=== PATIENT | male | born 1960 | race Caucasian/White ===

== ENCOUNTER 2019-12-10 18:56 | Emergency (ER) | payer MEDICAID, OTHER, SELFPAY ==
[~2019-12-10] VITALS: Ht 175.3 cm; Wt 100.0 kg
[2019-12-10] MEDS ORDERED: OMEP-218 PO (19:20)
[2019-12-10] MEDS ORDERED: MELO15TA28 PO (19:20)
[2019-12-10] MEDS ORDERED: NS 1,000 ML IV ONE (19:30)
[2019-12-10 19:44] LABS: BASO % 0.4 % (0.0-1.0); EOS # 0.5 10^3/uL (0.0-0.5); EOS % 5.8 % (0.0-3.0); HEMATOCRIT 44.9 % (42.0-52.0); LYMPH # 2.8 10^3/uL (1.5-5.0); LYMPH % 31.8 % (24.0-44.0); MEAN CORPUSCULAR HEMOGLOBIN 31.3 pg (27.0-33.0); MEAN CORPUSCULAR HGB CONC 33.4 g/dl (32.0-36.5); MEAN CORPUSCULAR VOLUME 93.5 fl (80.0-96.0); MONO # 0.7 10^3/uL (0.0-0.8); MONO % 7.7 % (0.0-5.0); NEUTROPHILS # 4.8 10^3/uL (1.5-8.5); NEUTROPHILS % 54.1 % (36.0-66.0); PLATELET COUNT, AUTOMATED 194 10^3/uL (150-450); WHITE BLOOD COUNT 8.9 10^3/uL (4.0-10.0)
[2019-12-10 19:57] LABS: ACETAMINOPHEN LEVEL < 2.0 UG/ML (10.0-30.0); ALBUMIN 3.5 GM/DL (3.2-5.2); ALT/SGPT 23 U/L (12-78); BILIRUBIN,DIRECT < 0.1 MG/DL (0.0-0.2); BILIRUBIN,TOTAL 0.3 MG/DL (0.2-1.0); BLOOD UREA NITROGEN 16 MG/DL (7-18); CALCIUM LEVEL 8.5 MG/DL (8.5-10.1); CARBON DIOXIDE LEVEL 25 MEQ/L (21-32); CHLORIDE LEVEL 113 MEQ/L (98-107); CK-MB VALUE MASS 7.6 NG/ML (<3.6); CPK CREATINE PHOSPHOKINASE 237 U/L (39-308); CREATININE FOR GFR 0.82 MG/DL (0.70-1.30); ETHYL ALCOHOL (ETHANOL) 0.003 % (0.000-0.010); GLOMERULAR FILTRATION RATE > 60.0 (>56); GLUCOSE, FASTING 84 MG/DL (70-100); MB/CK RELATIVE INDEX 3.21 (< OR =4); POTASSIUM SERUM 4.3 MEQ/L (3.5-5.1); SALICYLATE LEVEL 4.2 MG/DL (5.0-30.0); SODIUM LEVEL 145 MEQ/L (136-145); TOTAL PROTEIN 6.5 GM/DL (6.4-8.2); TROPONIN I 0.02 NG/ML (< 0.10)
[2019-12-10 20:00] LABS: AMPHETAMINES LEVEL URINE NEGATIVE (NEGATIVE); BARBITURATES URINE NEGATIVE (NEGATIVE); BENZODIAZEPINES URINE NEGATIVE (NEGATIVE); CANNABINOIDS URINE NEGATIVE (NEGATIVE); COCAINE METABOLITE URINE NEGATIVE (NEGATIVE); METHADONE URINE NEGATIVE (NEGATIVE); OPIATES URINE NEGATIVE (NEGATIVE); PHENCYCLIDINE URINE NEGATIVE (NEGATIVE)
--- NOTE | 2019-12-10 20:13 | REPVR ---
PROCEDURE INFORMATION: Exam: CT Head Without Contrast Exam date and time: 12/10/2019 8:04 PM Age: 56 years old Clinical indication: Altered mental status/memory loss; Confusion or disorientation TECHNIQUE: Imaging protocol: Computed tomography of the head without contrast. Axial and coronal reformatted images were created and reviewed. Radiation optimization: All CT scans at this facility use at least one of these dose optimization techniques: automated exposure control; mA and/or kV adjustment per patient size (includes targeted exams where dose is matched to clinical indication); or iterative reconstruction. COMPARISON: No relevant prior studies available. FINDINGS: Brain: No CT evidence of acute intracranial hemorrhage or acute territorial infarction. No significant mass effect or midline shift. Basal cisterns patent. Ventricles: Normal in size and configuration. Bones/joints: No acute osseous abnormality. Sinuses: Partial opacification of the ethmoid air cells. Mastoid air cells: Minimal opacification of the left inferior mastoid air cells. Soft tissues: Grossly unremarkable. IMPRESSION: 1. No CT evidence of acute intracranial pathology. 2. Additional findings, as above. Electronically signed by: Jun De Oliveira On 12/10/2019 20:13:03 PM
--- NOTE | 2019-12-10 20:32 | REP ---
Clinical: Altered mental status . Comparison: None . Findings: The mediastinum and cardiac silhouette are stable and within normal limits for portable technique. The lung braga demonstrate chronic-appearing interstitial changes without acute consolidation, effusion, or pneumothorax. Skeletal structures are intact. Impression: Chronic-appearing interstitial changes. No focal consolidation or effusion. Electronically Signed by Toni Hunt MD 12/10/2019 08:24 P
[2019-12-10 21:00] VITALS: BP 151/86
[2019-12-10] MEDS ORDERED: DIVALPROEX 250 MG TAB PO ONE (21:00)
[2019-12-10] MEDS ORDERED: DEPA250T32 PO (21:01)
--- NOTE | 2019-12-11 09:04 | ECGEPIP ---
[facility] - ED Test Date: 2019-12-10 Pat Name: ROBERT OTOOLE Department: Room: - Gender: Male Rn Transfer: bell : 1960 Requested By: DENISE Diaz Order Number: [id number] Reading MD: Yael Dietrich Measurements Intervals Orange Rate: 84 P: 51 TN: 228 QRS: 75 QRSD: 102 T: 43 QT: 348 QTc: 414 Interpretive Statements SINUS RHYTHM WITH FIRST DEGREE AV BLOCK No prior Electronically Signed on 12-11-2019 9:04:22 EDT by Yael Dietrich
== END 2019-12-10 21:34 | disposition home or self-care (01) ==
LOC: EDBD 18:56 → M ED 18:56
DX: R56.9 Unspecified convulsions (principal); F17.210 Nicotine dependence, cigarettes, uncomplicated; Z79.899 Other long term (current) drug therapy
CPT/HCPCS: 70450; 71045; 80047; 80048; 80076; 80307; 82550; 82553; 83605; 84443; 85025; 93005; 93041; 94760; 96360; 99285; G0480

== ENCOUNTER 2020-01-29 11:03 | Emergency (ER) | payer OTHER ==
[~2020-01-29 11:03] MED LIST: DEPA250T32 PO; MELO15TA28 PO; OMEP-218 PO
[2020-01-29] MEDS ORDERED: ACETAMINOPHEN 500 MG TAB ONE (11:36)
[2020-01-29] MEDS ORDERED: ACETAMINOPHEN 500 MG TAB As Ordered ONE (11:36)
[2020-01-29] MEDS ORDERED: DIVALPROEX 250 MG TAB ONE (11:36)
[2020-01-29] MEDS ORDERED: DIVALPROEX 250 MG TAB As Ordered ONE (13:56)
[2020-04-21 16:16] LABS: ALBUMIN 3.4 GM/DL (3.2-5.2); ALT/SGPT 22 U/L (12-78); BILIRUBIN,TOTAL 0.4 MG/DL (0.2-1.0); BLOOD UREA NITROGEN 18 MG/DL (7-18); CALCIUM LEVEL 8.6 MG/DL (8.5-10.1); CARBON DIOXIDE LEVEL 29 MEQ/L (21-32); CHLORIDE LEVEL 109 MEQ/L (98-107); CREATININE FOR GFR 0.82 MG/DL (0.70-1.30); GLOMERULAR FILTRATION RATE > 60.0 (>56); GLUCOSE, FASTING 99 MG/DL (70-100); POTASSIUM SERUM 4.3 MEQ/L (3.5-5.1); SODIUM LEVEL 141 MEQ/L (136-145); TOTAL PROTEIN 6.4 GM/DL (6.4-8.2); VALPROIC ACID (DEPAKOTE) 73.2 UG/ML (50.0-100.0)
== END 2020-01-29 14:04 | disposition home or self-care (01) ==
LOC: M ED 11:03
DX: G40.909 Epilepsy, unspecified, not intractable, without status epilepticus (principal); W19.XXXA Unspecified fall, initial encounter; Y92.89 Other specified places as the place of occurrence of the external cause; Y93.9 Activity, unspecified; Y99.9 Unspecified external cause status; Z79.899 Other long term (current) drug therapy

== ENCOUNTER 2021-03-29 12:58 | Inpatient (IN) | payer OTHER ==
[~2021-03-29] VITALS: Ht 182.9 cm; Wt 86.4 kg
[2021-03-29] MEDS ORDERED: NALOXONE 2MG/2ML SYRINGE (J2310 PER 1MG) As Ordered ONE ×2 (13:05→13:08)
--- OUTSIDE RECORDS SUMMARY | 2021-03-29 13:21 | CCD | Continuity of Care Document ---
Author Author Abdelrahman NOLAN Organization Unknown Address [address] [place] [address] Phone [phone] Care Team Providers Care Him Tech Name Role Phone Gely Nolan AUTM [phone] Problems Active Problems Provider Date Pure hypercholesterolemia TEODORA Forman PNP Onset: 07/2019 Gastroesophageal reflux disease TEODORA Forman PNP Onse t: 02/14/2020 Taking medication TEODORA Forman PNP Onset: 0 Anemia TEODORA Forman PNP Onset: 0 Contact dermatitis due to plants, except food KAREN Forman, PNP Onset: 02/14/2020 Localized, primary osteoarthritis of the ankle and/or foot TEODORA Forman PNP Onset: 02/14/2020 Severe intellectual disability TEODORA Forman, DEYVI Onset : 02/14/2020 Chronic superficial gastritis without bleeding [facility] Onset: 02/14/2020 Family history of diabetes mellitus [facility] Onset: 02/14/2020 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 HEIDI Forman PNP Onset: 02/14/2020 Difficulty breathing TEODORA Forman, DEYVI Onset: 02/14/20 20 Infestation by Sarcoptes scabiei carlos hominis TONY Forman PNP Onset: 02/14/2020 Social History Type Date Description Comments Sex Unknown Tobacco Use Start: Unknown Current Cigarette Smoker 1 Pack Daily Tobacco Use Start: Unknown Never Smoked Cigars Tobacco Use Start: Unknown Never Smoked A Pipe Tobacco Use Start: Unknown Never Used Smokeless Tobacco ETOH Use Denies alcohol use Recreational Drug Use Denies Drug Use Tobacco Use Start: Unknown Patient is a current smoker, smo kes every day Allergies, Adverse Reactions, Alerts Description No Known Drug Allergies Medications Active Medications SIG Qnty Indications Ordering Provide r Date Clotrimazole 1% Cream apply to rash on arms two times a day 60units L23.7 Bayron Lang MD 020 Meloxicam 15mg Tablets take one tablet by mouth every day 30tabs Bayron Lang MD 07/18/[address] take one capsule by mouth every day 30caps Bayron Lang MD 0 07/18/2018 Divalproex Sodium 500mg Tablets DR Take One Tablet By Mouth Every Morning Take Two Tablets By Mouth AT Bedtime 90tabs Unknown Immunizations Description No Information Available Vital Signs Date Vital Result Comment 03/14/2021 2:13pm BP Systolic 130 mmHg BP Diastolic 76 mmHg Heart Rate 64 /min Body Temperature 96.4 F Respiratory Rate 16 /min O2 % BldC Oximetry 98 % Weight 192.38 lb Weight 87.261 kg Height 72 inches 6'0" BMI (Body Mass Index) 26.1 kg/m2 BSA (Body Surface Area) 2.10 m2 12/10/2020 9:25am BP Systolic 134 mmHg BP Diastolic 70 mmHg Heart Rate 74 /min Body Temperature 96.4 F Respiratory Rate 16 /min O2 % BldC Oximetry 96 % Weight 195.12 lb Weight 88.509 kg Height 72 inches 6'0" BMI (Body Mass Index) 26.5 kg/m2 BSA (Body Surface Area) 2.11 m2 Results Test Acquired Date Facility Test Result H/L Range Note CBC W/Automated Diff 03/11/2021 [facility] CBC W/Automated Diff (SEE NOTE) 1, 2 WBC 6.9 10^3/uL 4.2 - 11.0 RBC 4.93 10^6/uL 4.50 - 6.30 Hemoglobin 16.0 g/dL 14.0 - 16.0 Hematocrit 47.6 % 41.0 - 51.0 MCV 96.6 fL High 80.0 - 94.0 MCH 32.5 pg 27.0 - 34.0 MCHC 33.6 g/dL 31.0 - 36.0 RDW 13.7 % 11.5 - 14.8 Platelets 189 10^3/uL 150 - 450 MPV 12.0 fL High 7.4 - 10.4 Neut 48.7 % 37.0 - 80.0 Lymph 35.8 % 25.0 - 40.0 [place] 9.6 % High 3.0 - 8.0 Eos 5.1 % 0.0 - 7.0 Baso 0.7 % 0.0 - 2.0 %Ig 0.1 % High 0.0 - 0.0 %NRBC 0.0 % 0.0 - 0.0 #Neut 3.36 10^3/uL 2.00 - 6.90 #Lymph 2.47 10^3/uL 0.60 - 3.40 #[place] 0.66 10^3/uL 0.00 - 0.90 #Eos 0.35 10^3/uL 0.00 - 0.70 #Baso 0.05 10^3/uL 0.00 - 0.20 #Ig 0.01 10^3/uL 0.00 - 0.10 #NRBC 0.00 10^3/uL 0.00 - 0.00 Manual Diff NOT INDICATED RBC Morph NOT INDICATED Comprehensive Metabolic Panel 03/11/2021 [facility] Comprehensive Metabo (SEE NOTE) 3 Sodium 142 mEq/L 134 - 153 Potassium 4.4 mEq/L 3.6 - 5.0 Chloride 105 mEq/L 98 - 107 Co2 28 mEq/L 22 - 30 Glucose 99 mg/dL 70 - 99 BUN 20 mg/dL 7 - 21 Creatinine 0.8 mg/dL 0.7 - 1.5 BUN/Creat 25 8 - 27 Total Protein 6.9 g/dL 6.3 - 8.2 Albumin 4.5 g/dL 3.9 - 5.0 Globulin 2.4 GM/DL 2.4 - 3.2 A/G Ratio 1.9 0.8 - 2.0 Calcium 9.8 mg/dL 8.4 - 10.2 Total Bili <0.7 mg/dL 0.2 - 1.3 Alkaline Phos 78 U/L 38 - 126 Sgot/Ast 17 U/L 5 - 40 SGPT/Alt 17 U/L 7 - 56 Anion Gap 9.0 mmol/L 8.0 - 16.0 Age 60 yrs Non-Aa GFR >60 mL/min Afr Amer GFR >60 mL/min 4 Laboratory test finding 03/11/2021 [facility] Hgba1c 5.4 % 4.4 - 6.1 TSH Highly Sensitive 2.10 uIU/mL 0.47 - 5.01 Cve Panel 03/11/2021 [facility] Cve Panel (SEE NOTE) 5 Cholesterol 156 mg/dL 131 - 200 Triglycerides 42 mg/dL 35 - 160 HDL 59 mg/dL 29 - 86 LDL 86 mg/dL 65 - 175 Risk Factor 2.6 Low 3.4 - 4.9 LDL/HDL 1.46 1.00 - 3.55 6 Laboratory test finding 03/11/2021 [facility] l Valproic Acid (Depakene) 66 ug/mL 50-100 7 Xray 12/10/2020 [facility] nter ( )- - Chest Xray 2 Views <pending> CBC W/Automated Diff 12/03/2020 [facility] CBC W/Automated Diff (SEE NOTE) 8, 9 WBC 8.7 10^3/uL 4.2 - 11.0 RBC 4.93 10^6/uL 4.50 - 6.30 Hemoglobin 16.1 g/dL High 14.0 - 16.0 Hematocrit 47.4 % 41.0 - 51.0 MCV 96.1 fL High 80.0 - 94.0 MCH 32.7 pg 27.0 - 34.0 MCHC 34.0 g/dL 31.0 - 36.0 RDW 14.1 % 11.5 - 14.8 Platelets 179 10^3/uL 150 - 450 MPV 11.8 fL High 7.4 - 10.4 Neut 52.0 % 37.0 - 80.0 Lymph 29.9 % 25.0 - 40.0 [place] 9.6 % High 3.0 - 8.0 Eos 7.7 % High 0.0 - 7.0 Baso 0.6 % 0.0 - 2.0 %Ig 0.2 % High 0.0 - 0.0 %NRBC 0.0 % 0.0 - 0.0 #Neut 4.53 10^3/uL 2.00 - 6.90 #Lymph 2.61 10^3/uL 0.60 - 3.40 #[place] 0.84 10^3/uL 0.00 - 0.90 #Eos 0.67 10^3/uL 0.00 - 0.70 #Baso 0.05 10^3/uL 0.00 - 0.20 #Ig 0.02 10^3/uL 0.00 - 0.10 #NRBC 0.00 10^3/uL 0.00 - 0.00 Manual Diff NOT INDICATED RBC Morph NOT INDICATED Comprehensive Metabolic Panel 12/03/2020 [facility] Comprehensive Metabo (SEE NOTE) 10 Sodium 141 mEq/L 134 - 153 Potassium 5.1 mEq/L High 3.6 - 5.0 Chloride 107 mEq/L 98 - 107 Co2 27 mEq/L 22 - 30 Glucose 113 mg/dL High 70 - 99 BUN 23 mg/dL High 7 - 21 Creatinine 0.7 mg/dL 0.7 - 1.5 BUN/Creat 33 High 8 - 27 Total Protein 6.7 g/dL 6.3 - 8.2 Albumin 4.3 g/dL 3.9 - 5.0 Globulin 2.4 GM/DL 2.4 - 3.2 A/G Ratio 1.8 0.8 - 2.0 Calcium 9.5 mg/dL 8.4 - 10.2 Total Bili <0.7 mg/dL 0.2 - 1.3 Alkaline Phos 71 U/L 38 - 126 Sgot/Ast 26 U/L 5 - 40 SGPT/Alt 38 U/L 7 - 56 Anion Gap 7.0 mmol/L Low 8.0 - 16.0 Age 60 yrs Non-Aa GFR >60 mL/min Afr Amer GFR >60 mL/min 11 Laboratory test finding 12/03/2020 [facility] Hgba1c 5.6 % 4.4 - 6.1 12 TSH Highly Sensitive 1.94 uIU/mL 0.47 - 5.01 Cve Panel 12/03/2020 [facility] Cve Panel (SEE NOTE) 13 Cholesterol 158 mg/dL 131 - 200 Triglycerides 51 mg/dL 35 - 160 HDL 57 mg/dL 29 - 86 LDL 93 mg/dL 65 - 175 Risk Factor 2.8 Low 3.4 - 4.9 LDL/HDL 1.63 1.00 - 3.55 14 Laboratory test finding 12/03/2020 [facility] Valproic Acid (Depakene) 84 ug/mL 50-100 15 PSA - Diagnostic 0.46 ng/mL 0.00 - 4.00 16 1 Is patient fasting? Y 2 COMPLETE BLOOD COUNT 3 COMPREHENSIVE METABOLIC PANE L 4 Male GFR Interprentation 20-49 yrs >60 mL/min Normal 50-59 yrs >56 mL/min Normal 60-69 yrs >49 mL/min Normal 70-79yrs >42 mL/min Normal 80 and above >35 mL/min Normal Female GFR Interpretation 20-39 yrs >60 mL/min Normal 40-49 yrs >58 mL/min Normal 50-59 yrs >51 mL/min Normal 60-69 yrs >45 mL/min Normal 70-79 yrs >39 mL/min Normal 80 and above >32 mL/min Normal 5 LIPID PANEL 6 CVE RISK CHOL/HDL LDL/HDL MEN: 1/2 AVERAGE 3.43 1.00 AVERAGE 4.97 3.55 2X AVERAGE 9.55 6.25 3X AVERAGE 23.99 7.99 WOMEN: 1/2 AVERAGE 3.27 1.47 AVERAGE 4.44 3.22 2X AVERAGE 7.05 5.03 3X AVERAGE 11.04 6.14 7 Detection Limit = 4 <4 indicates None Detected Toxicity may occur at levels of 100-500. Measurements of free unbound valproic acid may improve the assess- ment of clinical response. 8 Is patient fasting? N 9 COMPLETE BLOOD COUNT 10 COMPREHENSIVE METABOLIC PANE L 11 Male GFR Interprentation 20-49 yrs >60 mL/min Normal 50-59 yrs >56 mL/min Normal 60-69 yrs >49 mL/min Normal 70-79yrs >42 mL/min Normal 80 and above >35 mL/min Normal Female GFR Interpretation 20-39 yrs >60 mL/min Normal 40-49 yrs >58 mL/min Normal 50-59 yrs >51 mL/min Normal 60-69 yrs >45 mL/min Normal 70-79 yrs >39 mL/min Normal 80 and above >32 mL/min Normal 12 {A1] {HB] 13 LIPID PANEL 14 CVE RISK CHOL/HDL LDL/HDL MEN: 1/2 AVERAGE 3.43 1.00 AVERAGE 4.97 3.55 2X AVERAGE 9.55 6.25 3X AVERAGE 23.99 7.99 WOMEN: 1/2 AVERAGE 3.27 1.47 AVERAGE 4.44 3.22 2X AVERAGE 7.05 5.03 3X AVERAGE 11.04 6.14 15 Detection Limit = 4 <4 indicates None Detected Toxicity may occur at levels of 100-500. Measurements of free unbound valproic acid may improve the assess- ment of clinical response. 16 \\BLDo\\PSA INTERPRETATION\\BLD x\\ The PSA assay should not be used alone for a screening test or diagnosis for presence or absence of malignant disease. Predictions of disease recurrence should not be based solely on values obtained from serial patient serum values. The PSA result was determined by "[employer]", on the [employer] ESTHER 6000. Values obtained with different assay methods or kits cannot be used interchangeably. Procedures Date Code Description Status 12/10/2020 81708 Office/Outpatient Established Mo d MDM 30-39 Min Completed Medical Devices Description No Information Available Encounters Description No Information Available Assessments Date Code Description Provider 03/14/2021 E78.00 Pure hypercholesterolemia, unspe cified Gely Nevills, [facility] 03/14/2021 K29.30 Chronic superficial gastritis wi thout bleeding Gely Nevills, [facility] 03/14/2021 Z83.3 Family history of diabetes corbin payans Gely Nevills, [facility] 03/14/2021 D64.9 Anemia, unspecified Gely Nevill s, [facility] 03/14/2021 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, not intractable, without status epilepticus Gely Nevills, [facility] 03/14/2021 R73.03 Prediabetes Gely Nevills, F [employer] 03/14/2021 K21.9 Gastro-esophageal reflux disease without esophagitis Gely Nevills, [facility] 03/14/2021 Z79.899 [place] [facility] [place] Gely Nevills, [facility] 03/11/2021 Z79.899 [place] [facility] [place] drug t [place]rapy [facility] 03/11/2021 E78.00 Pure hypercholesterolemia, [facility]pe [facility] 03/11/2021 K29.30 Chronic superficial gastritis wi thout bleeding [facility] 03/11/2021 Z83.3 Family history of diabetes amani s [facility] 03/11/2021 D64.9 Anemia, unspecified [facility] 03/11/2021 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, not intractable, without status epilepticus [facility] 12/10/2020 E78.00 Pure hypercholesterolemia, unspe cified Gely Nevills, [facility] 12/10/2020 K29.30 Chronic superficial gastritis wi thout bleeding Gely Nevills, [employer] 12/10/2020 D64.9 Anemia, unspecified Gely Nevill s, [employer] 12/10/2020 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, not intractable, without status epilepticus Gely Nevills, [facility] 12/10/2020 R73.03 Prediabetes Gely Nevills, F [employer]CH[employer]IC HEL[employer] 12/10/2020 Z79.899 Other manager long term care (current) drug t herapy Gely Nevills, [facility] 12/10/2020 Z12.11 Encounter for screening for laura gnant neoplasm of colon Gely Nevills, [facility] 12/10/2020 F17.200 Nicotine dependence, unspecified , uncomplicated Gely Nevills, [facility] 12/10/2020 Z83.3 Family history of diabetes amani oras Gely Nevills, [facility] 12/03/2020 Z79.899 Other manager long term care (current) drug t herapy [facility] 12/03/2020 E78.00 Pure hypercholesterolemia, unspe cified [facility] 12/03/2020 K29.30 Chronic superficial gastritis wi thout bleeding [facility] 12/03/2020 Z83.3 Family history of diabetes [facility] 12/03/2020 D64.9 Anemia, unspecified [facility] 12/03/2020 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, not intractable, without status epilepticus [facility] 12/03/2020 Z00.01 Encounter for genera l adult medical examination with abnormal findings [facility] Plan of Treatment Future Appointment(s):* 06/10/2021 1:15 pm - [facility] at [facility] * 06/16/2021 2:40 pm - Gely Nolan [employer] MA[employer]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 * K29.30 Chronic superficial gastritis without bleeding* New Labs:* CBC W/Automated Diff, Scheduled: 06/02/21 * Comprehensive Metabolic Panel, Scheduled: 06/02/21 * Z83.3 Family history of diabetes mellitus* New Labs:* Hgba1c, Scheduled: 06/02/21 * TSH Highly Sensitive, Scheduled: 06/02/21 * D64.9 Anemia, unspecified* New Labs:* Cve Panel, Scheduled: 06/02/21 * G40.409 Other generalized epilepsy and epileptic syndromes, not intractable, without status epilepticus* New Labs:* Valproic Acid (Depakene), Scheduled: 06/02/21 * R73.03 Prediabetes * K21.9 Gastro-esophageal reflux disease without esophagitis * Z79.899 [place] [facility] [place] [place]* New Labs:* CBC W/Automated Diff, Scheduled: 06/02/21 * Comprehensive Metabolic Panel, Scheduled: 06/02/21 * Hgba1c, Scheduled: 06/02/21 * TSH Highly Sensitive, Scheduled: 06/02/21 * Cve Panel, Scheduled: 06/02/21 * Valproic Acid (Depakene), Scheduled: 06/02/21 * Follow up:* FU in 3 months, fasting labs a week prior. Functional Status Description No Information Available Mental Status Description No Information Available Referrals Description No Information Available
--- OUTSIDE RECORDS SUMMARY | 2021-03-29 13:21 | CCD | Continuity of Care Document ---
Author Author Abdelrahman PATINO M.D. Organization Unknown Address [address] [place] [id number] Phone [phone] Care Team Providers Care Production Wood Craftsman Name Role Phone Gely Nolan N.P. AUTM [phone] Problems Active Problems Provider Date Generalized convulsive epilepsy Vera Patino M.D. Onset: 0 12/13/2019 Chronic tension-type headache Vera Patino M.D. Onset: 06/2019 Migraine without aura, not refractory Vera Patino M.D. On set: 12/13/2019 Other seizures Vera Patino M.D. Onset: 12/13/2019 Syncope and collapse Vera Patino M.D. Onset: 04/02/2020 Social History Type Date Description Comments Sex Unknown Tobacco Use Start: Unknown Heavy tobacco smoker (more than 10 cigarettes/day) Allergies, Adverse Reactions, Alerts Active Allergies Criticality Reaction | Severity Comments Date Phenobarbital Unable to assess criticality 12/13/2019 [place] Unable to assess criticality 04/02/2020 Medications Active Medications SIG Qnty Indications Ordering Provide r Date Divalproex Sodium 500mg Tablets DR take one tablet by mouth every morning take two tablets by mouth at bedtime 90tabs Vera Patino M.D. 01/19/2020 Immunizations Description No Information Available Vital Signs Date Vital Result Comment 12/13/2019 8:30am BP Systolic 115 mmHg BP Diastolic 75 mmHg Heart Rate 80 /min Respiratory Rate 14 /min Height 71 inches 5'11" Weight 220.00 lb BMI (Body Mass Index) 30.7 kg/m2 [place] Body Weight 172 lb Results Description No Information Available Procedures Date Code Description Status 03/06/2021 88665 Office/Outpatient Established Mo d MDM 30-39 Min Completed 12/10/2020 90456 Office/Outpatient Established Mo d MDM 30-39 Min Completed Medical Devices Description No Information Available Encounters Type Date Location Provider Dx Diagnosis Office Visit 03/06/2021 11:30a [facility] Roya Adams G40.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, not intractable, w/o stat epi G43.009 Migraine w/o aura, not intra ctable, w/o status migrainosus G44.229 Chronic tension-type headach e, not intractable Office Visit 12/10/2020 10:30a [facility] Roya Adams G40.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 03/06/2021 G43.009 Migraine without aur a, not intractable, without status migrainosus Vera Patino M.D. 03/06/2021 G44.229 Chronic tension-type headache, n ot intractable Vera Patino M.D. 12/10/2020 G40.309 Generalized idiopath ic epilepsy and epileptic syndromes, not intractable, without status epilepticus Vera Patino M.D. 12/10/2020 G43.009 Migraine without aur a, not intractable, without status migrainosus Vera Patino M.D. 12/10/2020 G44.229 Chronic tension-type headache, n ot intractable Vera Patino M.D. 12/10/2020 R55 Syncope and collapse Vera Patino M.D. Plan of Treatment Future Appointment(s):* 08/28/2021 12:00 pm - Vera Patino M.D. at [facility] Functional Status Description No Information Available Mental Status Description No Information Available Referrals Description No Information Available
--- OUTSIDE RECORDS SUMMARY | 2021-03-29 13:21 | CCD | Continuity of Care Document ---
Author Author [facility], [employer] [facility] Unknown Address [address] [place] [address] Phone [phone] Care Team Providers Care Talk Show Host Name Role Phone Gely Nolan AUTM [phone] Problems Active Problems Provider Date Pure hypercholesterolemia TEODORA Forman, PNP Onset: 07/2019 Gastroesophageal reflux disease TEODORA Forman, PNP Onse t: 02/14/2020 Taking medication TEODORA Forman PNP Onset: 0 Anemia TEODORA Forman, PNP Onset: 0 Contact dermatitis due to plants, except food KAREN Forman, PNP Onset: 02/14/2020 Localized, primary osteoarthritis of the ankle and/or foot TEODORA Forman, DEYVI Onset: 02/14/2020 Severe intellectual disability TEODORA Forman, PNP Onset : 02/14/2020 Chronic superficial gastritis without bleeding [facility] Onset: 02/14/2020 Family history of diabetes mellitus [facility] Onset: 02/14/2020 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 HEIDI Forman, PNP Onset: 02/14/2020 Difficulty breathing TEODORA Forman, PNP Onset: 02/14/20 20 Infestation by Sarcoptes scabiei carlos hominis TONY Forman, PNP Onset: 02/14/2020 Social History Type Date [...] Ordering Provide r Date Clotrimazole 1% Cream Apply To Rash On Arms Two Times A Day 60units L23.7 Bayron Lang MD 020 Meloxicam 15mg Tablets Take One Tablet By Mouth Every Day 30tabs Bayron Lang MD 07/18/[address] take one capsule by mouth every day 30caps Bayron Lang MD 0 07/18/2018 Divalproex Sodium 500mg Tablets DR Take One Tablet By Mouth Every Morning Take Two Tablets By Mouth AT Bedtime 90tabs Unknown Immunizations Description No Information Available Vital Signs Date Vital Result Comment 12/10/2020 9:25am BP Systolic 134 mmHg BP Diastolic 70 mmHg Heart Rate 74 /min Body Temperature 96.4 F Respiratory Rate 16 /min O2 % BldC Oximetry 96 % Weight 195.12 lb Weight 88.509 kg Height 72 inches 6'0" BMI (Body Mass Index) 26.5 kg/m2 BSA (Body Surface Area) 2.11 m2 09/09/2020 10:06am BP Systolic 130 mmHg BP Diastolic 74 mmHg Heart Rate 76 /min Body Temperature 97.7 F Respiratory Rate 18 /min O2 % BldC Oximetry 96 % Weight 188.50 lb Weight 85.504 kg Height 72 inches 6'0" BMI (Body Mass Index) 25.6 kg/m2 BSA (Body Surface Area) 2.08 m2 Results Test Acquired Date Facility Test Result H/L Range Note Laboratory test finding 03/11/2021 [facility] l Hgba1c <pending> TSH Highly Sensitive <pending> Laboratory test finding 03/11/2021 [facility] Valproic Acid (Depakene) <pending> Xray 12/10/2020 [facility] nter ( )- - Chest Xray 2 Views <pending> CBC W/Automated Diff 12/03/2020 [facility] CBC W/Automated Diff (SEE NOTE) 1, 2 WBC 8.7 10^3/uL 4.2 - 11.0 RBC [...] 80.0 Lymph 29.9 % 25.0 - 40.0 [place] 9.6 % High 3.0 - 8.0 Eos 7.7 % High 0.0 - 7.0 Baso 0.6 % 0.0 - 2.0 %Ig 0.2 % High 0.0 - 0.0 %NRBC 0.0 % 0.0 - 0.0 #Neut 4.53 10^3/uL 2.00 - 6.90 #Lymph 2.61 10^3/uL 0.60 - 3.40 #[place] 0.84 10^3/uL 0.00 - 0.90 #Eos 0.67 10^3/uL 0.00 - 0.70 #Baso 0.05 10^3/uL 0.00 - 0.20 #Ig 0.02 10^3/uL 0.00 - 0.10 #NRBC 0.00 10^3/uL 0.00 - 0.00 Manual Diff NOT INDICATED RBC Morph NOT INDICATED Comprehensive Metabolic Panel 12/03/2020 [facility] Comprehensive Metabo (SEE NOTE) 3 Sodium 141 mEq/L 134 - 153 Potassium [...] GFR >60 mL/min 4 Laboratory test finding 12/03/2020 [facility] Hgba1c 5.6 % 4.4 - 6.1 5 TSH Highly Sensitive 1.94 uIU/mL 0.47 - 5.01 Cve Panel 12/03/2020 [facility] Cve Panel (SEE NOTE) 6 Cholesterol 158 mg/dL 131 - 200 Triglycerides 51 mg/dL 35 - 160 HDL 57 mg/dL 29 - 86 LDL 93 mg/dL 65 - 175 Risk Factor 2.8 Low 3.4 - 4.9 LDL/HDL 1.63 1.00 - 3.55 7 Laboratory test finding 12/03/2020 [facility] Valproic Acid (Depakene) 84 ug/mL 50-100 8 PSA - Diagnostic 0.46 ng/mL 0.00 - 4.00 9 1 Is patient fasting? N 2 COMPLETE BLOOD COUNT 3 COMPREHENSIVE METABOLIC [...] 80 and above >32 mL/min Normal 5 {A1] {HB] 6 LIPID PANEL 7 CVE RISK CHOL/HDL LDL/HDL MEN: 1/2 AVERAGE 3.43 1.00 AVERAGE 4.97 3.55 2X AVERAGE 9.55 6.25 3X AVERAGE 23.99 7.99 WOMEN: 1/2 AVERAGE 3.27 1.47 AVERAGE 4.44 3.22 2X AVERAGE 7.05 5.03 3X AVERAGE 11.04 6.14 8 Detection Limit = 4 <4 indicates None Detected Toxicity may occur at levels of 100-500. Measurements of free unbound valproic acid may improve the assess- ment of clinical response. 9 \\BLDo\\PSA INTERPRETATION\\BLD x\\ The PSA assay should [...] interchangeably. Procedures Date Code Description Status 12/10/2020 58964 Office/Outpatient Established Mo d MDM 30-39 Min Completed 09/09/2020 93978 Office/Outpatient Established Mo d MDM 30-39 Min Completed 09/09/2020 54390 Brief Emotional/Beha v Assessment W/ Scoring Doc Per Standard Inst Completed Medical Devices Description No Information Available Encounters Description No Information Available Assessments Date Code Description Provider 03/11/2021 Z79.899 Other manager terminal (current) drug t herapy [facility] 03/11/2021 E78.00 Pure hypercholesterolemia, unspe cified [facility] 03/11/2021 K29.30 Chronic superficial gastritis wi thout bleeding [facility] 03/11/2021 Z83.3 Family history of diabetes melli tus [facility] 03/11/2021 D64.9 Anemia, unspecified [facility] 03/11/2021 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, not intractable, without status epilepticus [facility] 12/10/2020 E78.00 Pure hypercholesterolemia, unspe cified Gely Nevills, [facility] 12/10/2020 K29.30 Chronic superficial gastritis wi thout bleeding Gely Nevills, [facility] 12/10/2020 D64.9 Anemia, unspecified Gely Nevill s, [facility] 12/10/2020 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, not intractable, without status epilepticus Gely Nevills, [facility] 12/10/2020 R73.03 Prediabetes Gely Nevills, F [employer] BUIL[employer] 12/10/2020 Z79.899 Other manager terminal (current) drug t herapy Gely Nevills, [facility] 12/10/2020 Z12.11 Encounter for screening for laura gnant neoplasm of colon Gely Nevills, [facility] 12/10/2020 F17.200 Nicotine dependence, unspecified , uncomplicated Gely Nevills, [employer] 12/10/2020 Z83.3 Family history of diabetes corbin olivo Gely Nevills, [facility] 12/03/2020 Z79.899 Other manager terminal (current) drug t herapy [facility] 12/03/2020 E78.00 Pure hypercholesterolemia, unspe cified [facility]/03[facility]2020 K29.30 Chronic superficial gastritis wi thout bleeding [facility] 12/03/2020 Z83.3 Family history of diabetes amani oras [facility]/03[facility]2020 D64.9 Anemia, unspecified 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/03/2020 Z00.01 Encounter for genera l adult medical examination with abnormal findings [facility] 09/09/2020 Z00.01 Encounter for genera l adult medical examination with abnormal findings Gely Nevills, [facility] 09/09/2020 E78.00 Pure hypercholesterolemia, unspe cified Gely Nevills, [employer] 09/09/2020 K29.30 Chronic superficial gastritis wi thout bleeding Gely Nevills, [facility] 09/09/2020 Z83.3 Family history of diabetes corbin olivo Gely Nevills, [facility] 09/09/2020 D64.9 Anemia, unspecified Gely Nevill s, [facility] 09/09/2020 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 Sent 02/28/[address] [place] [address] [phone]
--- OUTSIDE RECORDS SUMMARY | 2021-03-29 13:21 | CCD | Continuity of Care Document ---
Author Author [facility], [employer] [facility] Unknown Address [address] [place] [address] Phone [phone] Care Team Providers Care Gas Engine Operator Compressors Name Role Phone Gely Nolan AUTM [phone] Problems Active Problems Provider Date Pure hypercholesterolemia [...] : 02/14/2020 Chronic superficial gastritis without bleeding [facility] Onset: 02/14/2020 Family history of diabetes mellitus [facility] Onset: 02/14/2020 Benign neoplasm of long [...] H/L Range Note CBC W/Automated Diff 03/11/2021 [facility] CBC W/Automated Diff (SEE NOTE) 1, 2 [...] 80.0 Lymph 35.8 % 25.0 - 40.0 [place] 9.6 % High 3.0 - 8.0 Eos 5.1 % 0.0 - 7.0 Baso 0.7 % 0.0 - 2.0 %Ig 0.1 % High 0.0 - 0.0 %NRBC 0.0 % 0.0 - 0.0 #Neut 3.36 10^3/uL 2.00 - 6.90 #Lymph 2.47 10^3/uL 0.60 - 3.40 #[place] 0.66 10^3/uL 0.00 - 0.90 #Eos 0.35 10^3/uL 0.00 - 0.70 #Baso 0.05 10^3/uL 0.00 - 0.20 #Ig 0.01 10^3/uL 0.00 - 0.10 #NRBC 0.00 10^3/uL 0.00 - 0.00 Manual Diff NOT INDICATED RBC Morph NOT INDICATED Comprehensive Metabolic Panel 03/11/2021 [facility] Comprehensive Metabo (SEE NOTE) 3 [...] >60 mL/min 4 Laboratory test finding 03/11/2021 [facility] Hgba1c 5.4 % 4.4 - 6.1 TSH Highly Sensitive 2.10 uIU/mL 0.47 - 5.01 Cve Panel 03/11/2021 [facility] Cve Panel (SEE NOTE) 5 Cholesterol 156 mg/dL 131 - 200 Triglycerides 42 mg/dL 35 - 160 HDL 59 mg/dL 29 - 86 LDL 86 mg/dL 65 - 175 Risk Factor 2.6 Low 3.4 - 4.9 LDL/HDL 1.46 1.00 - 3.55 6 Xray 12/10/2020 [facility] nter ( )- - Chest Xray 2 Views <pending> CBC W/Automated Diff 12/03/2020 [facility] CBC W/Automated Diff (SEE NOTE) 7, 8 WBC 8.7 10^3/uL 4.2 - 11.0 RBC [...] 80.0 Lymph 29.9 % 25.0 - 40.0 [place] 9.6 % High 3.0 - 8.0 Eos 7.7 % High 0.0 - 7.0 Baso 0.6 % 0.0 - 2.0 %Ig 0.2 % High 0.0 - 0.0 %NRBC 0.0 % 0.0 - 0.0 #Neut 4.53 10^3/uL 2.00 - 6.90 #Lymph 2.61 10^3/uL 0.60 - 3.40 #[place] 0.84 10^3/uL 0.00 - 0.90 #Eos 0.67 10^3/uL 0.00 - 0.70 #Baso 0.05 10^3/uL 0.00 - 0.20 #Ig 0.02 10^3/uL 0.00 - 0.10 #NRBC 0.00 10^3/uL 0.00 - 0.00 Manual Diff NOT INDICATED RBC Morph NOT INDICATED Comprehensive Metabolic Panel 12/03/2020 [facility] Comprehensive Metabo (SEE NOTE) 9 Sodium 141 mEq/L 134 - 153 Potassium [...] >60 mL/min Afr Amer GFR >60 mL/min 10 Laboratory test finding 12/03/2020 [facility] Hgba1c 5.6 % 4.4 - 6.1 11 TSH Highly Sensitive 1.94 uIU/mL 0.47 - 5.01 Cve Panel 12/03/2020 [facility] Cve Panel (SEE NOTE) 12 Cholesterol 158 mg/dL 131 - 200 Triglycerides 51 mg/dL 35 - 160 HDL 57 mg/dL 29 - 86 LDL 93 mg/dL 65 - 175 Risk Factor 2.8 Low 3.4 - 4.9 LDL/HDL 1.63 1.00 - 3.55 13 Laboratory test finding 12/03/2020 [facility] Valproic Acid (Depakene) 84 ug/mL 50-100 14 PSA - Diagnostic 0.46 ng/mL 0.00 - 4.00 15 1 Is patient fasting? Y 2 COMPLETE [...] 7.05 5.03 3X AVERAGE 11.04 6.14 7 Is patient fasting? N 8 COMPLETE BLOOD COUNT 9 COMPREHENSIVE METABOLIC PANE L 10 Male GFR Interprentation 20-49 yrs >60 mL/min Normal 50-59 yrs >56 mL/min Normal 60-69 yrs >49 mL/min Normal 70-79yrs >42 mL/min Normal 80 and above >35 mL/min Normal Female GFR Interpretation 20-39 yrs >60 mL/min Normal 40-49 yrs >58 mL/min Normal 50-59 yrs >51 mL/min Normal 60-69 yrs >45 mL/min Normal 70-79 yrs >39 mL/min Normal 80 and above >32 mL/min Normal 11 {A1] {HB] 12 LIPID PANEL 13 CVE RISK CHOL/HDL LDL/HDL MEN: 1/2 AVERAGE 3.43 1.00 AVERAGE 4.97 3.55 2X AVERAGE 9.55 6.25 3X AVERAGE 23.99 7.99 WOMEN: 1/2 AVERAGE 3.27 1.47 AVERAGE 4.44 3.22 2X AVERAGE 7.05 5.03 3X AVERAGE 11.04 6.14 14 Detection Limit = 4 <4 indicates None Detected Toxicity may occur at levels of 100-500. Measurements of free unbound valproic acid may improve the assess- ment of clinical response. 15 \\BLDo\\PSA INTERPRETATION\\BLD x\\ The PSA assay should not be used alone for a screening test or diagnosis for presence or absence of malignant disease. Predictions of disease recurrence should not be based solely on values obtained from serial patient serum values. The PSA result was determined by "[employer]", on the [employer] ESTHER 6000. Values obtained with different assay methods or kits cannot be used interchangeably. Procedures Date Code Description Status 12/10/2020 61105 Office/Outpatient Established Mo d MDM 30-39 Min Completed Medical Devices Description No Information Available Encounters Description No Information Available Assessments Date Code Description Provider 03/11/2021 Z79.899 Other joint terminal attack controller (current) drug t herapy [facility] 03/11/2021 E78.00 Pure hypercholesterolemia, [facility]pe [facility]ified [facility] K29.30 Chronic superficial gastritis wi out bleeding [facility] 03/11/2021 Z83.3 Family history of diabetes melli tus [facility] 03/11/2021 D64.9 Anemia, unspecified [facility]/11/2021 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 12/10/2020 K29.30 Chronic superficial gastritis wi thout bleeding Gely Nevills, [facility] 12/10/2020 D64.9 Anemia, unspecified Gely Nevill s, 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 12/10/2020 Z12.11 Encounter for screening for laura gnant neoplasm of colon Gely Nevills, [facility] 12/10/2020 F17.200 Nicotine dependence, unspecified , uncomplicated Gely Nevills, [facility] 12/10/2020 Z83.3 Family history of diabetes amani tus Gely Nevills, 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
--- OUTSIDE RECORDS SUMMARY | 2021-03-29 13:21 | CCD | Continuity of Care Document ---
Author Author [facility], [employer] [facility] Unknown Address [address] [place] [address] Phone [phone] Care Team Providers Care Interior Specialist Name Role Phone Gely Nolan AUTM [phone] Problems Active Problems Provider Date Pure hypercholesterolemia [...] : 02/14/2020 Chronic superficial gastritis without bleeding [facility] Onset: 02/14/2020 Family history of diabetes mellitus [facility] Onset: 02/14/2020 Benign neoplasm of [...] H/L Range Note CBC W/Automated Diff 03/11/2021 [facility] CBC W/Automated Diff (SEE NOTE) 1, [...] 80.0 Lymph 35.8 % 25.0 - 40.0 [place] 9.6 % High 3.0 - 8.0 Eos 5.1 % 0.0 - 7.0 Baso 0.7 % 0.0 - 2.0 %Ig 0.1 % High 0.0 - 0.0 %NRBC 0.0 % 0.0 - 0.0 #Neut 3.36 10^3/uL 2.00 - 6.90 #Lymph 2.47 10^3/uL 0.60 - 3.40 #[place] 0.66 10^3/uL 0.00 - 0.90 #Eos 0.35 10^3/uL 0.00 - 0.70 #Baso 0.05 10^3/uL 0.00 - 0.20 #Ig 0.01 10^3/uL 0.00 - 0.10 #NRBC 0.00 10^3/uL 0.00 - 0.00 Manual Diff NOT INDICATED RBC Morph NOT INDICATED Comprehensive Metabolic Panel 03/11/2021 [facility] Comprehensive Metabo (SEE NOTE) 3 [...] >60 mL/min 4 Laboratory test finding 03/11/2021 [facility] Hgba1c 5.4 % 4.4 - 6.1 TSH Highly Sensitive 2.10 uIU/mL 0.47 - 5.01 Cve Panel 03/11/2021 [facility] Cve Panel (SEE NOTE) 5 Cholesterol 156 mg/dL 131 - 200 Triglycerides 42 mg/dL 35 - 160 HDL 59 mg/dL 29 - 86 LDL 86 mg/dL 65 - 175 Risk Factor 2.6 Low 3.4 - 4.9 LDL/HDL 1.46 1.00 - 3.55 6 Laboratory test finding 03/11/2021 [facility] Valproic Acid (Depakene) 66 ug/mL 50-100 7 Xray 12/10/2020 [facility] nter ( )- - Chest Xray 2 Views <pending> CBC W/Automated Diff 12/03/2020 [facility] CBC W/Automated Diff (SEE NOTE) 8, 9 [...] 80.0 Lymph 29.9 % 25.0 - 40.0 [place] 9.6 % High 3.0 - 8.0 Eos 7.7 % High 0.0 - 7.0 Baso 0.6 % 0.0 - 2.0 %Ig 0.2 % High 0.0 - 0.0 %NRBC 0.0 % 0.0 - 0.0 #Neut 4.53 10^3/uL 2.00 - 6.90 #Lymph 2.61 10^3/uL 0.60 - 3.40 #[place] 0.84 10^3/uL 0.00 - 0.90 #Eos 0.67 10^3/uL 0.00 - 0.70 #Baso 0.05 10^3/uL 0.00 - 0.20 #Ig 0.02 10^3/uL 0.00 - 0.10 #NRBC 0.00 10^3/uL 0.00 - 0.00 Manual Diff NOT INDICATED RBC Morph NOT INDICATED Comprehensive Metabolic Panel 12/03/2020 [facility] Comprehensive Metabo (SEE NOTE) 10 Sodium [...] >60 mL/min 11 Laboratory test finding 12/03/2020 [facility] Hgba1c 5.6 % 4.4 - 6.1 12 TSH Highly Sensitive 1.94 uIU/mL 0.47 - 5.01 Cve Panel 12/03/2020 [facility] Cve Panel (SEE NOTE) 13 Cholesterol 158 mg/dL 131 - 200 Triglycerides 51 mg/dL 35 - 160 HDL 57 mg/dL 29 - 86 LDL 93 mg/dL 65 - 175 Risk Factor 2.8 Low 3.4 - 4.9 LDL/HDL 1.63 1.00 - 3.55 14 Laboratory test finding 12/03/2020 [facility] Valproic Acid (Depakene) 84 ug/mL 50-100 15 [...] interchangeably. Procedures Date Code Description Status 12/10/2020 49007 Office/Outpatient Established Mo d MDM 30-39 Min Completed Medical Devices Description No Information Available Encounters Description No Information Available Assessments Date Code Description Provider 03/11/2021 Z79.899 Other intermediate frame tender (current) drug t herapy [facility] 03/11/2021 E78.00 Pure hypercholesterolemia, unspe cified [facility] 03/11/2021 K29.30 Chronic superficial gastritis wi thout bleeding [facility] 03/11/2021 Z83.3 Family history of diabetes melli tus [facility] 03/11/2021 D64.9 Anemia, unspecified [facility] 03/11/2021 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, not intractable, without status epilepticus [facility] 12/10/2020 E78.00 Pure hypercholesterolemia, unspe cified Gely Nevills, [facility] 12/10/2020 K29.30 Chronic superficial gastritis wi thout bleeding Gely Nevills, [facility] 12/10/2020 D64.9 Anemia, unspecified Gely Nevill s, [facility] 12/10/2020 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, not intractable, without status epilepticus Gely Nevills, [facility] 12/10/2020 R73.03 Prediabetes Gely Nevills, 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 [employer]AT[employer]IC [employer]OLOGY 12/10/2020 Z79.899 Other mcc (current) drug t herapy Gely Nevills, [facility] 12/10/2020 Z12.11 Encounter for screening for laura gnant neoplasm of colon Gely Nevills, [facility] 12/10/2020 F17.200 Nicotine dependence, unspecified , uncomplicated Gely Nevills, [facility] 12/10/2020 Z83.3 Family history of diabetes melli tus Gely Nevills, [facility] 12/03/2020 Z79.899 Other mcc (current) drug t herapy [facility] 12/03/2020 E78.00 Pure hypercholesterolemia, unspe cified [facility] 12/03/2020 K29.30 Chronic superficial gastritis wi thout bleeding [facility] 12/03/2020 Z83.3 Family history of diabetes corbin olivo [facility] 12/03/2020 D64.9 [facility]emia, [facility] 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 We will continue to monitor. * Follow up:* FU in 3 months, fasting labs a week prior. * K29.30 Chronic superficial gastritis without bleeding* Comments:* Currently stable.To continue current medication and plan of care.We will continue to monitor. 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 He was advised to be compliant with his seizure med (Depakote) as directed.We will continue to monitor. * R73.03 Prediabetes* Comments:* Patient's fasting glucose is high at 113 with an A1c at 5.6. Patient will benefit from maintaining a diabetic diet and a regular exercise regimen. Discussed decrease in sugar intake;No sugared drinksDo not keep sugar out where it can be readily usedNo concentrated sweets or baked goodsChoose fruits or vegetable snacksIncrease water intake.We will continue to monitor. * Z79.899 Other [facility] (current) drug therapy* Comments:* Patient to continue to follow the current plan of care and to look for any new or worsening symptoms. We will continue to monitor through periodic blood work. * Follow up:* FU in 3 months, fasting labs a week prior. * Z12.11 Encounter for screening for malignant neoplasm of colon* Comments:* Colon cancer screening discussed, including colonoscopy and Cologuard. Patient elected to go ahead with Cologuard as a screening measure. Rx given for Cologuard. * F17.200 Nicotine dependence, unspecified, uncomplicated* Comments:* To have the chest x-ray done to evaluate further due to his smoking hx.Further plans to follow the diagnostic result.We will continue to monitor. * Follow up:* Patient and his Sister were advised to contact our office when Abdelrahman had the CXR done so that we could ensure the report was received and reviewed. * Z83.3 Family history of diabetes mellitus* Comments:* To have the routine labs done to evaluate further.Further plans to follow the lab results. His fasting glucose is at 113 with an A1c at 5.6.He will benefit from maintaining a diabetic diet and a regular exercise regimen. We will continue to monitor. Functional Status Description No Information Available Mental Status Description No Information Available Referrals Description No Information Available
--- OUTSIDE RECORDS SUMMARY | 2021-03-29 13:21 | CCD | Continuity of Care Document ---
Author Author Abdelrahman NOLAN Organization Unknown Address [address] [place] [address] Phone [phone] Care Team Providers Care Sweatband Drummer Name Role Phone Gely Nolan AUTM [phone] Problems Active Problems Provider Date Pure hypercholesterolemia [...] : 02/14/2020 Chronic superficial gastritis without bleeding [facility] Onset: 02/14/2020 Family history of diabetes mellitus [facility] Onset: 02/14/2020 Benign neoplasm of [...] H/L Range Note CBC W/Automated Diff 03/11/2021 [facility] CBC W/Automated Diff (SEE NOTE) 1, [...] 80.0 Lymph 35.8 % 25.0 - 40.0 Keith 9.6 % High 3.0 - 8.0 Eos 5.1 % 0.0 - 7.0 Baso 0.7 % 0.0 - 2.0 %Ig 0.1 % High 0.0 - 0.0 %NRBC 0.0 % 0.0 - 0.0 #Neut 3.36 10^3/uL 2.00 - 6.90 #Lymph 2.47 10^3/uL 0.60 - 3.40 #Keith 0.66 10^3/uL 0.00 - 0.90 #Eos 0.35 10^3/uL 0.00 - 0.70 #Baso 0.05 10^3/uL 0.00 - 0.20 #Ig 0.01 10^3/uL 0.00 - 0.10 #NRBC 0.00 10^3/uL 0.00 - 0.00 Manual Diff NOT INDICATED RBC Morph NOT INDICATED Comprehensive Metabolic Panel 03/11/2021 [facility] Comprehensive Metabo (SEE NOTE) 3 [...] >60 mL/min 4 Laboratory test finding 03/11/2021 [facility] Hgba1c 5.4 % 4.4 - 6.1 TSH Highly Sensitive 2.10 uIU/mL 0.47 - 5.01 Cve Panel 03/11/2021 [facility] Cve Panel (SEE NOTE) 5 Cholesterol 156 mg/dL 131 - 200 Triglycerides 42 mg/dL 35 - 160 HDL 59 mg/dL 29 - 86 LDL 86 mg/dL 65 - 175 Risk Factor 2.6 Low 3.4 - 4.9 LDL/HDL 1.46 1.00 - 3.55 6 Laboratory test finding 03/11/2021 [facility] Valproic Acid (Depakene) 66 ug/mL 50-100 7 Xray 12/10/2020 [facility] nter ( )- - Chest Xray 2 Views <pending> CBC W/Automated Diff 12/03/2020 [facility] CBC W/Automated Diff (SEE NOTE) 8, [...] 80.0 Lymph 29.9 % 25.0 - 40.0 Keith 9.6 % High 3.0 - 8.0 Eos 7.7 % High 0.0 - 7.0 Baso 0.6 % 0.0 - 2.0 %Ig 0.2 % High 0.0 - 0.0 %NRBC 0.0 % 0.0 - 0.0 #Neut 4.53 10^3/uL 2.00 - 6.90 #Lymph 2.61 10^3/uL 0.60 - 3.40 #Keith 0.84 10^3/uL 0.00 - 0.90 #Eos 0.67 10^3/uL 0.00 - 0.70 #Baso 0.05 10^3/uL 0.00 - 0.20 #Ig 0.02 10^3/uL 0.00 - 0.10 #NRBC 0.00 10^3/uL 0.00 - 0.00 Manual Diff NOT INDICATED RBC Morph NOT INDICATED Comprehensive Metabolic Panel 12/03/2020 [facility] Comprehensive Metabo (SEE NOTE) 10 Sodium 141 [...] >60 mL/min 11 Laboratory test finding 12/03/2020 [facility] Hgba1c 5.6 % 4.4 - 6.1 12 TSH Highly Sensitive 1.94 uIU/mL 0.47 - 5.01 Cve Panel 12/03/2020 [facility] Cve Panel (SEE NOTE) 13 Cholesterol 158 mg/dL 131 - 200 Triglycerides 51 mg/dL 35 - 160 HDL 57 mg/dL 29 - 86 LDL 93 mg/dL 65 - 175 Risk Factor 2.8 Low 3.4 - 4.9 LDL/HDL 1.63 1.00 - 3.55 14 Laboratory test finding 12/03/2020 [facility] Valproic Acid (Depakene) 84 ug/mL 50-100 15 [...] interchangeably. Procedures Date Code Description Status 12/10/2020 73453 Office/Outpatient Established Mo d MDM 30-39 Min Completed Medical Devices Description No Information Available Encounters Description No Information Available Assessments Date Code Description Provider 03/14/2021 E78.00 Pure hypercholesterolemia, unspe cified Gely Nevills, [facility] 03/14/2021 K29.30 Chronic superficial gastritis wi thout bleeding Gely Nevills, [facility] 03/14/2021 Z83.3 Family history of diabetes corbin payans Gely Nevills, [facility] 03/14/2021 D64.9 Anemia, unspecified Gely Nevill s, [facility] 03/14/2021 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, not intractable, without status epilepticus Gely Nevills, [facility] 03/14/2021 R73.03 Prediabetes Gely Nevills, F MANAGER WEB APPLICATION 03/14/2021 K21.9 Gastro-esophageal reflux disease without esophagitis Gely Nevills, [facility] 03/14/2021 Z79.899 Other mcfp (current) drug t herapy Gely Nevills, [facility] 03/11/2021 Z79.899 Other mcfp (current) drug t herapy [facility] 03/11/2021 E78.00 Pure [facility]ch[facility]olemia, [facility]pe [facility]/11[facility]21 K29.30 Chronic superficial gastritis wi thout bleeding [facility] 03/11/2021 Z83.3 Family history of diabetes amani s [facility] 03/11/2021 D64.9 Anemia, unspecified [facility] 03/11/2021 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, not intractable, without status epilepticus [facility] 12/10/2020 E78.00 Pure hypercholesterolemia, unspe cified Gely Nevills, [facility] 12/10/2020 K29.30 Chronic superficial gastritis wi thout bleeding Gely Nevills, GRADUATE ENGINEER 12/10/2020 D64.9 Anemia, unspecified Gely Nevill s, GRADUATE ENGINEER 12/10/2020 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, not intractable, without status epilepticus Gely Nevills, [facility] 12/10/2020 R73.03 Prediabetes Gely Nevills, F MANAGER WEB APPLICATION 12/10/2020 Z79.899 Other marketing reps sports and entertainment (current) drug t herapy Gely Nevills, [facility] 12/10/2020 Z12.11 Encounter for screening for laura gnant neoplasm of colon Gely Nevills, [facility] 12/10/2020 F17.200 Nicotine dependence, unspecified , uncomplicated Gely Nevills, [facility] 12/10/2020 Z83.3 Family history of diabetes amani oras Gely Nevills, [facility] 12/03/2020 Z79.899 Other marketing reps sports and entertainment (current) drug t herapy [facility] 12/03/2020 E78.00 Pure hypercholesterolemia, unspe cified [facility] 12/03/2020 K29.30 Chronic superficial gastritis wi thout bleeding [facility] 12/03/2020 Z83.3 Family history of diabetes [facility] 12/03/2020 D64.9 Anemia, unspecified [facility] 12/03/2020 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, not intractable, without status epilepticus [facility] 12/03/2020 Z00.01 Encounter for genera l adult medical examination with abnormal findings [facility] Plan of Treatment Future Appointment(s):* 06/10/2021 1:15 pm - [facility] at [facility] * 06/16/2021 2:40 pm - Gely Nolan GRADUATE ENGINEER at [facility] 03/14/2021 - Gely An GRADUATE ENGINEER* E78.00 Pure hypercholesterolemia, unspecified* New Labs:* CBC [...] reflux disease without esophagitis * Z79.899 Other mcfp (current) drug therapy* New Labs:* CBC W/Automated [...]
--- OUTSIDE RECORDS SUMMARY | 2021-03-29 13:21 | CCD | Continuity of Care Document ---
Author Author Abdelrahman PATINO M.D. Organization Unknown Address [address] [place] [id number] Phone [phone] Care Team Providers Care Health Commissioner Name Role Phone Direct Radiology AUTM [phone] Gely Nolan N.P. AUTM [phone] Problems Active Problems Provider Date Generalized convulsive [...] Date Phenobarbital Unable to assess criticality 12/13/2019 [place] Unable to assess criticality 04/02/2020 Medications Active [...] lb BMI (Body Mass Index) 30.7 kg/m2 [place] Body Weight 172 lb Results Description No Information Available Procedures Date Code Description Status 03/06/2021 37743 Office/Outpatient Established Mo d MDM 30-39 Min Completed 12/10/2020 66156 Office/Outpatient Established Mo d MDM 30-39 Min Completed Medical Devices Description No Information Available Encounters Type Date Location Provider Dx Diagnosis Office Visit 03/06/2021 11:30a Main office - [place] G40.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, not intractable, w/o stat epi G43.009 Migraine w/o aura, not intra ctable, w/o status migrainosus G44.229 Chronic tension-type headach e, not intractable Office Visit 12/10/2020 10:30a Main office - [place] G40.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, not intractable, w/o [...] collapse Vera Patino M.D. Plan of Treatment No Information Available Functional Status Description No Information Available Mental Status Description No Information Available Referrals Description No Information Available
--- OUTSIDE RECORDS SUMMARY | 2021-03-29 13:21 | CCD ---
Continuity of Care Document (CCD) Created on: 03/14/2021 Abdelrahman Bui External Reference #: [id number] : [id number] Sex: Male Author Author Abdelrahman NOLAN Organization Unknown Address [address] [place] [address] Phone [phone] Care Team Providers Care Tripper Name Role Phone Gely Nolan AUTM [phone] Problems Active Problems Provider Date Pure hypercholesterolemia [...] : 02/14/2020 Chronic superficial gastritis without bleeding [facility] Onset: 02/14/2020 Family history of diabetes mellitus [facility] Onset: 02/14/2020 Benign neoplasm of [...] H/L Range Note CBC W/Automated Diff 03/11/2021 [facility] CBC W/Automated Diff (SEE NOTE) 1, 2 [...] 80.0 Lymph 35.8 % 25.0 - 40.0 [place] 9.6 % High 3.0 - 8.0 Eos 5.1 % 0.0 - 7.0 Baso 0.7 % 0.0 - 2.0 %Ig 0.1 % High 0.0 - 0.0 %NRBC 0.0 % 0.0 - 0.0 #Neut 3.36 10^3/uL 2.00 - 6.90 #Lymph 2.47 10^3/uL 0.60 - 3.40 #Louisa 0.66 10^3/uL 0.00 - 0.90 #Eos 0.35 10^3/uL 0.00 - 0.70 #Baso 0.05 10^3/uL 0.00 - 0.20 #Ig 0.01 10^3/uL 0.00 - 0.10 #NRBC 0.00 10^3/uL 0.00 - 0.00 Manual Diff NOT INDICATED RBC Morph NOT INDICATED Comprehensive Metabolic Panel 03/11/[facility]21 [facility] Comprehensive Metabo (SEE NOTE) 3 [...] >60 mL/min 4 Laboratory test finding 03/11/2021 [facility] Hgba1c 5.4 % 4.4 - 6.1 TSH Highly Sensitive 2.10 uIU/mL 0.47 - 5.01 Cve Panel 03/11/2021 [facility] Cve Panel (SEE NOTE) 5 Cholesterol 156 mg/dL 131 - 200 Triglycerides 42 mg/dL 35 - 160 HDL 59 mg/dL 29 - 86 LDL 86 mg/dL 65 - 175 Risk Factor 2.6 Low 3.4 - 4.9 LDL/HDL 1.46 1.00 - 3.55 6 Laboratory test finding 03/11/2021 [facility] l Valproic Acid (Depakene) 66 ug/mL 50-100 7 Xray 12/10/2020 [facility] nter ( )- - Chest Xray 2 Views <pending> CBC W/Automated Diff 12/03/2020 [facility] CBC W/Automated Diff (SEE NOTE) 8, 9 [...] 80.0 Lymph 29.9 % 25.0 - 40.0 [place] 9.6 % High 3.0 - 8.0 Eos 7.7 % High 0.0 - 7.0 Baso 0.6 % 0.0 - 2.0 %Ig 0.2 % High 0.0 - 0.0 %NRBC 0.0 % 0.0 - 0.0 #Neut 4.53 10^3/uL 2.00 - 6.90 #Lymph 2.61 10^3/uL 0.60 - 3.40 #Louisa 0.84 10^3/uL 0.00 - 0.90 #Eos 0.67 10^3/uL 0.00 - 0.70 #Baso 0.05 10^3/uL 0.00 - 0.20 #Ig 0.02 10^3/uL 0.00 - 0.10 #NRBC 0.00 10^3/uL 0.00 - 0.00 Manual Diff NOT INDICATED RBC Morph NOT INDICATED Comprehensive Metabolic Panel 12/03/2020 [facility] Comprehensive Metabo (SEE NOTE) 10 Sodium [...] >60 mL/min 11 Laboratory test finding 12/03/2020 [facility] Hgba1c 5.6 % 4.4 - 6.1 12 TSH Highly Sensitive 1.94 uIU/mL 0.47 - 5.01 Cve Panel 12/03/2020 [facility] Cve Panel (SEE NOTE) 13 Cholesterol 158 mg/dL 131 - 200 Triglycerides 51 mg/dL 35 - 160 HDL 57 mg/dL 29 - 86 LDL 93 mg/dL 65 - 175 Risk Factor 2.8 Low 3.4 - 4.9 LDL/HDL 1.63 1.00 - 3.55 14 Laboratory test finding 12/03/2020 [facility] Valproic Acid (Depakene) 84 ug/mL 50-100 15 [...] interchangeably. Procedures Date Code Description Status 12/10/2020 57291 Office/Outpatient Established Mo d MDM 30-39 Min Completed Medical Devices Description No Information Available Encounters Description No Information Available Assessments Date Code Description Provider 03/14/2021 E78.00 Pure hypercholesterolemia, unspe cified Gely Nevills, [facility] 03/14/2021 K29.30 Chronic superficial gastritis wi thout bleeding Gely Nevills, [facility] 03/14/2021 Z83.3 Family history of diabetes corbin payans Gely Nevills, [facility] 03/14/2021 D64.9 Anemia, unspecified Gely Nevill s, [facility] 03/14/2021 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/11[facility]2021 K29.30 Chronic superficial gastritis wi thout bleeding [facility] 03/11/2021 Z83.3 Family history of diabetes amani s [facility] 03/11/2021 D64.9 Anemia, unspecified 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, not intractable, without status epilepticus Gely Nevills, [facility] 12/10/2020 R73.03 Prediabetes Gely Nevills, F CURTAIN FITTER 12/10/2020 Z79.899 Other long term care administrator (current) drug t herapy Gely Nevills, [facility] 12/10/2020 Z12.11 Encounter for screening for laura gnant neoplasm of colon Gely Nevills, [facility] 12/10/2020 F17.200 Nicotine dependence, unspecified , uncomplicated Gely Nevills, [facility] 12/10/2020 Z83.3 Family history of diabetes amani oras Gely Nevills, [facility] 12/03/2020 Z79.899 Other long term care administrator (current) drug t herapy [facility] 12/03/2020 E78.00 Pure hypercholesterolemia, unspe cified [facility] 12/03/2020 K29.30 Chronic superficial gastritis wi thout bleeding [facility] 12/03/2020 Z83.3 Family history of diabetes [facility] 12/03/2020 D64.9 Anemia, unspecified [facility] 12/03/2020 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, not intractable, without status epilepticus [facility] 12/03/2020 Z00.01 Encounter for genera l adult medical examination with abnormal findings [facility] Plan of Treatment Future Appointment(s):* 06/10/2021 1:15 pm - [facility] at [facility] * 06/16/2021 2:40 pm - Gely Nolan FLOOR SCRUBBER at [facility] 03/14/2021 - Gely An FLOOR SCRUBBER* E78.00 Pure hypercholesterolemia, unspecified* New Labs:* CBC [...] reflux disease without esophagitis * Z79.899 Other snf (current) drug therapy* New Labs:* CBC W/Automated [...]
--- OUTSIDE RECORDS SUMMARY | 2021-03-29 13:21 | CCD | Continuity of Care Document ---
Author Author Abdelrahman NOLAN Organization Unknown Address [address] [place] [address] Phone [phone] Care Team Providers Care Awning Installer Name Role Phone Gely Nolan AUTM [phone] Problems Active Problems Provider Date Pure hypercholesterolemia [...] : 02/14/2020 Chronic superficial gastritis without bleeding [facility] Onset: 02/14/2020 Family history of diabetes mellitus [facility] Onset: 02/14/2020 Benign neoplasm of [...] H/L Range Note CBC W/Automated Diff 03/11/2021 [facility] CBC W/Automated Diff (SEE NOTE) [...] 80.0 Lymph 35.8 % 25.0 - 40.0 [place] 9.6 % High 3.0 - 8.0 Eos 5.1 % 0.0 - 7.0 Baso 0.7 % 0.0 - 2.0 %Ig 0.1 % High 0.0 - 0.0 %NRBC 0.0 % 0.0 - 0.0 #Neut 3.36 10^3/uL 2.00 - 6.90 #Lymph 2.47 10^3/uL 0.60 - 3.40 #[place] 0.66 10^3/uL 0.00 - 0.90 #Eos 0.35 10^3/uL 0.00 - 0.70 #Baso 0.05 10^3/uL 0.00 - 0.20 #Ig 0.01 10^3/uL 0.00 - 0.10 #NRBC 0.00 10^3/uL 0.00 - 0.00 Manual Diff NOT INDICATED RBC Morph NOT INDICATED Comprehensive Metabolic Panel 03/11/2021 [facility] Comprehensive Metabo (SEE NOTE) 3 [...] >60 mL/min 4 Laboratory test finding 03/11/2021 [facility] Hgba1c 5.4 % 4.4 - 6.1 TSH Highly Sensitive 2.10 uIU/mL 0.47 - 5.01 Cve Panel 03/11/2021 [facility] Cve Panel (SEE NOTE) 5 Cholesterol 156 mg/dL 131 - 200 Triglycerides 42 mg/dL 35 - 160 HDL 59 mg/dL 29 - 86 LDL 86 mg/dL 65 - 175 Risk Factor 2.6 Low 3.4 - 4.9 LDL/HDL 1.46 1.00 - 3.55 6 Laboratory test finding 03/11/2021 [facility] l Valproic Acid (Depakene) 66 ug/mL 50-100 7 Xray 12/10/2020 [facility] nter ( )- - Chest Xray 2 Views <pending> CBC W/Automated Diff 12/03/2020 [facility] CBC W/Automated Diff (SEE NOTE) [...] 80.0 Lymph 29.9 % 25.0 - 40.0 [place] 9.6 % High 3.0 - 8.0 Eos 7.7 % High 0.0 - 7.0 Baso 0.6 % 0.0 - 2.0 %Ig 0.2 % High 0.0 - 0.0 %NRBC 0.0 % 0.0 - 0.0 #Neut 4.53 10^3/uL 2.00 - 6.90 #Lymph 2.61 10^3/uL 0.60 - 3.40 #[place] 0.84 10^3/uL 0.00 - 0.90 #Eos 0.67 10^3/uL 0.00 - 0.70 #Baso 0.05 10^3/uL 0.00 - 0.20 #Ig 0.02 10^3/uL 0.00 - 0.10 #NRBC 0.00 10^3/uL 0.00 - 0.00 Manual Diff NOT INDICATED RBC Morph NOT INDICATED Comprehensive Metabolic Panel 12/03/2020 [facility] Comprehensive Metabo (SEE NOTE) 10 Sodium [...] >60 mL/min 11 Laboratory test finding 12/03/2020 [facility] Hgba1c 5.6 % 4.4 - 6.1 12 TSH Highly Sensitive 1.94 uIU/mL 0.47 - 5.01 Cve Panel 12/03/2020 [facility] Cve Panel (SEE NOTE) 13 Cholesterol 158 mg/dL 131 - 200 Triglycerides 51 mg/dL 35 - 160 HDL 57 mg/dL 29 - 86 LDL 93 mg/dL 65 - 175 Risk Factor 2.8 Low 3.4 - 4.9 LDL/HDL 1.63 1.00 - 3.55 14 Laboratory test finding 12/03/2020 [facility] Valproic Acid (Depakene) 84 ug/mL [...] interchangeably. Procedures Date Code Description Status 12/10/2020 55368 Office/Outpatient Established Mo d MDM 30-39 Min Completed Medical Devices Description No Information Available Encounters Description No Information Available Assessments Date Code Description Provider 03/14/2021 E78.00 Pure hypercholesterolemia, unspe cified Gely Nevills, [facility] 03/14/2021 K29.30 Chronic superficial gastritis wi thout bleeding Gely Nevills, [facility] 03/14/2021 Z83.3 Family history of diabetes corbin payans Gely Nevills, [facility] 03/14/2021 D64.9 Anemia, unspecified Gely Nevill s, [facility] 03/14/2021 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, not intractable, without status epilepticus [facility] 12/10/2020 E78.00 Pure hypercholesterolemia, unspe cified Gely Nevills, [facility] 12/10/2020 K29.30 Chronic superficial gastritis wi thout bleeding Gely Nevills, [employer]SEMBL[employer] 12/10/2020 D64.9 Anemia, unspecified Gely Nevill s, [employer] 12/10/2020 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, not intractable, without status epilepticus Gely Nevills, [facility] 12/10/2020 R73.03 Prediabetes Gely Nevills, F BRAND SPECIALIST 12/10/2020 Z79.899 Other marine oil terminal superintendent (current) drug t herapy Gely Nevills, [facility] 12/10/2020 Z12.11 Encounter for screening for laura gnant neoplasm of colon Gely Nevills, [facility] 12/10/2020 F17.200 Nicotine dependence, unspecified , uncomplicated Gely Nevills, [facility] 12/10/2020 Z83.3 Family history of diabetes amani oras Gely Nevills, [facility] 12/03/2020 Z79.899 Other marine oil terminal superintendent (current) drug t herapy [facility] 12/03/2020 E78.00 Pure hypercholesterolemia, unspe cified [facility] 12/03/2020 K29.30 Chronic superficial gastritis wi thout bleeding [facility] 12/03/2020 Z83.3 Family history of diabetes [facility] 12/03/2020 D64.9 Anemia, unspecified 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 12/03/2020 Z00.01 Encounter for genera l adult medical examination with abnormal findings [facility] Plan of Treatment Future Appointment(s):* 06/10/2021 1:15 pm - [facility] * 06/16/2021 2:40 pm - Gely Nolan SPOT WELDER BODY ASSEMBLY at [facility] 03/14/2021 - Gely An SPOT WELDER BODY ASSEMBLY* E78.00 Pure hypercholesterolemia, unspecified* New Labs:* CBC [...] reflux disease without esophagitis * Z79.899 Other intermediate (current) drug therapy* New Labs:* CBC W/Automated [...]
--- OUTSIDE RECORDS SUMMARY | 2021-03-29 13:22 | CCD ---
Author Author [facility] Organization [facility] Address Unknown Phone Unavailable Care Team Providers Care Heat Treater Head Name Role Phone Nevills, C Gely WELFARE DIRECTOR Unavailable Unavailable Nevills, C Gely WELFARE DIRECTOR Unavailable Unavailable Nevills, C Gely WELFARE DIRECTOR Unavailable Unavailable Nevills, C Gely WELFARE DIRECTOR Unavailable Unavailable Nevills, C Gely WELFARE DIRECTOR Unavailable Unavailable Nevills, C Gely WELFARE DIRECTOR Unavailable Unavailable Nevills, C Gely WELFARE DIRECTOR Unavailable Unavailable Nevills, C Gely WELFARE DIRECTOR Unavailable Unavailable Nevills, C Gely WELFARE DIRECTOR Unavailable Unavailable Nevills, C Gely WELFARE DIRECTOR Unavailable Unavailable Nevills, C Gely WELFARE DIRECTOR Unavailable Unavailable Nevills, C Gely WELFARE DIRECTOR Unavailable Unavailable Nevills, C Gely WELFARE DIRECTOR Unavailable Unavailable Nevills, C Gely WELFARE DIRECTOR Unavailable Unavailable Nevills, C Gely WELFARE DIRECTOR Unavailable Unavailable Nevills, C Gely WELFARE DIRECTOR Unavailable Unavailable Nevills, C Gely WELFARE DIRECTOR Unavailable Unavailable Nevills, C Gely WELFARE DIRECTOR Unavailable Unavailable Nevills, C Gely WELFARE DIRECTOR Unavailable Unavailable Nevills, C Gely WELFARE DIRECTOR Unavailable Unavailable Nevills, C Gely WELFARE DIRECTOR Unavailable Unavailable Nevills, C Gely WELFARE DIRECTOR Unavailable Unavailable Nevills, C Gely WELFARE DIRECTOR Unavailable Unavailable Nevills, C Gely WELFARE DIRECTOR Unavailable Unavailable Nevills, C Gely WELFARE DIRECTOR Unavailable Unavailable Nevills, C Gely WELFARE DIRECTOR Unavailable Unavailable Nevills, C Gely WELFARE DIRECTOR Unavailable Unavailable Nevills, C Gely WELFARE DIRECTOR Unavailable Unavailable Nevills, C Gely WELFARE DIRECTOR Unavailable Unavailable Nevills, C Gely WELFARE DIRECTOR Unavailable Unavailable Nevills, C Gely WELFARE DIRECTOR Unavailable Unavailable Nevills, C Gely WELFARE DIRECTOR Unavailable Unavailable Nevills, C Gely WELFARE DIRECTOR Unavailable Unavailable Ali, Vera MD Unavailable Unavailable Ali, Vera MD Unavailable Unavailable Ali, Vera MD Unavailable Unavailable Ali, Vera MD Unavailable Unavailable Ali, Vera MD Unavailable Unavailable Ali, Vera MD Unavailable Unavailable Ali, Vera MD Unavailable Unavailable Ali, Vera MD Unavailable Unavailable Ali, Vera MD Unavailable Unavailable Ali, Vera MD Unavailable Unavailable Ali, Vera MD Unavailable Unavailable Ali, Vera MD Unavailable Unavailable Ali, Vera MD Unavailable Unavailable Ali, Vera MD Unavailable Unavailable Ali, Vera MD Unavailable Unavailable Ali, Vera MD Unavailable Unavailable Ali, Vera MD Unavailable Unavailable Ali, Vera MD Unavailable Unavailable Ali, Vera MD Unavailable Unavailable Ali, Vera MD Unavailable Unavailable Ali, Vera MD Unavailable Unavailable Ali, Vera MD Unavailable Unavailable Ali, Vera MD Unavailable Unavailable Ali, Vera MD Unavailable Unavailable Ali, Vera MD Unavailable Unavailable Ali, Vera MD Unavailable Unavailable Ali, Vera MD Unavailable Unavailable Ali, Vera MD Unavailable Unavailable Ali, Vera MD Unavailable Unavailable Ali, Vera MD Unavailable Unavailable Ali, Vera MD Unavailable Unavailable Ali, Vera MD Unavailable Unavailable Ali, Vera MD Unavailable Unavailable Ali, Vera MD Unavailable Unavailable Ali, Vera MD Unavailable Unavailable Ali, Vera MD Unavailable Unavailable Ali, Vera MD Unavailable Unavailable Ali, Vera MD Unavailable Unavailable Ali, Vera MD Unavailable Unavailable Ali, Vera MD Unavailable Unavailable Ali, Vera MD Unavailable Unavailable Ali, Vera MD Unavailable Unavailable Ali, Vera MD Unavailable Unavailable Ali, Vera MD Unavailable Unavailable Ali, Vera MD Unavailable Unavailable Ali, Vera MD Unavailable Unavailable Ali, Vera MD Unavailable Unavailable Ali, Vera MD Unavailable Unavailable Ali, Vera MD Unavailable Unavailable Ali, Vera MD Unavailable Unavailable Karlos, Marivel Allyssa ANP-BC Unavailable Unavailable Karlos, Marivel Allyssa ANP-BC Unavailable Unavailable Karlos, Marivel Allyssa ANP-BC Unavailable Unavailable Karlos, Marivel Allyssa ANP-BC Unavailable Unavailable Karlos, Marivel Allyssa ANP-BC Unavailable Unavailable Karlos, Marivel Allyssa ANP-BC Unavailable Unavailable Karlos, Marivel Allyssa ANP-BC Unavailable Unavailable Karlos, Marivel Allyssa ANP-BC Unavailable Unavailable Karlos, Marivel Allyssa ANP-BC Unavailable Unavailable Karlos, Marivel Allyssa ANP-BC Unavailable Unavailable Karlos, Marivel Allyssa ANP-BC Unavailable Unavailable Karlos, Marivel Allyssa ANP-BC Unavailable Unavailable Karlos, Marivel Allyssa ANP-BC Unavailable Unavailable Karlos, Marivel Allyssa ANP-BC Unavailable Unavailable Karlos, Marivel Allyssa ANP-BC Unavailable Unavailable Karlos, Marivel Allyssa ANP-BC Unavailable Unavailable Karlos, Marivel Allyssa ANP-BC Unavailable Unavailable Karlos, Marivel Allyssa ANP-BC Unavailable Unavailable Karlos, Marivel Allyssa ANP-BC Unavailable Unavailable Karlos, Marivel Allyssa ANP-BC Unavailable Unavailable Karlos, Marivel Allyssa ANP-BC Unavailable Unavailable Karlos, Marivel Allyssa ANP-BC Unavailable Unavailable Karlos, Marivel Allyssa ANP-BC Unavailable Unavailable Karlos, Marivel Allyssa ANP-BC Unavailable Unavailable Karlos, Marivel Allyssa ANP-BC Unavailable Unavailable Karlos, Marivel Allyssa ANP-BC Unavailable Unavailable Karlos, Marivel Allyssa ANP-BC Unavailable Unavailable Karlos, Marivel Allyssa ANP-BC Unavailable Unavailable Karlos, Marivel Allyssa ANP-BC Unavailable Unavailable Karlos, Marivel Allyssa ANP-BC Unavailable Unavailable Karlos, Marivel Allyssa ANP-BC Unavailable Unavailable Karlos, Marivel Allyssa ANP-BC Unavailable Unavailable Karlos, Marivel Allyssa ANP-BC Unavailable Unavailable Karlos, Marivel Allyssa ANP-BC Unavailable Unavailable Karlos, Marivel Allyssa ANP-BC Unavailable Unavailable Karlos, Marivel Allyssa ANP-BC Unavailable Unavailable Karlos, Marivel Allyssa ANP-BC Unavailable Unavailable Karlos, Marivel Allyssa ANP-BC Unavailable Unavailable Karlos, Marivel Allyssa ANP-BC Unavailable Unavailable Karlos, Marivel Allyssa ANP-BC Unavailable Unavailable Karlos, Marivel Allyssa ANP-BC Unavailable Unavailable Karlos, Marivel Allyssa ANP-BC Unavailable Unavailable Karlos, Marivel Allyssa ANP-BC Unavailable Unavailable Karlos, Marivel Allyssa ANP-BC Unavailable Unavailable Karlos, Marivel Allyssa ANP-BC Unavailable Unavailable Karlos, Marivel Allyssa ANP-BC Unavailable Unavailable Karlos, Marivel Allyssa ANP-BC Unavailable Unavailable Karlos, Marivel Allyssa ANP-BC Unavailable Unavailable Karlos, Marivel Allyssa ANP-BC Unavailable Unavailable Karlos, Marivel Allyssa ANP-BC Unavailable Unavailable Karlos, Marivel Allyssa ANP-BC Unavailable Unavailable Karlos, Marivel Allyssa ANP-BC Unavailable Unavailable Karlos, Marivel Allyssa ANP-BC Unavailable Unavailable Karlos, Marivel Allyssa ANP-BC Unavailable Unavailable Karlos, Marivel Allyssa ANP-BC Unavailable Unavailable Marivel Everett Allyssa ANP-BC Unavailable Unavailable Marivel Everett Allyssa ANP-BC Unavailable Unavailable Marivel Everett Allyssa ANP-BC Unavailable Unavailable Marivel Everett Allyssa ANP-BC Unavailable Unavailable Marivel [place]rett Allyssa ANP-BC Unavailable Unavailable Marivel Everett Allyssa ANP-BC Unavailable Unavailable Marivel Everett Allyssa ANP-BC Unavailable Unavailable Marivel Everett Allyssa ANP-BC Unavailable Unavailable Marivel Everett Allyssa ANP-BC Unavailable Unavailable Marivel Everett Allyssa ANP-BC Unavailable Unavailable KarlosMarivel Allyssa ANP-BC Unavailable Unavailable Nevills, C Gely WELFARE DIRECTOR Unavailable Unavailable Nevills, C Gely WELFARE DIRECTOR Unavailable Unavailable Nevills, C Gely WELFARE DIRECTOR Unavailable Unavailable Nevills, C Gely WELFARE DIRECTOR Unavailable Unavailable Nevills, C Gely WELFARE DIRECTOR Unavailable Unavailable Nevills, C Gely WELFARE DIRECTOR Unavailable Unavailable Nevills, C Gely WELFARE DIRECTOR Unavailable Unavailable Nevills, C Gely WELFARE DIRECTOR Unavailable Unavailable Nevills, C Gely WELFARE DIRECTOR Unavailable Unavailable Nevills, C Gely WELFARE DIRECTOR Unavailable Unavailable Nevills, C Gely WELFARE DIRECTOR Unavailable Unavailable Nevills, C Gely WELFARE DIRECTOR Unavailable Unavailable Nevills, C Gely WELFARE DIRECTOR Unavailable Unavailable Nevills, C Gely WELFARE DIRECTOR Unavailable Unavailable Nevills, C Gely WELFARE DIRECTOR Unavailable Unavailable Nevills, C Gely WELFARE DIRECTOR Unavailable Unavailable Nevills, C Gely WELFARE DIRECTOR Unavailable Unavailable Nevills, C Gely WELFARE DIRECTOR Unavailable Unavailable Nevills, C Gely WELFARE DIRECTOR Unavailable Unavailable Nevills, C Gely WELFARE DIRECTOR Unavailable Unavailable Nevills, C Gely WELFARE DIRECTOR Unavailable Unavailable Nevills, C Gely WELFARE DIRECTOR Unavailable Unavailable Nevills, C Gely WELFARE DIRECTOR Unavailable Unavailable Nevills, C Gely WELFARE DIRECTOR Unavailable Unavailable Nevills, C Gely WELFARE DIRECTOR Unavailable Unavailable Nevills, C Gely WELFARE DIRECTOR Unavailable Unavailable Nevills, C Gely WELFARE DIRECTOR Unavailable Unavailable Nevills, C Gely WELFARE DIRECTOR Unavailable Unavailable Nevills, C Gely WELFARE DIRECTOR Unavailable Unavailable Nevills, C Gely WELFARE DIRECTOR Unavailable Unavailable Nevills, C Gely WELFARE DIRECTOR Unavailable Unavailable Nevills, C Gely WELFARE DIRECTOR Unavailable Unavailable Nevills, C Gely WELFARE DIRECTOR Unavailable Unavailable Re-disclosure Warning The records that you are about to access may contain information from federally-assisted alcohol or drug abuse programs. If such information is present, then the following federally mandated warning applies: This information has been disclosed to you from records protected by federal confidentiality rules (42 CFR part 2). The federal rules prohibit you from making any further disclosure of this information unless further disclosure is expressly permitted by the written consent of the person to whom it pertains or as otherwise permitted by 42 CFR part 2. A general authorization for the release of medical or other information is NOT sufficient for this purpose. The Federal rules restrict any use of the information to criminally investigate or prosecute any alcohol or drug abuse patient.The records that you are about to access may contain highly sensitive health information, the redisclosure of which is protected by Article 27-F of the [facility] Public Health law. If you continue you may have access to information: Regarding HIV / AIDS; Provided by facilities licensed or operated by the [facility] Office of Mental Health; or Provided by the [facility] Office for People With Developmental Disabilities. If such information is present, then the following [facility] mandated warning applies: This information has been disclosed to you from confidential records which are protected by state law. State law prohibits you from making any further disclosure of this information without the specific written consent of the person to whom it pertains, or as otherwise permitted by law. Any unauthorized further disclosure in violation of state law may result in a fine or detention sentence or both. A general authorization for the release of medical or other information is NOT sufficient authorization for further disc losure. Family History Family Member Name Family Member Gender Family Member Status Date o f Status Description Data Source(s) Unknown Male Problem [facility] ([facility]) Encounters Encounter Providers Location Date Indications Data Source(s ) Outpatient Attender: Gely Nolan NP 03/14 01:50:00 PM EDT - 03/14/2021 01:50:00 PM EDT [facility] Outpatient Attender: Gely Nolan NP 03/11 08:41:00 AM EDT - 03/11/2021 08:41:00 AM EDT [facility] Outpatient Attender: Vera Patino MD Main office - [place] 03/06/2021 11:30:00 AM EDT [facility] ([facility], ) Outpatient Attender: Vera Patino MD Main office - [place] 12/10/2020 10:30:00 AM EDT [facility] ([facility] ) Outpatient Attender: Gely Nolan NP 12/10 09:20:00 AM EDT - 12/10/2020 09:20:00 AM EDT [facility] Outpatient Attender: Gely Nolan WELFARE DIRECTOR 12/03 08:24:00 AM EDT - 12/03/2020 08:24:00 AM EDT [facility] Outpatient Attender: Gely Nolan WELFARE DIRECTOR Family Practice 09/09 10:00:00 AM EDT [facility] ([facility]) Outpatient Attender: Gely Nolan WELFARE DIRECTOR 09/09 09:41:00 AM EDT - 09/09/2020 09:41:00 AM EDT [facility] Outpatient Attender: Allyssa JIMENEZ-BCAttender: Gely Elyssaramiro yumiko WELFARE DIRECTOR 09/02/2020 09:17:00 AM EDT - 09/02/2020 09:17:00 AM EDT [facility] Outpatient Attender: Allyssa ARAIZA 05/15 10:34:00 AM EST - 06/10/2020 10:34:00 AM [facility] Office Visit Attender: Vera Patino MD Main office - [place] 04/02/2020 12:30:00 PM EDT [facility] ([facility] ) Outpatient Attender: Allyssa ARAIZA 07/2019 09:20:00 AM EDT - 02/14/2020 09:20:00 AM EDT [facility] Office Visit Attender: Vera Patino MD Main office - [place] 01/31/2020 11:15:00 AM EDT [facility] ([facility] ) Immunizations Vaccine Date Status Description Data Source(s) COVID-19 VACCINE Pfizer 12/11/2020 12:00:00 AM EDT completed [facility] Vaccine Series Complete: YESThis Data wa s Submitted to [facility] Via [employer]. COVID-19 VACC, MRNA(PFIZER)/PF 11/20/2020 12:00:00 AM EDT completed [facility] COVID-19 VACCINE Pfizer 11/20/2020 12:00:00 AM EDT completed [facility] Vaccine Series Complete: NOThis Data was Submitted to [facility] Via [employer]. Medications Medication Brand Name Start Date Product Form Dose Route Admi nistrative Instructions Pharmacy Instructions Status Indications Reaction Description Data Source(s) 15 mg 03/15/2021 12:00:00 AM EDT tablet 30 TAKE ONE TABLET BY MOUTH EVERY DAY TAKE ONE TABLET BY MOUTH EVERY DAY SOLD: 03/17/2021 [facility] 15 mg 02/07/2021 12:00:00 AM EDT tablet 30 TAKE ONE TABLET BY MOUTH EVERY DAY TAKE ONE TABLET BY MOUTH EVERY DAY SOLD: 02/17/2021 [facility] 500 mg 02/07/2021 12:00:00 AM EDT tablet,delayed release (DR/EC) 90 TAKE ONE TABLET BY MOUTH EVERY MORNING & 2 TABLETS AT BEDTIME TAKE ONE TABLET BY MOUTH EVERY MORNING & 2 TABLETS AT BEDTIME SOLD: 02/17/2021 [facility] 500 mg 02/07/2021 12:00:00 AM EDT tablet,delayed release (DR/EC) 90 TAKE ONE TABLET BY MOUTH EVERY MORNING & 2 TABLETS AT BEDTIME TAKE ONE TABLET BY MOUTH EVERY MORNING & 2 TABLETS AT BEDTIME SOLD: 03/17/2021 [facility] 1 % 01/28/2021 12:00:00 AM EDT cream 60 APPLY TO RASH ON ARMS TWO TIMES A DAY APPLY TO RASH ON ARMS TWO TIMES A DAY SOLD: 01/30/2021 [facility] 1 % 01/28/2021 12:00:00 AM EDT cream 60 APPLY TO RASH ON ARMS TWO TIMES A DAY APPLY TO RASH ON ARMS TWO TIMES A DAY SOLD: 03/01/2021 [facility] 20 mg 01/27/2021 12:00:00 AM EDT capsule,delayed release (DR/EC) 30 TAKE ONE CAPSULE BY MOUTH EVERY DAY TAKE ONE CAPSULE BY MOUTH EVERY DAY SOLD: 01/30/2021 [facility] 20 mg 01/27/2021 12:00:00 AM EDT capsule,delayed release (DR/EC) 30 TAKE ONE CAPSULE BY MOUTH EVERY DAY TAKE ONE CAPSULE BY MOUTH EVERY DAY SOLD: 03/01/2021 [facility] 500 mg 12/06/2020 12:00:00 AM EDT tablet,delayed release (DR/EC) 90 TAKE 1 TABLET BY MOUTH EVERY MORNING & 2 TABLETS AT BEDTIME TAKE 1 TABLET BY MOUTH EVERY MORNING & 2 TABLETS AT BEDTIME SOLD: 01/10/2021 [facility] 500 mg 12/06/2020 12:00:00 AM EDT tablet,delayed release (DR/EC) 90 TAKE 1 TABLET BY MOUTH EVERY MORNING & 2 TABLETS AT BEDTIME TAKE 1 TABLET BY MOUTH EVERY MORNING & 2 TABLETS AT BEDTIME SOLD: 12/06/2020 [facility] 15 mg 12/02/2020 12:00:00 AM EDT tablet 30 TAKE ONE TABLET BY MOUTH EVERY DAY TAKE ONE TABLET BY MOUTH EVERY DAY SOLD: 01/10/2021 [facility] 15 mg 12/02/2020 12:00:00 AM EDT tablet 30 TAKE ONE TABLET BY MOUTH EVERY DAY TAKE ONE TABLET BY MOUTH EVERY DAY SOLD: 12/06/2020 [facility] 1 % 11/27/2020 12:00:00 AM EDT cream 60 APPLY TO RASH ON ARMS TWO TIMES A DAY APPLY TO RASH ON ARMS TWO TIMES A DAY SOLD: 12/31/2020 [facility] 1 % 11/27/2020 12:00:00 AM EDT cream 60 APPLY TO RASH ON ARMS TWO TIMES A DAY APPLY TO RASH ON ARMS TWO TIMES A DAY SOLD: 11/29/2020 [facility] 15 mg 09/30/2020 12:00:00 AM EDT tablet 30 TAKE ONE TABLET BY MOUTH EVERY DAY TAKE ONE TABLET BY MOUTH EVERY DAY SOLD: 11/04/2020 [facility] 15 mg 09/30/2020 12:00:00 AM EDT tablet 30 TAKE ONE TABLET BY MOUTH EVERY DAY TAKE ONE TABLET BY MOUTH EVERY DAY SOLD: 10/03/2020 [facility] 1 % 08/08/2020 12:00:00 AM EST cream 60 APPLY TO RASH ON ARMS TWO TIMES A DAY APPLY TO RASH ON ARMS TWO TIMES A DAY SOLD: 09/12/2020 [facility] 1 % 08/08/2020 12:00:00 AM EST cream 60 APPLY TO RASH ON ARMS TWO TIMES A DAY APPLY TO RASH ON ARMS TWO TIMES A DAY SOLD: 10/30/2020 [facility] 1 % 08/08/2020 12:00:00 AM EST cream 60 APPLY TO RASH ON ARMS TWO TIMES A DAY APPLY TO RASH ON ARMS TWO TIMES A DAY SOLD: 08/12/2020 [facility] 20 mg 07/23/2020 12:00:00 AM EST capsule,delayed release (DR/EC) 30 TAKE ONE CAPSULE BY MOUTH EVERY DAY TAKE ONE CAPSULE BY MOUTH EVERY DAY SOLD: 07/26/2020 [facility] 20 mg 07/23/2020 12:00:00 AM EST capsule,delayed release (DR/EC) 30 TAKE ONE CAPSULE BY MOUTH EVERY DAY TAKE ONE CAPSULE BY MOUTH EVERY DAY SOLD: 09/28/2020 [facility] 20 mg 07/23/2020 12:00:00 AM EST capsule,delayed release (DR/EC) 30 TAKE ONE CAPSULE BY MOUTH EVERY DAY TAKE ONE CAPSULE BY MOUTH EVERY DAY SOLD: 11/29/2020 [facility] 20 mg 07/23/2020 12:00:00 AM EST capsule,delayed release (DR/EC) 30 TAKE ONE CAPSULE BY MOUTH EVERY DAY TAKE ONE CAPSULE BY MOUTH EVERY DAY SOLD: 12/31/2020 [facility] 20 mg 07/23/2020 12:00:00 AM EST capsule,delayed release (DR/EC) 30 TAKE ONE CAPSULE BY MOUTH EVERY DAY TAKE ONE CAPSULE BY MOUTH EVERY DAY SOLD: 10/30/2020 [facility] 20 mg 07/23/2020 12:00:00 AM EST capsule,delayed release (DR/EC) 30 TAKE ONE CAPSULE BY MOUTH EVERY DAY TAKE ONE CAPSULE BY MOUTH EVERY DAY SOLD: 08/25/2020 [facility] 1 % 06/10/2020 12:00:00 AM EST cream 60 APPLY TO RASH ON ARMS TWO TIMES A DAY APPLY TO RASH ON ARMS TWO TIMES A DAY SOLD: 07/11/2020 [facility] 1 % 06/10/2020 12:00:00 AM EST cream 60 APPLY TO RASH ON ARMS TWO TIMES A DAY APPLY TO RASH ON ARMS TWO TIMES A DAY SOLD: 06/11/2020 [facility] Clotrimazole 10 MG/ML Topical Cream Clotrimazole 06/10/2020 12:00:00 AM EST active [facility] ([facility]) 500 mg 04/03/2020 12:00:00 AM EDT tablet,delayed release (DR/EC) 90 TAKE 1 TABLET BY MOUTH EVERY MORNING AND 2 AT BEDTIME MAXIMUM DAILY DOSE = THREE TABLETS TAKE 1 TABLET BY MOUTH EVERY MORNING AND 2 AT BEDTIME MAXIMUM DAILY DOSE = THREE TABLETS SOLD: 08/12/2020 [facility] 500 mg 04/03/2020 12:00:00 AM EDT tablet,delayed release (DR/EC) 90 TAKE 1 TABLET BY MOUTH EVERY MORNING AND 2 AT BEDTIME MAXIMUM DAILY DOSE = THREE TABLETS TAKE 1 TABLET BY MOUTH EVERY MORNING AND 2 AT BEDTIME MAXIMUM DAILY DOSE = THREE TABLETS SOLD: 05/10/2020 [facility] 500 mg 04/03/2020 12:00:00 AM EDT tablet,delayed release (DR/EC) 90 TAKE 1 TABLET BY MOUTH EVERY MORNING AND 2 AT BEDTIME MAXIMUM DAILY DOSE = THREE TABLETS TAKE 1 TABLET BY MOUTH EVERY MORNING AND 2 AT BEDTIME MAXIMUM DAILY DOSE = THREE TABLETS SOLD: 07/11/2020 [facility] 500 mg 04/03/2020 12:00:00 AM EDT tablet,delayed release (DR/EC) 90 TAKE 1 TABLET BY MOUTH EVERY MORNING AND 2 AT BEDTIME MAXIMUM DAILY DOSE = THREE TABLETS TAKE 1 TABLET BY MOUTH EVERY MORNING AND 2 AT BEDTIME MAXIMUM DAILY DOSE = THREE TABLETS SOLD: 04/10/2020 [facility] 500 mg 04/03/2020 12:00:00 AM EDT tablet,delayed release (DR/EC) 90 TAKE 1 TABLET BY MOUTH EVERY MORNING AND 2 AT BEDTIME MAXIMUM DAILY DOSE = THREE TABLETS TAKE 1 TABLET BY MOUTH EVERY MORNING AND 2 AT BEDTIME MAXIMUM DAILY DOSE = THREE TABLETS SOLD: 09/12/2020 [facility] 500 mg 04/03/2020 12:00:00 AM EDT tablet,delayed release (DR/EC) 90 TAKE 1 TABLET BY MOUTH EVERY MORNING AND 2 AT BEDTIME MAXIMUM DAILY DOSE = THREE TABLETS TAKE 1 TABLET BY MOUTH EVERY MORNING AND 2 AT BEDTIME MAXIMUM DAILY DOSE = THREE TABLETS SOLD: 06/11/2020 [facility] 15 mg 03/23/2020 12:00:00 AM EDT tablet 30 TAKE ONE TABLET BY MOUTH EVERY DAY TAKE ONE TABLET BY MOUTH EVERY DAY SOLD: 04/24/2020 [facility] 15 mg 03/23/2020 12:00:00 AM EDT tablet 30 TAKE ONE TABLET BY MOUTH EVERY DAY TAKE ONE TABLET BY MOUTH EVERY DAY SOLD: 06/25/2020 [facility] 15 mg 03/23/2020 12:00:00 AM EDT tablet 30 TAKE ONE TABLET BY MOUTH EVERY DAY TAKE ONE TABLET BY MOUTH EVERY DAY SOLD: 05/25/2020 [facility] 15 mg 03/23/2020 12:00:00 AM EDT tablet 30 TAKE ONE TABLET BY MOUTH EVERY DAY TAKE ONE TABLET BY MOUTH EVERY DAY SOLD: 08/25/2020 [facility] 15 mg 03/23/2020 12:00:00 AM EDT tablet 30 TAKE ONE TABLET BY MOUTH EVERY DAY TAKE ONE TABLET BY MOUTH EVERY DAY SOLD: 03/25/2020 [facility] 15 mg 03/23/2020 12:00:00 AM EDT tablet 30 TAKE ONE TABLET BY MOUTH EVERY DAY TAKE ONE TABLET BY MOUTH EVERY DAY SOLD: 07/26/2020 [facility] Permethrin 50 MG/ML Topical Cream Permethrin 02/14/2020 12:00:00 AM EDT completed [facility] ([facility]) 5 % 02/14/2020 12:00:00 AM EDT cream 60 THOROUGHLY MASSAGE CREAM INTO SKIN FROM THE HEAD TO THE SOLES OF THE FEET THOROUGHLY MASSAGE CREAM INTO SKIN FROM THE HEAD TO THE SOLES OF THE FEET SOLD: 02/14/2020 [facility] 500 mg 02/03/2020 12:00:00 AM EDT tablet,delayed release (DR/EC) 90 TAKE ONE TABLET BY MOUTH EVERY MORNING TAKE TWO TABLETS BY MOUTH AT BEDTIME TAKE ONE TABLET BY MOUTH EVERY MORNING TAKE TWO TABLETS BY MOUTH AT BEDTIME SOLD: 03/11/2020 [facility] 500 mg 02/03/2020 12:00:00 AM EDT tablet,delayed release (DR/EC) 90 TAKE ONE TABLET BY MOUTH EVERY MORNING TAKE TWO TABLETS BY MOUTH AT BEDTIME TAKE ONE TABLET BY MOUTH EVERY MORNING TAKE TWO TABLETS BY MOUTH AT BEDTIME SOLD: 02/03/2020 [facility] 20 mg 01/25/2020 12:00:00 AM EDT capsule,delayed release (DR/EC) 30 TAKE ONE CAPSULE BY MOUTH EVERY DAY TAKE ONE CAPSULE BY MOUTH EVERY DAY SOLD: 06/25/2020 [facility] 20 mg 01/25/2020 12:00:00 AM EDT capsule,delayed release (DR/EC) 30 TAKE ONE CAPSULE BY MOUTH EVERY DAY TAKE ONE CAPSULE BY MOUTH EVERY DAY SOLD: 04/24/2020 [facility] 20 mg 01/25/2020 12:00:00 AM EDT capsule,delayed release (DR/EC) 30 TAKE ONE CAPSULE BY MOUTH EVERY DAY TAKE ONE CAPSULE BY MOUTH EVERY DAY SOLD: 03/25/2020 [facility] 20 mg 01/25/2020 12:00:00 AM EDT capsule,delayed release (DR/EC) 30 TAKE ONE CAPSULE BY MOUTH EVERY DAY TAKE ONE CAPSULE BY MOUTH EVERY DAY SOLD: 05/25/2020 [facility] 20 mg 01/25/2020 12:00:00 AM EDT capsule,delayed release (DR/EC) 30 TAKE ONE CAPSULE BY MOUTH EVERY DAY TAKE ONE CAPSULE BY MOUTH EVERY DAY SOLD: 02/24/2020 [facility] 15 mg 10/03/2019 12:00:00 AM EDT tablet 30 TAKE 1 TABLET BY MOUTH EVERY DAY TAKE 1 TABLET BY MOUTH EVERY DAY SOLD: 02/24/2020 [facility] Insurance Providers Payer name Policy type / Coverage type Policy ID Covered libertarian ID Covered libertarian's relationship to coppola Policy Coppola Plan Information ARNAV [id number] SP [id number] [facility] A[place] CARE [place] [id number] 18 [id number] ARNAV CARE [place] [id number] 18 [id number] [place] [id number] 18 [id number] O UNAVAILABLE UNAVAILA BLE SELF PAY ONLY [id number] SP [id number] [place] [id number] [place] [id number] Medicaid Commercial [id number] Self [id number] [place] [id number] Medicaid Commercial [id number] Self [id number] Problems, Conditions, and Diagnoses Code Display Name Description Problem Type Effective Dates Data Source(s) [id number] Other generalized epilepsy a nd epileptic syndromes, not intractable, 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, not intractable, without status epilepticus Diagnosis [facility] Anemia, unspecified Anemia, unspecified Diagnosis 0 03/11/2021 08:41:00 AM [facility] Z833 Family history of diabetes mellitus Family histo ry of diabetes mellitus Diagnosis 03/11/2021 08:41:00 AM EDT [facility] K2930 Chronic superficial gastritis without bl eeding Chronic superficial gastritis without bleeding Diagnosis [facility] Pure hypercholesterolemia, unspecified P ure hypercholesterolemia, unspecified Diagnosis 03/11/2021 08:41:00 AM EDT [facility] 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 (current) drug therapy Diagnosis 03/11/2021 08:41:00 AM EDT [facility] Z0001 Encounter for general adult medical exam ination with abnormal findings Encounter for general adult medical examination with abnormal findings Diagnosis 12/03/2020 08:24:00 AM EDT [facility] R55 Syncope and collapse Syncope and collapse Problem 04/02/2020 12:00:00 AM EDT [facility] ([facility], ) 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 Infestation by Sarcoptes scabiei carlos jose manuel inis Infestation by Sarcoptes scabiei carlos hominis Problem 02/14/2020 12:00:00 AM EDT [facility] ([facility]) R06.00 Difficulty breathing Difficulty breathing Problem 02/14/2020 12:00:00 AM EDT [facility] ([facility]) 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 Problem 02/14/2020 12:00:00 AM EDT [facility] ([facility]) Z83.3 Family history of diabetes mellitus Family histo ry of diabetes mellitus Problem 02/14/2020 12:00:00 AM EDT [facility] ([facility]) K29.30 Chronic superficial gastritis without bl eeding Chronic superficial gastritis without bleeding Problem 02/14/2020 12:00:00 AM EDT [facility] ([facility]) F72 Severe intellectual disability Severe intellectual dis ability Problem 02/14/2020 12:00:00 AM EDT [facility] ([facility]) M19.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, 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, primary osteoarthritis of the ankle and/or foot Problem 2019 12:00:00 AM EDT [facility] ([facility]) L23.7 Contact dermatitis due to plants, except food Contact dermatitis due to plants, except food Problem 02/14/2020 12:00:00 AM EDT [facility] ([facility]) D64.9 Anemia Anemia Problem 02/14/2020 12:00:00 AM ED T [facility] ([facility]) Z79.899 Taking medication Taking medication Problem 02/14/2020 12:00:00 AM EDT [facility] ([facility]) K21.9 Gastroesophageal reflux disease Gastroesophageal reflu x disease Problem 02/14/2020 12:00:00 AM EDT [facility] ([facility]) E78.00 Pure hypercholesterolemia Pure hypercholesterolemia Pr oblem 02/14/2020 12:00:00 AM EDT [facility] ([facility]) Surgeries/Procedures Procedure Description Date Indications Data Source(s) OFFICE OUTPATIENT VISIT 25 MINUTES 03/06/2021 12:00:00 AM EDT [facility] ([facility], ) OFFICE OUTPATIENT VISIT 25 MINUTES 12/10/2020 12:00:00 AM EDT [facility] ([facility]) OFFICE OUTPATIENT VISIT 25 MINUTES 12/10/2020 12:00:00 AM EDT [facility] ([facility], ) Brief Emotional/Behav Assessment W/ Scoring Doc Per Standard Inst 09/09/2020 12:00:00 AM EDT [facility] ([facility]) OFFICE OUTPATIENT VISIT 25 MINUTES 09/09/2020 12:00:00 AM EDT [facility] ([facility]) OFFICE OUTPATIENT VISIT 25 MINUTES 06/10/2020 12:00:00 AM EST [facility] ([facility]) Admin Patient Focused Health Risk Assessment Instrument 02/14/2020 12:00:00 AM EDT [facility] ([facility]) Results ID Date Data Source [id number] 03/11/2021 08:45:00 AM EDT [facility] ([facility]) Name Value Range Interpretation Code Description Data Fifi rce(s) Supporting Document(s) Valproate [Mass/volume] in Serum or Plasma 66 ug/mL 50-100 [facility] ([facility]) Is patient fasting? Y ID Date Data Source [id number] 03/11/2021 08:45:00 AM EDT [facility] ([facility]) Name Value Range Interpretation Code Description Data Iffi rce(s) Supporting Document(s) Cve Panel Laboratory test result [facility] ([facility]) Is patient fasting? Y HDL 59 mg/dL 29-86 [facility] ([facility]) Is patient fasting? Y Cholesterol 156 mg/dL 131-200 [facility] ([facility]) Is patient fasting? Y Triglycerides 42 mg/dL 35-160 [facility] ([facility]) Is patient fasting? Y LDL 86 mg/dL 65-175 [facility] ([facility]) Is patient fasting? Y Risk Factor 2.6 3.4-4.9 Below low normal [facility] ([facility]) Is patient fasting? Y LDL/HDL 1.46 1.00-3.55 [facility] ([facility]) Is patient fasting? Y ID Date Data Source [id number] 03/11/2021 08:45:00 AM EDT [facility] ([facility]) Name Value Range Interpretation Code Description Data Fifi rce(s) Supporting Document(s) Hemoglobin A1c/Hemoglobin.total in Blood 5.4 % 4.4-6.1 [facility] ([facility]) Is patient fasting? Y Thyrotropin [Units/volume] in Serum or Plasma 2.10 uIU/mL 0.47-5.01 [facility] ([facility]) Is patient fasting? Y ID Date Data Source [id number] 03/11/2021 08:45:00 AM EDT [facility] ([facility]) Name Value Range Interpretation Code Description Data Fifi rce(s) Supporting Document(s) Comprehensive Metabo Laboratory test result [facility] ([facility]) Is patient fasting? Y Sodium 142 meq/L 134-153 [facility] ([facility]) Is patient fasting? Y Potassium 4.4 meq/L 3.6-5.0 [facility] ([facility]) Is patient fasting? Y Chloride 105 meq/L 98-107 [facility] ([facility]) Is patient fasting? Y Glucose 99 mg/dL 70-99 [facility] ([facility]) Is patient fasting? Y Co2 28 meq/L 22-30 [facility] ([facility]) Is patient fasting? Y Creatinine 0.8 mg/dL 0.7-1.5 [facility] ([facility]) Is patient fasting? Y BUN 20 mg/dL 7-21 [facility] ([facility]) Is patient fasting? Y Total Protein 6.9 g/dL 6.3-8.2 [facility] ([facility]) Is patient fasting? Y BUN/Creat 25 8-27 [facility] ([facility]) Is patient fasting? Y Albumin 4.5 g/dL 3.9-5.0 [facility] ([facility]) Is patient fasting? Y Globulin 2.4 GM/DL 2.4-3.2 [facility] ([facility]) Is patient fasting? Y Calcium 9.8 mg/dL 8.4-10.2 [facility] ([facility]) Is patient fasting? Y A/G Ratio 1.9 0.8-2.0 [facility] ([facility]) Is patient fasting? Y Total Bili Laboratory test result 0.2-1.3 [facility] ([facility]) Is patient fasting? Y Alkaline Phos 78 U/L 38-126 [facility] ([facility]) Is patient fasting? Y SGPT/Alt 17 U/L 7-56 [facility] ([facility]) Is patient fasting? Y Sgot/Ast 17 U/L 5-40 [facility] ([facility]) Is patient fasting? Y Age 60 yrs [facility] ([facility]) Is patient fasting? Y Anion Gap 9.0 mmol/L 8.0-16.0 [facility] ([facility]) Is patient fasting? Y Afr Amer GFR Laboratory test result [facility] ([facility]) Is patient fasting? Y Non-Aa GFR Laboratory test result [facility] ([facility]) Is patient fasting? Y ID Date Data Source [id number] 03/11/2021 08:45:00 AM EDT [facility] ([facility]) Name Value Range Interpretation Code Description Data Fifi rce(s) Supporting Document(s) WBC 6.9 10^3/uL 4.2-11.0 [facility] ([facility]) Is patient fasting? Y CBC W/Automated Diff Laboratory test result [facility] ([facility]) Is patient fasting? Y Hemoglobin 16.0 g/dL 14.0-16.0 [facility] ([facility]) Is patient fasting? Y RBC 4.93 10^6/uL 4.50-6.30 [facility] ([facility]) Is patient fasting? Y Hematocrit 47.6 % 41.0-51.0 [facility] ([facility]) Is patient fasting? Y MCV 96.6 fL 80.0-94.0 Above high normal [facility] ([facility]) Is patient fasting? Y MCHC 33.6 g/dL 31.0-36.0 [facility] ([facility]) Is patient fasting? Y RDW 13.7 % 11.5-14.8 [facility] ([facility]) Is patient fasting? Y MCH 32.5 pg 27.0-34.0 [facility] ([facility]) Is patient fasting? Y MPV 12.0 fL 7.4-10.4 Above high normal [facility] ([facility]) Is patient fasting? Y Platelets 189 10^3/uL 150-450 [facility] ([facility]) Is patient fasting? Y Neut 48.7 % 37.0-80.0 [facility] ([facility]) Is patient fasting? Y Lymph 35.8 % 25.0-40.0 [facility] ([facility]) Is patient fasting? Y Eos 5.1 % 0.0-7.0 [facility] ([facility]) Is patient fasting? Y [place] 9.6 % 3.0-8.0 Above high normal [facility] ([facility]) Is patient fasting? Y Baso 0.7 % 0.0-2.0 [facility] ([facility]) Is patient fasting? Y %Ig 0.1 % 0.0-0.0 Above high normal [facility] ([facility]) Is patient fasting? Y %NRBC 0.0 % 0.0-0.0 [facility] ([facility]) Is patient fasting? Y #Neut 3.36 10^3/uL 2.00-6.90 [facility] ([facility]) Is patient fasting? Y #Lymph 2.47 10^3/uL 0.60-3.40 [facility] ([facility]) Is patient fasting? Y #[place]ura 0.66 10^3/uL 0.00-0.90 [facility] ([facility]) Is patient fasting? Y #Eos 0.35 10^3/uL 0.00-0.70 [facility] ([facility]) Is patient fasting? Y #Ig 0.01 10^3/uL 0.00-0.10 [facility] ([facility]) Is patient fasting? Y #Baso 0.05 10^3/uL 0.00-0.20 [facility] ([facility]) Is patient fasting? Y Manual Diff Laboratory test result M [facility] ([facility]) Is patient fasting? Y #NRBC 0.00 10^3/uL 0.00-0.00 [facility] ([facility]) Is patient fasting? Y RBC Morph Laboratory test result [facility] ([facility]) Is patient fasting? Y ID Date Data Source [id number] 03/13/2021 09:05:00 AM EDT [facility] Value Range Interpretation Code Description Data Fifi rce(s) Supporting Document(s) Valproate [Mass/volume] in Serum or Plasma 66 ug/mL 50-100 [facility] Detection Limit = 4 <4 indicates None Detected Toxicity may occur at levels of 100-500. Measurements of free unbound valproic acid may improve the assess- ment of clinical response. ID Date Data Source [id number] 03/11/2021 06:05:00 PM EDT [facility] Value Range Interpretation Code Description Data Fifi rce(s) Supporting Document(s) Thyrotropin [Units/volume] in Serum or Plasma by Detec tion limit <= 0.05 mIU/L 2.10 uIU/mL 0.47 - 5.01 [facility] ID Date Data Source [id number] 03/11/2021 05:58:00 PM EDT [facility] Value Range Interpretation Code Description Data Fifi rce(s) Supporting Document(s) CVE PANEL [facility] al LIPID PANEL Cholesterol [Mass/volume] in Serum or Plasma 156 MG/DL 131 - 200 [facility] Deprecated Triglyceride [Mass/volume] in Serum or Plasma 42 MG/DL 3 5 - 160 [facility] HDL 59 MG/DL 29 - 86 [facility] Cholesterol in LDL [Mass/volume] in Serum or Plasma by Direc t assay 86 mg/dL 65 - 175 [facility] Cholesterol.total/Cholesterol in HDL [Mass Ratio] in Serum o r Plasma 2.6 3.4 - 4.9 L [facility] LDL/HDL 1.46 1.00 - 3.55 [facility] ital CVE RISK CHOL/HDL LDL/HDLMEN: 1/2 AVERAGE 3.43 1.00 AVERAGE 4.97 3.55 2X AVERAGE 9.55 6.25 3X AVERAGE 23.99 7.99WOMEN: 1/2 AVERAGE 3.27 1.47 AVERAGE 4.44 3.22 2X AVERAGE 7.05 5.03 3X AVERAGE 11.04 6.14 ID Date Data Source [id number] 03/11/2021 05:58:00 PM EDT [facility] Name Value Range Interpretation Code Description Data Fifi rce(s) Supporting Document(s) Hemoglobin A1c/Hemoglobin.total in Blood 5.4 % 4.4 - 6.1 [facility] ID Date Data Source [id number] 03/11/2021 05:51:00 PM EDT [facility] Name Value Range Interpretation Code Description Data Fifi rce(s) Supporting Document(s) COMPREHENSIVE METABOLIC PANEL [facility] COMPREHENSIVE METABOLIC PANEL Sodium [Moles/volume] in Serum or Plasma 142 mEq/L 134 - 153 [facility] Potassium [Moles/volume] in Serum or Plasma 4.4 mEq/L 3.6 - 5.0 [facility] Chloride [Moles/volume] in Serum or Plasma 105 mEq/L 98 - 107 [facility] Carbon dioxide, total [Moles/volume] in Serum or Plasma 28 MEQ/L 22 - 30 [facility] Glucose [Mass/volume] in Serum or Plasma 99 MG/DL 70 - 99 [facility] BUN 20 MG/DL 7 - 21 [facility] al Creatinine [Mass/volume] in Serum or Plasma 0.8 MG/DL 0.7 - 1.5 [facility] BUN/CREAT 25 8 - 27 [facility] al Protein [Mass/volume] in Serum or Plasma 6.9 G/DL 6.3 - 8.2 [facility] Albumin [Mass/volume] in Serum or Plasma 4.5 G/DL 3.9 - 5.0 [facility] Globulin [Mass/volume] in Serum by calculation 2.4 GM/DL 2.4 - 3.2 [facility] A/G RATIO 1.9 0.8 - 2.0 [facility] Calcium [Mass/volume] in Serum or Plasma 9.8 MG/DL 8.4 - 10.2 [facility] Bilirubin.total [Mass/volume] in Serum or Plasma <0.7 MG/DL 0.2 - 1.3 [facility] Alkaline phosphatase [Enzymatic activity/volume] in Serum or Plasma 78 U/L 38 - 126 [facility] Aspartate aminotransferase [Enzymatic activity/volume] in Serum or Plasma 17 U/L 5 - 40 [facility] Alanine aminotransferase [Enzymatic activity/volume] in Seru m or Plasma 17 U/L 7 - 56 [facility] Anion gap 3 in Serum or Plasma 9.0 mmol/L 8.0 - 16.0 [facility] AGE 60 yrs [facility] NON-AA GFR >60 mL/min [facility] ital AFR AMER GFR >60 mL/min [facility] Ho spital Male GFR In terprentation 20-49 yrs >60 mL/min Normal 50-59 yrs >56 mL/min Normal 60-69 yrs >49 mL/min Normal 70-79yrs >42 mL/min Normal 80 and above >35 mL/min Normal Female GFR Interpretation 20-39 yrs >60 mL/min Normal 40-49 yrs >58 mL/min Normal 50-59 yrs >51 mL/min Normal 60-69 yrs >45 mL/min Normal 70-79 yrs >39 mL/min Normal 80 and above >32 mL/min Normal ID Date Data Source [id number] 03/11/2021 05:46:00 PM EDT [facility] Name Value Range Interpretation Code Description Data Fifi rce(s) Supporting Document(s) CBC W/AUTOMATED DIFF [facility] COMPLETE BLOOD COUNT Leukocytes [#/volume] in Blood by Automated count 6.9 10^3/uL 4.2 - 1 1.0 [facility] Erythrocytes [#/volume] in Blood by Automated count 4.93 10^6/uL 4. 50 - 6.30 [facility] Hemoglobin [Mass/volume] in Blood 16.0 g/dL 14.0 - 16.0 [facility] Hematocrit [Volume Fraction] of Blood by Automated count 47.6 % 4 1.0 - 51.0 [facility] Erythrocyte mean corpuscular volume [Entitic volume] by Auto mated count 96.6 fL 80.0 - 94.0 H [facility] Erythrocyte mean corpuscular hemoglobin [Entitic mass] by Automated count 32.5 pg 27.0 - 34.0 [facility] Erythrocyte mean corpuscular hemoglobin concentration [Mass/volume] by Automated count 33.6 g/dL 31.0 - 36.0 [facility] Erythrocyte distribution width [Ratio] by Automated count 13.7 % 11.5 - 14.8 [facility] Platelets [#/volume] in Blood by Automated count 189 10^3/uL 150 - 45 0 [facility] Platelet mean volume [Entitic volume] in Blood by Automated count 12.0 fL 7.4 - 10.4 H [facility] Neutrophils/100 leukocytes in Blood by Automated count 48.7 % 37. 0 - 80.0 [facility] Lymphocytes/100 leukocytes in Blood by Manual count 35.8 % 25.0 - 40.0 [facility] Monocytes/100 leukocytes in Blood by Automated count 9.6 % 3.0 - 8.0 H [facility] Eosinophils/100 leukocytes in Blood by Automated count 5.1 % 0.0 - 7.0 [facility] Basophils/100 leukocytes in Blood by Automated count 0.7 % 0.0 - 2.0 [facility] %IG 0.1 % 0.0 - 0.0 [facility].0 % 0.0 - 0.0 [facility] al Neutrophils [#/volume] in Blood by Automated count 3.36 10^3/uL 2.00 - 6.90 [facility] Lymphocytes [#/volume] in Blood by Automated count 2.47 10^3/uL 0.60 - 3.40 [facility] Monocytes [#/volume] in Blood by Automated count 0.66 10^3/uL 0.00 - 0.90 [facility] Eosinophils [#/volume] in Blood by Automated count 0.35 10^3/uL 0.00 - 0.70 [facility] Basophils [#/volume] in Blood by Automated count 0.05 10^3/uL 0.00 - 0.20 [facility] #IG 0.01 10^3/uL 0.00 - 0.10 [facility] ospital #NRBC 0.00 10^3/uL 0.00 - 0.00 [facility] H ospital MANUAL DIFF NOT INDICATED [facility] RBC MORPH NOT INDICATED [facility] spital ID Date Data Source [id number] 12/10/2020 09:52:00 AM EDT [facility] ([facility]) Name Value Range Interpretation Code Description Data Fifi rce(s) Supporting Document(s) Chest Xray 2 Views Laboratory test result [facility] ([facility]) ID Date Data Source [id number] 12/05/2020 09:15:00 PM EDT [facility] Name Value Range Interpretation Code Description Data Fifi rce(s) Supporting Document(s) Valproate [Mass/volume] in Serum or Plasma 84 ug/mL 50-100 [facility] Detection Limit = 4 <4 indicates None Detected Toxicity may occur at levels of 100-500. Measurements of free unbound valproic acid may improve the assess- ment of clinical response. ID Date Data Source [id number] 12/04/2020 10:57:00 AM EDT [facility] Name Value Range Interpretation Code Description Data Fifi rce(s) Supporting Document(s) Prostate specific Ag [Mass/volume] in Serum or Plasma 0.46 ng/mL 0.00 - 4.00 [facility] \\BLDo\\PSA INTERPRETA TION\\BLDx\\ The PSA assay should not be used alone for a screening test or diagnosis for presence or absence of malignant disease. Predictions of disease recurrence should not be based solely on values obtained from serial patient serum values. The PSA result was determined by "[employer]", on the [employer] ESTHER 6000. Values obtained with different assay methods or kits cannot be used interchangeably. ID Date Data Source [id number] 12/03/2020 06:04:00 PM EDT [facility] Name Value Range Interpretation Code Description Data Fifi rce(s) Supporting Document(s) Hemoglobin A1c/Hemoglobin.total in Blood 5.6 % 4.4 - 6.1 [facility] {A1]{HB] ID Date Data Source [id number] 12/03/2020 06:04:00 PM EDT [facility] Name Value Range Interpretation Code Description Data Fifi rce(s) Supporting Document(s) CVE PANEL [facility] al LIPID PANEL Cholesterol [Mass/volume] in Serum or Plasma 158 MG/DL 131 - 200 [facility] Deprecated Triglyceride [Mass/volume] in Serum or Plasma 51 MG/DL 3 5 - 160 [facility] HDL 57 MG/DL 29 - 86 [facility] al Cholesterol in LDL [Mass/volume] in Serum or Plasma by Direc t assay 93 mg/dL 65 - 175 [facility] Cholesterol.total/Cholesterol in HDL [Mass Ratio] in Serum o r Plasma 2.8 3.4 - 4.9 L [facility] LDL/HDL 1.63 1.00 - 3.55 [facility] ital CVE RISK CHOL/HDL LDL/HDLMEN: 1/2 AVERAGE 3.43 1.00 AVERAGE 4.97 3.55 2X AVERAGE 9.55 6.25 3X AVERAGE 23.99 7.99WOMEN: 1/2 AVERAGE 3.27 1.47 AVERAGE 4.44 3.22 2X AVERAGE 7.05 5.03 3X AVERAGE 11.04 6.14 ID Date Data Source [id number] 12/03/2020 06:04:00 PM EDT [facility] Name Value Range Interpretation Code Description Data Fifi rce(s) Supporting Document(s) COMPREHENSIVE METABOLIC PANEL [facility] COMPREHENSIVE METABOLIC PANEL Sodium [Moles/volume] in Serum or Plasma 141 mEq/L 134 - 153 [facility] Potassium [Moles/volume] in Serum or Plasma 5.1 mEq/L 3.6 - 5.0 H [facility] Chloride [Moles/volume] in Serum or Plasma 107 mEq/L 98 - 107 [facility] Carbon dioxide, total [Moles/volume] in Serum or Plasma 27 MEQ/L 22 - 30 [facility] Glucose [Mass/volume] in Serum or Plasma 113 MG/DL 70 - 99 H [facility] BUN 23 MG/DL 7 - [address] [facility] al Creatinine [Mass/volume] in Serum or Plasma 0.7 MG/DL 0.7 - 1.5 [facility] BUN/CREAT 33 8 - [address] [facility] al Protein [Mass/volume] in Serum or Plasma 6.7 G/DL 6.3 - 8.2 [facility] Albumin [Mass/volume] in Serum or Plasma 4.3 G/DL 3.9 - 5.0 [facility] Globulin [Mass/volume] in Serum by calculation 2.4 GM/DL 2.4 - 3.2 [facility] A/G RATIO 1.8 0.8 - 2.0 [facility] Calcium [Mass/volume] in Serum or Plasma 9.5 MG/DL 8.4 - 10.2 [facility] Bilirubin.total [Mass/volume] in Serum or Plasma <0.7 MG/DL 0.2 - 1.3 [facility] Alkaline phosphatase [Enzymatic activity/volume] in Serum or Plasma 71 U/L 38 - 126 [facility] Aspartate aminotransferase [Enzymatic activity/volume] in Serum or Plasma 26 U/L 5 - 40 [facility] Alanine aminotransferase [Enzymatic activity/volume] in Seru m or Plasma 38 U/L 7 - 56 [facility] Anion gap 3 in Serum or Plasma 7.0 mmol/L 8.0 - 16.0 L [facility] AGE [address] [facility] al NON-AA GFR >60 mL/min [facility] ital AFR AMER GFR >60 mL/min [facility] Ho spital Male GFR In terprentation 20-49 yrs >60 mL/min Normal 50-59 yrs >56 mL/min Normal 60-69 yrs >49 mL/min Normal 70-79yrs >42 mL/min Normal 80 and above >35 mL/min Normal Female GFR Interpretation 20-39 yrs >60 mL/min Normal 40-49 yrs >58 mL/min Normal 50-59 yrs >51 mL/min Normal 60-69 yrs >45 mL/min Normal 70-79 yrs >39 mL/min Normal 80 and above >32 mL/min Normal ID Date Data Source [id number] 12/03/2020 05:58:00 PM EDT [facility] Name Value Range Interpretation Code Description Data Fifi rce(s) Supporting Document(s) Thyrotropin [Units/volume] in Serum or Plasma by Detec tion limit <= 0.05 mIU/L 1.94 uIU/mL 0.47 - 5.01 [facility] ID Date Data Source [id number] 12/03/2020 05:39:00 PM EDT [facility] Name Value Range Interpretation Code Description Data Fifi rce(s) Supporting Document(s) CBC W/AUTOMATED DIFF [facility] COMPLETE BLOOD COUNT Leukocytes [#/volume] in Blood by Automated count 8.7 10^3/uL 4.2 - 1 1.0 [facility] Erythrocytes [#/volume] in Blood by Automated count 4.93 10^6/uL 4. 50 - 6.30 [facility] Hemoglobin [Mass/volume] in Blood 16.1 g/dL 14.0 - 16.0 H [facility] Hematocrit [Volume Fraction] of Blood by Automated count 47.4 % 4 1.0 - 51.0 [facility] Erythrocyte mean corpuscular volume [Entitic volume] by Auto mated count 96.1 fL 80.0 - 94.0 H [facility] Erythrocyte mean corpuscular hemoglobin [Entitic mass] by Automated count 32.7 pg 27.0 - 34.0 [facility] Erythrocyte mean corpuscular hemoglobin concentration [Mass/volume] by Automated count 34.0 g/dL 31.0 - 36.0 [facility] Erythrocyte distribution width [Ratio] by Automated count 14.1 % 11.5 - 14.8 [facility] Platelets [#/volume] in Blood by Automated count 179 10^3/uL 150 - 45 0 [facility] Platelet mean volume [Entitic volume] in Blood by Automated count 11.8 fL 7.4 - 10.4 H [facility] Neutrophils/100 leukocytes in Blood by Automated count 52.0 % 37. 0 - 80.0 [facility] Lymphocytes/100 leukocytes in Blood by Manual count 29.9 % 25.0 - 40.0 [facility] Monocytes/100 leukocytes in Blood by Automated count 9.6 % 3.0 - 8.0 H [facility] Eosinophils/100 leukocytes in Blood by Automated count 7.7 % 0.0 - 7.0 H [facility] Basophils/100 leukocytes in Blood by Automated count 0.6 % 0.0 - 2.0 [facility] %IG 0.2 % 0.0 - 0.0 [facility].0 % 0.0 - 0.0 [facility] al Neutrophils [#/volume] in Blood by Automated count 4.53 10^3/uL 2.00 - 6.90 [facility] Lymphocytes [#/volume] in Blood by Automated count 2.61 10^3/uL 0.60 - 3.40 [facility] Monocytes [#/volume] in Blood by Automated count 0.84 10^3/uL 0.00 - 0.90 [facility] Eosinophils [#/volume] in Blood by Automated count 0.67 10^3/uL 0.00 - 0.70 [facility] Basophils [#/volume] in Blood by Automated count 0.05 10^3/uL 0.00 - 0.20 [facility] #IG 0.02 10^3/uL 0.00 - 0.10 [facility] #NRBC 0.00 10^3/uL 0.00 - 0.00 [facility] MANUAL DIFF NOT INDICATED [facility] RBC MORPH NOT INDICATED [facility] spital ID Date Data Source [id number] 12/03/2020 08:35:00 AM EDT [facility] ([facility]) Name Value Range Interpretation Code Description Data Fifi rce(s) Supporting Document(s) Valproate [Mass/volume] in Serum or Plasma 84 ug/mL 50-100 [facility] ([facility]) Is patient fasting? N Prostate specific Ag [Mass/volume] in Serum or Plasma 0.46 ng/mL 0.00 -4.00 [facility] ([facility]) Is patient fasting? N ID Date Data Source [id number] 12/03/2020 08:35:00 AM EDT [facility] ([facility]) Name Value Range Interpretation Code Description Data Fifi rce(s) Supporting Document(s) Cve Panel Laboratory test result [facility] ([facility]) Is patient fasting? N Cholesterol 158 mg/dL 131-200 [facility] ([facility]) Is patient fasting? N Triglycerides 51 mg/dL 35-160 [facility] ([facility]) Is patient fasting? N HDL 57 mg/dL 29-86 [facility] ([facility]) Is patient fasting? N Risk Factor 2.8 3.4-4.9 Below low normal [facility] ([facility]) Is patient fasting? N LDL 93 mg/dL 65-175 [facility] ([facility]) Is patient fasting? N LDL/HDL 1.63 1.00-3.55 [facility] ([facility]) Is patient fasting? N ID Date Data Source [id number] 12/03/2020 08:35:00 AM EDT [facility] ([facility]) Name Value Range Interpretation Code Description Data Fifi rce(s) Supporting Document(s) Hemoglobin A1c/Hemoglobin.total in Blood 5.6 % 4.4-6.1 [facility] ([facility]) Is patient fasting? N Thyrotropin [Units/volume] in Serum or Plasma 1.94 uIU/mL 0.47-5.01 [facility] ([facility]) Is patient fasting? N ID Date Data Source [id number] 12/03/2020 08:35:00 AM EDT [facility] ([facility]) Name Value Range Interpretation Code Description Data Fifi rce(s) Supporting Document(s) Comprehensive Metabo Laboratory test result [facility] ([facility]) Is patient fasting? N Potassium 5.1 meq/L 3.6-5.0 Above high normal [facility] ([facility]) Is patient fasting? N Sodium 141 meq/L 134-153 [facility] ([facility]) Is patient fasting? N Co2 27 meq/L 22-30 [facility] ([facility]) Is patient fasting? N Chloride 107 meq/L 98-107 [facility] ([facility]) Is patient fasting? N Glucose 113 mg/dL 70-99 Above high normal [facility] ([facility]) Is patient fasting? N BUN 23 mg/dL 7-21 Above high normal [facility] ([facility]) Is patient fasting? N Creatinine 0.7 mg/dL 0.7-1.5 [facility] ([facility]) Is patient fasting? N BUN/Creat 33 8-27 Above high normal [facility] ([facility]) Is patient fasting? N Total Protein 6.7 g/dL 6.3-8.2 [facility] ([facility]) Is patient fasting? N Albumin 4.3 g/dL 3.9-5.0 [facility] ([facility]) Is patient fasting? N Globulin 2.4 GM/DL 2.4-3.2 [facility] ([facility]) Is patient fasting? N A/G Ratio 1.8 0.8-2.0 [facility]) Is patient fasting? N Calcium 9.5 mg/dL 8.4-10.2 [facility] ([facility]) Is patient fasting? N Total Bili Laboratory test result 0.2-1.3 [facility] ([facility]) Is patient fasting? N Alkaline Phos 71 U/L 38-126 [facility] ([facility]) Is patient fasting? N Sgot/Ast 26 U/L 5-40 [facility] ([facility]) Is patient fasting? N Anion Gap 7.0 mmol/L 8.0-16.0 Below low normal [facility] ( [facility]) Is patient fasting? N SGPT/Alt 38 U/L 7-56 [facility] ([facility]) Is patient fasting? N Non-Aa GFR Laboratory test result [facility] ([facility]) Is patient fasting? N Age 60 yrs [facility] ([facility]) Is patient fasting? N Afr Amer GFR Laboratory test result [facility] ([facility]) Is patient fasting? N ID Date Data Source [id number] 12/03/2020 08:35:00 AM EDT [facility] ([facility]) Name Value Range Interpretation Code Description Data Fifi rce(s) Supporting Document(s) CBC W/Automated Diff Laboratory test result [facility] ([facility]) Is patient fasting? N WBC 8.7 10^3/uL 4.2-11.0 [facility] ([facility]) Is patient fasting? N RBC 4.93 10^6/uL 4.50-6.30 [facility] ([facility]) Is patient fasting? N Hemoglobin 16.1 g/dL 14.0-16.0 Above high normal [facility] ([facility]) Is patient fasting? N Hematocrit 47.4 % 41.0-51.0 [facility] ([facility]) Is patient fasting? N MCV 96.1 fL 80.0-94.0 Above high normal [facility] ([facility]) Is patient fasting? N MCHC 34.0 g/dL 31.0-36.0 [facility]) Is patient fasting? N RDW 14.1 % 11.5-14.8 [facility] ([facility]) Is patient fasting? N MCH 32.7 pg 27.0-34.0 [facility] ([facility]) Is patient fasting? N Platelets 179 10^3/uL 150-450 [facility] ([facility]) Is patient fasting? N Neut 52.0 % 37.0-80.0 [facility] ([facility]) Is patient fasting? N MPV 11.8 fL 7.4-10.4 Above high normal [facility] ([facility]) Is patient fasting? N [place] 9.6 % 3.0-8.0 Above high normal [facility] ([facility]) Is patient fasting? N Lymph 29.9 % 25.0-40.0 [facility] ([facility]) Is patient fasting? N Eos 7.7 % 0.0-7.0 Above high normal [facility] ([facility]) Is patient fasting? N %Ig 0.2 % 0.0-0.0 Above high normal [facility] ([facility]) Is patient fasting? N Baso 0.6 % 0.0-2.0 [facility] ([facility]) Is patient fasting? N #Neut 4.53 10^3/uL 2.00-6.90 [facility] ([facility]) Is patient fasting? N %NRBC 0.0 % 0.0-0.0 [facility] ([facility]) Is patient fasting? N #Lymph 2.61 10^3/uL 0.60-3.40 [facility] ([facility]) Is patient fasting? N #Eos 0.67 10^3/uL 0.00-0.70 [facility] ([facility]) Is patient fasting? N #[place] 0.84 10^3/uL 0.00-0.90 [facility] ([facility]) Is patient fasting? N #Baso 0.05 10^3/uL 0.00-0.20 [facility] ([facility]) Is patient fasting? N #Ig 0.02 10^3/uL 0.00-0.10 [facility] ([facility]) Is patient fasting? N Manual Diff Laboratory test result [facility] ([facility]) Is patient fasting? N #NRBC 0.00 10^3/uL 0.00-0.00 [facility] ([facility]) Is patient fasting? N RBC Morph Laboratory test result [facility] ([facility]) Is patient fasting? N ID Date Data Source [id number] 12/03/2020 08:35:00 AM EDT [facility] ([facility]) Name Value Range Interpretation Code Description Data Fifi rce(s) Supporting Document(s) Prostate specific Ag [Mass/volume] in Serum or Plasma 0.46 ng/mL 0.00 -4.00 [facility] ([facility]) Is patient fasting? N ID Date Data Source [id number] 09/02/2020 09:25:00 AM EDT [facility] ([facility]) Name Value Range Interpretation Code Description Data Fifi rce(s) Supporting Document(s) Valproate [Mass/volume] in Serum or Plasma 19 ug/mL 50-100 Belo w low normal [facility] ([facility]) Is patient fasting? Y ID Date Data Source [id number] 09/02/2020 09:25:00 AM EDT [facility] ([facility]) Name Value Range Interpretation Code Description Data Fifi rce(s) Supporting Document(s) Cve Panel Laboratory test result [facility] ([facility]) Is patient fasting? Y Cholesterol 148 mg/dL 131-200 [facility] ([facility]) Is patient fasting? Y HDL 61 mg/dL 29-86 [facility] ([facility]) Is patient fasting? Y Triglycerides 50 mg/dL 35-160 [facility] ([facility]) Is patient fasting? Y LDL 85 mg/dL 65-175 [facility] ([facility]) Is patient fasting? Y Risk Factor 2.4 3.4-4.9 Below low normal [facility] ([facility]) Is patient fasting? Y LDL/HDL 1.39 1.00-3.55 [facility] ([facility]) Is patient fasting? Y ID Date Data Source [id number] 09/02/2020 09:25:00 AM EDT [facility] ([facility]) Name Value Range Interpretation Code Description Data Fifi rce(s) Supporting Document(s) Hemoglobin A1c/Hemoglobin.total in Blood 5.4 % 4.4-6.1 [facility] ([facility]) Is patient fasting? Y Thyrotropin [Units/volume] in Serum or Plasma 1.63 uIU/mL 0.47-5.01 [facility] ([facility]) Is patient fasting? Y ID Date Data Source [id number] 09/02/2020 09:25:00 AM EDT [facility] ([facility]) Name Value Range Interpretation Code Description Data Fifi rce(s) Supporting Document(s) Comprehensive Metabo Laboratory test result [facility] ([facility]) Is patient fasting? Y Sodium 142 meq/L 134-153 [facility] ([facility]) Is patient fasting? Y Chloride 108 meq/L 98-107 Above high normal [facility] ([facility]) Is patient fasting? Y Potassium 4.6 meq/L 3.6-5.0 [facility] ([facility]) Is patient fasting? Y Co2 23 meq/L 22-30 [facility] ([facility]) Is patient fasting? Y Glucose 95 mg/dL 70-99 [facility] ([facility]) Is patient fasting? Y BUN 16 mg/dL 7-21 [facility] ([facility]) Is patient fasting? Y Creatinine 0.7 mg/dL 0.7-1.5 [facility] ([facility]) Is patient fasting? Y BUN/Creat 23 8-27 [facility] ([facility]) Is patient fasting? Y Total Protein 6.6 g/dL 6.3-8.2 [facility] ([facility]) Is patient fasting? Y Albumin 4.4 g/dL 3.9-5.0 [facility] ([facility]) Is patient fasting? Y Globulin 2.2 GM/DL 2.4-3.2 Below low normal [facility] ( [facility]) Is patient fasting? Y A/G Ratio 2.0 0.8-2.0 [facility] ([facility]) Is patient fasting? Y Calcium 9.6 mg/dL 8.4-10.2 [facility] ([facility]) Is patient fasting? Y Total Bili Laboratory test result 0.2-1.3 [facility] ([facility]) Is patient fasting? Y Alkaline Phos 76 U/L 38-126 [facility] ([facility]) Is patient fasting? Y Sgot/Ast 15 U/L 5-40 [facility] ([facility]) Is patient fasting? Y SGPT/Alt 15 U/L 7-56 [facility] ([facility]) Is patient fasting? Y Anion Gap 11.0 mmol/L 8.0-16.0 [facility] ([facility]) Is patient fasting? Y Age 60 yrs [facility] ([facility]) Is patient fasting? Y Non-Aa GFR Laboratory test result [facility] ([facility]) Is patient fasting? Y Afr Amer GFR Laboratory test result [facility] ([facility]) Is patient fasting? Y ID Date Data Source [id number] 09/02/2020 09:25:00 AM EDT [facility] ([facility]) Name Value Range Interpretation Code Description Data Fifi rce(s) Supporting Document(s) CBC W/Automated Diff Laboratory test result [facility] ([facility]) Is patient fasting? Y WBC 8.1 10^3/uL 4.2-11.0 [facility] ([facility]) Is patient fasting? Y RBC 4.99 10^6/uL 4.50-6.30 [facility] ([facility]) Is patient fasting? Y Hemoglobin 16.3 g/dL 14.0-16.0 Above high normal [facility] ([facility]) Is patient fasting? Y Hematocrit 48.3 % 41.0-51.0 [facility] ([facility]) Is patient fasting? Y MCV 96.8 fL 80.0-94.0 Above high normal [facility] ([facility]) Is patient fasting? Y MCH 32.7 pg 27.0-34.0 [facility] ([facility]) Is patient fasting? Y RDW 13.7 % 11.5-14.8 [facility] ([facility]) Is patient fasting? Y MCHC 33.7 g/dL 31.0-36.0 [facility] ([facility]) Is patient fasting? Y MPV 11.9 fL 7.4-10.4 Above high normal [facility] ([facility]) Is patient fasting? Y Platelets 199 10^3/uL 150-450 [facility] ([facility]) Is patient fasting? Y Neut 58.3 % 37.0-80.0 [facility] ([facility]) Is patient fasting? Y Lymph 29.4 % 25.0-40.0 [facility] ([facility]) Is patient fasting? Y Eos 4.5 % 0.0-7.0 [facility] ([facility]) Is patient fasting? Y [place] 7.2 % 3.0-8.0 [facility] ([facility]) Is patient fasting? Y Baso 0.5 % 0.0-2.0 [facility] ([facility]) Is patient fasting? Y %Ig 0.1 % 0.0-0.0 Above high normal [facility] ([facility]) Is patient fasting? Y %NRBC 0.0 % 0.0-0.0 [facility] ([facility]) Is patient fasting? Y #Neut 4.70 10^3/uL 2.00-6.90 [facility] ([facility]) Is patient fasting? Y #[place] 0.58 10^3/uL 0.00-0.90 [facility] ([facility]) Is patient fasting? Y #Lymph 2.37 10^3/uL 0.60-3.40 [facility] ([facility]) Is patient fasting? Y #Baso 0.04 10^3/uL 0.00-0.20 [facility] ([facility]) Is patient fasting? Y #Eos 0.36 10^3/uL 0.00-0.70 [facility] ([facility]) Is patient fasting? Y #Ig 0.01 10^3/uL 0.00-0.10 [facility] ([facility]) Is patient fasting? Y #NRBC 0.00 10^3/uL 0.00-0.00 [facility] ([facility]) Is patient fasting? Y RBC Morph Laboratory test result [facility] ([facility]) Is patient fasting? Y Manual Diff Laboratory test result [facility] ([facility]) Is patient fasting? Y ID Date Data Source [id number] 09/04/2020 08:14:00 AM EDT [facility] Name Value Range Interpretation Code Description Data Fifi rce(s) Supporting Document(s) Valproate [Mass/volume] in Serum or Plasma 19 ug/mL 50-100 L [facility] Detection Limit = 4 <4 indicates None Detected Toxicity may occur at levels of 100-500. Measurements of free unbound valproic acid may improve the assess- ment of clinical response. ID Date Data Source [id number] 09/02/2020 08:12:00 PM EDT [facility] Name Value Range Interpretation Code Description Data Fifi rce(s) Supporting Document(s) Thyrotropin [Units/volume] in Serum or Plasma by Detec tion limit <= 0.05 mIU/L 1.63 uIU/mL 0.47 - 5.01 [facility] ID Date Data Source [id number] 09/02/2020 08:05:00 PM EDT [facility] Name Value Range Interpretation Code Description Data Fifi rce(s) Supporting Document(s) [facility] L[facility] Cholesterol [Mass/volume] in Serum or Plasma 148 MG/DL 131 - 200 [facility] Deprecated Triglyceride [Mass/volume] in Serum or Plasma 50 MG/DL 3 5 - 160 [facility] HDL 61 MG/DL 29 - 86 [facility] al Cholesterol in LDL [Mass/volume] in Serum or Plasma by Direc t assay 85 mg/dL 65 - 175 [facility] Cholesterol.total/Cholesterol in HDL [Mass Ratio] in Serum o r Plasma 2.4 3.4 - 4.9 L [facility] LDL/HDL 1.39 1.00 - 3.55 [facility] CVE RISK CHOL/HDL LDL/HDLMEN: 1/2 AVERAGE 3.43 1.00 AVERAGE 4.97 3.55 2X AVERAGE 9.55 6.25 3X AVERAGE 23.99 7.99WOMEN: 1/2 AVERAGE 3.27 1.47 AVERAGE 4.44 3.22 2X AVERAGE 7.05 5.03 3X AVERAGE 11.04 6.14 ID Date Data Source [id number] 09/02/2020 08:05:00 PM EDT [facility] Name Value Range Interpretation Code Description Data Fifi rce(s) Supporting Document(s) COMPREHENSIVE METABOLIC PANEL [facility] COMPREHENSIVE METABOLIC PANEL Sodium [Moles/volume] in Serum or Plasma 142 mEq/L 134 - 153 [facility] Potassium [Moles/volume] in Serum or Plasma 4.6 mEq/L 3.6 - 5.0 [facility] Chloride [Moles/volume] in Serum or Plasma 108 mEq/L 98 - 107 H [facility] Carbon dioxide, total [Moles/volume] in Serum or Plasma 23 MEQ/L 22 - 30 [facility] Glucose [Mass/volume] in Serum or Plasma 95 MG/DL 70 - 99 [facility] BUN 16 MG/DL 7 - 21 [facility] Creatinine [Mass/volume] in Serum or Plasma 0.7 MG/DL 0.7 - 1.5 [facility] BUN/CREAT 23 8 - 27 [facility] al Protein [Mass/volume] in Serum or Plasma 6.6 G/DL 6.3 - 8.2 [facility] Albumin [Mass/volume] in Serum or Plasma 4.4 G/DL 3.9 - 5.0 [facility] Globulin [Mass/volume] in Serum by calculation 2.2 GM/DL 2.4 - 3.2 L [facility] A/G RATIO 2.0 0.8 - 2.0 [facility] Calcium [Mass/volume] in Serum or Plasma 9.6 MG/DL 8.4 - 10.2 [facility] Bilirubin.total [Mass/volume] in Serum or Plasma <0.7 MG/DL 0.2 - 1.3 [facility] Alkaline phosphatase [Enzymatic activity/volume] in Serum or Plasma 76 U/L 38 - 126 [facility] Aspartate aminotransferase [Enzymatic activity/volume] in Serum or Plasma 15 U/L 5 - 40 [facility] Alanine aminotransferase [Enzymatic activity/volume] in Seru m or Plasma 15 U/L 7 - 56 [facility] Anion gap 3 in Serum or Plasma 11.0 mmol/L 8.0 - 16.0 [facility] AGE [address] [facility] al NON-AA GFR >60 mL/min [facility] AFR AMER GFR >60 mL/min [facility] Male GFR In terprentation 20-49 yrs >60 mL/min Normal 50-59 yrs >56 mL/min Normal 60-69 yrs >49 mL/min Normal 70-79yrs >42 mL/min Normal 80 and above >35 mL/min Normal Female GFR Interpretation 20-39 yrs >60 mL/min Normal 40-49 yrs >58 mL/min Normal 50-59 yrs >51 mL/min Normal 60-69 yrs >45 mL/min Normal 70-79 yrs >39 mL/min Normal 80 and above >32 mL/min Normal ID Date Data Source [id number] 09/02/2020 06:49:00 PM EDT [facility] Name Value Range Interpretation Code Description Data Fifi rce(s) Supporting Document(s) Hemoglobin A1c/Hemoglobin.total in Blood 5.4 % 4.4 - 6.1 [facility] {A1]{HB] ID Date Data Source [id number] 09/02/2020 06:44:00 PM EDT [facility] Name Value Range Interpretation Code Description Data Fifi rce(s) Supporting Document(s) CBC W/AUTOMATED DIFF [facility] COMPLETE BLOOD COUNT Leukocytes [#/volume] in Blood by Automated count 8.1 10^3/uL 4.2 - 1 1.0 [facility] Erythrocytes [#/volume] in Blood by Automated count 4.99 10^6/uL 4. 50 - 6.30 [facility] Hemoglobin [Mass/volume] in Blood 16.3 g/dL 14.0 - 16.0 H [facility] Hematocrit [Volume Fraction] of Blood by Automated count 48.3 % 4 1.0 - 51.0 [facility] Erythrocyte mean corpuscular volume [Entitic volume] by Auto mated count 96.8 fL 80.0 - 94.0 H [facility] Erythrocyte mean corpuscular hemoglobin [Entitic mass] by Automated count 32.7 pg 27.0 - 34.0 [facility] Erythrocyte mean corpuscular hemoglobin concentration [Mass/volume] by Automated count 33.7 g/dL 31.0 - 36.0 [facility] Erythrocyte distribution width [Ratio] by Automated count 13.7 % 11.5 - 14.8 [facility] Platelets [#/volume] in Blood by Automated count 199 10^3/uL 150 - 45 0 [facility] Platelet mean volume [Entitic volume] in Blood by Automated count 11.9 fL 7.4 - 10.4 H [facility] Neutrophils/100 leukocytes in Blood by Automated count 58.3 % 37. 0 - 80.0 [facility] Lymphocytes/100 leukocytes in Blood by Manual count 29.4 % 25.0 - 40.0 [facility] Monocytes/100 leukocytes in Blood by Automated count 7.2 % 3.0 - 8.0 [facility] Eosinophils/100 leukocytes in Blood by Automated count 4.5 % 0.0 - 7.0 [facility] Basophils/100 leukocytes in Blood by Automated count 0.5 % 0.0 - 2.0 [facility] %IG 0.1 % 0.0 - 0.0 H [facility] %NRBC 0.0 % 0.0 - 0.0 [facility] al Neutrophils [#/volume] in Blood by Automated count 4.70 10^3/uL 2.00 - 6.90 [facility] Lymphocytes [#/volume] in Blood by Automated count 2.37 10^3/uL 0.60 - 3.40 [facility] Monocytes [#/volume] in Blood by Automated count 0.58 10^3/uL 0.00 - 0.90 [facility] Eosinophils [#/volume] in Blood by Automated count 0.36 10^3/uL 0.00 - 0.70 [facility] Basophils [#/volume] in Blood by Automated count 0.04 10^3/uL 0.00 - 0.20 [facility] #IG 0.01 10^3/uL 0.00 - 0.10 [facility]ital #NRBC 0.00 10^3/uL 0.00 - 0.00 [facility] MANUAL DIFF NOT INDICATED [facility] RBC MORPH NOT INDICATED [facility] ID Date Data Source [id number] 06/10/2020 11:06:00 AM EST [facility] ([facility]) Name Value Range Interpretation Code Description Data Fifi rce(s) Supporting Document(s) Valproate [Mass/volume] in Serum or Plasma 43 ug/mL 50-100 Belo w low normal [facility] ([facility]) <content>Detection Limit = 4</content><b r/><content><4 indicates None Detected</content>
<content>Toxicity may occur at levels of 100-500. Measurements</content>
<content>of free unbound valproic acid may improve the assess-</content>
<content>ment of clinical response.</content>
<content></content> ID Date Data Source [id number] 06/10/2020 11:06:00 AM EST [facility] ([facility]) Name Value Range Interpretation Code Description Data Fifi rce(s) Supporting Document(s) Cve Panel Laboratory test result [facility] ([facility]) LIPID PANEL Triglycerides 53 mg/dL 35-160 [facility] ([facility]) Is patient fasting? Y Cholesterol 156 mg/dL 131-200 [facility] ([facility]) Is patient fasting? Y HDL 50 mg/dL 29-86 [facility] ([facility]) Is patient fasting? Y LDL 89 mg/dL 65-175 [facility] ([facility]) Is patient fasting? Y Risk Factor 3.1 3.4-4.9 Below low normal [facility] ([facility]) Is patient fasting? Y LDL/HDL 1.78 1.00-3.55 [facility] ([facility]) CVE RISK CHOL/HDL LDL/HDL MEN: 1/2 AVERAGE 3.43 1.00 AVERAGE 4.97 3.55 2X AVERAGE 9.55 6.25 3X AVERAGE 23.99 7.99 WOMEN: 1/2 AVERAGE 3.27 1.47 AVERAGE 4.44 3.22 2X AVERAGE 7.05 5.03 3X AVERAGE 11.04 6.14 ID Date Data Source [id number] 06/10/2020 11:06:00 AM EST [facility] ([facility]) Name Value Range Interpretation Code Description Data Fifi rce(s) Supporting Document(s) Hemoglobin A1c/Hemoglobin.total in Blood 5.3 % 4.4-6.1 [facility] ([facility]) {A1] {HB] Thyrotropin [Units/volume] in Serum or Plasma 2.11 uIU/mL 0.47-5.01 [facility] ([facility]) Is patient fasting? Y ID Date Data Source [id number] 06/10/2020 11:06:00 AM EST [facility] ([facility]) Name Value Range Interpretation Code Description Data Fifi rce(s) Supporting Document(s) Sodium 138 meq/L 134-153 [facility] ([facility]) Is patient fasting? Y Comprehensive Metabo Laboratory test result [facility] ([facility]) COMPREHENSIVE METABOLIC PANEL Potassium 4.2 meq/L 3.6-5.0 [facility] ([facility]) Is patient fasting? Y Co2 25 meq/L 22-30 [facility] ([facility]) Is patient fasting? Y Chloride 104 meq/L 98-107 [facility] ([facility]) Is patient fasting? Y Glucose 101 mg/dL 65-110 [facility] ([facility]) Is patient fasting? Y BUN 22 mg/dL 7-21 Above high normal [facility] ([facility]) Is patient fasting? Y Creatinine 0.7 mg/dL 0.7-1.5 [facility] ([facility]) Is patient fasting? Y BUN/Creat 31 8-27 Above high normal [facility] ([facility]) Is patient fasting? Y Total Protein 6.1 g/dL 6.3-8.2 Below low normal [facility] ([facility]) Is patient fasting? Y Albumin 4.3 g/dL 3.9-5.0 [facility] ([facility]) Is patient fasting? Y Globulin 1.8 GM/DL 2.4-3.2 Below low normal [facility] ( [facility]) Is patient fasting? Y A/G Ratio 2.4 0.8-2.0 Above high normal [facility] ([facility]) Is patient fasting? Y Calcium 9.1 mg/dL 8.4-10.2 [facility] ([facility]) Is patient fasting? Y Total Bili Laboratory test result 0.2-1.3 [facility] ([facility]) Is patient fasting? Y Alkaline Phos 75 U/L 38-126 [facility] ([facility]) Is patient fasting? Y Sgot/Ast 25 U/L 5-40 [facility] ([facility]) Is patient fasting? Y SGPT/Alt 33 U/L 7-56 [facility] ([facility]) Is patient fasting? Y Age 59 yrs [facility] ([facility]) Is patient fasting? Y Anion Gap 9.0 mmol/L 8.0-16.0 [facility] ([facility]) Is patient fasting? Y Non-Aa GFR Laboratory test result [facility] ([facility]) Is patient fasting? Y Afr Amer GFR Laboratory test result [facility] ([facility]) Male GFR Interprentation 20-49 yrs >60 mL/min Normal 50-59 yrs >56 mL/min Normal 60-69 yrs >49 mL/min Normal 70-79yrs >42 mL/min Normal 80 and above >35 mL/min Normal Female GFR Interpretation 20-39 yrs >60 mL/min Normal 40-49 yrs >58 mL/min Normal 50-59 yrs >51 mL/min Normal 60-69 yrs >45 mL/min Normal 70-79 yrs >39 mL/min Normal 80 and above >32 mL/min Normal ID Date Data Source [id number] 06/10/2020 11:06:00 AM EST [facility] ([facility]) Name Value Range Interpretation Code Description Data Fifi rce(s) Supporting Document(s) CBC W/Automated Diff Laboratory test result [facility] ([facility]) COMPLETE BLOOD COUNT WBC 8.3 10^3/uL 4.2-11.0 [facility] ([facility]) Is patient fasting? Y RBC 4.71 10^6/uL 4.50-6.30 [facility] ([facility]) Is patient fasting? Y Hemoglobin 15.2 g/dL 14.0-16.0 [facility] ([facility]) Is patient fasting? Y Hematocrit 44.5 % 41.0-51.0 [facility] ([facility]) Is patient fasting? Y MCH 32.3 pg 27.0-34.0 [facility] ([facility]) Is patient fasting? Y MCV 94.5 fL 80.0-94.0 Above high normal [facility] ([facility]) Is patient fasting? Y MCHC 34.2 g/dL 31.0-36.0 [facility] ([facility]) Is patient fasting? Y RDW 13.2 % 11.5-14.8 [facility] ([facility]) Is patient fasting? Y Platelets 212 10^3/uL 150-450 [facility] ([facility]) Is patient fasting? Y Neut 55.5 % 37.0-80.0 [facility] ([facility]) Is patient fasting? Y MPV 12.0 fL 7.4-10.4 Above high normal [facility] ([facility]) Is patient fasting? Y [place] 8.2 % 3.0-8.0 Above high normal [facility] ([facility]) Is patient fasting? Y Lymph 29.9 % 25.0-40.0 [facility] ([facility]) Is patient fasting? Y Eos 5.6 % 0.0-7.0 [facility] ([facility]) Is patient fasting? Y Baso 0.6 % 0.0-2.0 [facility] ([facility]) Is patient fasting? Y %Ig 0.2 % 0.0-0.0 Above high normal [facility] ([facility]) Is patient fasting? Y %NRBC 0.0 % 0.0-0.0 [facility] ([facility]) Is patient fasting? Y #Neut 4.58 10^3/uL 2.00-6.90 [facility] ([facility]) Is patient fasting? Y #Lymph 2.47 10^3/uL 0.60-3.40 [facility] ([facility]) Is patient fasting? Y #Eos 0.46 10^3/uL 0.00-0.70 [facility] ([facility]) Is patient fasting? Y #[place]ura 0.68 10^3/uL 0.00-0.90 [facility] ([facility]) Is patient fasting? Y #Ig 0.02 10^3/uL 0.00-0.10 [facility] ([facility]) Is patient fasting? Y #Baso 0.05 10^3/uL 0.00-0.20 [facility] ([facility]) Is patient fasting? Y #NRBC 0.00 10^3/uL 0.00-0.00 [facility] ([facility]) Is patient fasting? Y Manual Diff Laboratory test result [facility] ([facility]) Is patient fasting? Y RBC Morph Laboratory test result [facility] ([facility]) Is patient fasting? Y ID Date Data Source [id number] 06/12/2020 08:25:00 AM [facility] Name Value Range Interpretation Code Description Data Fifi rce(s) Supporting Document(s) Valproate [Mass/volume] in Serum or Plasma 43 ug/mL 50-100 L [facility] Detection Limit = 4 <4 indicates None Detected Toxicity may occur at levels of 100-500. Measurements of free unbound valproic acid may improve the assess- ment of clinical response. ID Date Data Source [id number] 06/10/2020 06:04:00 PM [facility] Name Value Range Interpretation Code Description Data Fifi rce(s) Supporting Document(s) [facility] Cholesterol [Mass/volume] in Serum or Plasma 156 MG/DL 131 - 200 [facility] Deprecated Triglyceride [Mass/volume] in Serum or Plasma 53 MG/DL 3 5 - 160 [facility] HDL 50 MG/DL 29 - 86 [facility] al Cholesterol in LDL [Mass/volume] in Serum or Plasma by Direc t assay 89 mg/dL 65 - 175 [facility] Cholesterol.total/Cholesterol in HDL [Mass Ratio] in Serum o r Plasma 3.1 3.4 - 4.9 L [facility] LDL/HDL 1.78 1.00 - 3.55 [facility] CVE RISK CHOL/HDL LDL/HDLMEN: 1/2 AVERAGE 3.43 1.00 AVERAGE 4.97 3.55 2X AVERAGE 9.55 6.25 3X AVERAGE 23.99 7.99WOMEN: 1/2 AVERAGE 3.27 1.47 AVERAGE 4.44 3.22 2X AVERAGE 7.05 5.03 3X AVERAGE 11.04 6.14 ID Date Data Source [id number] 06/10/2020 06:04:00 PM [facility] Name Value Range Interpretation Code Description Data Fifi rce(s) Supporting Document(s) COMPREHENSIVE METABOLIC PANEL [facility] COMPREHENSIVE METABOLIC PANEL Sodium [Moles/volume] in Serum or Plasma 138 mEq/L 134 - 153 [facility] Potassium [Moles/volume] in Serum or Plasma 4.2 mEq/L 3.6 - 5.0 [facility] Chloride [Moles/volume] in Serum or Plasma 104 mEq/L 98 - 107 [facility] Carbon dioxide, total [Moles/volume] in Serum or Plasma 25 MEQ/L 22 - 30 [facility] Glucose [Mass/volume] in Serum or Plasma 101 MG/DL 65 - 110 [facility] BUN 22 MG/DL 7 - [address] [facility] al Creatinine [Mass/volume] in Serum or Plasma 0.7 MG/DL 0.7 - 1.5 [facility] BUN/CREAT 31 8 - 27 H [facility] Protein [Mass/volume] in Serum or Plasma 6.1 G/DL 6.3 - 8.2 L [facility] Albumin [Mass/volume] in Serum or Plasma 4.3 G/DL 3.9 - 5.0 [facility] Globulin [Mass/volume] in Serum by calculation 1.8 GM/DL 2.4 - 3.2 L [facility] A/G RATIO 2.4 0.8 - 2.0 H [facility] Calcium [Mass/volume] in Serum or Plasma 9.1 MG/DL 8.4 - 10.2 [facility] Bilirubin.total [Mass/volume] in Serum or Plasma <0.7 MG/DL 0.2 - 1.3 [facility] Alkaline phosphatase [Enzymatic activity/volume] in Serum or Plasma 75 U/L 38 - 126 [facility] Aspartate aminotransferase [Enzymatic activity/volume] in Serum or Plasma 25 U/L 5 - 40 [facility] Alanine aminotransferase [Enzymatic activity/volume] in Seru m or Plasma 33 U/L 7 - 56 [facility] Anion gap 3 in Serum or Plasma 9.0 mmol/L 8.0 - 16.0 [facility] AGE [address] [facility] al NON-AA GFR >60 mL/min [facility] AFR AMER GFR >60 mL/min [facility] Male GFR In terprentation 20-49 yrs >60 mL/min Normal 50-59 yrs >56 mL/min Normal 60-69 yrs >49 mL/min Normal 70-79yrs >42 mL/min Normal 80 and above >35 mL/min Normal Female GFR Interpretation 20-39 yrs >60 mL/min Normal 40-49 yrs >58 mL/min Normal 50-59 yrs >51 mL/min Normal 60-69 yrs >45 mL/min Normal 70-79 yrs >39 mL/min Normal 80 and above >32 mL/min Normal ID Date Data Source [id number] 06/10/2020 06:04:00 PM [facility] Name Value Range Interpretation Code Description Data Fifi rce(s) Supporting Document(s) Hemoglobin A1c/Hemoglobin.total in Blood 5.3 % 4.4 - 6.1 [facility] {A1]{HB] ID Date Data Source [id number] 06/10/2020 06:02:00 PM [facility] Name Value Range Interpretation Code Description Data Fifi rce(s) Supporting Document(s) Thyrotropin [Units/volume] in Serum or Plasma by Detec tion limit <= 0.05 mIU/L 2.11 uIU/mL 0.47 - 5.01 [facility] ID Date Data Source [id number] 06/10/2020 05:46:00 PM [facility] Name Value Range Interpretation Code Description Data Fifi rce(s) Supporting Document(s) CBC W/AUTOMATED DIFF [facility] COMPLETE BLOOD COUNT Leukocytes [#/volume] in Blood by Automated count 8.3 10^3/uL 4.2 - 1 1.0 [facility] Erythrocytes [#/volume] in Blood by Automated count 4.71 10^6/uL 4. 50 - 6.30 [facility] Hemoglobin [Mass/volume] in Blood 15.2 g/dL 14.0 - 16.0 [facility] Hematocrit [Volume Fraction] of Blood by Automated count 44.5 % 4 1.0 - 51.0 [facility] Erythrocyte mean corpuscular volume [Entitic volume] by Auto mated count 94.5 fL 80.0 - 94.0 H [facility] Erythrocyte mean corpuscular hemoglobin [Entitic mass] by Automated count 32.3 pg 27.0 - 34.0 [facility] Erythrocyte mean corpuscular hemoglobin concentration [Mass/volume] by Automated count 34.2 g/dL 31.0 - 36.0 [facility] Erythrocyte distribution width [Ratio] by Automated count 13.2 % 11.5 - 14.8 [facility] Platelets [#/volume] in Blood by Automated count 212 10^3/uL 150 - 45 0 [facility] Platelet mean volume [Entitic volume] in Blood by Automated count 12.0 fL 7.4 - 10.4 H [facility] Neutrophils/100 leukocytes in Blood by Automated count 55.5 % 37. 0 - 80.0 [facility] Lymphocytes/100 leukocytes in Blood by Manual count 29.9 % 25.0 - 40.0 [facility] Monocytes/100 leukocytes in Blood by Automated count 8.2 % 3.0 - 8.0 H [facility] Eosinophils/100 leukocytes in Blood by Automated count 5.6 % 0.0 - 7.0 [facility] Basophils/100 leukocytes in Blood by Automated count 0.6 % 0.0 - 2.0 [facility] %IG 0.2 % 0.0 - 0.0 H [facility] %NRBC 0.0 % 0.0 - 0.0 [facility] al Neutrophils [#/volume] in Blood by Automated count 4.58 10^3/uL 2.00 - 6.90 [facility] Lymphocytes [#/volume] in Blood by Automated count 2.47 10^3/uL 0.60 - 3.40 [facility] Monocytes [#/volume] in Blood by Automated count 0.68 10^3/uL 0.00 - 0.90 [facility] Eosinophils [#/volume] in Blood by Automated count 0.46 10^3/uL 0.00 - 0.70 [facility] Basophils [#/volume] in Blood by Automated count 0.05 10^3/uL 0.00 - 0.20 [facility] #IG 0.02 10^3/uL 0.00 - 0.10 [facility] #NRBC 0.00 10^3/uL 0.00 - 0.00 [facility] MANUAL DIFF NOT INDICATED [facility] RBC MORPH NOT INDICATED [facility] ID Date Data Source [id number] 02/14/2020 10:08:00 AM EDT [facility] ([facility]) Name Value Range Interpretation Code Description Data Fifi rce(s) Supporting Document(s) Valproate Free [Mass/volume] in Serum or Plasma 12.2 ug/mL 6.0-22.0 [facility] ([facility]) Detection Limit = 0.5 ID Date Data Source [id number] 02/14/2020 10:08:00 AM EDT [facility] ([facility]) Name Value Range Interpretation Code Description Data Fifi rce(s) Supporting Document(s) Prostate Specific Ag,Serum 0.5 ng/mL 0.0-4.0 [facility] ([facility]) [place] ECLIA methodology. According to the [employer], Serum PSA should decrease and remain at undetectable levels after radical prostatectomy. The AUA defines biochemical recurrence as an initial PSA value 0.2 ng/mL or greater followed by a subsequent confirmatory PSA value 0.2 ng/mL or greater. Values obtained with different assay methods or kits cannot be used interchangeably. Results cannot be interpreted as absolute evidence of the presence or absence of malignant disease. Reflex Criteria Laboratory test result [facility] ([facility]) The percent free PSA is performed on a r eflex basis only when the total PSA is between 4.0 and 10.0 ng/mL. ID Date Data Source [id number] 02/14/2020 10:08:00 AM EDT [facility] ([facility]) Name Value Range Interpretation Code Description Data Fifi rce(s) Supporting Document(s) Cve Panel Laboratory test result [facility] ([facility]) LIPID PANEL Cholesterol 157 mg/dL 131-200 [facility] ([facility]) Triglycerides 74 mg/dL 35-160 [facility] ([facility]) HDL 47 mg/dL 29-86 [facility] ([facility]) LDL 89 mg/dL 65-175 [facility] ([facility]) Risk Factor 3.3 3.4-4.9 Below low normal [facility] ([facility]) LDL/HDL 1.89 1.00-3.55 [facility] ([facility]) CVE RISK CHOL/HDL LDL/HDL MEN: 1/2 AVERAGE 3.43 1.00 AVERAGE 4.97 3.55 2X AVERAGE 9.55 6.25 3X AVERAGE 23.99 7.99 WOMEN: 1/2 AVERAGE 3.27 1.47 AVERAGE 4.44 3.22 2X AVERAGE 7.05 5.03 3X AVERAGE 11.04 6.14 ID Date Data Source [id number] 02/14/2020 10:08:00 AM EDT [facility] ([facility]) Name Value Range Interpretation Code Description Data Fifi rce(s) Supporting Document(s) Hemoglobin A1c/Hemoglobin.total in Blood 5.9 % 4.4-6.1 [facility] ([facility]) {A1] {HB] Thyrotropin [Units/volume] in Serum or Plasma 1.63 uIU/mL 0.47-5.01 [facility] ([facility]) ID Date Data Source [id number] 02/14/2020 10:08:00 AM EDT [facility] ([facility]) Name Value Range Interpretation Code Description Data Fifi rce(s) Supporting Document(s) Comprehensive Metabo Laboratory test result [facility] ([facility]) COMPREHENSIVE METABOLIC PANEL Sodium 137 meq/L 134-153 [facility] ([facility]) Potassium 4.3 meq/L 3.6-5.0 [facility] ([facility]) Chloride 104 meq/L 98-107 [facility] ([facility]) Glucose 101 mg/dL 65-110 [facility] ([facility]) Co2 24 meq/L 22-30 [facility] ([facility]) BUN 20 mg/dL 7-21 [facility] ([facility]) Creatinine 0.8 mg/dL 0.7-1.5 [facility] ([facility]) Total Protein 6.6 g/dL 6.3-8.2 [facility] ([facility]) BUN/Creat 25 8-27 [facility] ([facility]) Globulin 2.4 GM/DL 2.4-3.2 [facility] ([facility]) Albumin 4.2 g/dL 3.9-5.0 [facility] ([facility]) A/G Ratio 1.8 0.8-2.0 [facility] ([facility]) Calcium 9.0 mg/dL 8.4-10.2 [facility] ([facility]) Total Bili Laboratory test result 0.2-1.3 [facility] ([facility]) Alkaline Phos 80 U/L 38-126 [facility] ([facility]) SGPT/Alt 16 U/L 7-56 [facility] ([facility]) Sgot/Ast 15 U/L 5-40 [facility] ([facility]) Anion Gap 9.0 mmol/L 8.0-16.0 [facility] ([facility]) Age 59 yrs [facility] ([facility]) Non-Aa GFR Laboratory test result [facility] ([facility]) Afr Amer GFR Laboratory test result [facility] ([facility]) Male GFR Interprentation 20-49 yrs >60 mL/min Normal 50-59 yrs >56 mL/min Normal 60-69 yrs >49 mL/min Normal 70-79yrs >42 mL/min Normal 80 and above >35 mL/min Normal Female GFR Interpretation 20-39 yrs >60 mL/min Normal 40-49 yrs >58 mL/min Normal 50-59 yrs >51 mL/min Normal 60-69 yrs >45 mL/min Normal 70-79 yrs >39 mL/min Normal 80 and above >32 mL/min Normal ID Date Data Source [id number] 02/14/2020 10:08:00 AM EDT [facility] ([facility]) Name Value Range Interpretation Code Description Data Fifi rce(s) Supporting Document(s) CBC W/Automated Diff Laboratory test result [facility] ([facility]) COMPLETE BLOOD COUNT RBC 4.83 10^6/uL 4.50-6.30 [facility] ([facility]) WBC 7.4 10^3/uL 4.2-11.0 [facility] ([facility]) Hematocrit 45.6 % 41.0-51.0 [facility] ([facility]) Hemoglobin 15.3 g/dL 14.0-16.0 [facility] ([facility]) MCH 31.7 pg 27.0-34.0 [facility] ([facility]) MCV 94.4 fL 80.0-94.0 Above high normal [facility] ([facility]) RDW 13.8 % 11.5-14.8 [facility] ([facility]) MCHC 33.6 g/dL 31.0-36.0 [facility] ([facility]) Neut 57.2 % 37.0-80.0 [facility] ([facility]) MPV 12.5 fL 7.4-10.4 Above high normal [facility] ([facility]) Platelets 166 10^3/uL 150-450 [facility] ([facility]) Lymph 27.3 % 25.0-40.0 [facility] ([facility]) [place] 7.9 % 3.0-8.0 [facility] ([facility]) Eos 6.9 % 0.0-7.0 [facility] ([facility]) Baso 0.4 % 0.0-2.0 [facility] ([facility]) %NRBC 0.0 % 0.0-0.0 [facility] ([facility]) %Ig 0.3 % 0.0-0.0 Above high normal [facility] ([facility]) #Lymph 2.03 10^3/uL 0.60-3.40 [facility] ([facility]) #Neut 4.26 10^3/uL 2.00-6.90 [facility] ([facility]) #Ventura 0.59 10^3/uL 0.00-0.90 [facility] ([facility]) #Eos 0.51 10^3/uL 0.00-0.70 [facility] ([facility]) #Ig 0.02 10^3/uL 0.00-0.10 [facility] ([facility]) #Baso 0.03 10^3/uL 0.00-0.20 [facility] ([facility]) Manual Diff [facility] #NRBC 0.00 10^3/uL 0.00-0.00 [facility] RBC Morph Laboratory test result [facility] ([facility]) ID Date Data Source [id number] 02/20/2020 05:32:00 PM EDT [facility] Name Value Range Interpretation Code Description Data Fifi rce(s) Supporting Document(s) Valproate Free [Mass/volume] in Serum or Plasma 12.2 ug/mL 6.0-22.0 [facility] Detection Limit = 0.5 ID Date Data Source [id number] 02/16/2020 02:35:00 PM EDT [facility] Value Range Interpretation Code Description Data Fifi rce(s) Supporting Document(s) Prostate specific Ag [Mass/volume] in Serum or Plasma 0.5 ng/mL 0.0- 4.0 [facility] [place] ECLIA methodology.According to the [employer], Serum PSA shoulddecrease and remain at undetectable levels after radicalprostatectomy. The AUA defines biochemical recurrence as an initialPSA value 0.2 ng/mL or greater followed by a subsequent confirmatoryPSA value 0.2 ng/mL or greater.Values obtained with different assay methods or kits cannot be usedinterchangeably. Results cannot be interpreted as absolute evidenceof the presence or absence of malignant disease. Reflex Criteria COMMENT [facility] The percent free PSA is performed on a r eflex basis only when thetotal PSA is between 4.0 and 10.0 ng/mL. ID Date Data Source [id number] 02/14/2020 06:03:00 PM EDT [facility] Value Range Interpretation Code Description Data Fifi rce(s) Supporting Document(s) Thyrotropin [Units/volume] in Serum or Plasma by Detec tion limit <= 0.05 mIU/L 1.63 uIU/mL 0.47 - 5.01 [facility] ID Date Data Source [id number] 02/14/2020 05:58:00 PM EDT [facility] Value Range Interpretation Code Description Data Fifi rce(s) Supporting Document(s) CVE PANEL [facility] al LIPID PANEL Cholesterol [Mass/volume] in Serum or Plasma 157 MG/DL 131 - 200 [facility] Deprecated Triglyceride [Mass/volume] in Serum or Plasma 74 MG/DL 3 5 - 160 [facility] HDL 47 MG/DL 29 - 86 [facility] Cholesterol in LDL [Mass/volume] in Serum or Plasma by Direc t assay 89 mg/dL 65 - 175 [facility] Cholesterol.total/Cholesterol in HDL [Mass Ratio] in Serum o r Plasma 3.3 3.4 - 4.9 L [facility] LDL/HDL 1.89 1.00 - 3.55 [facility] CVE RISK CHOL/HDL LDL/HDLMEN: 1/2 AVERAGE 3.43 1.00 AVERAGE 4.97 3.55 2X AVERAGE 9.55 6.25 3X AVERAGE 23.99 7.99WOMEN: 1/2 AVERAGE 3.27 1.47 AVERAGE 4.44 3.22 2X AVERAGE 7.05 5.03 3X AVERAGE 11.04 6.14 ID Date Data Source [id number] 02/14/2020 05:52:00 PM EDT [facility] Name Value Range Interpretation Code Description Data Fifi rce(s) Supporting Document(s) COMPREHENSIVE METABOLIC PANEL [facility] COMPREHENSIVE METABOLIC PANEL Sodium [Moles/volume] in Serum or Plasma 137 mEq/L 134 - 153 [facility] Potassium [Moles/volume] in Serum or Plasma 4.3 mEq/L 3.6 - 5.0 [facility] Chloride [Moles/volume] in Serum or Plasma 104 mEq/L 98 - 107 [facility] Carbon dioxide, total [Moles/volume] in Serum or Plasma 24 MEQ/L 22 - 30 [facility] Glucose [Mass/volume] in Serum or Plasma 101 MG/DL 65 - 110 [facility] BUN 20 MG/DL 7 - 21 [facility] al Creatinine [Mass/volume] in Serum or Plasma 0.8 MG/DL 0.7 - 1.5 [facility] BUN/CREAT 25 8 - 27 [facility] al Protein [Mass/volume] in Serum or Plasma 6.6 G/DL 6.3 - 8.2 [facility] Albumin [Mass/volume] in Serum or Plasma 4.2 G/DL 3.9 - 5.0 [facility] Globulin [Mass/volume] in Serum by calculation 2.4 GM/DL 2.4 - 3.2 [facility] A/G RATIO 1.8 0.8 - 2.0 [facility] Calcium [Mass/volume] in Serum or Plasma 9.0 MG/DL 8.4 - 10.2 [facility] Bilirubin.total [Mass/volume] in Serum or Plasma <0.7 MG/DL 0.2 - 1.3 [facility] Alkaline phosphatase [Enzymatic activity/volume] in Serum or Plasma 80 U/L 38 - 126 [facility] Aspartate aminotransferase [Enzymatic activity/volume] in Serum or Plasma 15 U/L 5 - 40 [facility] Alanine aminotransferase [Enzymatic activity/volume] in Seru m or Plasma 16 U/L 7 - 56 [facility] Anion gap 3 in Serum or Plasma 9.0 mmol/L 8.0 - 16.0 [facility] 59 [facility] >60 mL/min [facility] AFR AMER GFR >60 mL/min [facility] Male GFR In terprentation 20-49 yrs >60 mL/min Normal 50-59 yrs >56 mL/min Normal 60-69 yrs >49 mL/min Normal 70-79yrs >42 mL/min Normal 80 and above >35 mL/min Normal Female GFR Interpretation 20-39 yrs >60 mL/min Normal 40-49 yrs >58 mL/min Normal 50-59 yrs >51 mL/min Normal 60-69 yrs >45 mL/min Normal 70-79 yrs >39 mL/min Normal 80 and above >32 mL/min Normal ID Date Data Source [id number] 02/14/2020 05:44:00 PM EDT [facility] Name Value Range Interpretation Code Description Data Fifi rce(s) Supporting Document(s) CBC W/AUTOMATED DIFF [facility] COMPLETE BLOOD COUNT Leukocytes [#/volume] in Blood by Automated count 7.4 10^3/uL 4.2 - 1 1.0 [facility] Erythrocytes [#/volume] in Blood by Automated count 4.83 10^6/uL 4. 50 - 6.30 [facility] Hemoglobin [Mass/volume] in Blood 15.3 g/dL 14.0 - 16.0 [facility] Hematocrit [Volume Fraction] of Blood by Automated count 45.6 % 4 1.0 - 51.0 [facility] Erythrocyte mean corpuscular volume [Entitic volume] by Auto mated count 94.4 fL 80.0 - 94.0 H [facility] Erythrocyte mean corpuscular hemoglobin [Entitic mass] by Automated count 31.7 pg 27.0 - 34.0 [facility] Erythrocyte mean corpuscular hemoglobin concentration [Mass/volume] by Automated count 33.6 g/dL 31.0 - 36.0 [facility] Erythrocyte distribution width [Ratio] by Automated count 13.8 % 11.5 - 14.8 [facility] Platelets [#/volume] in Blood by Automated count 166 10^3/uL 150 - 45 0 [facility] Platelet mean volume [Entitic volume] in Blood by Automated count 12.5 fL 7.4 - 10.4 H [facility] Neutrophils/100 leukocytes in Blood by Automated count 57.2 % 37. 0 - 80.0 [facility] Lymphocytes/100 leukocytes in Blood by Manual count 27.3 % 25.0 - 40.0 [facility] Monocytes/100 leukocytes in Blood by Automated count 7.9 % 3.0 - 8.0 [facility] Eosinophils/100 leukocytes in Blood by Automated count 6.9 % 0.0 - 7.0 [facility] Basophils/100 leukocytes in Blood by Automated count 0.4 % 0.0 - 2.0 [facility] %IG 0.3 % 0.0 - [facility].0 % 0.0 - 0.0 [facility] al Neutrophils [#/volume] in Blood by Automated count 4.26 10^3/uL 2.00 - 6.90 [facility] Lymphocytes [#/volume] in Blood by Automated count 2.03 10^3/uL 0.60 - 3.40 [facility] Monocytes [#/volume] in Blood by Automated count 0.59 10^3/uL 0.00 - 0.90 [facility] Eosinophils [#/volume] in Blood by Automated count 0.51 10^3/uL 0.00 - 0.70 [facility] Basophils [#/volume] in Blood by Automated count 0.03 10^3/uL 0.00 - 0.20 [facility] #IG 0.02 10^3/uL 0.00 - 0.10 [facility] ospital #NRBC 0.00 10^3/uL 0.00 - 0.00 [facility] ospital MANUAL DIFF NOT INDICATED [facility] RBC MORPH NOT INDICATED [facility] spital ID Date Data Source [id number] 02/14/2020 05:22:00 PM EDT [facility] Name Value Range Interpretation Code Description Data Fifi rce(s) Supporting Document(s) Hemoglobin A1c/Hemoglobin.total in Blood 5.9 % 4.4 - 6.1 [facility] {A1]{HB] Procedure Social History No Information Vital Signs ID Date Data Source UNK Name Value Range Interpretation Code Description Data Source(s) Systolic blood pressure 130 mm[Hg] 130 mm[Hg] [facility] ([facility]) Diastolic blood pressure 76 mm[Hg] 76 mm[Hg] [facility] ([facility]) Heart rate 64 /min 64 /min [facility] ([facility]) Body temperature 96.4 [degF] 96.4 [degF] [facility] ([facility]) Respiratory rate 16 /min 16 /min [facility] ( [facility]) Oxygen saturation in Arterial blood by Pulse oximetry 98 % 98 % [facility] ([facility]) Body weight 192.38 [lb_av] 192.38 [lb_av] [facility] ([facility]) Body weight 87.261 kg 87.261 kg [facility] ([facility]) Body height 72 [in_i] 72 [in_i] [facility] ([facility]) 6'0" Body mass index (BMI) [Ratio] 26.1 kg/m2 26.1 k g/m2 [facility] ([facility]) Body surface area Derived from formula 2.10 m2 2.10 m2 [facility] ([facility]) Body mass index (BMI) [Ratio] 26.5 kg/m2 26.5 k g/m2 [facility] ([facility]) Heart rate 74 /min 74 /min [facility] ([facility]) Body weight 88.509 kg 88.509 kg [facility] ([facility]) Systolic blood pressure 134 mm[Hg] 134 mm[Hg] [facility] ([facility]) Diastolic blood pressure 70 mm[Hg] 70 mm[Hg] [facility] ([facility]) Body temperature 96.4 [degF] 96.4 [degF] [facility] ([facility]) Respiratory rate 16 /min 16 /min [facility] ( [facility]) Oxygen saturation in Arterial blood by Pulse oximetry 96 % 96 % [facility] ([facility]) Body weight 195.12 [lb_av] 195.12 [lb_av] [facility] ([facility]) Body height 72 [in_i] 72 [in_i] [facility] ([facility]) 6'0" Body surface area Derived from formula 2.11 m2 2.11 m2 [facility] ([facility]) Body height 72 [in_i] 72 [in_i] [facility] ([facility]) 6'0" Oxygen saturation in Arterial blood by Pulse oximetry 96 % 96 % [facility] ([facility]) Body mass index (BMI) [Ratio] 25.6 kg/m2 25.6 k g/m2 [facility] ([facility]) Body surface area Derived from formula 2.08 m2 2.08 m2 [facility] ([facility]) Systolic blood pressure 130 mm[Hg] 130 mm[Hg] [facility] ([facility]) Diastolic blood pressure 74 mm[Hg] 74 mm[Hg] [facility] ([facility]) Heart rate 76 /min 76 /min [facility] ([facility]) Body temperature 97.7 [degF] 97.7 [degF] [facility] ([facility]) Respiratory rate 18 /min 18 /min [facility] ( [facility]) Body weight 188.50 [lb_av] 188.50 [lb_av] [facility] ([facility]) Body weight 85.504 kg 85.504 kg [facility] ([facility]) Systolic blood pressure 124 mm[Hg] 124 mm[Hg] [facility] ([facility]) Diastolic blood pressure 70 mm[Hg] 70 mm[Hg] [facility] ([facility]) Body weight 192.38 [lb_av] 192.38 [lb_av] [facility] ([facility]) Body weight 87.261 kg 87.261 kg [facility] ([facility]) Body mass index (BMI) [Ratio] 26.1 kg/m2 26.1 k g/m2 [facility] ([facility]) Body surface area Derived from formula 2.10 m2 2.10 m2 [facility] ([facility]) Heart rate 78 /min 78 /min [facility] ([facility]) Body height 72 [in_i] 72 [in_i] [facility] ([facility]) 6'0" Body temperature 97.2 [degF] 97.2 [degF] [facility] ([facility]) Respiratory rate 18 /min 18 /min [facility] ( [facility]) Oxygen saturation in Arterial blood by Pulse oximetry 97 % 97 % [facility] ([facility]) Body surface area 2.11 m2 2.11 m2 [facility] ([facility]) Body weight 195.25 [lb_av] 195.25 [lb_av] [facility] ([facility]) Body weight 88.565 kg 88.565 kg [facility] ([facility]) Systolic blood pressure 110 mm[Hg] 110 mm[Hg] [facility] ([facility]) Diastolic blood pressure 72 mm[Hg] 72 mm[Hg] [facility] ([facility]) Heart rate 78 /min 78 /min [facility] ([facility]) Body temperature 97.1 [degF] 97.1 [degF] [facility] ([facility]) Respiratory rate 18 /min 18 /min [facility] ( [facility]) Oxygen saturation in Arterial blood by Pulse oximetry 97 % 97 % [facility] ([facility]) Body height 72 [in_i] 72 [in_i] [facility] ([facility]) 6'0" Body mass index (BMI) [Ratio] 26.5 kg/m2 26.5 k g/m2 [facility] ([facility]) Body surface area Derived from formula 2.11 m2 2.11 m2 [facility] ([facility])
[2021-03-29 13:27] LABS: ABG BASE EXCESS -3.3 (-2.0-2.0); ABG HCO3 21.2 MEQ/L (22.0-26.0); ABG O2 SATURATION 95.6 % (95.0-99.0); ABG PARTIAL PRESSURE CO2 36.8 mmHg (35.0-45.0); ABG STANDARD HCO3 21.7 MEQ/L (22.0-26.0); ABG TOTAL CO2 22.3 MEQ/L (23.0-31.0); ABG pH (ARTERIAL) 7.378 UNITS (7.350-7.450)
[2021-03-29 13:33] LABS: BASO % 0.4 % (0.0-1.0); EOS # 0.2 10^3/uL (0.0-0.5); EOS % 1.9 % (0.0-3.0); HEMOGLOBIN 16.3 g/dl (13.5-17.5); LYMPH # 1.9 10^3/uL (1.5-5.0); LYMPH % 24.2 % (24.0-44.0); MEAN CORPUSCULAR HEMOGLOBIN 32.7 pg (27.0-33.0); MEAN CORPUSCULAR VOLUME 96.2 fl (80.0-96.0); MONO # 0.3 10^3/uL (0.0-0.8); MONO % 3.8 % (2.0-8.0); NEUTROPHILS # 5.6 10^3/uL (1.5-8.5); NEUTROPHILS % 69.4 % (36.0-66.0); PLATELET COUNT, AUTOMATED 164 10^3/uL (150-450); RED BLOOD COUNT 4.99 10^6/uL (4.30-6.10)
[2021-03-29 13:51] LABS: INR 0.99; PROTHROMBIN TIME 13.5 SECONDS (12.7-14.5)
[2021-03-29 13:53] LABS: D-DIMER QUANT 616.29 ng/ml (<500)
[2021-03-29 14:09] LABS: ACETAMINOPHEN LEVEL < 2.0 UG/ML (10.0-30.0); ALBUMIN 3.2 GM/DL (3.2-5.2); ALT/SGPT 28 U/L (12-78); BILIRUBIN,DIRECT < 0.1 MG/DL (0.0-0.2); BILIRUBIN,TOTAL 0.3 MG/DL (0.2-1.0); BLOOD UREA NITROGEN 21 MG/DL (7-18); CALCIUM LEVEL 8.2 MG/DL (8.8-10.2); CARBON DIOXIDE LEVEL 27 MEQ/L (21-32); CHLORIDE LEVEL 110 MEQ/L (98-107); CK-MB VALUE MASS 7.1 NG/ML (<3.6); CPK CREATINE PHOSPHOKINASE 278 U/L (39-308); CREATININE FOR GFR 0.99 MG/DL (0.70-1.30); GLOMERULAR FILTRATION RATE > 60.0 (>49); GLUCOSE, FASTING 89 MG/DL (70-100); MB/CK RELATIVE INDEX 2.55 (< OR =4); NT-PRO BNP 29 PG/ML (<125); POTASSIUM SERUM 4.5 MEQ/L (3.5-5.1); RSV AMPLIFICATION NEGATIVE (NEGATIVE); SALICYLATE LEVEL 3.2 MG/DL (5.0-30.0); SODIUM LEVEL 143 MEQ/L (136-145); THYROXINE (T4) 15.4 UG/DL (4.5-12.0); TOTAL PROTEIN 6.6 GM/DL (6.4-8.2); TROPONIN I < 0.02 NG/ML (< 0.10)
[2021-03-29] MEDS ORDERED: NALOXONE 2MG/2ML SYRINGE (J2310 PER 1MG) IV STA (14:09)
[2021-03-29] MEDS ORDERED: NS 1,000 ML IV ONE (14:10)
--- NOTE | 2021-03-29 14:36 | REP ---
INDICATION: DYSPNEA/COUGH COMPARISON: 12/10/2019 TECHNIQUE: Portable AP view of the chest FINDINGS: The mediastinum and cardiac silhouette are stable and within normal limits for portable technique. The lung demonstrate chronic appearing changes without acute consolidation, effusion, or pneumothorax. Skeletal structures are intact. IMPRESSION: Chronic appearing changes. No focal consolidation or effusion. Trace basilar atelectasis cannot be excluded. <Electronically signed by Toni Hunt > 03/29/21 [id number]
[2021-03-29] MEDS ORDERED: LEVOCARNITINE IV ONE (16:00)
[2021-03-29] MEDS ORDERED: NS IV ONE (16:00)
[2021-03-29] MEDS ORDERED: ONDANSETRON 4MG/2ML VIAL IV ONE (16:05)
[2021-03-29] MEDS ORDERED: DIVA500T94 PO ×2 (16:16)
[2021-03-29] MEDS ORDERED: CLOT1CRE56 TOP (16:18)
[2021-03-29] MEDS ORDERED: COMMENTS (16:33)
[2021-03-29] MEDS ORDERED: HOME MED LIST COMPLETE! XX SCH (16:35)
[2021-03-29] MEDS ORDERED: GLUCOSE 4GM CHEW TABLET PO PRN (16:45)
[2021-03-29] MEDS ORDERED: DEXTROSE 50% 50 ML SYRINGE IV PRN (16:45)
[2021-03-29] MEDS ORDERED: GLUCAGON INJ 1MG VIAL SC PRN (16:45)
--- OUTSIDE RECORDS SUMMARY | 2021-03-29 16:45 | CCD ---
Author Author [facility] Organization [facility] Address Unknown Phone Unavailable Care Team Providers Care Catcher Helper Name Role Phone Nevills, C Gely BUSINESS PROCESS REPRESENTATIVE Unavailable Unavailable Nevills, C Gely BUSINESS PROCESS REPRESENTATIVE Unavailable Unavailable Nevills, C Gely BUSINESS PROCESS REPRESENTATIVE Unavailable Unavailable Nevills, C Gely BUSINESS PROCESS REPRESENTATIVE Unavailable Unavailable Nevills, C Gely BUSINESS PROCESS REPRESENTATIVE Unavailable Unavailable Nevills, C Gely BUSINESS PROCESS REPRESENTATIVE Unavailable Unavailable Nevills, C Gely BUSINESS PROCESS REPRESENTATIVE Unavailable Unavailable Nevills, C Gely BUSINESS PROCESS REPRESENTATIVE Unavailable Unavailable Nevills, C Gely BUSINESS PROCESS REPRESENTATIVE Unavailable Unavailable Nevills, C Gely BUSINESS PROCESS REPRESENTATIVE Unavailable Unavailable Nevills, C Gely BUSINESS PROCESS REPRESENTATIVE Unavailable Unavailable Nevills, C Gely BUSINESS PROCESS REPRESENTATIVE Unavailable Unavailable Nevills, C Gely BUSINESS PROCESS REPRESENTATIVE Unavailable Unavailable Nevills, C Gely BUSINESS PROCESS REPRESENTATIVE Unavailable Unavailable Nevills, C Gely BUSINESS PROCESS REPRESENTATIVE Unavailable Unavailable Nevills, C Gely BUSINESS PROCESS REPRESENTATIVE Unavailable Unavailable Nevills, C Gely BUSINESS PROCESS REPRESENTATIVE Unavailable Unavailable Nevills, C Gely BUSINESS PROCESS REPRESENTATIVE Unavailable Unavailable Nevills, C Gely BUSINESS PROCESS REPRESENTATIVE Unavailable Unavailable Nevills, C Gely BUSINESS PROCESS REPRESENTATIVE Unavailable Unavailable Nevills, C Gely BUSINESS PROCESS REPRESENTATIVE Unavailable Unavailable Nevills, C Gely BUSINESS PROCESS REPRESENTATIVE Unavailable Unavailable Nevills, C Gely BUSINESS PROCESS REPRESENTATIVE Unavailable Unavailable Nevills, C Gely BUSINESS PROCESS REPRESENTATIVE Unavailable Unavailable Nevills, C Gely BUSINESS PROCESS REPRESENTATIVE Unavailable Unavailable Nevills, C Gely BUSINESS PROCESS REPRESENTATIVE Unavailable Unavailable Nevills, C Gely BUSINESS PROCESS REPRESENTATIVE Unavailable Unavailable Nevills, C Gely BUSINESS PROCESS REPRESENTATIVE Unavailable Unavailable Nevills, C Gely BUSINESS PROCESS REPRESENTATIVE Unavailable Unavailable Nevills, C Gely BUSINESS PROCESS REPRESENTATIVE Unavailable Unavailable Nevills, C Gely BUSINESS PROCESS REPRESENTATIVE Unavailable Unavailable Nevills, C Gely BUSINESS PROCESS REPRESENTATIVE Unavailable Unavailable Nevills, C Gely BUSINESS PROCESS REPRESENTATIVE Unavailable Unavailable Ali, Vera MD Unavailable Unavailable [...] Karlos, Marivel Allyssa ANP-BC Unavailable Unavailable Karlos, Marviel Allyssa ANP-BC Unavailable Unavailable Karlos, Marivel Allyssa [...] Allyssa ANP-BC Unavailable Unavailable Nevills, C Gely BUSINESS PROCESS REPRESENTATIVE Unavailable Unavailable Nevills, C Gely BUSINESS PROCESS REPRESENTATIVE Unavailable Unavailable Nevills, C Gely BUSINESS PROCESS REPRESENTATIVE Unavailable Unavailable Nevills, C Gely BUSINESS PROCESS REPRESENTATIVE Unavailable Unavailable Nevills, C Gely BUSINESS PROCESS REPRESENTATIVE Unavailable Unavailable Nevills, C Gely BUSINESS PROCESS REPRESENTATIVE Unavailable Unavailable Nevills, C Gely BUSINESS PROCESS REPRESENTATIVE Unavailable Unavailable Nevills, C Gely BUSINESS PROCESS REPRESENTATIVE Unavailable Unavailable Nevills, C Gely BUSINESS PROCESS REPRESENTATIVE Unavailable Unavailable Nevills, C Gely BUSINESS PROCESS REPRESENTATIVE Unavailable Unavailable Nevills, C Gely BUSINESS PROCESS REPRESENTATIVE Unavailable Unavailable Nevills, C Gely BUSINESS PROCESS REPRESENTATIVE Unavailable Unavailable Nevills, C Gely BUSINESS PROCESS REPRESENTATIVE Unavailable Unavailable Nevills, C Gely BUSINESS PROCESS REPRESENTATIVE Unavailable Unavailable Nevills, C Gely BUSINESS PROCESS REPRESENTATIVE Unavailable Unavailable Nevills, C Gely BUSINESS PROCESS REPRESENTATIVE Unavailable Unavailable Nevills, C Gely BUSINESS PROCESS REPRESENTATIVE Unavailable Unavailable Nevills, C Gely BUSINESS PROCESS REPRESENTATIVE Unavailable Unavailable Nevills, C Gely BUSINESS PROCESS REPRESENTATIVE Unavailable Unavailable Nevills, C Gely BUSINESS PROCESS REPRESENTATIVE Unavailable Unavailable Nevills, C Gely BUSINESS PROCESS REPRESENTATIVE Unavailable Unavailable Nevills, C Gely BUSINESS PROCESS REPRESENTATIVE Unavailable Unavailable Nevills, C Gely BUSINESS PROCESS REPRESENTATIVE Unavailable Unavailable Nevills, C Gely BUSINESS PROCESS REPRESENTATIVE Unavailable Unavailable Nevills, C Gely BUSINESS PROCESS REPRESENTATIVE Unavailable Unavailable Nevills, C Gely BUSINESS PROCESS REPRESENTATIVE Unavailable Unavailable Nevills, C Gely BUSINESS PROCESS REPRESENTATIVE Unavailable Unavailable Nevills, C Gely BUSINESS PROCESS REPRESENTATIVE Unavailable Unavailable Nevills, C Gely BUSINESS PROCESS REPRESENTATIVE Unavailable Unavailable Nevills, C Gely BUSINESS PROCESS REPRESENTATIVE Unavailable Unavailable Nevills, C Gely BUSINESS PROCESS REPRESENTATIVE Unavailable Unavailable Nevills, C Gely BUSINESS PROCESS REPRESENTATIVE Unavailable Unavailable Nevills, C Gely BUSINESS PROCESS REPRESENTATIVE Unavailable Unavailable Re-disclosure Warning The records that [...] is protected by Article 27-F of the [facility] Public Health law. If you continue you may have access to information: Regarding HIV / AIDS; Provided by facilities licensed or operated by the [facility] Office of Mental Health; or Provided by the [facility] Office for People With Developmental Disabilities. If such information is present, then the following [facility] mandated warning applies: This information has been [...] law may result in a fine or correction sentence or both. A general authorization for the release of medical or other information is NOT sufficient authorization for further disc losure. Family History Family Member Name Family Member Gender Family Member Status Date o f Status Description Data Source(s) Unknown Male Problem [facility] ([facility]) Encounters Encounter Providers Location Date Indications Data Source(s ) Outpatient Attender: Gely Nolan NP 03/14 01:50:00 PM EDT - 03/14/2021 01:50:[address] [facility] Outpatient Attender: Gely Nolan NP 03/11 08:41:00 AM EDT - 03/11/2021 08:41:[address] [facility] Outpatient Attender: Vera Patino MD Main office - [place] 03/06/2021 11:30:00 AM EDT [facility] ([facility] ) Outpatient Attender: Vera Patino MD Main office - [place] 12/10/2020 10:30:00 AM EDT [facility] ([facility] ) Outpatient Attender: Gely Nolan NP 12/10 09:20:00 AM EDT - 12/10/2020 09:20:[address] [facility] Outpatient Attender: Gely Nolan BUSINESS PROCESS REPRESENTATIVE 12/03 08:24:00 AM EDT - 12/03/2020 08:24:[address] [facility] Outpatient Attender: Gely Nolan BUSINESS PROCESS REPRESENTATIVE Family Practice 09/09 10:00:00 AM EDT [facility] Outpatient Attender: Gely Nolan BUSINESS PROCESS REPRESENTATIVE 09/09 09:41:00 AM EDT - 09/09/2020 09:41:[address] [facility] Outpatient Attender: Allyssa JIMENEZ-BCAttender: Gely Elyssaramiro yumiko BUSINESS PROCESS REPRESENTATIVE 09/02/2020 09:17:00 AM EDT - 09/02/2020 09:17:[address] [facility] Outpatient Attender: Allyssa ARAIZA 05/15 10:34:00 AM EST - 06/10/2020 10:34:00 AM [facility] Office Visit Attender: Vera Patino MD Main office - [place] 04/02/2020 12:30:00 PM EDT [facility] ([facility] ) Outpatient Attender: Allyssa ARAIZA 07/2019 09:20:00 AM EDT - 02/14/2020 09:20:[address] [facility] Office Visit Attender: Vera Patino MD Main office - [place] 01/31/2020 11:15:00 AM EDT [facility] ([facility] ) Immunizations Vaccine Date Status Description Data Source(s) COVID-19 VACCINE Pfizer 12/11/2020 12:00:00 AM EDT completed [facility] Vaccine Series Complete: YESThis Data wa s Submitted to [facility] Via [employer]. COVID-19 VACC, MRNA(PFIZER)/PF 11/20/2020 12:00:00 AM EDT completed [facility] COVID-19 VACCINE Pfizer 11/20/2020 12:00:00 AM EDT completed [facility] Vaccine Series Complete: NOThis Data was Submitted to [facility] Via [employer]. Medications Medication Brand Name Start Date Product [...] Clotrimazole 06/10/2020 12:00:00 AM EST active [facility] ([facility]) 500 mg 04/03/2020 12:00:00 AM EDT [...] Permethrin 02/14/2020 12:00:00 AM EDT completed [facility] ([facility]) 5 % 02/14/2020 12:00:00 AM EDT cream [...] TABLETS BY MOUTH AT BEDTIME SOLD: 02/03/2020 [facility] 20 mg 01/25/2020 12:00:00 AM EDT [...] type / Coverage type Policy ID Covered alliance party ID Covered alliance party's relationship to coppola Policy Coppola Plan Information ARNAV [id number] SP [id number] [facility] [place] [id number] 18 [id number] [place] [id number] 18 [id number] [place] [id number] 18 [id number] O UNAVAILABLE UNAVAILA BLE SELF PAY ONLY [id number] SP [id number] SP [id number] [place]ID [place] [id number] Medicaid Commercial [id number] Self [id number] [place]PHYSICIAN [place] [id number] Medicaid Commercial [id number] Self [id number] Problems, Conditions, and Diagnoses Code Display Name Description Problem Type Effective Dates Data Source(s) [id number] Other generalized epilepsy a nd epileptic syndromes, not intractable, 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 K2930 Chronic superficial gastritis without bl eeding Chronic superficial gastritis without bleeding Diagnosis [facility] Pure hypercholesterolemia, unspecified P ure hypercholesterolemia, unspecified Diagnosis 03/11/2021 08:41:[address] 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 Z0001 Encounter for general adult medical exam ination with abnormal findings Encounter for general adult medical examination with abnormal findings Diagnosis 12/03/2020 08:24:[address] 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) R06.00 Difficulty breathing Difficulty breathing Problem 02/14/2020 12:00:00 AM EDT [facility] (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) Z83.3 Family history of diabetes mellitus Family histo ry of diabetes mellitus Problem 02/14/2020 12:00:00 AM EDT [facility] ([facility]) K29.30 Chronic superficial gastritis without bl eeding Chronic superficial gastritis without bleeding Problem 02/14/2020 12:00:00 AM EDT [facility] ([facility]) F72 Severe intellectual disability Severe intellectual dis ability Problem 02/14/2020 12:00:00 AM EDT [facility] (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) L23.7 Contact dermatitis due to plants, except food Contact dermatitis due to plants, except food Problem 02/14/2020 12:00:00 AM EDT [facility] ([facility]) D64.9 Anemia Anemia Problem 02/14/2020 12:00:00 AM ED T [facility] ([facility]) Z79.899 Taking medication Taking medication Problem 02/14/2020 12:00:00 AM EDT [facility] ([facility]) K21.9 Gastroesophageal reflux disease Gastroesophageal reflu x disease Problem 02/14/2020 12:00:00 AM EDT [facility] ([facility]) E78.00 Pure hypercholesterolemia Pure hypercholesterolemia Pr oblem 02/14/2020 12:00:00 AM EDT [facility] ([facility]) Surgeries/Procedures Procedure Description Date Indications Data Source(s) OFFICE OUTPATIENT VISIT 25 MINUTES 03/06/2021 12:00:00 AM EDT [facility] ([facility] ) OFFICE OUTPATIENT VISIT 25 MINUTES 12/10/2020 12:00:00 AM EDT [facility] ([facility]) OFFICE OUTPATIENT VISIT 25 MINUTES 12/10/2020 12:00:00 AM EDT [facility] ([facility] ) Brief Emotional/Behav Assessment W/ Scoring Doc Per Standard Inst 09/09/2020 12:00:00 AM EDT [facility] ([facility]) OFFICE OUTPATIENT VISIT 25 MINUTES 09/09/2020 12:00:00 AM EDT [facility] ([facility]) OFFICE OUTPATIENT VISIT 25 MINUTES 06/10/2020 12:00:00 AM EST [facility] ([facility]) Admin Patient Focused Health Risk Assessment Instrument 02/14/2020 12:00:00 AM EDT [facility] ([facility]) Results ID Date Data Source [id number] 03/11/2021 08:45:00 AM EDT [facility] ([facility]) Name Value Range Interpretation Code Description Data Fifi rce(s) Supporting Document(s) Valproate [Mass/volume] in Serum or Plasma 66 ug/mL 50-100 [facility] ([facility]) Is patient fasting? Y ID Date Data Source [id number] 03/11/2021 08:45:00 AM EDT [facility] ([facility]) Name Value Range Interpretation Code Description Data Fifi rce(s) Supporting Document(s) Cve Panel Laboratory test result [facility] ([facility]) Is patient fasting? Y HDL 59 mg/dL 29-86 [facility] ([facility]) Is patient fasting? Y Cholesterol 156 mg/dL 131-200 [facility] ([facility]) Is patient fasting? Y Triglycerides 42 mg/dL 35-160 [facility] ([facility]) Is patient fasting? Y LDL 86 mg/dL 65-175 [facility] ([facility]) Is patient fasting? Y Risk Factor 2.6 3.4-4.9 Below low normal [facility] ([facility]) Is patient fasting? Y LDL/HDL 1.46 1.00-3.55 [facility] ([facility]) Is patient fasting? Y ID Date Data Source [id number] 03/11/2021 08:45:00 AM EDT [facility] ([facility]) Name Value Range Interpretation Code Description Data Fifi rce(s) Supporting Document(s) Hemoglobin A1c/Hemoglobin.total in Blood 5.4 % 4.4-6.1 [facility] ([facility]) Is patient fasting? Y Thyrotropin [Units/volume] in Serum or Plasma 2.10 uIU/mL 0.47-5.01 [facility] ([facility]) Is patient fasting? Y ID Date Data Source [id number] 03/11/2021 08:45:00 AM EDT [facility] ([facility]) Name Value Range Interpretation Code Description Data Fifi rce(s) Supporting Document(s) Comprehensive Metabo Laboratory test result [facility] ([facility]) Is patient fasting? Y Sodium 142 meq/L 134-153 [facility] ([facility]) Is patient fasting? Y Potassium 4.4 meq/L 3.6-5.0 [facility] ([facility]) Is patient fasting? Y Chloride 105 meq/L 98-107 [facility] ([facility]) Is patient fasting? Y Glucose 99 mg/dL 70-99 [facility] ([facility]) Is patient fasting? Y Co2 28 meq/L 22-30 [facility] ([facility]) Is patient fasting? Y Creatinine 0.8 mg/dL 0.7-1.5 [facility] ([facility]) Is patient fasting? Y BUN 20 mg/dL 7-21 [facility] ([facility]) Is patient fasting? Y Total Protein 6.9 g/dL 6.3-8.2 [facility] ([facility]) Is patient fasting? Y BUN/Creat 25 8-27 [facility] ([facility]) Is patient fasting? Y Albumin 4.5 g/dL 3.9-5.0 [facility] ([facility]) Is patient fasting? Y Globulin 2.4 GM/DL 2.4-3.2 [facility] ([facility]) Is patient fasting? Y Calcium 9.8 mg/dL 8.4-10.2 [facility] ([facility]) Is patient fasting? Y A/G Ratio 1.9 0.8-2.0 [facility] ([facility]) Is patient fasting? Y Total Bili Laboratory test result 0.2-1.3 ME [facility] ([facility]) Is patient fasting? Y Alkaline Phos 78 U/L 38-126 [facility] ([facility]) Is patient fasting? Y SGPT/Alt 17 U/L 7-56 [facility] ([facility]) Is patient fasting? Y Sgot/Ast 17 U/L 5-40 [facility] ([facility]) Is patient fasting? Y Age 60 yrs [facility] ([facility]) Is patient fasting? Y Anion Gap 9.0 mmol/L 8.0-16.0 [facility] ([facility]) Is patient fasting? Y Afr Amer GFR Laboratory test result [facility] ([facility]) Is patient fasting? Y Non-Aa GFR Laboratory test result [facility] ([facility]) Is patient fasting? Y ID Date Data Source [id number] 03/11/2021 08:45:00 AM EDT [facility] ([facility]) Name Value Range Interpretation Code Description Data Fifi rce(s) Supporting Document(s) WBC 6.9 10^3/uL 4.2-11.0 [facility] ([facility]) Is patient fasting? Y CBC W/Automated Diff Laboratory test result [facility] ([facility]) Is patient fasting? Y Hemoglobin 16.0 g/dL 14.0-16.0 [facility] ([facility]) Is patient fasting? Y RBC 4.93 10^6/uL 4.50-6.30 [facility] ([facility]) Is patient fasting? Y Hematocrit 47.6 % 41.0-51.0 [facility] ([facility]) Is patient fasting? Y MCV 96.6 fL 80.0-94.0 Above high normal [facility] ([facility]) Is patient fasting? Y MCHC 33.6 g/dL 31.0-36.0 [facility] ([facility]) Is patient fasting? Y RDW 13.7 % 11.5-14.8 [facility] ([facility]) Is patient fasting? Y MCH 32.5 pg 27.0-34.0 [facility] ([facility]) Is patient fasting? Y MPV 12.0 fL 7.4-10.4 Above high normal [facility] ([facility]) Is patient fasting? Y Platelets 189 10^3/uL 150-450 [facility] ([facility]) Is patient fasting? Y Neut 48.7 % 37.0-80.0 [facility] ([facility]) Is patient fasting? Y Lymph 35.8 % 25.0-40.0 [facility] ([facility]) Is patient fasting? Y Eos 5.1 % 0.0-7.0 [facility] ([facility]) Is patient fasting? Y [place] 9.6 % 3.0-8.0 Above high normal [facility] ([facility]) Is patient fasting? Y Baso 0.7 % 0.0-2.0 [facility] ([facility]) Is patient fasting? Y %Ig 0.1 % 0.0-0.0 Above high normal [facility] ([facility]) Is patient fasting? Y %NRBC 0.0 % 0.0-0.0 [facility] ([facility]) Is patient fasting? Y #Neut 3.36 10^3/uL 2.00-6.90 [facility] ([facility]) Is patient fasting? Y #Lymph 2.47 10^3/uL 0.60-3.40 [facility] ([facility]) Is patient fasting? Y #[place] 0.66 10^3/uL 0.00-0.90 [facility] ([facility]) Is patient fasting? Y #Eos 0.35 10^3/uL 0.00-0.70 [facility] ([facility]) Is patient fasting? Y #Ig 0.01 10^3/uL 0.00-0.10 [facility] ([facility]) Is patient fasting? Y #Baso 0.05 10^3/uL 0.00-0.20 [facility] ([facility]) Is patient fasting? Y Manual Diff Laboratory test result M [facility] ([facility]) Is patient fasting? Y #NRBC 0.00 10^3/uL 0.00-0.00 [facility] ([facility]) Is patient fasting? Y RBC Morph Laboratory test result [facility] ([facility]) Is patient fasting? Y ID Date Data Source [id number] 03/13/2021 09:05:00 AM EDT [facility] Value Range Interpretation Code Description Data Fifi rce(s) Supporting Document(s) Valproate [Mass/volume] in Serum or Plasma 66 ug/mL 50-100 [facility] Detection Limit = 4 <4 indicates None Detected Toxicity may occur at levels of 100-500. Measurements of free unbound valproic acid may improve the assess- ment of clinical response. ID Date Data Source [id number] 03/11/2021 06:05:00 PM EDT [facility] Value Range Interpretation Code Description Data Fifi rce(s) Supporting Document(s) Thyrotropin [Units/volume] in Serum or Plasma by Detec tion limit <= 0.05 mIU/L 2.10 uIU/mL 0.47 - 5.01 [facility] ID Date Data Source [id number] 03/11/2021 05:58:00 PM EDT [facility] Value Range Interpretation Code Description Data Fifi rce(s) Supporting Document(s) CVE PANEL [facility] LIPID PANEL Cholesterol [Mass/volume] in Serum or Plasma 156 MG/DL 131 - 200 [facility] Deprecated Triglyceride [Mass/volume] in Serum or Plasma 42 MG/DL 3 5 - 160 [facility] HDL 59 MG/DL 29 - 86 [facility] Cholesterol in LDL [Mass/volume] in Serum or Plasma by Direc t assay 86 mg/dL 65 - 175 [facility] Cholesterol.total/Cholesterol in HDL [Mass Ratio] in Serum o r Plasma 2.6 3.4 - 4.[address] [facility] LDL/HDL 1.46 1.00 - 3.55 [facility] CVE RISK CHOL/HDL LDL/HDLMEN: 1/2 AVERAGE 3.43 1.00 AVERAGE 4.97 3.55 2X AVERAGE 9.55 6.25 3X AVERAGE 23.99 7.99WOMEN: 1/2 AVERAGE 3.27 1.47 AVERAGE 4.44 3.22 2X AVERAGE 7.05 5.03 3X AVERAGE 11.04 6.14 ID Date Data Source [id number] 03/11/2021 05:58:[address] [facility] Name Value Range Interpretation Code Description Data Fifi rce(s) Supporting Document(s) Hemoglobin A1c/Hemoglobin.total in Blood 5.4 % 4.4 - 6.1 [facility] ID Date Data Source [id number] 03/11/2021 05:51:[address] [facility] Name Value Range Interpretation Code Description Data Fifi rce(s) Supporting Document(s) COMPREHENSIVE METABOLIC PANEL [facility] COMPREHENSIVE METABOLIC PANEL Sodium [Moles/volume] in Serum or Plasma 142 mEq/L 134 - 153 [facility] Potassium [Moles/volume] in Serum or Plasma 4.4 mEq/L 3.6 - 5.0 [facility] Chloride [Moles/volume] in Serum or Plasma 105 mEq/L 98 - 107 [facility] Carbon dioxide, total [Moles/volume] in Serum or Plasma 28 MEQ/L 22 - 30 [facility] Glucose [Mass/volume] in Serum or Plasma 99 MG/DL 70 - 99 [facility] BUN 20 MG/DL 7 - 21 [facility] Creatinine [Mass/volume] in Serum or Plasma 0.8 MG/DL 0.7 - 1.5 [facility] BUN/CREAT 25 8 - 27 [facility] Protein [Mass/volume] in Serum or Plasma 6.9 G/DL 6.3 - 8.2 [facility] Albumin [Mass/volume] in Serum or Plasma 4.5 G/DL 3.9 - 5.0 [facility] Globulin [Mass/volume] in Serum by calculation 2.4 GM/DL 2.4 - 3.2 [facility] A/G RATIO 1.9 0.8 - 2.0 [facility] Calcium [Mass/volume] in Serum or Plasma 9.8 MG/DL 8.4 - 10.2 [facility] Bilirubin.total [Mass/volume] in Serum or Plasma <0.7 MG/DL 0.2 - 1.3 [facility] Alkaline phosphatase [Enzymatic activity/volume] in Serum or Plasma 78 U/L 38 - 126 [facility] Aspartate aminotransferase [Enzymatic activity/volume] in Serum or Plasma 17 U/L 5 - 40 [facility] Alanine aminotransferase [Enzymatic activity/volume] in Seru m or Plasma 17 U/L 7 - 56 [facility] Anion gap 3 in Serum or Plasma 9.0 mmol/L 8.0 - 16.0 [facility] AGE 60 yrs [facility] NON-AA GFR >60 mL/min [facility] ital AFR AMER GFR >60 mL/min [facility] Ho spital Male GFR In terprentation 20-49 [...] >32 mL/min Normal ID Date Data Source [id number] 03/11/2021 05:46:[address] [facility] Name Value Range Interpretation Code Description Data Fifi rce(s) Supporting Document(s) CBC W/AUTOMATED DIFF [facility] COMPLETE BLOOD COUNT Leukocytes [#/volume] in Blood by Automated count 6.9 10^3/uL 4.2 - [address] [facility] Erythrocytes [#/volume] in Blood by Automated count 4.93 10^6/uL 4. 50 - 6.30 [facility] Hemoglobin [Mass/volume] in Blood 16.0 g/dL 14.0 - 16.0 [facility] Hematocrit [Volume Fraction] of Blood by Automated count 47.6 % 4 1.0 - 51.0 [facility] Erythrocyte mean corpuscular volume [Entitic volume] by Auto mated count 96.6 fL 80.0 - 94.[address] [facility] Erythrocyte mean corpuscular hemoglobin [Entitic mass] by Automated count 32.5 pg 27.0 - 34.0 [facility] Erythrocyte mean corpuscular hemoglobin concentration [Mass/volume] by Automated count 33.6 g/dL 31.0 - 36.0 [facility] Erythrocyte distribution width [Ratio] by Automated count 13.7 % 11.5 - 14.8 [facility] Platelets [#/volume] in Blood by Automated count 189 10^3/uL 150 - [address] [facility] Platelet mean volume [Entitic volume] in Blood by Automated count 12.0 fL 7.4 - 10.[address] [facility] Neutrophils/100 leukocytes in Blood by Automated count 48.7 % 37. 0 - 80.0 [facility] Lymphocytes/100 leukocytes in Blood by Manual count 35.8 % 25.0 - 40.0 [facility] Monocytes/100 leukocytes in Blood by Automated count 9.6 % 3.0 - 8.[address] [facility] Eosinophils/100 leukocytes in Blood by Automated count 5.1 % 0.0 - 7.0 [facility] Basophils/100 leukocytes in Blood by Automated count 0.7 % 0.0 - 2.0 [facility] %IG 0.1 % 0.0 - [facility] % 0.0 - 0.0 [facility] al Neutrophils [#/volume] in Blood by Automated count 3.36 10^3/uL 2.00 - 6.90 [facility] Lymphocytes [#/volume] in Blood by Automated count 2.47 10^3/uL 0.60 - 3.40 [facility] Monocytes [#/volume] in Blood by Automated count 0.66 10^3/uL 0.00 - 0.90 [facility] Eosinophils [#/volume] in Blood by Automated count 0.35 10^3/uL 0.00 - 0.70 [facility] Basophils [#/volume] in Blood by Automated count 0.05 10^3/uL 0.00 - 0.20 [facility] #IG 0.01 10^3/uL 0.00 - 0.10 [facility] ospital #NRBC 0.00 10^3/uL 0.00 - 0.00 [facility] H ospital MANUAL DIFF NOT INDICATED [facility] RBC MORPH NOT INDICATED [facility] spital ID Date Data Source [id number] 12/10/2020 09:52:00 AM EDT [facility] ([facility]) Name Value Range Interpretation Code Description Data Fifi rce(s) Supporting Document(s) Chest Xray 2 Views Laboratory test result [facility] ([facility]) ID Date Data Source [id number] 12/05/2020 09:15:[address] [facility] Name Value Range Interpretation Code Description Data Fifi rce(s) Supporting Document(s) Valproate [Mass/volume] in Serum or Plasma 84 ug/mL 50-100 [facility] Detection Limit = 4 <4 indicates None Detected Toxicity may occur at levels of 100-500. Measurements of free unbound valproic acid may improve the assess- ment of clinical response. ID Date Data Source [id number] 12/04/2020 10:57:[address] [facility] Name Value Range Interpretation Code Description Data Fifi rce(s) Supporting Document(s) Prostate specific Ag [Mass/volume] in Serum or Plasma 0.46 ng/mL 0.00 - 4.00 [facility] \\BLDo\\PSA INTERPRETA TION\\BLDx\\ The PSA assay should [...] be used interchangeably. ID Date Data Source [id number] 12/03/2020 06:04:[address] [facility] Name Value Range Interpretation Code Description Data Fifi rce(s) Supporting Document(s) Hemoglobin A1c/Hemoglobin.total in Blood 5.6 % 4.4 - 6.1 [facility] {A1]{HB] ID Date Data Source [id number] 12/03/2020 06:04:[address] [facility] Name Value Range Interpretation Code Description Data Fifi rce(s) Supporting Document(s) CVE PANEL [facility] al LIPID PANEL Cholesterol [Mass/volume] in Serum or Plasma 158 MG/DL 131 - 200 [facility] Deprecated Triglyceride [Mass/volume] in Serum or Plasma 51 MG/DL 3 5 - 160 [facility] HDL 57 MG/DL 29 - 86 [facility] al Cholesterol in LDL [Mass/volume] in Serum or Plasma by Direc t assay 93 mg/dL 65 - 175 [facility] Cholesterol.total/Cholesterol in HDL [Mass Ratio] in Serum o r Plasma 2.8 3.4 - 4.[address] [facility] LDL/HDL 1.63 1.00 - 3.55 [facility] ital CVE RISK CHOL/HDL LDL/HDLMEN: 1/2 AVERAGE 3.43 1.00 AVERAGE 4.97 3.55 2X AVERAGE 9.55 6.25 3X AVERAGE 23.99 7.99WOMEN: 1/2 AVERAGE 3.27 1.47 AVERAGE 4.44 3.22 2X AVERAGE 7.05 5.03 3X AVERAGE 11.04 6.14 ID Date Data Source [id number] 12/03/2020 06:04:[address] [facility] Name Value Range Interpretation Code Description Data Fifi rce(s) Supporting Document(s) COMPREHENSIVE METABOLIC PANEL [facility] COMPREHENSIVE METABOLIC PANEL Sodium [Moles/volume] in Serum or Plasma 141 mEq/L 134 - 153 [facility] Potassium [Moles/volume] in Serum or Plasma 5.1 mEq/L 3.6 - 5.[address] [facility] Chloride [Moles/volume] in Serum or Plasma 107 mEq/L 98 - 107 [facility] Carbon dioxide, total [Moles/volume] in Serum or Plasma 27 MEQ/L 22 - 30 [facility] Glucose [Mass/volume] in Serum or Plasma 113 MG/DL 70 - [address] [facility] BUN 23 MG/DL 7 - 21 H [facility] al Creatinine [Mass/volume] in Serum or Plasma 0.7 MG/DL 0.7 - 1.5 [facility] BUN/CREAT 33 8 - 27 H [facility] al Protein [Mass/volume] in Serum or Plasma 6.7 G/DL 6.3 - 8.2 [facility] Albumin [Mass/volume] in Serum or Plasma 4.3 G/DL 3.9 - 5.0 [facility] Globulin [Mass/volume] in Serum by calculation 2.4 GM/DL 2.4 - 3.2 [facility] A/G RATIO 1.8 0.8 - 2.0 [facility] Calcium [Mass/volume] in Serum or Plasma 9.5 MG/DL 8.4 - 10.2 [facility] Bilirubin.total [Mass/volume] in Serum or Plasma <0.7 MG/DL 0.2 - 1.3 [facility] Alkaline phosphatase [Enzymatic activity/volume] in Serum or Plasma 71 U/L 38 - 126 [facility] Aspartate aminotransferase [Enzymatic activity/volume] in Serum or Plasma 26 U/L 5 - 40 [facility] Alanine aminotransferase [Enzymatic activity/volume] in Seru m or Plasma 38 U/L 7 - 56 [facility] Anion gap 3 in Serum or Plasma 7.0 mmol/L 8.0 - 16.[address] [facility] AGE 60 yrs [facility] al NON-AA GFR >60 mL/min [facility] ital AFR AMER GFR >60 mL/min [facility] Ho spital Male GFR In terprentation 20-49 [...] >32 mL/min Normal ID Date Data Source [id number] 12/03/2020 05:58:[address] [facility] Name Value Range Interpretation Code Description Data Fifi rce(s) Supporting Document(s) Thyrotropin [Units/volume] in Serum or Plasma by Detec tion limit <= 0.05 mIU/L 1.94 uIU/mL 0.47 - 5.01 [facility] ID Date Data Source [id number] 12/03/2020 05:39:[address] [facility] Name Value Range Interpretation Code Description Data Fifi rce(s) Supporting Document(s) CBC W/AUTOMATED DIFF [facility] COMPLETE BLOOD COUNT Leukocytes [#/volume] in Blood by Automated count 8.7 10^3/uL 4.2 - [address] [facility] Erythrocytes [#/volume] in Blood by Automated count 4.93 10^6/uL 4. 50 - 6.30 [facility] Hemoglobin [Mass/volume] in Blood 16.1 g/dL 14.0 - 16.[address] [facility] Hematocrit [Volume Fraction] of Blood by Automated count 47.4 % 4 1.0 - 51.0 [facility] Erythrocyte mean corpuscular volume [Entitic volume] by Auto mated count 96.1 fL 80.0 - 94.[address] [facility] Erythrocyte mean corpuscular hemoglobin [Entitic mass] by Automated count 32.7 pg 27.0 - 34.0 [facility] Erythrocyte mean corpuscular hemoglobin concentration [Mass/volume] by Automated count 34.0 g/dL 31.0 - 36.0 [facility] Erythrocyte distribution width [Ratio] by Automated count 14.1 % 11.5 - 14.8 [facility] Platelets [#/volume] in Blood by Automated count 179 10^3/uL 150 - [address] [facility] Platelet mean volume [Entitic volume] in Blood by Automated count 11.8 fL 7.4 - 10.[address] [facility] Neutrophils/100 leukocytes in Blood by Automated count 52.0 % 37. 0 - 80.0 [facility] Lymphocytes/100 leukocytes in Blood by Manual count 29.9 % 25.0 - 40.0 [facility] Monocytes/100 leukocytes in Blood by Automated count 9.6 % 3.0 - 8.[address] [facility] Eosinophils/100 leukocytes in Blood by Automated count 7.7 % 0.0 - 7.[address] [facility] Basophils/100 leukocytes in Blood by Automated count 0.6 % 0.0 - 2.0 [facility] %IG 0.2 % 0.0 - 0.0 [facility] %NRBC 0.0 % 0.0 - 0.0 [facility] al Neutrophils [#/volume] in Blood by Automated count 4.53 10^3/uL 2.00 - 6.90 [facility] Lymphocytes [#/volume] in Blood by Automated count 2.61 10^3/uL 0.60 - 3.40 [facility] Monocytes [#/volume] in Blood by Automated count 0.84 10^3/uL 0.00 - 0.90 [facility] Eosinophils [#/volume] in Blood by Automated count 0.67 10^3/uL 0.00 - 0.70 [facility] Basophils [#/volume] in Blood by Automated count 0.05 10^3/uL 0.00 - 0.20 [facility] #IG 0.02 10^3/uL 0.00 - 0.10 [facility] ospital #NRBC 0.00 10^3/uL 0.00 - 0.00 [facility] ospital MANUAL DIFF NOT INDICATED [facility] RBC MORPH NOT INDICATED [facility] spital ID Date Data Source [id number] 12/03/2020 08:35:00 AM EDT [facility] ([facility]) Name Value Range Interpretation Code Description Data Fifi rce(s) Supporting Document(s) Valproate [Mass/volume] in Serum or Plasma 84 ug/mL 50-100 [facility] ([facility]) Is patient fasting? N Prostate specific Ag [Mass/volume] in Serum or Plasma 0.46 ng/mL 0.00 -4.00 [facility] ([facility]) Is patient fasting? N ID Date Data Source [id number] 12/03/2020 08:35:00 AM EDT [facility] ([facility]) Name Value Range Interpretation Code Description Data Fifi rce(s) Supporting Document(s) Cve Panel Laboratory test result [facility] ([facility]) Is patient fasting? N Cholesterol 158 mg/dL 131-200 [facility] ([facility]) Is patient fasting? N Triglycerides 51 mg/dL 35-160 [facility] ([facility]) Is patient fasting? N HDL 57 mg/dL 29-86 [facility] ([facility]) Is patient fasting? N Risk Factor 2.8 3.4-4.9 Below low normal [facility] ([facility]) Is patient fasting? N LDL 93 mg/dL 65-175 [facility] ([facility]) Is patient fasting? N LDL/HDL 1.63 1.00-3.55 [facility] ([facility]) Is patient fasting? N ID Date Data Source [id number] 12/03/2020 08:35:00 AM EDT [facility] ([facility]) Name Value Range Interpretation Code Description Data Fifi rce(s) Supporting Document(s) Hemoglobin A1c/Hemoglobin.total in Blood 5.6 % 4.4-6.1 [facility] ([facility]) Is patient fasting? N Thyrotropin [Units/volume] in Serum or Plasma 1.94 uIU/mL 0.47-5.01 [facility] ([facility]) Is patient fasting? N ID Date Data Source [id number] 12/03/2020 08:35:00 AM EDT [facility] ([facility]) Name Value Range Interpretation Code Description Data Fifi rce(s) Supporting Document(s) Comprehensive Metabo Laboratory test result [facility] ([facility]) Is patient fasting? N Potassium 5.1 meq/L 3.6-5.0 Above high normal [facility] ([facility]) Is patient fasting? N Sodium 141 meq/L 134-153 [facility] ([facility]) Is patient fasting? N Co2 27 meq/L 22-30 [facility] ([facility]) Is patient fasting? N Chloride 107 meq/L 98-107 [facility] ([facility]) Is patient fasting? N Glucose 113 mg/dL 70-99 Above high normal [facility] ([facility]) Is patient fasting? N BUN 23 mg/dL 7-21 Above high normal [facility] ([facility]) Is patient fasting? N Creatinine 0.7 mg/dL 0.7-1.5 [facility] ([facility]) Is patient fasting? N BUN/Creat 33 8-27 Above high normal [facility] ([facility]) Is patient fasting? N Total Protein 6.7 g/dL 6.3-8.2 [facility] ([facility]) Is patient fasting? N Albumin 4.3 g/dL 3.9-5.0 [facility] ([facility]) Is patient fasting? N Globulin 2.4 GM/DL 2.4-3.2 [facility] ([facility]) Is patient fasting? N A/G Ratio 1.8 0.8-2.0 [facility] Is patient fasting? N Calcium 9.5 mg/dL 8.4-10.2 [facility] ([facility]) Is patient fasting? N Total Bili Laboratory test result 0.2-1.3 [facility] ([facility]) Is patient fasting? N Alkaline Phos 71 U/L 38-126 [facility] ([facility]) Is patient fasting? N Sgot/Ast 26 U/L 5-40 [facility] ([facility]) Is patient fasting? N Anion Gap 7.0 mmol/L 8.0-16.0 Below low normal [facility] ( [facility]) Is patient fasting? N SGPT/Alt 38 U/L 7-56 [facility] ([facility]) Is patient fasting? N Non-Aa GFR Laboratory test result [facility] ([facility]) Is patient fasting? N Age 60 yrs [facility] ([facility]) Is patient fasting? N Afr Amer GFR Laboratory test result [facility] ([facility]) Is patient fasting? N ID Date Data Source [id number] 12/03/2020 08:35:00 AM EDT [facility] ([facility]) Name Value Range Interpretation Code Description Data Fifi rce(s) Supporting Document(s) CBC W/Automated Diff Laboratory test result [facility] ([facility]) Is patient fasting? N WBC 8.7 10^3/uL 4.2-11.0 [facility] ([facility]) Is patient fasting? N RBC 4.93 10^6/uL 4.50-6.30 [facility] ([facility]) Is patient fasting? N Hemoglobin 16.1 g/dL 14.0-16.0 Above high normal [facility] ([facility]) Is patient fasting? N Hematocrit 47.4 % 41.0-51.0 [facility] ([facility]) Is patient fasting? N MCV 96.1 fL 80.0-94.0 Above high normal [facility] ([facility]) Is patient fasting? N MCHC 34.0 g/dL 31.0-36.0 [facility] Is patient fasting? N RDW 14.1 % 11.5-14.8 [facility] Is patient fasting? N MCH 32.7 pg 27.0-34.0 [facility] ([facility]) Is patient fasting? N Platelets 179 10^3/uL 150-450 [facility] ([facility]) Is patient fasting? N Neut 52.0 % 37.0-80.0 [facility] ([facility]) Is patient fasting? N MPV 11.8 fL 7.4-10.4 Above high normal [facility] ([facility]) Is patient fasting? N [place] 9.6 % 3.0-8.0 Above high normal [facility] ([facility]) Is patient fasting? N Lymph 29.9 % 25.0-40.0 [facility] ([facility]) Is patient fasting? N Eos 7.7 % 0.0-7.0 Above high normal [facility] ([facility]) Is patient fasting? N %Ig 0.2 % 0.0-0.0 Above high normal [facility] ([facility]) Is patient fasting? N Baso 0.6 % 0.0-2.0 [facility] ([facility]) Is patient fasting? N #Neut 4.53 10^3/uL 2.00-6.90 [facility] ([facility]) Is patient fasting? N %NRBC 0.0 % 0.0-0.0 [facility] ([facility]) Is patient fasting? N #Lymph 2.61 10^3/uL 0.60-3.40 [facility] ([facility]) Is patient fasting? N #Eos 0.67 10^3/uL 0.00-0.70 [facility] ([facility]) Is patient fasting? N #[place] 0.84 10^3/uL 0.00-0.90 [facility] ([facility]) Is patient fasting? N #Baso 0.05 10^3/uL 0.00-0.20 [facility] ([facility]) Is patient fasting? N #Ig 0.02 10^3/uL 0.00-0.10 [facility] ([facility]) Is patient fasting? N Manual Diff Laboratory test result [facility] ([facility]) Is patient fasting? N #NRBC 0.00 10^3/uL 0.00-0.00 [facility] ([facility]) Is patient fasting? N RBC Morph Laboratory test result [facility] ([facility]) Is patient fasting? N ID Date Data Source [id number] 12/03/2020 08:35:00 AM EDT [facility] ([facility]) Name Value Range Interpretation Code Description Data Fifi rce(s) Supporting Document(s) Prostate specific Ag [Mass/volume] in Serum or Plasma 0.46 ng/mL 0.00 -4.00 [facility] ([facility]) Is patient fasting? N ID Date Data Source [id number] 09/02/2020 09:25:00 AM EDT [facility] ([facility]) Name Value Range Interpretation Code Description Data Fifi rce(s) Supporting Document(s) Valproate [Mass/volume] in Serum or Plasma 19 ug/mL 50-100 [place] w low normal [facility] ([facility]) Is patient fasting? Y ID Date Data Source [id number] 09/02/2020 09:25:00 AM EDT [facility] ([facility]) Name Value Range Interpretation Code Description Data Fifi rce(s) Supporting Document(s) Cve Panel Laboratory test result [facility] ([facility]) Is patient fasting? Y Cholesterol 148 mg/dL 131-200 [facility] ([facility]) Is patient fasting? Y HDL 61 mg/dL 29-86 [facility] ([facility]) Is patient fasting? Y Triglycerides 50 mg/dL 35-160 [facility] ([facility]) Is patient fasting? Y LDL 85 mg/dL 65-175 [facility] ([facility]) Is patient fasting? Y Risk Factor 2.4 3.4-4.9 Below low normal [facility] ([facility]) Is patient fasting? Y LDL/HDL 1.39 1.00-3.55 [facility] ([facility]) Is patient fasting? Y ID Date Data Source [id number] 09/02/2020 09:25:00 AM EDT [facility] ([facility]) Name Value Range Interpretation Code Description Data Fifi rce(s) Supporting Document(s) Hemoglobin A1c/Hemoglobin.total in Blood 5.4 % 4.4-6.1 [facility] ([facility]) Is patient fasting? Y Thyrotropin [Units/volume] in Serum or Plasma 1.63 uIU/mL 0.47-5.01 [facility] ([facility]) Is patient fasting? Y ID Date Data Source [id number] 09/02/2020 09:25:00 AM EDT [facility] ([facility]) Name Value Range Interpretation Code Description Data Fifi rce(s) Supporting Document(s) Comprehensive Metabo Laboratory test result [facility] ([facility]) Is patient fasting? Y Sodium 142 meq/L 134-153 [facility] ([facility]) Is patient fasting? Y Chloride 108 meq/L 98-107 Above high normal [facility] ([facility]) Is patient fasting? Y Potassium 4.6 meq/L 3.6-5.0 [facility] ([facility]) Is patient fasting? Y Co2 23 meq/L 22-30 [facility] ([facility]) Is patient fasting? Y Glucose 95 mg/dL 70-99 [facility] ([facility]) Is patient fasting? Y BUN 16 mg/dL 7-21 [facility] ([facility]) Is patient fasting? Y Creatinine 0.7 mg/dL 0.7-1.5 [facility] ([facility]) Is patient fasting? Y BUN/Creat 23 8-27 [facility] ([facility]) Is patient fasting? Y Total Protein 6.6 g/dL 6.3-8.2 [facility] ([facility]) Is patient fasting? Y Albumin 4.4 g/dL 3.9-5.0 [facility] ([facility]) Is patient fasting? Y Globulin 2.2 GM/DL 2.4-3.2 Below low normal [facility] ( [facility]) Is patient fasting? Y A/G Ratio 2.0 0.8-2.0 [facility] ([facility]) Is patient fasting? Y Calcium 9.6 mg/dL 8.4-10.2 [facility] ([facility]) Is patient fasting? Y Total Bili Laboratory test result 0.2-1.3 [facility] ([facility]) Is patient fasting? Y Alkaline Phos 76 U/L 38-126 [facility] ([facility]) Is patient fasting? Y Sgot/Ast 15 U/L 5-40 [facility] ([facility]) Is patient fasting? Y SGPT/Alt 15 U/L 7-56 [facility] ([facility]) Is patient fasting? Y Anion Gap 11.0 mmol/L 8.0-16.0 [facility] ([facility]) Is patient fasting? Y Age 60 yrs [facility] ([facility]) Is patient fasting? Y Non-Aa GFR Laboratory test result [facility] ([facility]) Is patient fasting? Y Afr Amer GFR Laboratory test result [facility] ([facility]) Is patient fasting? Y ID Date Data Source [id number] 09/02/2020 09:25:00 AM EDT [facility] ([facility]) Name Value Range Interpretation Code Description Data Fifi rce(s) Supporting Document(s) CBC W/Automated Diff Laboratory test result [facility] ([facility]) Is patient fasting? Y WBC 8.1 10^3/uL 4.2-11.0 [facility] ([facility]) Is patient fasting? Y RBC 4.99 10^6/uL 4.50-6.30 [facility] ([facility]) Is patient fasting? Y Hemoglobin 16.3 g/dL 14.0-16.0 Above high normal [facility] ([facility]) Is patient fasting? Y Hematocrit 48.3 % 41.0-51.0 [facility] ([facility]) Is patient fasting? Y MCV 96.8 fL 80.0-94.0 Above high normal [facility] ([facility]) Is patient fasting? Y MCH 32.7 pg 27.0-34.0 [facility] ([facility]) Is patient fasting? Y RDW 13.7 % 11.5-14.8 [facility] ([facility]) Is patient fasting? Y MCHC 33.7 g/dL 31.0-36.0 [facility] ([facility]) Is patient fasting? Y MPV 11.9 fL 7.4-10.4 Above high normal [facility] ([facility]) Is patient fasting? Y Platelets 199 10^3/uL 150-450 [facility] ([facility]) Is patient fasting? Y Neut 58.3 % 37.0-80.0 [facility] ([facility]) Is patient fasting? Y Lymph 29.4 % 25.0-40.0 [facility] ([facility]) Is patient fasting? Y Eos 4.5 % 0.0-7.0 [facility] ([facility]) Is patient fasting? Y [place] 7.2 % 3.0-8.0 [facility] ([facility]) Is patient fasting? Y Baso 0.5 % 0.0-2.0 [facility] ([facility]) Is patient fasting? Y %Ig 0.1 % 0.0-0.0 Above high normal [facility] ([facility]) Is patient fasting? Y %NRBC 0.0 % 0.0-0.0 [facility] ([facility]) Is patient fasting? Y #Neut 4.70 10^3/uL 2.00-6.90 [facility] ([facility]) Is patient fasting? Y #[place] 0.58 10^3/uL 0.00-0.90 [facility] ([facility]) Is patient fasting? Y #Lymph 2.37 10^3/uL 0.60-3.40 [facility] ([facility]) Is patient fasting? Y #Baso 0.04 10^3/uL 0.00-0.20 [facility] ([facility]) Is patient fasting? Y #Eos 0.36 10^3/uL 0.00-0.70 [facility] ([facility]) Is patient fasting? Y #Ig 0.01 10^3/uL 0.00-0.10 [facility] ([facility]) Is patient fasting? Y #NRBC 0.00 10^3/uL 0.00-0.00 [facility] ([facility]) Is patient fasting? Y RBC Morph Laboratory test result [facility] ([facility]) Is patient fasting? Y Manual Diff Laboratory test result M [facility] ([facility]) Is patient fasting? Y ID Date Data Source [id number] 09/04/2020 08:14:[address] [facility] Name Value Range Interpretation Code Description Data Fifi rce(s) Supporting Document(s) Valproate [Mass/volume] in Serum or Plasma 19 ug/mL 50-[address] [facility] Detection Limit = 4 <4 indicates None Detected Toxicity may occur at levels of 100-500. Measurements of free unbound valproic acid may improve the assess- ment of clinical response. ID Date Data Source [id number] 09/02/2020 08:12:[address] [facility] Name Value Range Interpretation Code Description Data Fifi rce(s) Supporting Document(s) Thyrotropin [Units/volume] in Serum or Plasma by Detec tion limit <= 0.05 mIU/L 1.63 uIU/mL 0.47 - 5.01 [facility] ID Date Data Source [id number] 09/02/2020 08:05:[address] [facility] Name Value Range Interpretation Code Description Data Fifi rce(s) Supporting Document(s) [facility] Cholesterol [Mass/volume] in Serum or Plasma 148 MG/DL 131 - 200 [facility] Deprecated Triglyceride [Mass/volume] in Serum or Plasma 50 MG/DL 3 5 - 160 [facility] HDL 61 MG/DL 29 - 86 [facility] al Cholesterol in LDL [Mass/volume] in Serum or Plasma by Direc t assay 85 mg/dL 65 - 175 [facility] Cholesterol.total/Cholesterol in HDL [Mass Ratio] in Serum o r Plasma 2.4 3.4 - 4.[address] [facility] LDL/HDL 1.39 1.00 - 3.55 [facility] ital CVE RISK CHOL/HDL LDL/HDLMEN: 1/2 AVERAGE 3.43 1.00 AVERAGE 4.97 3.55 2X AVERAGE 9.55 6.25 3X AVERAGE 23.99 7.99WOMEN: 1/2 AVERAGE 3.27 1.47 AVERAGE 4.44 3.22 2X AVERAGE 7.05 5.03 3X AVERAGE 11.04 6.14 ID Date Data Source [id number] 09/02/2020 08:05:[address] [facility] Name Value Range Interpretation Code Description Data Fifi rce(s) Supporting Document(s) COMPREHENSIVE METABOLIC PANEL [facility] COMPREHENSIVE METABOLIC PANEL Sodium [Moles/volume] in Serum or Plasma 142 mEq/L 134 - 153 [facility] Potassium [Moles/volume] in Serum or Plasma 4.6 mEq/L 3.6 - 5.0 [facility] Chloride [Moles/volume] in Serum or Plasma 108 mEq/L 98 - [address] [facility] Carbon dioxide, total [Moles/volume] in Serum or Plasma 23 MEQ/L 22 - 30 [facility] Glucose [Mass/volume] in Serum or Plasma 95 MG/DL 70 - 99 [facility] BUN 16 MG/DL 7 - 21 [facility] Creatinine [Mass/volume] in Serum or Plasma 0.7 MG/DL 0.7 - 1.5 [facility] BUN/CREAT 23 8 - 27 [facility] al Protein [Mass/volume] in Serum or Plasma 6.6 G/DL 6.3 - 8.2 [facility] Albumin [Mass/volume] in Serum or Plasma 4.4 G/DL 3.9 - 5.0 [facility] Globulin [Mass/volume] in Serum by calculation 2.2 GM/DL 2.4 - 3.[address] [facility] A/G RATIO 2.0 0.8 - 2.0 [facility] Calcium [Mass/volume] in Serum or Plasma 9.6 MG/DL 8.4 - 10.2 [facility] Bilirubin.total [Mass/volume] in Serum or Plasma <0.7 MG/DL 0.2 - 1.3 [facility] Alkaline phosphatase [Enzymatic activity/volume] in Serum or Plasma 76 U/L 38 - 126 [facility] Aspartate aminotransferase [Enzymatic activity/volume] in Serum or Plasma 15 U/L 5 - 40 [facility] Alanine aminotransferase [Enzymatic activity/volume] in Seru m or Plasma 15 U/L 7 - 56 [facility] Anion gap 3 in Serum or Plasma 11.0 mmol/L 8.0 - 16.0 [facility] AGE 60 yrs [facility] al NON-AA GFR >60 mL/min [facility] ital AFR AMER GFR >60 mL/min [facility] Ho spital Male GFR In terprentation 20-49 [...] >32 mL/min Normal ID Date Data Source [id number] 09/02/2020 06:49:[address] [facility] Name Value Range Interpretation Code Description Data Fifi rce(s) Supporting Document(s) Hemoglobin A1c/Hemoglobin.total in Blood 5.4 % 4.4 - 6.1 [facility] {A1]{HB] ID Date Data Source [id number] 09/02/2020 06:44:[address] [facility] Name Value Range Interpretation Code Description Data Fifi rce(s) Supporting Document(s) CBC W/AUTOMATED DIFF [facility] COMPLETE BLOOD COUNT Leukocytes [#/volume] in Blood by Automated count 8.1 10^3/uL 4.2 - [address] [facility] Erythrocytes [#/volume] in Blood by Automated count 4.99 10^6/uL 4. 50 - 6.30 [facility] Hemoglobin [Mass/volume] in Blood 16.3 g/dL 14.0 - 16.[address] [facility] Hematocrit [Volume Fraction] of Blood by Automated count 48.3 % 4 1.0 - 51.0 [facility] Erythrocyte mean corpuscular volume [Entitic volume] by Auto mated count 96.8 fL 80.0 - 94.[address] [facility] Erythrocyte mean corpuscular hemoglobin [Entitic mass] by Automated count 32.7 pg 27.0 - 34.0 [facility] Erythrocyte mean corpuscular hemoglobin concentration [Mass/volume] by Automated count 33.7 g/dL 31.0 - 36.0 [facility] Erythrocyte distribution width [Ratio] by Automated count 13.7 % 11.5 - 14.8 [facility] Platelets [#/volume] in Blood by Automated count 199 10^3/uL 150 - [address] [facility] Platelet mean volume [Entitic volume] in Blood by Automated count 11.9 fL 7.4 - 10.[address] [facility] Neutrophils/100 leukocytes in Blood by Automated count 58.3 % 37. 0 - 80.0 [facility] Lymphocytes/100 leukocytes in Blood by Manual count 29.4 % 25.0 - 40.0 [facility] Monocytes/100 leukocytes in Blood by Automated count 7.2 % 3.0 - 8.0 [facility] Eosinophils/100 leukocytes in Blood by Automated count 4.5 % 0.0 - 7.0 [facility] Basophils/100 leukocytes in Blood by Automated count 0.5 % 0.0 - 2.0 [facility] %IG 0.1 % 0.0 - 0.0 H [facility] al %NRBC 0.0 % 0.0 - 0.0 [facility] al Neutrophils [#/volume] in Blood by Automated count 4.70 10^3/uL 2.00 - 6.90 [facility] Lymphocytes [#/volume] in Blood by Automated count 2.37 10^3/uL 0.60 - 3.40 [facility] Monocytes [#/volume] in Blood by Automated count 0.58 10^3/uL 0.00 - 0.90 [facility] Eosinophils [#/volume] in Blood by Automated count 0.36 10^3/uL 0.00 - 0.70 [facility] Basophils [#/volume] in Blood by Automated count 0.04 10^3/uL 0.00 - 0.20 [facility] #IG 0.01 10^3/uL 0.00 - 0.10 [facility] ospital #NRBC 0.00 10^3/uL 0.00 - 0.00 [facility] ospital MANUAL DIFF NOT INDICATED [facility] RBC MORPH NOT INDICATED [facility] spital ID Date Data Source [id number] 06/10/2020 11:06:00 AM EST [facility] ([facility]) Name Value Range Interpretation Code Description Data Fifi rce(s) Supporting Document(s) Valproate [Mass/volume] in Serum or Plasma 43 ug/mL 50-100 [place] w low normal [facility] ([facility]) <content>Detection Limit = 4</content><b r/><content><4 indicates None Detected</content>
<content>Toxicity may occur at levels of 100-500. Measurements</content>
<content>of free unbound valproic acid may improve the assess-</content>
<content>ment of clinical response.</content>
<content></content> ID Date Data Source [id number] 06/10/2020 11:06:00 AM EST [facility] ([facility]) Name Value Range Interpretation Code Description Data Fifi rce(s) Supporting Document(s) Cve Panel Laboratory test result [facility] ([facility]) LIPID PANEL Triglycerides 53 mg/dL 35-160 [facility] ([facility]) Is patient fasting? Y Cholesterol 156 mg/dL 131-200 [facility] ([facility]) Is patient fasting? Y HDL 50 mg/dL 29-86 [facility] ([facility]) Is patient fasting? Y LDL 89 mg/dL 65-175 [facility] ([facility]) Is patient fasting? Y Risk Factor 3.1 3.4-4.9 Below low normal [facility] ([facility]) Is patient fasting? Y LDL/HDL 1.78 1.00-3.55 [facility] ([facility]) CVE RISK CHOL/HDL LDL/HDL MEN: 1/2 AVERAGE 3.43 1.00 AVERAGE 4.97 3.55 2X AVERAGE 9.55 6.25 3X AVERAGE 23.99 7.99 WOMEN: 1/2 AVERAGE 3.27 1.47 AVERAGE 4.44 3.22 2X AVERAGE 7.05 5.03 3X AVERAGE 11.04 6.14 ID Date Data Source [id number] 06/10/2020 11:06:00 AM EST [facility] ([facility]) Name Value Range Interpretation Code Description Data Fifi rce(s) Supporting Document(s) Hemoglobin A1c/Hemoglobin.total in Blood 5.3 % 4.4-6.1 [facility] ([facility]) {A1] {HB] Thyrotropin [Units/volume] in Serum or Plasma 2.11 uIU/mL 0.47-5.01 [facility] ([facility]) Is patient fasting? Y ID Date Data Source [id number] 06/10/2020 11:06:00 AM EST [facility] ([facility]) Name Value Range Interpretation Code Description Data Fifi rce(s) Supporting Document(s) Sodium 138 meq/L 134-153 [facility] ([facility]) Is patient fasting? Y Comprehensive Metabo Laboratory test result [facility] ([facility]) COMPREHENSIVE METABOLIC PANEL Potassium 4.2 meq/L 3.6-5.0 [facility] ([facility]) Is patient fasting? Y Co2 25 meq/L 22-30 [facility] ([facility]) Is patient fasting? Y Chloride 104 meq/L 98-107 [facility] ([facility]) Is patient fasting? Y Glucose 101 mg/dL 65-110 [facility] ([facility]) Is patient fasting? Y BUN 22 mg/dL 7-21 Above high normal [facility] ([facility]) Is patient fasting? Y Creatinine 0.7 mg/dL 0.7-1.5 [facility] ([facility]) Is patient fasting? Y BUN/Creat 31 8-27 Above high normal [facility] ([facility]) Is patient fasting? Y Total Protein 6.1 g/dL 6.3-8.2 Below low normal [facility] T ([facility]) Is patient fasting? Y Albumin 4.3 g/dL 3.9-5.0 [facility] ([facility]) Is patient fasting? Y Globulin 1.8 GM/DL 2.4-3.2 Below low normal [facility] ( [facility]) Is patient fasting? Y A/G Ratio 2.4 0.8-2.0 Above high normal [facility] ([facility]) Is patient fasting? Y Calcium 9.1 mg/dL 8.4-10.2 [facility] ([facility]) Is patient fasting? Y Total Bili Laboratory test result 0.2-1.3 ME [facility] ([facility]) Is patient fasting? Y Alkaline Phos 75 U/L 38-126 [facility] ([facility]) Is patient fasting? Y Sgot/Ast 25 U/L 5-40 [facility] ([facility]) Is patient fasting? Y SGPT/Alt 33 U/L 7-56 [facility] ([facility]) Is patient fasting? Y Age 59 [facility] Is patient fasting? Y Anion Gap 9.0 mmol/L 8.0-16.0 [facility] Is patient fasting? Y Non-Aa GFR Laboratory test [facility]) Is patient fasting? Y Afr Amer GFR Laboratory test [facility]) Male GFR Interprentation 20-49 yrs >60 mL/min [...] >32 mL/min Normal ID Date Data Source [id number] 06/10/2020 11:06:00 AM EST [facility] Name Value Range Interpretation Code Description Data Fifi rce(s) Supporting Document(s) CBC W/Automated Diff Laboratory test result [facility]) COMPLETE BLOOD COUNT WBC 8.3 10^3/uL 4.2-11.0 [facility] Is patient fasting? Y RBC 4.71 10^6/uL 4.50-6.30 [facility] ([facility]) Is patient fasting? Y Hemoglobin 15.2 g/dL 14.0-16.0 [facility] Is patient fasting? Y Hematocrit 44.5 % 41.0-51.0 [facility] ([facility]) Is patient fasting? Y MCH 32.3 pg 27.0-34.0 [facility] Is patient fasting? Y MCV 94.5 fL 80.0-94.0 Above high normal [facility] ([facility]) Is patient fasting? Y MCHC 34.2 g/dL 31.0-36.0 [facility] ([facility]) Is patient fasting? Y RDW 13.2 % 11.5-14.8 [facility] ([facility]) Is patient fasting? Y Platelets 212 10^3/uL 150-450 [facility] ([facility]) Is patient fasting? Y Neut 55.5 % 37.0-80.0 [facility] ([facility]) Is patient fasting? Y MPV 12.0 fL 7.4-10.4 Above high normal [facility] ([facility]) Is patient fasting? Y [place] 8.2 % 3.0-8.0 Above high normal [facility] ([facility]) Is patient fasting? Y Lymph 29.9 % 25.0-40.0 [facility] ([facility]) Is patient fasting? Y Eos 5.6 % 0.0-7.0 [facility] ([facility]) Is patient fasting? Y Baso 0.6 % 0.0-2.0 [facility] ([facility]) Is patient fasting? Y %Ig 0.2 % 0.0-0.0 Above high normal [facility] ([facility]) Is patient fasting? Y %NRBC 0.0 % 0.0-0.0 [facility] ([facility]) Is patient fasting? Y #Neut 4.58 10^3/uL 2.00-6.90 [facility] ([facility]) Is patient fasting? Y #Lymph 2.47 10^3/uL 0.60-3.40 [facility] ([facility]) Is patient fasting? Y #Eos 0.46 10^3/uL 0.00-0.70 [facility] ([facility]) Is patient fasting? Y #[place] 0.68 10^3/uL 0.00-0.90 [facility] ([facility]) Is patient fasting? Y #Ig 0.02 10^3/uL 0.00-0.10 [facility] ([facility]) Is patient fasting? Y #Baso 0.05 10^3/uL 0.00-0.20 [facility] ([facility]) Is patient fasting? Y #NRBC 0.00 10^3/uL 0.00-0.00 [facility] ([facility]) Is patient fasting? Y Manual Diff Laboratory test result [facility] ([facility]) Is patient fasting? Y RBC Morph Laboratory test result [facility] ([facility]) Is patient fasting? Y ID Date Data Source [id number] 06/12/2020 08:25:00 AM [facility] Name Value Range Interpretation Code Description Data Fifi rce(s) Supporting Document(s) Valproate [Mass/volume] in Serum or Plasma 43 ug/mL 50-[address] [facility] Detection Limit = 4 <4 indicates None Detected Toxicity may occur at levels of 100-500. Measurements of free unbound valproic acid may improve the assess- ment of clinical response. ID Date Data Source [id number] 06/10/2020 06:04:00 PM [facility] Name Value Range Interpretation Code Description Data Fifi rce(s) Supporting Document(s) [facility] Cholesterol [Mass/volume] in Serum or Plasma 156 MG/DL 131 - 200 [facility] Deprecated Triglyceride [Mass/volume] in Serum or Plasma 53 MG/DL 3 5 - 160 [facility] HDL 50 MG/DL 29 - 86 [facility] al Cholesterol in LDL [Mass/volume] in Serum or Plasma by Direc t assay 89 mg/dL 65 - 175 [facility] Cholesterol.total/Cholesterol in HDL [Mass Ratio] in Serum o r Plasma 3.1 3.4 - 4.[address] [facility] LDL/HDL 1.78 1.00 - 3.55 [facility] ital CVE RISK CHOL/HDL LDL/HDLMEN: 1/2 AVERAGE 3.43 1.00 AVERAGE 4.97 3.55 2X AVERAGE 9.55 6.25 3X AVERAGE 23.99 7.99WOMEN: 1/2 AVERAGE 3.27 1.47 AVERAGE 4.44 3.22 2X AVERAGE 7.05 5.03 3X AVERAGE 11.04 6.14 ID Date Data Source [id number] 06/10/2020 06:04:00 PM [facility] Name Value Range Interpretation Code Description Data Fifi rce(s) Supporting Document(s) COMPREHENSIVE METABOLIC PANEL [facility] COMPREHENSIVE METABOLIC PANEL Sodium [Moles/volume] in Serum or Plasma 138 mEq/L 134 - 153 [facility] Potassium [Moles/volume] in Serum or Plasma 4.2 mEq/L 3.6 - 5.0 [facility] Chloride [Moles/volume] in Serum or Plasma 104 mEq/L 98 - 107 [facility] Carbon dioxide, total [Moles/volume] in Serum or Plasma 25 MEQ/L 22 - 30 [facility] Glucose [Mass/volume] in Serum or Plasma 101 MG/DL 65 - 110 [facility] BUN 22 MG/DL 7 - 21 H [facility] al Creatinine [Mass/volume] in Serum or Plasma 0.7 MG/DL 0.7 - 1.5 [facility] BUN/CREAT 31 8 - 27 H [facility] Protein [Mass/volume] in Serum or Plasma 6.1 G/DL 6.3 - 8.[address] [facility] Albumin [Mass/volume] in Serum or Plasma 4.3 G/DL 3.9 - 5.0 [facility] Globulin [Mass/volume] in Serum by calculation 1.8 GM/DL 2.4 - 3.[address] [facility] A/G RATIO 2.4 0.8 - 2.0 H [facility] Calcium [Mass/volume] in Serum or Plasma 9.1 MG/DL 8.4 - 10.2 [facility] Bilirubin.total [Mass/volume] in Serum or Plasma <0.7 MG/DL 0.2 - 1.3 [facility] Alkaline phosphatase [Enzymatic activity/volume] in Serum or Plasma 75 U/L 38 - 126 [facility] Aspartate aminotransferase [Enzymatic activity/volume] in Serum or Plasma 25 U/L 5 - 40 [facility] Alanine aminotransferase [Enzymatic activity/volume] in Seru m or Plasma 33 U/L 7 - 56 [facility] Anion gap 3 in Serum or Plasma 9.0 mmol/L 8.0 - 16.0 [facility] AGE 59 yrs [facility] al NON-AA GFR >60 mL/min [facility] ital AFR AMER GFR >60 mL/min [facility] Ho spital Male GFR In terprentation 20-49 [...] >32 mL/min Normal ID Date Data Source [id number] 06/10/2020 06:04:00 PM [facility] Name Value Range Interpretation Code Description Data Fifi rce(s) Supporting Document(s) Hemoglobin A1c/Hemoglobin.total in Blood 5.3 % 4.4 - 6.1 [facility] {A1]{HB] ID Date Data Source [id number] 06/10/2020 06:02:00 PM [facility] Name Value Range Interpretation Code Description Data Fifi rce(s) Supporting Document(s) Thyrotropin [Units/volume] in Serum or Plasma by Detec tion limit <= 0.05 mIU/L 2.11 uIU/mL 0.47 - 5.01 [facility] ID Date Data Source [id number] 06/10/2020 05:46:00 PM [facility] Name Value Range Interpretation Code Description Data Fifi rce(s) Supporting Document(s) CBC W/AUTOMATED DIFF [facility] COMPLETE BLOOD COUNT Leukocytes [#/volume] in Blood by Automated count 8.3 10^3/uL 4.2 - [address] [facility] Erythrocytes [#/volume] in Blood by Automated count 4.71 10^6/uL 4. 50 - 6.30 [facility] Hemoglobin [Mass/volume] in Blood 15.2 g/dL 14.0 - 16.0 [facility] Hematocrit [Volume Fraction] of Blood by Automated count 44.5 % 4 1.0 - 51.0 [facility] Erythrocyte mean corpuscular volume [Entitic volume] by Auto mated count 94.5 fL 80.0 - 94.[address] [facility] Erythrocyte mean corpuscular hemoglobin [Entitic mass] by Automated count 32.3 pg 27.0 - 34.0 [facility] Erythrocyte mean corpuscular hemoglobin concentration [Mass/volume] by Automated count 34.2 g/dL 31.0 - 36.0 [facility] Erythrocyte distribution width [Ratio] by Automated count 13.2 % 11.5 - 14.8 [facility] Platelets [#/volume] in Blood by Automated count 212 10^3/uL 150 - [address] [facility] Platelet mean volume [Entitic volume] in Blood by Automated count 12.0 fL 7.4 - 10.[address] [facility] Neutrophils/100 leukocytes in Blood by Automated count 55.5 % 37. 0 - 80.0 [facility] Lymphocytes/100 leukocytes in Blood by Manual count 29.9 % 25.0 - 40.0 [facility] Monocytes/100 leukocytes in Blood by Automated count 8.2 % 3.0 - 8.[address] [facility] Eosinophils/100 leukocytes in Blood by Automated count 5.6 % 0.0 - 7.0 [facility] Basophils/100 leukocytes in Blood by Automated count 0.6 % 0.0 - 2.0 [facility] %IG 0.2 % 0.0 - 0.0 H [facility] al %NRBC 0.0 % 0.0 - 0.0 [facility] al Neutrophils [#/volume] in Blood by Automated count 4.58 10^3/uL 2.00 - 6.90 [facility] Lymphocytes [#/volume] in Blood by Automated count 2.47 10^3/uL 0.60 - 3.40 [facility] Monocytes [#/volume] in Blood by Automated count 0.68 10^3/uL 0.00 - 0.90 [facility] Eosinophils [#/volume] in Blood by Automated count 0.46 10^3/uL 0.00 - 0.70 [facility] Basophils [#/volume] in Blood by Automated count 0.05 10^3/uL 0.00 - 0.20 [facility] #IG 0.02 10^3/uL 0.00 - 0.10 [facility]spital #NRBC 0.00 10^3/uL 0.00 - 0.00 [facility] MANUAL DIFF NOT INDICATED [facility] RBC MORPH NOT INDICATED [facility] spital ID Date Data Source [id number] 02/14/2020 10:08:00 AM EDT [facility] ([facility]) Name Value Range Interpretation Code Description Data Fifi rce(s) Supporting Document(s) Valproate Free [Mass/volume] in Serum or Plasma 12.2 ug/mL 6.0-22.0 [facility] ([facility]) Detection Limit = 0.5 ID Date Data Source [id number] 02/14/2020 10:08:00 AM EDT [facility] ([facility]) Name Value Range Interpretation Code Description Data Fifi rce(s) Supporting Document(s) Prostate Specific Ag,Serum 0.5 ng/mL 0.0-4.0 [facility] ([facility]) [place] ECLIA methodology. According to the [employer], Serum PSA should decrease and [...] disease. Reflex Criteria Laboratory test result [facility] ([facility]) The percent free PSA is performed on a r eflex basis only when the total PSA is between 4.0 and 10.0 ng/mL. ID Date Data Source [id number] 02/14/2020 10:08:00 AM EDT [facility] ([facility]) Name Value Range Interpretation Code Description Data Fifi rce(s) Supporting Document(s) Cve Panel Laboratory test result [facility] ([facility]) LIPID PANEL Cholesterol 157 mg/dL 131-200 [facility] ([facility]) Triglycerides 74 mg/dL 35-160 [facility] ([facility]) HDL 47 mg/dL 29-86 [facility] ([facility]) LDL 89 mg/dL 65-175 [facility] ([facility]) Risk Factor 3.3 3.4-4.9 Below low normal [facility] ([facility]) LDL/HDL 1.89 1.00-3.55 [facility] ([facility]) CVE RISK CHOL/HDL LDL/HDL MEN: 1/2 AVERAGE 3.43 1.00 AVERAGE 4.97 3.55 2X AVERAGE 9.55 6.25 3X AVERAGE 23.99 7.99 WOMEN: 1/2 AVERAGE 3.27 1.47 AVERAGE 4.44 3.22 2X AVERAGE 7.05 5.03 3X AVERAGE 11.04 6.14 ID Date Data Source [id number] 02/14/2020 10:08:00 AM EDT [facility] ([facility]) Name Value Range Interpretation Code Description Data Fifi rce(s) Supporting Document(s) Hemoglobin A1c/Hemoglobin.total in Blood 5.9 % 4.4-6.1 [facility] ([facility]) {A1] {HB] Thyrotropin [Units/volume] in Serum or Plasma 1.63 uIU/mL 0.47-5.01 [facility] ([facility]) ID Date Data Source [id number] 02/14/2020 10:08:00 AM EDT [facility] ([facility]) Name Value Range Interpretation Code Description Data Fifi rce(s) Supporting Document(s) Comprehensive Metabo Laboratory test result [facility] ([facility]) COMPREHENSIVE METABOLIC PANEL Sodium 137 meq/L 134-153 [facility] ([facility]) Potassium 4.3 meq/L 3.6-5.0 [facility] ([facility]) Chloride 104 meq/L 98-107 [facility] ([facility]) Glucose 101 mg/dL 65-110 [facility] ([facility]) Co2 24 meq/L 22-30 [facility] ([facility]) BUN 20 mg/dL 7-21 [facility] ([facility]) Creatinine 0.8 mg/dL 0.7-1.5 [facility] ([facility]) Total Protein 6.6 g/dL 6.3-8.2 [facility] ([facility]) BUN/Creat 25 8-27 [facility] ([facility]) Globulin 2.4 GM/DL 2.4-3.2 [facility] ([facility]) Albumin 4.2 g/dL 3.9-5.0 [facility] ([facility]) A/G Ratio 1.8 0.8-2.0 [facility] ([facility]) Calcium 9.0 mg/dL 8.4-10.2 [facility] ([facility]) Total Bili Laboratory test result 0.2-1.3 [facility] ([facility]) Alkaline Phos 80 U/L 38-126 [facility] ([facility]) SGPT/Alt 16 U/L 7-56 [facility] ([facility]) Sgot/Ast 15 U/L 5-40 [facility] ([facility]) Anion Gap 9.0 mmol/L 8.0-16.0 [facility] ([facility]) Age 59 yrs [facility] ([facility]) Non-Aa GFR Laboratory test result [facility] ([facility]) Afr Amer GFR Laboratory test result [facility] ([facility]) Male GFR Interprentation 20-49 yrs >60 mL/min [...] >32 mL/min Normal ID Date Data Source [id number] 02/14/2020 10:08:00 AM EDT [facility] ([facility]) Name Value Range Interpretation Code Description Data Fifi rce(s) Supporting Document(s) CBC W/Automated Diff Laboratory test result [facility] ([facility]) COMPLETE BLOOD COUNT RBC 4.83 10^6/uL 4.50-6.30 [facility] ([facility]) WBC 7.4 10^3/uL 4.2-11.0 [facility] ([facility]) Hematocrit 45.6 % 41.0-51.0 [facility] ([facility]) Hemoglobin 15.3 g/dL 14.0-16.0 [facility] ([facility]) MCH 31.7 pg 27.0-34.0 [facility] ([facility]) MCV 94.4 fL 80.0-94.0 Above high normal [facility] ([facility]) RDW 13.8 % 11.5-14.8 [facility] ([facility]) MCHC 33.6 g/dL 31.0-36.0 [facility] ([facility]) Neut 57.2 % 37.0-80.0 [facility] ([facility]) MPV 12.5 fL 7.4-10.4 Above high normal [facility] ([facility]) Platelets 166 10^3/uL 150-450 [facility] ([facility]) Lymph 27.3 % 25.0-40.0 [facility] ([facility]) [place] 7.9 % 3.0-8.0 [facility] ([facility]) Eos 6.9 % 0.0-7.0 [facility] ([facility]) Baso 0.4 % 0.0-2.0 [facility] ([facility]) %NRBC 0.0 % 0.0-0.0 [facility] ([facility]) %Ig 0.3 % 0.0-0.0 Above high normal [facility] ([facility]) #Lymph 2.03 10^3/uL 0.60-3.40 [facility] ([facility]) #Neut 4.26 10^3/uL 2.00-6.90 [facility] ([facility]) #[place] 0.59 10^3/uL 0.00-0.90 [facility] ([facility]) #Eos 0.51 10^3/uL 0.00-0.70 [facility] ([facility]) #Ig 0.02 10^3/uL 0.00-0.10 [facility] ([facility]) #Baso 0.03 10^3/uL 0.00-0.20 [facility] ([facility]) Manual Diff [facility] #NRBC 0.00 10^3/uL 0.00-0.00 [facility] RBC Morph Laboratory test result [facility] ([facility]) ID Date Data Source [id number] 02/20/2020 05:32:[address] [facility] Name Value Range Interpretation Code Description Data Fifi rce(s) Supporting Document(s) Valproate Free [Mass/volume] in Serum or Plasma 12.2 ug/mL 6.0-22.0 [facility] Detection Limit = 0.5 ID Date Data Source [id number] 02/16/2020 02:35:00 PM EDT [facility] Value Range Interpretation Code Description Data Fifi rce(s) Supporting Document(s) Prostate specific Ag [Mass/volume] in Serum or Plasma 0.5 ng/mL 0.0- 4.0 [facility] [place] ECLIA methodology.According to the [employer], Serum PSA shoulddecrease and remain at undetectable levels after radicalprostatectomy. The AUA defines biochemical recurrence as an initialPSA value 0.2 ng/mL or greater followed by a subsequent confirmatoryPSA value 0.2 ng/mL or greater.Values obtained with different assay methods or kits cannot be usedinterchangeably. Results cannot be interpreted as absolute evidenceof the presence or absence of malignant disease. Reflex Criteria COMMENT [facility] The percent free PSA is performed on a r eflex basis only when thetotal PSA is between 4.0 and 10.0 ng/mL. ID Date Data Source [id number] 02/14/2020 06:03:00 PM EDT [facility] Value Range Interpretation Code Description Data Fifi rce(s) Supporting Document(s) Thyrotropin [Units/volume] in Serum or Plasma by Detec tion limit <= 0.05 mIU/L 1.63 uIU/mL 0.47 - 5.01 [facility] ID Date Data Source [id number] 02/14/2020 05:58:00 PM EDT [facility] Value Range Interpretation Code Description Data Fifi rce(s) Supporting Document(s) CVE PANEL [facility] al LIPID PANEL Cholesterol [Mass/volume] in Serum or Plasma 157 MG/DL 131 - 200 [facility] Deprecated Triglyceride [Mass/volume] in Serum or Plasma 74 MG/DL 3 5 - 160 [facility] HDL 47 MG/DL 29 - 86 [facility] Cholesterol in LDL [Mass/volume] in Serum or Plasma by Direc t assay 89 mg/dL 65 - 175 [facility] Cholesterol.total/Cholesterol in HDL [Mass Ratio] in Serum o r Plasma 3.3 3.4 - 4.[address] [facility] LDL/HDL 1.89 1.00 - 3.55 [facility] ital CVE RISK CHOL/HDL LDL/HDLMEN: 1/2 AVERAGE 3.43 1.00 AVERAGE 4.97 3.55 2X AVERAGE 9.55 6.25 3X AVERAGE 23.99 7.99WOMEN: 1/2 AVERAGE 3.27 1.47 AVERAGE 4.44 3.22 2X AVERAGE 7.05 5.03 3X AVERAGE 11.04 6.14 ID Date Data Source [id number] 02/14/2020 05:52:[address] [facility] Name Value Range Interpretation Code Description Data Fifi rce(s) Supporting Document(s) COMPREHENSIVE METABOLIC PANEL [facility] COMPREHENSIVE METABOLIC PANEL Sodium [Moles/volume] in Serum or Plasma 137 mEq/L 134 - 153 [facility] Potassium [Moles/volume] in Serum or Plasma 4.3 mEq/L 3.6 - 5.0 [facility] Chloride [Moles/volume] in Serum or Plasma 104 mEq/L 98 - 107 [facility] Carbon dioxide, total [Moles/volume] in Serum or Plasma 24 MEQ/L 22 - 30 [facility] Glucose [Mass/volume] in Serum or Plasma 101 MG/DL 65 - 110 [facility] BUN 20 MG/DL 7 - 21 [facility] al Creatinine [Mass/volume] in Serum or Plasma 0.8 MG/DL 0.7 - 1.5 [facility] BUN/CREAT 25 8 - 27 [facility] al Protein [Mass/volume] in Serum or Plasma 6.6 G/DL 6.3 - 8.2 [facility] Albumin [Mass/volume] in Serum or Plasma 4.2 G/DL 3.9 - 5.0 [facility] Globulin [Mass/volume] in Serum by calculation 2.4 GM/DL 2.4 - 3.2 [facility] A/G RATIO 1.8 0.8 - 2.0 [facility] Calcium [Mass/volume] in Serum or Plasma 9.0 MG/DL 8.4 - 10.2 [facility] Bilirubin.total [Mass/volume] in Serum or Plasma <0.7 MG/DL 0.2 - 1.3 [facility] Alkaline phosphatase [Enzymatic activity/volume] in Serum or Plasma 80 U/L 38 - 126 [facility] Aspartate aminotransferase [Enzymatic activity/volume] in Serum or Plasma 15 U/L 5 - 40 [facility] Alanine aminotransferase [Enzymatic activity/volume] in Seru m or Plasma 16 U/L 7 - 56 [facility] Anion gap 3 in Serum or Plasma 9.0 mmol/L 8.0 - 16.0 [facility] 59 [facility] >60 mL/min [facility] ital AFR AMER GFR >60 mL/min [facility] Ho spital Male GFR In terprentation 20-49 [...] >32 mL/min Normal ID Date Data Source [id number] 02/14/2020 05:44:[address] [facility] Name Value Range Interpretation Code Description Data Fifi rce(s) Supporting Document(s) CBC W/AUTOMATED DIFF [facility] COMPLETE BLOOD COUNT Leukocytes [#/volume] in Blood by Automated count 7.4 10^3/uL 4.2 - [address] [facility] Erythrocytes [#/volume] in Blood by Automated count 4.83 10^6/uL 4. 50 - 6.30 [facility] Hemoglobin [Mass/volume] in Blood 15.3 g/dL 14.0 - 16.0 [facility] Hematocrit [Volume Fraction] of Blood by Automated count 45.6 % 4 1.0 - 51.0 [facility] Erythrocyte mean corpuscular volume [Entitic volume] by Auto mated count 94.4 fL 80.0 - 94.[address] [facility] Erythrocyte mean corpuscular hemoglobin [Entitic mass] by Automated count 31.7 pg 27.0 - 34.0 [facility] Erythrocyte mean corpuscular hemoglobin concentration [Mass/volume] by Automated count 33.6 g/dL 31.0 - 36.0 [facility] Erythrocyte distribution width [Ratio] by Automated count 13.8 % 11.5 - 14.8 [facility] Platelets [#/volume] in Blood by Automated count 166 10^3/uL 150 - [address] [facility] Platelet mean volume [Entitic volume] in Blood by Automated count 12.5 fL 7.4 - 10.[address] [facility] Neutrophils/100 leukocytes in Blood by Automated count 57.2 % 37. 0 - 80.0 [facility] Lymphocytes/100 leukocytes in Blood by Manual count 27.3 % 25.0 - 40.0 [facility] Monocytes/100 leukocytes in Blood by Automated count 7.9 % 3.0 - 8.0 [facility] Eosinophils/100 leukocytes in Blood by Automated count 6.9 % 0.0 - 7.0 [facility] Basophils/100 leukocytes in Blood by Automated count 0.4 % 0.0 - 2.0 [facility] %IG 0.3 % 0.0 - 0.0 [facility] %NRBC 0.0 % 0.0 - 0.0 [facility] al Neutrophils [#/volume] in Blood by Automated count 4.26 10^3/uL 2.00 - 6.90 [facility] Lymphocytes [#/volume] in Blood by Automated count 2.03 10^3/uL 0.60 - 3.40 [facility] Monocytes [#/volume] in Blood by Automated count 0.59 10^3/uL 0.00 - 0.90 [facility] Eosinophils [#/volume] in Blood by Automated count 0.51 10^3/uL 0.00 - 0.70 [facility] Basophils [#/volume] in Blood by Automated count 0.03 10^3/uL 0.00 - 0.20 [facility] #IG 0.02 10^3/uL 0.00 - 0.10 [facility] H ospital #NRBC 0.00 10^3/uL 0.00 - 0.00 [facility] ospital MANUAL DIFF NOT INDICATED [facility] RBC MORPH NOT INDICATED [facility] spital ID Date Data Source [id number] 02/14/2020 05:22:[address] [facility] Name Value Range Interpretation Code Description Data Fifi rce(s) Supporting Document(s) Hemoglobin A1c/Hemoglobin.total in Blood 5.9 % 4.4 - 6.1 [facility] {A1]{HB] Procedure Social History No Information Vital Signs ID Date Data Source [id number] Name Value Range Interpretation Code Description Data Source(s) Systolic blood pressure 130 mm[Hg] 130 mm[Hg] [facility] ([facility]) Diastolic blood pressure 76 mm[Hg] 76 mm[Hg] [facility] ([facility]) Heart rate 64 /min 64 /min [facility] ([facility]) Body temperature 96.4 [degF] 96.4 [degF] [facility] ([facility]) Respiratory rate 16 /min 16 /min [facility] ( [facility]) Oxygen saturation in Arterial blood by Pulse oximetry 98 % 98 % [facility] ([facility]) Body weight 192.38 [lb_av] 192.38 [lb_av] [facility] ([facility]) Body weight 87.261 kg 87.261 kg [facility] ([facility]) Body height 72 [in_i] 72 [in_i] [facility] ([facility]) 6'0" Body mass index (BMI) [Ratio] 26.1 kg/m2 26.1 k g/m2 [facility] ([facility]) Body surface area Derived from formula 2.10 m2 2.10 m2 [facility] ([facility]) Body mass index (BMI) [Ratio] 26.5 kg/m2 26.5 k g/m2 [facility] ([facility]) [facility] 74 /min 74 /[facility] Body weight 88.509 kg 88.509 kg [facility] ([facility]) Systolic blood pressure 134 mm[Hg] 134 mm[Hg] [facility] ([facility]) Diastolic blood pressure 70 mm[Hg] 70 mm[Hg] [facility] ([facility]) Body temperature 96.4 [degF] 96.4 [degF] [facility] ([facility]) Respiratory rate 16 /min 16 /min [facility] ( [facility]) Oxygen saturation in Arterial blood by Pulse oximetry 96 % 96 % [facility] ([facility]) Body weight 195.12 [lb_av] 195.12 [lb_av] [facility] ([facility]) Body height 72 [in_i] 72 [in_i] [facility] ([facility]) 6'0" Body surface area Derived from formula 2.11 m2 2.11 m2 [facility] Body height 72 [in_i] 72 [in_i] [facility] ([facility]) 6'0" Oxygen saturation in Arterial blood by Pulse oximetry 96 % 96 % [facility] ([facility]) Body mass index (BMI) [Ratio] 25.6 kg/m2 25.6 k g/m2 [facility] ([facility]) Body surface area Derived from formula 2.08 m2 2.08 m2 [facility] ([facility]) Systolic blood pressure 130 mm[Hg] 130 mm[Hg] [facility] ([facility]) Diastolic blood pressure 74 mm[Hg] 74 mm[Hg] [facility] ([facility]) Heart rate 76 /min 76 /min [facility] ([facility]) Body temperature 97.7 [degF] 97.7 [degF] [facility] ([facility]) Respiratory rate 18 /min 18 /min [facility] ( [facility]) Body weight 188.50 [lb_av] 188.50 [lb_av] [facility] ([facility]) Body weight 85.504 kg 85.504 kg [facility] ([facility]) Systolic blood pressure 124 mm[Hg] 124 mm[Hg] [facility] ([facility]) Diastolic blood pressure 70 mm[Hg] 70 mm[Hg] [facility] ([facility]) Body weight 192.38 [lb_av] 192.38 [lb_av] [facility] ([facility]) Body weight 87.261 kg 87.261 kg [facility] ([facility]) Body mass index (BMI) [Ratio] 26.1 kg/m2 26.1 k g/m2 [facility] ([facility]) Body surface area Derived from formula 2.10 m2 2.10 m2 [facility] ([facility]) Heart rate 78 /min 78 /min [facility] ([facility]) Body temperature 97.2 [degF] 97.2 [degF] [facility] ([facility]) Respiratory rate 18 /min 18 /min [facility] Oxygen saturation in Arterial blood by Pulse oximetry 97 % 97 % [facility] ([facility]) Body height 72 [in_i] 72 [in_i] [facility] ([facility]) 6'0" Body surface area 2.11 m2 2.11 m2 [facility] Body weight 195.25 [lb_av] 195.25 [lb_av] [facility] ([facility]) Body weight 88.565 kg 88.565 [facility] Systolic blood pressure 110 mm[Hg] 110 mm[Hg] [facility] ([facility]) Diastolic blood pressure 72 mm[Hg] 72 mm[Hg] [facility] ([facility]) Heart rate 78 /min 78 /min [facility] ([facility]) Body temperature 97.1 [degF] 97.1 [degF] [facility] ([facility]) Respiratory rate 18 /min 18 /min [facility] ( [facility]) Oxygen saturation in Arterial blood by Pulse oximetry 97 % 97 % [facility] Body height 72 [in_i] 72 [in_i] [facility] 6'0" Body mass index (BMI) [Ratio] 26.5 kg/m2 26.5 k g/m2 [facility] ([facility]) Body surface area Derived from formula 2.11 m2 2.11 m2 [facility] ([facility])
--- NOTE | 2021-03-29 16:48 | HPEPDOC ---
[facility] [place] Medical History & Physical Date of Admission Mar 29, 2021 Date of Service: Mar 29, 2021 History and Physical CHIEF COMPLAINT: " I took my Depakote and fentanyl" HISTORY OF PRESENT ILLNESS: 60-year-old male with a past medical history of seizure disorder was brought to the emergency room department with a change of mental status. He was found hanging over his wheelchair at approximately 7 AM today and EMS was called by possibly a family member. In the emergency room department patient was altered and received Narcan with response. At this junction, he was awake, alert, oriented x3. He reported taking the entire bottle of his Depakote as well as reported the prescribed fentanyl (unable to specify the amount) and attempts to kill himself. He reports he has been lately been depressed for the last few d ays due to home stressors, mainly by his stepbrother which she did not want to get into details at this time. PAST MEDICAL HISTORY: Seizure disorder PAST SURGICAL HISTORY: Did not report past surgical history at this time SOCIAL HISTORY: Lives at home with his sister as well as stepbrother. Reports working with wood. Admits to smoking a pack a day. Denies recreational drug use and drinking. FAMILY HISTORY: Did not report any family history. ALLERGIES: Please see below. REVIEW OF SYSTEMS: 10 point review of system was negative except for what is noted in the HPI HOME MEDICATIONS: Please see below. PHYSICAL EXAMINATION: VITAL SIGNS: Please see below General: Lying in bed, no acute distress Head/Neck/Throat: Trachea midline, mucous membranes moist Eyes: Sclera anicteric, no erythema or discharge appreciated bilaterally Thorax: Normal respiratory effort on room air, lungs clear to auscultation bilaterally, no wheezes/rales/rhonchi Cardiovascular: Normal rate, regular rhythm, normal S1, S2; no S3, S4, rubs/gallops/murmurs Abdomen: Bowel sounds present, soft/nontender/nondistended Genitourinary: No CVA tenderness, no Kovacs in place Musculoskeletal: Moving all extremities, no edema Skin: Erythema of the abdomen towards flank Neurologic: AAOx3, speech fluent and goal-directed, no focal deficits, grossly intact LABORATORY DATA: See below. IMAGING: Please see imaging section MICROBIOLOGY: Please see below. ASSESSMENT/PLAN: #Overdose -Patient took Depakote as well as fentanyl. -He responded to 8 of Narcan in the emergency room department. If there is a decline in mental and/or respiratory status, he will receive additional Narcan pushes versus a drip. -Poison control was contacted about Depakote overdose. They recommended Depakote and ammonia levels every 4-6 hours. Carnitine drip. #Lactic acid -Follow-up on repeat lactic acidosis. #Cellulitis of abdomen -Reports wood chips hitting his abdomen often. Will start cefazolin #Suicidal thoughts -will need psych eval. -sitter, suicide precautions #Seizure disorder -Hold Depakote for above reasons. #DVT prophylaxis -Lovenox Vital Signs Vital Signs Date Time Temp Pulse Resp B/P (MAP) Pulse Ox O2 Delivery O2 Flow Rate FiO2 03/29/21 16:30 123/67 (85) 03/29/21 16:15 76 94 Nasal Cannula 2.0 03/29/21 14:45 16 03/29/21 13:06 97.1 Laboratory Data Labs 24H Laboratory Tests 2 03/29/21 13:05: Prothrombin Time 13.5, Prothromb Time International Ratio 0.99, D-Dimer, Quantitative 616.29H 03/29/21 13:12: Immature Granulocyte % (Auto) 0.3, Neutrophils (%) (Auto) 69.4H, Lymphocytes (%) (Auto) 24.2, Monocytes (%) (Auto) 3.8, Eosinophils (%) (Auto) 1.9, Basophils (%) (Auto) 0.4, Neutrophils # (Auto) 5.6, Lymphocytes # (Auto) 1.9, Monocytes # (Au to) 0.3, Eosinophils # (Auto) 0.2, Basophils # (Auto) 0.0, Nucleated Red Blood Cells % (auto) 0.0, Anion Gap 6L, Glomerular Filtration Rate > 60.0, Lactic Acid Level 2.4*H, Calcium Level 8.2L, Total Bilirubin 0.3, Direct Bilirubin < 0.1, Aspartate Amino Transf (AST/SGOT) 19, Alanine Aminotransferase (ALT/SGPT) 28, Alkaline Phosphatase 72, Ammonia 37H, Total Creatine Kinase 278, Creatine Kinase MB 7.1H, Creatine Kinase MB Relative Index 2.55, Troponin I < 0.02, AZ-Nbg-Z-Type Natriuretic Peptide 29, Total Protein 6.6, Albumin 3.2, Albumin/Globulin Ratio 0.9, Thyroid Stimulating Hormone (TSH) 1.340, Thyroxine (T4) 15.4H, Salicylates Level 3.2L, Acetaminophen Level < 2.0L, Valproic Acid (Depakene) Level 503.0H, Coronavirus (COVID-19)(PCR) NEGATIVE, Influenza Type A (RT-PCR) NEGATIVE, Influenza Type B (RT-PCR) NEGATIVE, Respiratory Syncytial Virus (PCR) NEGATIVE 03/29/21 13:18: Blood Gas Bicarbonate Standard 21.7L, Arterial Blood pH 7.378, Arterial Blood Partial Pressure CO2 36.8, Arterial Blood Partial Pressure O2 78.0, Arterial Blood Total CO2 22.3L, Arterial Blood HCO3 21.2L, Arterial Blood Base Excess - 3.3L, Arterial Blood Oxygen Saturation 95.6 03/29/21 16:05: CBC/BMP Laboratory Tests 03/29/21 13:12 Microbiology Microbiology 03/29/21 Blood Culture, Received Pending 03/29/21 Blood Culture, Received Pending Home Medications Scheduled Divalproex Sodium (Divalproex Sodium) 500 Mg Tablet.dr, 500 MG PO DAILY Divalproex Sodium (Divalproex Sodium) 500 Mg Tablet.dr, 1,000 MG PO QHS Meloxicam (Meloxicam) 15 Mg Tablet, 15 MG PO DAILY Omeprazole (Omeprazole) 20 Mg Capsule.dr, 20 MG PO DAILY Scheduled PRN Clotrimazole (Clotrimazole) 1% 30GM Cream..g., 1 APPLIC TOP BID PRN for RASH APPLY TO RASH ON ARMS Miscellaneous Medications [Comments] MED LIST MADE WITH EXTERNAL MED HISTORY Allergies Coded Allergies: No Known Drug Allergies (Verified Allergy, Unknown, 12/10/19) A-FIB/CHADSVASC A-FIB History Current/History of A-Fib/PAF?: No TEETEE SALGUERO M.D. Mar 29, 2021 16:48
[2021-03-29 17:20] LABS: ETHYL ALCOHOL (ETHANOL) 0.003 % (0.000-0.010)
[2021-03-29] MEDS: ENOXAPARIN 40MG/0.4ML SYRINGE (J1650 PER 10MG) SC SCH (18:04)
[2021-03-29 19:45] LABS: AMPHETAMINES LEVEL URINE NEGATIVE (NEGATIVE); BARBITURATES URINE NEGATIVE (NEGATIVE); BENZODIAZEPINES URINE NEGATIVE (NEGATIVE); CANNABINOIDS URINE NEGATIVE (NEGATIVE); COCAINE METABOLITE URINE NEGATIVE (NEGATIVE); METHADONE URINE NEGATIVE (NEGATIVE); OPIATES URINE NEGATIVE (NEGATIVE); PHENCYCLIDINE URINE NEGATIVE (NEGATIVE)
[2021-03-29] MEDS ORDERED: LEVOCARNITINE IV SCH (20:00)
[2021-03-29] MEDS ORDERED: NS IV SCH (20:00)
[2021-03-29] MEDS: ceFAZolin SOD 1 GM in D5W MINI-BAG PLUS 50 ML IV SCH (20:44)
--- NOTE | 2021-03-29 21:52 | IPNPDOC ---
Text Note Date of Service The patient was seen on 03/29/21. NOTE I visited the patient at approximately 830PM. He was alert and conversant but still a bit listless. Ammonia and lactic acid are trending down. I called poison control center at 955PM to discuss the case and they confirmed that because his ammonia and valproate levels are improving he no longer needs the levocarnitine. VS,Fishbone, I+O VS, Fishbone, I+O Laboratory Tests 03/29/21 13:12 Vital Signs Date Time Temp Pulse Resp B/P (MAP) Pulse Ox O2 Delivery O2 Flow Rate FiO2 03/29/21 21:30 91 16 145/67 (93) 95 Room Air 1.0 03/29/21 19:30 97.9 DWAINE PERDOMO MD Mar 29, 2021 21:52
[2021-03-29 23:54] VITALS: BP 113/61
[2021-03-30 04:00] VITALS: BP 102/58
[2021-03-30 04:15] LABS: HEMATOCRIT 42.6 % (42.0-52.0); HEMOGLOBIN 14.4 g/dl (13.5-17.5); MEAN CORPUSCULAR HEMOGLOBIN 32.4 pg (27.0-33.0); MEAN CORPUSCULAR HGB CONC 33.8 g/dl (32.0-36.5); MEAN CORPUSCULAR VOLUME 95.9 fl (80.0-96.0); PLATELET COUNT, AUTOMATED 148 10^3/uL (150-450); RED BLOOD COUNT 4.44 10^6/uL (4.30-6.10); WHITE BLOOD COUNT 19.2 10^3/uL (4.0-10.0)
[2021-03-30 04:35] LABS: BLOOD UREA NITROGEN 21 MG/DL (7-18); CALCIUM LEVEL 7.5 MG/DL (8.8-10.2); CARBON DIOXIDE LEVEL 24 MEQ/L (21-32); CHLORIDE LEVEL 111 MEQ/L (98-107); CREATININE FOR GFR 0.96 MG/DL (0.70-1.30); GLOMERULAR FILTRATION RATE > 60.0 (>49); GLUCOSE, FASTING 106 MG/DL (70-100); MAGNESIUM LEVEL 1.4 MG/DL (1.8-2.4); PHOSPHORUS LEVEL 2.9 MG/DL (2.5-4.9); POTASSIUM SERUM 3.6 MEQ/L (3.5-5.1); SODIUM LEVEL 142 MEQ/L (136-145)
[2021-03-30] MEDS: ceFAZolin SOD 1 GM in D5W MINI-BAG PLUS 50 ML IV SCH ×3 (04:45→19:56)
[2021-03-30 07:27] VITALS: BP 103/59
[2021-03-30] MEDS ORDERED: POTASSIUM CHLORIDE 10MEQ SR TABLET PO ONE (08:15)
[2021-03-30] MEDS ORDERED: MAGNESIUM OXIDE 400MG TAB (MAG-OX) PO ONE (08:15)
[2021-03-30] MEDS: OMEPRAZOLE 20 MG CAP PO SCH (08:39)
[2021-03-30] MEDS: NICOTINE 21MG/24HR 1 EA TRANSDERMAL TD SCH (08:40)
[2021-03-30] MEDS: ENOXAPARIN 40MG/0.4ML SYRINGE (J1650 PER 10MG) SC SCH (08:40)
[2021-03-30] MEDS ORDERED: LACTULOSE 20 GM/30 ML SYRUP UD PO ONE (11:10)
--- NOTE | 2021-03-30 11:10 | IPNPDOC ---
Subjective Date Seen The patient was seen on 03/30/21. Subjective Chief Complaint/HPI Patient seen and examined at bedside this morning. He is awake, alert, oriented x3 and reported feeling well. He denied headaches, blurry vision, chest pain, shortness of breath, abdominal pain, nausea, vomiting, problem with urination or bowel movements. Objective Physical Examination Other physical findings General: Lying in bed, no acute distress Head/Neck/Throat: Trachea midline, mucous membranes moist Eyes: Sclera anicteric, PERRLA Thorax: Normal respiratory effort on room air, lungs clear to auscultation bilaterally, no wheezes/rales/rhonchi Cardiovascular: Normal rate, regular rhythm, normal S1, S2; no S3, S4, rubs/gallops/murmurs Abdomen: Bowel sounds present, soft/nontender/nondistended Genitourinary: No CVA tenderness, no Kovacs in place Musculoskeletal: Moving all extremities, no edema Skin: Right abdominal erythema improving Neurologic: AAOx3, speech fluent and goal-directed, no focal deficits, grossly intact Assessment /Plan Assessment #Suicidal thoughts -Psych consulted and aware of case. -sitter, suicide precautions #Overdose -Patient took Depakote as well as fentanyl. He responded to 8 of Narcan in the emergency room department. Poison control was contacted and recommended Depakote, ammonia levels every 4-6 hours as well as a Carnitine drip which was completed. They have now signed of the case. Pt back to baseline mental status. #Hyperammonemia in setting of Depakote overdose -Received lactulose, ammonia is downtrending. Patient's mental status is back to baseline #Cellulitis of abdomen -Reports wood chips hitting his abdomen often. -cefazolin for 10 days. #Seizure disorder -Depakote back to therapeutic range therefore will resume ambulatory dose. #Lactic acid -Resolved. #DVT prophylaxis -Lovenox Plan/VTE VTE Prophylaxis Ordered?: Yes VS, I&O, 24H, Fishbone Vital Signs/I&O Vital Signs Date Time Temp Pulse Resp B/P (MAP) Pulse Ox O2 Delivery O2 Flow Rate FiO2 03/30/21 07:44 96 Room Air 03/30/21 07:33 2.0 03/30/21 07:27 98.6 75 20 103/59 (74) I&O- Last 24 Hours up to 6 AM 03/30/21 06:00 Intake Total 2306.25 ml Output Total 1050 ml Balance 1256.25 ml Laboratory Data 24H LABS Laboratory Tests 2 03/29/21 13:05: Prothrombin Time 13.5, Prothromb Time International Ratio 0.99, D-Dimer, Quantitative 616.29H 03/29/21 13:12: Immature Granulocyte % (Auto) 0.3, Neutrophils (%) (Auto) 69.4H, Lymphocytes (%) (Auto) 24.2, Monocytes (%) (Auto) 3.8, Eosinophils (%) (Auto) 1.9, Basophils (%) (Auto) 0.4, Neutrophils # (Auto) 5.6, Lymphocytes # (Auto) 1.9, Monocytes # (Auto) 0.3, Eosinophils # (Auto) 0.2, Basophils # (Auto) 0.0, Nucleated Red Blood Cells % (auto) 0.0, Anion Gap 6L, Glomerular Filtration Rate > 60.0, Lactic Acid Level 2.4*H, Calcium Level 8.2L, Total Bilirubin 0.3, Direct Bilirubin < 0.1, Aspartate Amino Transf (AST/SGOT) 19, Alanine Aminotransferase (ALT/SGPT) 28, Alkaline Phosphatase 72, Ammonia 37H, Total Creatine Kinase 278, Creatine Kinase MB 7.1H, Creatine Kinase MB Relative Index 2.55, Troponin I < 0.02, LA-Red-J-Type Natriuretic Peptide 29, Total Protein 6.6, Albumin 3.2, Albumin/Globulin Ratio 0.9, Thyroid Stimulating Hormone (TSH) 1.340, Thyroxine (T4) 15.4H, Salicylates Level 3.2L, Acetaminophen Level < 2.0L, Valproic Acid (Depakene) Level 503.0H, Ethyl Alcohol Level 0.003, Coronavirus (COVID-19)(PCR) NEGATIVE, Influenza Type A (RT-PCR) NEGATIVE, Influenza Type B (RT-PCR) NEGATIVE, Respiratory Syncytial Virus (PCR) NEGATIVE 03/29/21 13:18: Blood Gas Bicarbonate Standard 21.7L, Arterial Blood pH 7.378, Arterial Blood Partial Pressure CO2 36.8, Arterial Blood Partial Pressure O2 78.0, Arterial Blood Total CO2 22.3L, Arterial Blood HCO3 21.2L, Arterial Blood Base Excess - 3.3L, Arterial Blood Oxygen Saturation 95.6 03/29/21 16:05: Ammonia 22, Valproic Acid (Depakene) Level 302.6H 03/29/21 17:50: Lactic Acid Followup at 4 Hours 1.4 03/29/21 19:14: Urine Opiates Screen NEGATIVE, Urine Methadone Screen NEGATIVE, Urine Barbiturates Screen NEGATIVE, Urine Phencyclidine Screen NEGATIVE, Urine Amphetamines Screen NEGATIVE, Urine Benzodiazepines Screen NEGATIVE, Urine Cocaine Metabolite Screen NEGATIVE, Urine Cannabinoids Screen NEGATIVE 03/29/21 20:34: Ammonia 27, Valproic Acid (Depakene) Level 149.4H 03/30/21 00:05: Ammonia 111H, Valproic Acid (Depakene) Level 115.4H 03/30/21 00:11: Bedside Glucose (Misc Panel) 109 03/30/21 04:03: Nucleated Red Blood Cells % (auto) 0.0, Anion Gap 7L, Glomerular Filtration Rate > 60.0, Calcium Level 7.5L, Phosphorus Level 2.9, Magnesium Level 1.4L, Ammonia 114H, Valproic Acid (Depakene) Level 83.5 03/30/21 08:04: Ammonia 81H, Valproic Acid (Depakene) Level 71.5 CBC/BMP Laboratory Tests 03/29/21 13:12 03/30/21 04:03 Microbiology Microbiology 03/29/21 Blood Culture, Received Pending 03/29/21 Blood Culture, Received Pending TEETEE SALGUERO M.D. Mar 30, 2021 11:10
[2021-03-30 12:29] VITALS: BP 125/68
[2021-03-30 16:00] VITALS: BP 110/58
--- NOTE | 2021-03-30 19:25 | ECGEPIP ---
[facility] - ED Test Date: 2021-03-29 Pat Name: ROBERT OTOOLE Department: Room: - Gender: Male Financial Compliance Examiner: TEVIN : 1960 Requested By: LYNDSEY Reyes Order Number: [id number] Reading MD: Phoenix Marc Measurements Intervals [place] Rate: 83 P: -1 OH: 186 QRS: -17 QRSD: 90 T: 1 QT: 384 QTc: 451 Interpretive Statements Sinus rhythm with 1st degree AV block SIMILAR TO 12/10/19 Electronically Signed on 03-30-2021 19:25:12 EDT by Phoenix Marc
[2021-03-30 19:28] VITALS: BP 124/72
[2021-03-31] VITALS: BP 120/70
[2021-03-31] MEDS: CEPHALEXIN 500 MG CAP PO SCH ×5 (00:14→23:45)
[2021-03-31] MEDS: LACTULOSE 20 GM/30 ML SYRUP UD PO SCH ×5 (00:15→23:44)
[2021-03-31 05:02] VITALS: BP 114/70
[2021-03-31 05:56] LABS: HEMATOCRIT 39.4 % (42.0-52.0); HEMOGLOBIN 13.4 g/dl (13.5-17.5); MEAN CORPUSCULAR HEMOGLOBIN 32.1 pg (27.0-33.0); MEAN CORPUSCULAR VOLUME 94.3 fl (80.0-96.0); PLATELET COUNT, AUTOMATED 126 10^3/uL (150-450); RED BLOOD COUNT 4.18 10^6/uL (4.30-6.10)
[2021-03-31 06:17] LABS: BLOOD UREA NITROGEN 19 MG/DL (7-18); CALCIUM LEVEL 8.5 MG/DL (8.8-10.2); CARBON DIOXIDE LEVEL 24 MEQ/L (21-32); CHLORIDE LEVEL 114 MEQ/L (98-107); CREATININE FOR GFR 0.71 MG/DL (0.70-1.30); GLOMERULAR FILTRATION RATE > 60.0 (>49); GLUCOSE, FASTING 92 MG/DL (70-100); MAGNESIUM LEVEL 1.8 MG/DL (1.8-2.4); PHOSPHORUS LEVEL 2.7 MG/DL (2.5-4.9); POTASSIUM SERUM 4.1 MEQ/L (3.5-5.1); SODIUM LEVEL 143 MEQ/L (136-145)
--- NOTE | 2021-03-31 07:04 | MHCR ---
PSYCHIATRIC ONSULTATION DATE: 03/30/2021 He is in the Progressive Care Unit at [facility], I am at home, he is seen in the presence of staff. CHIEF COMPLAINT: He has taken an overdose. HISTORY OF PRESENT ILLNESS: He is 60 years old, stays with his sister, and sister's friend, and has a seizure disorder, had taken a substantial overdose of Depakote and Fentanyl, in an attempt to try to kill himself. Says he took the overdose as there were "pressures" at home, but did not specify what they were, and on further inquiry, suggested they had been building up over several weeks, if not longer. Says was found by his sister after he taken the overdose. He also suggested that he used to see a psychiatrist, but unclear when, and plans to do so once he leaves the hospital. Does not provide much else in terms of history, some of which is obtained from the chart. The initial note indicates that he has been found hanging over a wheelchair, at home. I am informed by the nurse looking after him here that he has walked to the bathroom. Has a neurologist, unclear who that is. According to the ER notes, he was brought in by ambulance, as he was found unresponsive, and slumped over a wheelchair, a bottle of Meloxicam was found, 15 mg tablets, and an empty bottle of omeprazole was also found as well as Depakote 500 mg with 35 pills missing. PAST PSYCHIATRIC HISTORY: Unclear, but does say used to see a psychiatrist in the past. I am not aware if he has been hospitalized psychiatrically in the past, however. SUBSTANCE ABUSE HISTORY: Unknown. MEDICAL HISTORY: Has a seizure disorder, I am not aware of anything else, although clinically there appears to be diminished mobility on the left side of his face. SOCIAL HISTORY: He lives with his sister, a couple of other people although says a sister helps look after him. MENTAL STATUS EXAM: Somewhat unkempt, he is in bed, cooperative, no agitation, answers questions briefly logically, diminished movements on one side of his face. Vague on suicidal thoughts. No evidence of psychosis. No fluctuation of consciousness. Appears alert, oriented to person and place but not fully to time and able to maintain and shift attention adequately, as far as I could tell. Intellect average, judgment and insight are compromised. ASSESSMENT: Unspecified depressive disorder. Status post overdose. Seizure disorder. Difficulties at home, unknown nature. The patient has a seizure disorder and difficulties at home, unclear if he has had any structural pathology such as a stroke in the past, has a seizure disorder, has taken a substantial overdose, found to be unresponsive, is being stabilized by the Hospitalist and Medicine. RECOMMENDATIONS: Given the above, I would recommend the patient be hospitalized inpatient psychiatry for further stability and management, once he is fully medically cleared. He does not wish to be hospitalized, says wants to go home. Meets criteria for involuntary hospitalization at this point. Thank you for the consult, if you have any questions, please call. The assessment took 30 minutes.
[2021-03-31 07:25] VITALS: BP 115/75
[2021-03-31 08:34] LABS: ALBUMIN 2.5 GM/DL (3.2-5.2); ALT/SGPT 17 U/L (12-78); BILIRUBIN,DIRECT 0.1 MG/DL (0.0-0.2); BILIRUBIN,TOTAL 0.4 MG/DL (0.2-1.0); TOTAL PROTEIN 5.3 GM/DL (6.4-8.2)
[2021-03-31] MEDS: OMEPRAZOLE 20 MG CAP PO SCH (09:10)
[2021-03-31] MEDS: DIVALPROEX 500 MG TAB PO SCH (09:10)
[2021-03-31] MEDS: NICOTINE 21MG/24HR 1 EA TRANSDERMAL TD SCH (09:11)
[2021-03-31] MEDS: ENOXAPARIN 40MG/0.4ML SYRINGE (J1650 PER 10MG) SC SCH (09:11)
[2021-03-31 11:40] VITALS: BP 120/73
--- NOTE | 2021-03-31 13:59 | IPNPDOC ---
Subjective Date Seen The patient was seen on 03/31/21. Subjective Chief Complaint/HPI Patient seen and examined at bedside this morning. He had no new complaints. He denied headaches, chest pain, shortness of breath, abdominal pain, nausea, vomiting, problems with urination or bowel movements. Objective Physical Examination Other physical findings General: Lying in bed, no acute distress Head/Neck/Throat: Trachea midline, mucous membranes moist Eyes: Sclera anicteric, PERRLA Thorax: Normal respiratory effort on room air, lungs clear to auscultation bilaterally, no wheezes/rales/rhonchi Cardiovascular: Normal rate, regular rhythm, normal S1, S2; no S3, S4, rubs/gallops/murmurs Abdomen: Bowel sounds present, soft/nontender/nondistended Genitourinary: No CVA tenderness, no Kovacs in place Musculoskeletal: Moving all extremities, no edema Skin: Right abdominal erythema has resolved Neurologic: AAOx3, speech fluent and goal-directed, no focal deficits, grossly intact Assessment /Plan Assessment #Suicidal thoughts -Psych consulted and aware of case. -sitter, suicide precautions #Overdose -Patient took Depakote as well as fentanyl. He responded to 8 of Narcan in the emergency room department. Poison control was contacted and recommended Depakote, ammonia levels every 4-6 hours as well as a Carnitine drip which was completed. They have now signed of the case. Pt back to baseline mental status. #Hyperammonemia -In the setting of Depakote overdose. Received lactulose, ammonia level is downtrending. Patient is back to his baseline mental status. #Cellulitis of abdomen -Reports wood chips hitting his abdomen often. Significant improvement while on antibiotics. -cefazolin for total of 10 days. #Seizure disorder -Depakote back to therapeutic range therefore will resume ambulatory dose. #Lactic acid -Resolved. #DVT prophylaxis -Lovenox Disposition patient is medically cleared to go to [facility] when beds are available. Plan/VTE VTE Prophylaxis Ordered?: Yes VS, I&O, 24H, Fishbone Vital Signs/I&O Vital Signs Date Time Temp Pulse Resp B/P (MAP) Pulse Ox O2 Delivery O2 Flow Rate FiO2 03/31/21 11:40 97.9 79 18 120/73 (89) 96 Room Air 03/30/21 07:33 2.0 I&O- Last 24 Hours up to 6 AM 03/31/21 06:00 Intake Total 830 ml Output Total 0 ml Balance 830 ml Laboratory Data 24H LABS Laboratory Tests 2 03/30/21 19:35: Ammonia 49H 03/31/21 05:01: Ammonia 47H, Nucleated Red Blood Cells % (auto) 0.0, Anion Gap 5L, Glomerular Filtration Rate > 60.0, Calcium Level 8.5L, Phosphorus Level 2.7, Magnesium Level 1.8, Total Bilirubin 0.4, Direct Bilirubin 0.1, Aspartate Amino Transf (AST/SGOT) 8, Alanine Aminotransferase (ALT/SGPT) 17, Alkaline Phosphatase 58, Total Protein 5.3L, Albumin 2.5#L, Albumin/Globulin Ratio 0.9 CBC/BMP Laboratory Tests 03/31/21 05:01 Microbiology Microbiology 03/29/21 Blood Culture - Preliminary, Resulted No growth after 24 hours . All specim... 03/29/21 Blood Culture - Preliminary, Resulted No Growth after 48 hours. All Specime... TEETEE SALGUERO M.D. Mar 31, 2021 13:59
[2021-03-31 15:53] VITALS: BP 130/74
[2021-03-31 19:57] VITALS: BP 122/73
[2021-03-31] MEDS ORDERED: DIVALPROEX 500 MG TAB PO SCH (21:00)
[2021-04-01 05:17] LABS: HEMATOCRIT 40.4 % (42.0-52.0); HEMOGLOBIN 13.7 g/dl (13.5-17.5); MEAN CORPUSCULAR HEMOGLOBIN 32.3 pg (27.0-33.0); MEAN CORPUSCULAR HGB CONC 33.9 g/dl (32.0-36.5); MEAN CORPUSCULAR VOLUME 95.3 fl (80.0-96.0); PLATELET COUNT, AUTOMATED 115 10^3/uL (150-450); RED BLOOD COUNT 4.24 10^6/uL (4.30-6.10)
[2021-04-01 05:42] LABS: BLOOD UREA NITROGEN 14 MG/DL (7-18); CALCIUM LEVEL 8.3 MG/DL (8.8-10.2); CARBON DIOXIDE LEVEL 25 MEQ/L (21-32); CHLORIDE LEVEL 114 MEQ/L (98-107); CREATININE FOR GFR 0.59 MG/DL (0.70-1.30); GLOMERULAR FILTRATION RATE > 60.0 (>49); GLUCOSE, FASTING 88 MG/DL (70-100); MAGNESIUM LEVEL 1.7 MG/DL (1.8-2.4); PHOSPHORUS LEVEL 3.5 MG/DL (2.5-4.9); POTASSIUM SERUM 4.1 MEQ/L (3.5-5.1); SODIUM LEVEL 143 MEQ/L (136-145)
[2021-04-01] MEDS: LACTULOSE 20 GM/30 ML SYRUP UD PO SCH ×2 (06:49→12:28)
[2021-04-01] MEDS: CEPHALEXIN 500 MG CAP PO SCH ×2 (06:49→12:28)
[2021-04-01 08:00] VITALS: BP 130/70
[2021-04-01] MEDS: OMEPRAZOLE 20 MG CAP PO SCH (08:21)
[2021-04-01] MEDS: ENOXAPARIN 40MG/0.4ML SYRINGE (J1650 PER 10MG) SC SCH (08:21)
[2021-04-01] MEDS: NICOTINE 21MG/24HR 1 EA TRANSDERMAL TD SCH (08:21)
[2021-04-01] MEDS: DIVALPROEX 500 MG TAB PO SCH (08:22)
[2021-04-01] MEDS ORDERED: MAG SULF 1GM/100ML (MAG RUN) 1 GM in IV 1 EA IV ONE (08:25)
[2021-04-01] MEDS ORDERED: CEPH500C PO (10:47)
[2021-04-01] MEDS ORDERED: LACT10SO3 PO (10:47)
[2021-04-01] MEDS ORDERED: LACT20EL PO (10:49)
[2021-04-01 11:55] VITALS: BP 127/79
[2021-04-01 15:16] VITALS: BP 136/79
--- NOTE | 2021-04-01 21:10 | DS.PDOC ---
Discharge Summary General Date of Admission Mar 29, 2021 at 16:35 Date of Discharge 04/01/21 Discharge Summary PROCEDURES PERFORMED DURING STAY: [None]. DISCHARGE DIAGNOSES: Suicidal attempt by drug overdose Acute Toxic encephalopathy Unspecified depression Abdominal wall cellulitis COMPLICATIONS/CHIEF COMPLAINT: Overdose Of Anticonvulsant. HOSPITAL COURSE: 60-year-old male with a past medical history of Seizure disorder, GERD, was brought to the emergency room department with a change of mental status. He was found hanging over his wheelchair at approximately 7 AM today and EMS was called by possibly a family member. In the emergency room department patient was altered and received Narcan with response. He reported taking the entire bottle of his Depakote as well as reported the prescribed fentanyl (unable to specify the amount) and attempted to kill himself. He reported he has been lately depressed due to home stressors, mainly by his stepbrother which he did not want to get into details at this time. Patient was admitted for intentional overdose as a suicidal attempt. # Depression with Suicidal attempt Seen by psychiatry will be discharged to [facility] #Intensional Overdose -Patient took Depakote as well as fentanyl. He responded to 8 of Narcan in the emergency room department. Poison control was contacted and recommended Depakote, ammonia levels every 4-6 hours as well as a Carnitine drip which was completed. They have now signed of the case. Pt back to baseline mental status. #Hyperammonemia -In the setting of Depakote overdose. Received lactulose, ammonia level was d owntrending however today higher than yerterday up to 70 from 40s - Patient is back to his baseline mental status. No signs of encephalopathy at this time. Will recheck ammonia on 04/02/21 - Continue on lactulose and adjust dose to get 2 to 3 soft bowel movements a day. #Cellulitis of abdomen -Reports wood chips hitting his abdomen often. Significant improvement while on antibiotics. -cefazolin for total of 10 days. #Seizure disorder -Depakote back to therapeutic range therefore will resume ambulatory dose. #Lactic acidosis -Resolved. DISCHARGE MEDICATIONS: Please see below. ALLERGIES: Please see below. PHYSICAL EXAMINATION ON DISCHARGE: VITAL SIGNS: Please see below. General: Ambulating int he room , in no distress. Head/Neck/Throat: Trachea midline, mucous membranes moist Eyes: Sclera anicteric, PERRLA Chest: Normal respiratory effort on room air, lungs clear to auscultation bilaterally, no wheezes/rales/rhonchi Cardiovascular: Normal rate, regular rhythm, normal S1, S2; no rubs/gallops/murmurs Abdomen: Bowel sounds present, soft/nontender/nondistended Genitourinary: No CVA tenderness, no Kovacs in place Musculoskeletal: Moving all extremities, no edema Skin: Right abdominal erythema has resolved Neurologic: AAOx3, speech fluent and goal-directed, no focal deficits, grossly intact LABORATORY DATA: Please see below. ACTIVITY: [As tolerated]. DIET: As tolerated DISPOSITION: 65 [facility]. DISCHARGE INSTRUCTIONS: PMD in 2 weeks after discharge DISCHARGE CONDITION: [Stable]. TIME SPENT ON DISCHARGE: 35 minutes. Vital Signs/I&Os Vital Signs Date Time Temp Pulse Resp B/P (MAP) Pulse Ox O2 Delivery O2 Flow Rate FiO2 04/01/21 15:16 98.4 74 18 136/79 (98) 99 Room Air 03/30/21 07:33 2.0 I&O- Last 24 Hours up to 6 AM 04/01/21 07:00 Intake Total 1740 ml Output Total 1 ml Balance 1739 ml Laboratory Data Labs 24H Laboratory Tests 2 04/01/21 04:40: Nucleated Red Blood Cells % (auto) 0.0, Anion Gap 4L, Glomerular Filtration Rate > 60.0, Calcium Level 8.3L, Phosphorus Level 3.5#, Magnesium Level 1.7L, Ammonia 70H CBC/BMP Laboratory Tests 04/01/21 04:40 Microbiology Microbiology 03/29/21 Blood Culture - Preliminary, Resulted No Growth after 72 hours. All specime... 03/29/21 Blood Culture - Preliminary, Resulted No Growth after 72 hours. All specime... Discharge Medications Scheduled Cephalexin (Cephalexin) 500 Mg Capsule, 500 MG PO Q6H For 4 days Divalproex Sodium (Divalproex Sodium) 500 Mg Tablet.dr, 500 MG PO DAILY, (Reported) Divalproex Sodium (Divalproex Sodium) 500 Mg Tablet.dr, 1,000 MG PO QHS, (Reported) Lactulose (Lactulose) 10 Gm/15 Ml Solution, 15 ML PO BID Meloxicam (Meloxicam) 15 Mg Tablet, 15 MG PO DAILY, (Reported) Omeprazole (Omeprazole) 20 Mg Capsule., 20 MG PO DAILY, (Reported) Scheduled PRN Clotrimazole (Clotrimazole) 1% 30GM Cream..g., 1 APPLIC TOP BID PRN for RASH, (Reported) APPLY TO RASH ON ARMS Allergies Coded Allergies: No Known Drug Allergies (Verified Allergy, Unknown, 12/10/19) Jennifer Silva MD Apr 01, 2021 21:10
== END 2021-04-01 15:31 | DRG 812 ==
LOC: EDBD 12:58 → M ED 12:58 → M ED INP 16:35 → M PCU 23:37
PROVIDERS: ADMIT Internal Medicine; ATTEND Internal Medicine
DX: T42.6X2A Poisoning by other antiepileptic and sedative-hypnotic drugs, intentional self-harm, initial encounter (principal); G92.9 Unspecified toxic encephalopathy; E72.20 Disorder of urea cycle metabolism, unspecified; R45.851 Suicidal ideations; E87.2 Acidosis; L03.311 Cellulitis of abdominal wall; T40.411A Poisoning by fentanyl or fentanyl analogs, accidental (unintentional), initial encounter; G40.909 Epilepsy, unspecified, not intractable, without status epilepticus; F17.210 Nicotine dependence, cigarettes, uncomplicated; Z79.899 Other long term (current) drug therapy; Z20.822 Contact with and (suspected) exposure to COVID-19; F32.A Depression, unspecified; K21.9 Gastro-esophageal reflux disease without esophagitis

== ENCOUNTER 2021-04-01 14:38 | Inpatient (IN) | payer OTHER ==
[~2021-04-01] VITALS: Ht 182.9 cm; Wt 85.4 kg
[~2021-04-01 14:38] MED LIST changes: +CEPH500C PO; +CLOT1CRE56 TOP; +COMMENTS; +DIVA500T94 PO; +LACT10SO3 PO; +LACT20EL PO
[2021-04-01] MEDS ORDERED: OLANZapine ORAL DISINTEGRATING TAB 5MG PO PRN (14:45)
[2021-04-01] MEDS ORDERED: MAALOX 30 ML SUSP *UDC PO PRN (14:45)
[2021-04-01] MEDS ORDERED: ACETAMINOPHEN TAB 650MG DOSE (2X325MG) PO PRN (14:45)
[2021-04-01] MEDS ORDERED: MOM 30ML SUSPENSION UDC PO PRN (14:45)
[2021-04-01 15:38] VITALS: BP 141/85
--- OUTSIDE RECORDS SUMMARY | 2021-04-01 15:50 | CCD ---
Author Author [facility] Organization [facility] Address Unknown Phone Unavailable Care Team Providers Care Automobile Detailer Name Role Phone Nevills, C Gely ONBOARDING SPECIALIST Unavailable Unavailable Nevills, C Gely ONBOARDING SPECIALIST Unavailable Unavailable Nevills, C Gely ONBOARDING SPECIALIST Unavailable Unavailable Nevills, C Gely ONBOARDING SPECIALIST Unavailable Unavailable Nevills, C Gely ONBOARDING SPECIALIST Unavailable Unavailable Nevills, C Gely ONBOARDING SPECIALIST Unavailable Unavailable Nevills, C Gely ONBOARDING SPECIALIST Unavailable Unavailable Nevills, C Gely ONBOARDING SPECIALIST Unavailable Unavailable Nevills, C Gely ONBOARDING SPECIALIST Unavailable Unavailable Nevills, C Gely ONBOARDING SPECIALIST Unavailable Unavailable Nevills, C Gely ONBOARDING SPECIALIST Unavailable Unavailable Nevills, C Gely ONBOARDING SPECIALIST Unavailable Unavailable Nevills, C Gely ONBOARDING SPECIALIST Unavailable Unavailable Nevills, C Gely ONBOARDING SPECIALIST Unavailable Unavailable Nevills, C Gely ONBOARDING SPECIALIST Unavailable Unavailable Nevills, C Gely ONBOARDING SPECIALIST Unavailable Unavailable Nevills, C Gely ONBOARDING SPECIALIST Unavailable Unavailable Nevills, C Gely ONBOARDING SPECIALIST Unavailable Unavailable Nevills, C Gely ONBOARDING SPECIALIST Unavailable Unavailable Nevills, C Gley ONBOARDING SPECIALIST Unavailable Unavailable Nevills, C Gely ONBOARDING SPECIALIST Unavailable Unavailable Nevills, C Gely ONBOARDING SPECIALIST Unavailable Unavailable Nevills, C Gely ONBOARDING SPECIALIST Unavailable Unavailable Nevills, C Gely ONBOARDING SPECIALIST Unavailable Unavailable Nevills, C Gely ONBOARDING SPECIALIST Unavailable Unavailable Nevills, C Gely ONBOARDING SPECIALIST Unavailable Unavailable Nevills, C Gely ONBOARDING SPECIALIST Unavailable Unavailable Nevills, C Gely ONBOARDING SPECIALIST Unavailable Unavailable Nevills, C Gely ONBOARDING SPECIALIST Unavailable Unavailable Nevills, C Gely ONBOARDING SPECIALIST Unavailable Unavailable Nevills, C Gely ONBOARDING SPECIALIST Unavailable Unavailable Nevills, C Gely ONBOARDING SPECIALIST Unavailable Unavailable Nevills, C Gely ONBOARDING SPECIALIST Unavailable Unavailable Vera Patino MD Unavailable Unavailable AliVera MD Unavailable Unavailable AliVera MD Unavailable Unavailable AliVera MD Unavailable Unavailable AliVera MD Unavailable Unavailable AliVera MD Unavailable Unavailable AliVera MD Unavailable Unavailable AliVera MD Unavailable Unavailable AliVera MD Unavailable Unavailable AliVera MD Unavailable Unavailable Ali, Vera MD Unavailable Unavailable Ali, Vera MD Unavailable Unavailable AliVera MD Unavailable Unavailable AliVera MD Unavailable Unavailable AliVera MD Unavailable Unavailable AliVera MD Unavailable Unavailable AliVera MD Unavailable Unavailable AliVera MD Unavailable Unavailable Ali, Vera MD Unavailable Unavailable Ali, Vera MD Unavailable Unavailable AliVera MD Unavailable Unavailable Ali, Vera WOLF Unavailable Unavailable Ali, Vera WOLF Unavailable Unavailable AliVera MD Unavailable Unavailable Ali, Vera WOLF Unavailable Unavailable Ali, Vera MD Unavailable Unavailable Ali, Vera MD Unavailable Unavailable Ali, Vera MD Unavailable Unavailable Ali, Vera MD Unavailable Unavailable AliVera MD Unavailable Unavailable Ali, Vera MD Unavailable Unavailable AliVera MD Unavailable Unavailable AliVera MD Unavailable Unavailable AliVera MD Unavailable Unavailable AliVera MD Unavailable Unavailable AliVera MD Unavailable Unavailable Ali, Vera WOLF Unavailable Unavailable AliVera MD Unavailable Unavailable AliVera MD Unavailable Unavailable AliVrea MD Unavailable Unavailable AliVear MD Unavailable Unavailable AliVera MD Unavailable Unavailable AliVera MD Unavailable Unavailable AliVera MD Unavailable Unavailable AliVera MD Unavailable Unavailable AliVera MD Unavailable Unavailable AliVera MD Unavailable Unavailable AliVera MD Unavailable Unavailable AliVera MD Unavailable Unavailable AliVera MD Unavailable Unavailable Nevills, C Gely ONBOARDING SPECIALIST Unavailable Unavailable Nevills, C Gely ONBOARDING SPECIALIST Unavailable Unavailable Nevills, C Gely ONBOARDING SPECIALIST Unavailable Unavailable Nevills, C Gely ONBOARDING SPECIALIST Unavailable Unavailable Nevills, C Gely ONBOARDING SPECIALIST Unavailable Unavailable Nevills, C Gely ONBOARDING SPECIALIST Unavailable Unavailable Nevills, C Gely ONBOARDING SPECIALIST Unavailable Unavailable Nevills, C Gely ONBOARDING SPECIALIST Unavailable Unavailable Nevills, C Gely ONBOARDING SPECIALIST Unavailable Unavailable Nevills, C Gely ONBOARDING SPECIALIST Unavailable Unavailable Nevills, C Gely ONBOARDING SPECIALIST Unavailable Unavailable Nevills, C Gely ONBOARDING SPECIALIST Unavailable Unavailable Nevills, C Gely ONBOARDING SPECIALIST Unavailable Unavailable Nevills, C Gely ONBOARDING SPECIALIST Unavailable Unavailable Nevills, C Gely ONBOARDING SPECIALIST Unavailable Unavailable Nevills, C Gely ONBOARDING SPECIALIST Unavailable Unavailable Nevills, C Gely ONBOARDING SPECIALIST Unavailable Unavailable Nevills, C Gely ONBOARDING SPECIALIST Unavailable Unavailable Nevills, C Gely ONBOARDING SPECIALIST Unavailable Unavailable Nevills, C Gely ONBOARDING SPECIALIST Unavailable Unavailable Nevills, C Gely ONBOARDING SPECIALIST Unavailable Unavailable Nevills, C Gely ONBOARDING SPECIALIST Unavailable Unavailable Nevills, C Gely ONBOARDING SPECIALIST Unavailable Unavailable Nevills, C Gely ONBOARDING SPECIALIST Unavailable Unavailable Nevills, C Gely ONBOARDING SPECIALIST Unavailable Unavailable Nevills, C Gely ONBOARDING SPECIALIST Unavailable Unavailable Nevills, C Gely ONBOARDING SPECIALIST Unavailable Unavailable Nevills, C Gely ONBOARDING SPECIALIST Unavailable Unavailable Nevills, C Gely ONBOARDING SPECIALIST Unavailable Unavailable Nevills, C Gely ONBOARDING SPECIALIST Unavailable Unavailable Nevills, C Gely ONBOARDING SPECIALIST Unavailable Unavailable Nevills, C Gely ONBOARDING SPECIALIST Unavailable Unavailable Nevills, C Gely ONBOARDING SPECIALIST Unavailable Unavailable Karlos, Marivel Allyssa ANP-BC Unavailable [...] Unavailable Karlos, Marivel Allyssa ANP-BC Unavailable Unavailable Karlso, Marivel Allyssa ANP-BC Unavailable Unavailable Karlos, Marivel [...] Karlos, Marivel Allyssa ANP-BC Unavailable Unavailable Karlos, Marievl Allyssa ANP-BC Unavailable Unavailable Karlos, Marivel Allyssa [...] Unavailable Karlos, Marivel Allyssa ANP-BC Unavailable Unavailable Re-disclosure Warning The records that [...] of the [facility] Public Health law. If you continue you may have access to information: Regarding HIV / AIDS; Provided by facilities licensed or operated by the [facility] Office of Mental Health; or Provided by the [facility] Office for People With Developmental Disabilities. If such information is present, then the following [facility] mandated warning applies: This information has been [...] law may result in a fine or long-term sentence or both. A general authorization for the release of medical or other information is NOT sufficient authorization for further disc losure. Family History Family Member Name Family Member Gender Family Member Status Date o f Status Description Data Source(s) Unknown Male Problem [facility] ([facility]) Encounters Encounter Providers Location Date Indications Data Source(s ) Outpatient Attender: Gely Nolan NP 03/14 01:50:00 PM EDT - 03/14/2021 01:50:00 PM EDT [facility] Outpatient Attender: Gely Nolan NP 03/11 08:41:00 AM EDT - 03/11/2021 08:41:00 AM EDT [facility] Outpatient Attender: Vera Patino MD Main office - [place] 03/06/2021 11:30:00 AM EDT [facility] ([facility], ) Outpatient Attender: Vera Patino MD Main office - [place] 12/10/2020 10:30:00 AM EDT [facility] ([facility], ) Outpatient Attender: Gely Nolan NP 12/10 09:20:00 AM EDT - 12/10/2020 09:20:00 AM EDT [facility] Outpatient Attender: Gely Nolan ONBOARDING SPECIALIST 12/03 08:24:00 AM EDT - 12/03/2020 08:24:00 AM EDT [facility] Outpatient Attender: Gely Nolan ONBOARDING SPECIALIST Family Practice 09/09 10:00:00 AM EDT [facility] ([facility] Outpatient Attender: Gely Nolan ONBOARDING SPECIALIST 09/09 09:41:00 AM EDT - 09/09/2020 09:41:00 AM EDT [facility] Outpatient Attender: Allyssa JIMENEZ-BCAttender: Gely Demetri ls ONBOARDING SPECIALIST 09/02/2020 09:17:00 AM EDT - 09/02/2020 09:17:00 AM EDT [facility] Outpatient Attender: Allyssa ARAIZA 05/15 10:34:00 AM EST - 06/10/2020 10:34:00 AM [facility] Office Visit Attender: Vera Patino MD Main office - [place] 04/02/2020 12:30:00 PM EDT [facility] ([facility]) Outpatient Attender: Allyssa JIMENEZ-CAREN 07/2019 09:20:00 AM EDT - 02/14/2020 09:20:00 AM EDT [facility] Immunizations Vaccine Date Status Description Data Source(s) COVID-19 VACCINE Pfizer 12/11/2020 12:00:00 AM EDT completed [facility] Vaccine Series Complete: YESThis Data wa s Submitted to [facility] Via [employer]. COVID-19 VACC, MRNA(PFIZER)/PF 11/20/2020 12:00:00 AM EDT completed [facility] COVID-19 VACCINE Pfizer 11/20/2020 12:00:00 AM EDT completed [facility] Vaccine Series Complete: NOThis Data was Submitted to [facility] [employer]. Medications Medication Brand Name Start Date [...] Clotrimazole 06/10/2020 12:00:00 AM EST active [facility] ([facility]) 500 mg 04/03/2020 12:00:00 AM EDT tablet,delayed release (DR/EC) 90 TAKE 1 TABLET BY MOUTH EVERY MORNING AND 2 AT BEDTIME MAXIMUM DAILY DOSE = THREE TABLETS TAKE 1 TABLET BY MOUTH EVERY MORNING AND 2 AT BEDTIME MAXIMUM DAILY DOSE = THREE TABLETS SOLD: 08/12/2020 [facility] 500 mg 04/03/2020 12:00:00 [...] DOSE = THREE TABLETS SOLD: 07/11/2020 [facility] 500 mg 04/03/2020 12:00:00 AM EDT tablet,delayed release (DR/EC) 90 TAKE 1 TABLET BY MOUTH EVERY MORNING AND 2 AT BEDTIME MAXIMUM DAILY DOSE = THREE TABLETS TAKE 1 TABLET BY MOUTH EVERY MORNING AND 2 AT BEDTIME MAXIMUM DAILY DOSE = THREE TABLETS SOLD: 04/10/2020 [facility] 500 mg 04/03/2020 12:00:00 AM EDT tablet,delayed release (DR/EC) 90 TAKE 1 TABLET BY MOUTH EVERY MORNING AND 2 AT BEDTIME MAXIMUM DAILY DOSE = THREE TABLETS TAKE 1 TABLET BY MOUTH EVERY MORNING AND 2 AT BEDTIME MAXIMUM DAILY DOSE = THREE TABLETS SOLD: 09/12/2020 [facility] 500 mg 04/03/2020 12:00:00 AM EDT tablet,delayed release (DR/EC) 90 TAKE 1 TABLET BY MOUTH EVERY MORNING AND 2 AT BEDTIME MAXIMUM DAILY DOSE = THREE TABLETS TAKE 1 TABLET BY MOUTH EVERY MORNING AND 2 AT BEDTIME MAXIMUM DAILY DOSE = THREE TABLETS SOLD: 06/11/2020 [facility] 15 mg 03/23/2020 12:00:00 AM EDT [...] Permethrin 02/14/2020 12:00:00 AM EDT completed [facility] ([facility]) 5 % 02/14/2020 12:00:00 AM [...] CAPSULE BY MOUTH EVERY DAY SOLD: 02/24/2020 [facility] 15 mg 10/03/2019 12:00:00 AM EDT tablet 30 TAKE 1 TABLET BY MOUTH EVERY DAY TAKE 1 TABLET BY MOUTH EVERY DAY SOLD: 02/24/2020 [facility] Insurance Providers Payer name Policy type / Coverage type Policy ID Covered republican ID Covered republican's relationship to coppola Policy Coppola Plan Information ARNAV [id number] SP [id number] [facility] [place] [id number] 18 [id number] [place] [id number] 18 [id number] [place] [id number] 18 [id number] O UNAVAILABLE UNAVAILA BLE SELF PAY ONLY [id number] SP [id number] [place] [id number] SP [id number] [place] [id number] 18 [id number] Medicaid Commercial [id number] Self [id number] [place] [id number] Medicaid Commercial [id number] Self [id number] Problems, Conditions, and Diagnoses Code Display Name Description Problem Type Effective Dates Data Source(s) [id number] Other generalized epilepsy a nd epileptic syndromes, not intractable, 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, not intractable, without status epilepticus Diagnosis 03/11/2021 08:41:00 AM EDT [facility] D649 Anemia, unspecified Anemia, unspecified Diagnosis 0 03/11/2021 08:41:00 AM EDT [facility] Z833 Family history of diabetes mellitus Family histo ry of diabetes mellitus Diagnosis 03/11/2021 08:41:00 AM EDT [facility] K2930 Chronic superficial gastritis without bl eeding Chronic superficial gastritis without bleeding Diagnosis 03/11/2021 08:41:00 AM EDT [facility] E7800 Pure hypercholesterolemia, unspecified P ure hypercholesterolemia, unspecified Diagnosis 03/11/2021 08:41:00 AM EDT [facility] [id number] Other residential (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) 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 Diagnosis 03/11/2021 08:41:00 AM EDT [facility] Z0001 Encounter for general adult medical exam ination with abnormal findings Encounter for general adult medical examination with abnormal findings Diagnosis 12/03/2020 08:24:00 AM EDT [facility] R55 Syncope and collapse Syncope and collapse Problem 04/02/2020 12:00:00 AM EDT [facility] ([facility] ) B86 Infestation by Sarcoptes scabiei carlos jose manuel inis Infestation by Sarcoptes scabiei carlos hominis Problem 02/14/2020 12:00:00 AM EDT [facility] ([facility]) R06.00 Difficulty breathing Difficulty breathing Problem 02/14/2020 12:00:00 AM EDT [facility] ([facility]) 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 Problem 02/14/2020 12:00:00 AM EDT [facility] ([facility]) Z83.3 Family history of diabetes mellitus Family histo ry of diabetes mellitus Problem 02/14/2020 12:00:00 AM EDT [facility] ([facility]) K29.30 Chronic superficial gastritis without bl eeding Chronic superficial gastritis without bleeding Problem 02/14/2020 12:00:00 AM EDT [facility] ([facility]) F72 Severe intellectual disability Severe intellectual dis ability Problem 02/14/2020 12:00:00 AM EDT [facility] ([facility]) M19.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, 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, primary osteoarthritis of the ankle and/or foot Problem 2019 12:00:00 AM EDT [facility] ([facility]) L23.7 Contact dermatitis due to plants, except food Contact dermatitis due to plants, except food Problem 02/14/2020 12:00:00 AM EDT [facility] ([facility]) D64.9 Anemia Anemia Problem 02/14/2020 12:00:00 AM ED T [facility] ([facility]) Z79.899 Taking medication Taking medication Problem 02/14/2020 12:00:00 AM EDT [facility] ([facility]) K21.9 Gastroesophageal reflux disease Gastroesophageal reflu x disease Problem 02/14/2020 12:00:00 AM EDT [facility] ([facility]) E78.00 Pure hypercholesterolemia Pure hypercholesterolemia Pr oblem 02/14/2020 12:00:00 AM EDT [facility] ([facility]) Surgeries/Procedures Procedure Description Date Indications Data Source(s) OFFICE OUTPATIENT VISIT 25 MINUTES 03/06/2021 12:00:00 AM EDT [facility] ([facility] ) OFFICE OUTPATIENT VISIT 25 MINUTES 12/10/2020 12:00:00 AM EDT [facility] ([facility]) OFFICE OUTPATIENT VISIT 25 MINUTES 12/10/2020 12:00:00 AM EDT [facility] ([facility] ) Brief Emotional/Behav Assessment W/ Scoring Doc Per Standard Inst 09/09/2020 12:00:00 AM EDT [facility] ([facility]) OFFICE OUTPATIENT VISIT 25 MINUTES 09/09/2020 12:00:00 AM EDT [facility] ([facility]) OFFICE OUTPATIENT VISIT 25 MINUTES 06/10/2020 12:00:00 AM EST [facility] ([facility]) Admin Patient Focused Health Risk Assessment Instrument 02/14/2020 12:00:00 AM EDT [facility] ([facility]) Results ID Date Data Source [id number] 03/11/2021 08:45:00 AM EDT [facility] ([facility]) Name Value Range Interpretation Code Description Data Fifi rce(s) Supporting Document(s) Valproate [Mass/volume] in Serum or Plasma 66 ug/mL 50-100 [facility] ([facility]) Is patient fasting? Y ID Date Data Source [id number] 03/11/2021 08:45:00 AM EDT [facility] ([facility]) Name Value Range Interpretation Code Description Data Fifi rce(s) Supporting Document(s) Cve Panel Laboratory test result [facility] ([facility]) Is patient fasting? Y HDL 59 mg/dL 29-86 [facility] ([facility]) Is patient fasting? Y Cholesterol 156 mg/dL 131-200 [facility] ([facility]) Is patient fasting? Y Triglycerides 42 mg/dL 35-160 [facility] ([facility]) Is patient fasting? Y LDL 86 mg/dL 65-175 [facility] ([facility]) Is patient fasting? Y Risk Factor 2.6 3.4-4.9 Below low normal [facility] ([facility]) Is patient fasting? Y LDL/HDL 1.46 1.00-3.55 [facility] ([facility]) Is patient fasting? Y ID Date Data Source [id number] 03/11/2021 08:45:00 AM EDT [facility] ([facility]) Name Value Range Interpretation Code Description Data Fifi rce(s) Supporting Document(s) Hemoglobin A1c/Hemoglobin.total in Blood 5.4 % 4.4-6.1 [facility] ([facility]) Is patient fasting? Y Thyrotropin [Units/volume] in Serum or Plasma 2.10 uIU/mL 0.47-5.01 [facility] ([facility]) Is patient fasting? Y ID Date Data Source [id number] 03/11/2021 08:45:00 AM EDT [facility] ([facility]) Name Value Range Interpretation Code Description Data Fifi rce(s) Supporting Document(s) Comprehensive Metabo Laboratory test result [facility] ([facility]) Is patient fasting? Y Sodium 142 meq/L 134-153 [facility] ([facility]) Is patient fasting? Y Potassium 4.4 meq/L 3.6-5.0 [facility] ([facility]) Is patient fasting? Y Chloride 105 meq/L 98-107 [facility] ([facility]) Is patient fasting? Y Glucose 99 mg/dL 70-99 [facility] ([facility]) Is patient fasting? Y Co2 28 meq/L 22-30 [facility] ([facility]) Is patient fasting? Y Creatinine 0.8 mg/dL 0.7-1.5 [facility] ([facility]) Is patient fasting? Y BUN 20 mg/dL 7-21 [facility] ([facility]) Is patient fasting? Y Total Protein 6.9 g/dL 6.3-8.2 [facility] ([facility]) Is patient fasting? Y BUN/Creat 25 8-27 [facility] ([facility]) Is patient fasting? Y Albumin 4.5 g/dL 3.9-5.0 [facility] ([facility]) Is patient fasting? Y Globulin 2.4 GM/DL 2.4-3.2 [facility] ([facility]) Is patient fasting? Y Calcium 9.8 mg/dL 8.4-10.2 [facility] ([facility]) Is patient fasting? Y A/G Ratio 1.9 0.8-2.0 [facility] ([facility]) Is patient fasting? Y Total Bili Laboratory test result 0.2-1.3 ME [facility] ([facility]) Is patient fasting? Y Alkaline Phos 78 U/L 38-126 [facility] ([facility]) Is patient fasting? Y SGPT/Alt 17 U/L 7-56 [facility] ([facility]) Is patient fasting? Y Sgot/Ast 17 U/L 5-40 [facility] ([facility]) Is patient fasting? Y Age 60 yrs [facility] ([facility]) Is patient fasting? Y Anion Gap 9.0 mmol/L 8.0-16.0 [facility] ([facility]) Is patient fasting? Y Afr Amer GFR Laboratory test result [facility] ([facility]) Is patient fasting? Y Non-Aa GFR Laboratory test result [facility] ([facility]) Is patient fasting? Y ID Date Data Source [id number] 03/11/2021 08:45:00 AM EDT [facility] ([facility]) Name Value Range Interpretation Code Description Data Fifi rce(s) Supporting Document(s) WBC 6.9 10^3/uL 4.2-11.0 [facility] ([facility]) Is patient fasting? Y CBC W/Automated Diff Laboratory test result [facility] ([facility]) Is patient fasting? Y Hemoglobin 16.0 g/dL 14.0-16.0 [facility] ([facility]) Is patient fasting? Y RBC 4.93 10^6/uL 4.50-6.30 [facility] ([facility]) Is patient fasting? Y Hematocrit 47.6 % 41.0-51.0 [facility] ([facility]) Is patient fasting? Y MCV 96.6 fL 80.0-94.0 Above high normal [facility] ([facility]) Is patient fasting? Y MCHC 33.6 g/dL 31.0-36.0 [facility] ([facility]) Is patient fasting? Y RDW 13.7 % 11.5-14.8 [facility] ([facility]) Is patient fasting? Y MCH 32.5 pg 27.0-34.0 [facility] ([facility]) Is patient fasting? Y MPV 12.0 fL 7.4-10.4 Above high normal [facility] ([facility]) Is patient fasting? Y Platelets 189 10^3/uL 150-450 [facility] ([facility]) Is patient fasting? Y Neut 48.7 % 37.0-80.0 [facility] ([facility]) Is patient fasting? Y Lymph 35.8 % 25.0-40.0 [facility] ([facility]) Is patient fasting? Y Eos 5.1 % 0.0-7.0 [facility] ([facility]) Is patient fasting? Y [place] 9.6 % 3.0-8.0 Above high normal [facility] ([facility]) Is patient fasting? Y Baso 0.7 % 0.0-2.0 [facility] ([facility]) Is patient fasting? Y %Ig 0.1 % 0.0-0.0 Above high normal [facility] ([facility]) Is patient fasting? Y %NRBC 0.0 % 0.0-0.0 [facility] ([facility]) Is patient fasting? Y #Neut 3.36 10^3/uL 2.00-6.90 [facility] ([facility]) Is patient fasting? Y #Lymph 2.47 10^3/uL 0.60-3.40 [facility] ([facility]) Is patient fasting? Y #[place] 0.66 10^3/uL 0.00-0.90 [facility] ([facility]) Is patient fasting? Y #Eos 0.35 10^3/uL 0.00-0.70 [facility] ([facility]) Is patient fasting? Y #Ig 0.01 10^3/uL 0.00-0.10 [facility] ([facility]) Is patient fasting? Y #Baso 0.05 10^3/uL 0.00-0.20 [facility] ([facility]) Is patient fasting? Y Manual Diff Laboratory test result M [facility] ([facility]) Is patient fasting? Y #NRBC 0.00 10^3/uL 0.00-0.00 [facility] ([facility]) Is patient fasting? Y RBC Morph Laboratory test result [facility] ([facility]) Is patient fasting? Y ID Date Data Source [id number] 03/13/2021 09:05:00 AM EDT [facility] Name Value Range Interpretation Code Description Data Fifi rce(s) Supporting Document(s) Valproate [Mass/volume] in Serum or Plasma 66 ug/mL 50-100 [facility] Detection Limit = 4 <4 indicates None Detected Toxicity may occur at levels of 100-500. Measurements of free unbound valproic acid may improve the assess- ment of clinical response. ID Date Data Source [id number] 03/11/2021 06:05:00 PM EDT [facility] Name Value Range Interpretation Code Description Data Fifi rce(s) Supporting Document(s) Thyrotropin [Units/volume] in Serum or Plasma by Detec tion limit <= 0.05 mIU/L 2.10 uIU/mL 0.47 - 5.01 [facility] ID Date Data Source [id number] 03/11/2021 05:58:00 PM EDT [facility] Name Value Range Interpretation Code Description Data Fifi rce(s) Supporting Document(s) [facility] Cholesterol [Mass/volume] in Serum or Plasma 156 MG/DL 131 - 200 [facility] Deprecated Triglyceride [Mass/volume] in Serum or Plasma 42 MG/DL 3 5 - 160 [facility] HDL 59 MG/DL 29 - 86 [facility] Cholesterol in LDL [Mass/volume] in Serum or Plasma by Direc t assay 86 mg/dL 65 - 175 [facility] Cholesterol.total/Cholesterol in HDL [Mass Ratio] in Serum o r Plasma 2.6 3.4 - 4.9 L [facility] LDL/HDL 1.46 1.00 - 3.55 [facility] CVE RISK CHOL/HDL LDL/HDLMEN: 1/2 AVERAGE 3.43 1.00 AVERAGE 4.97 3.55 2X AVERAGE 9.55 6.25 3X AVERAGE 23.99 7.99WOMEN: 1/2 AVERAGE 3.27 1.47 AVERAGE 4.44 3.22 2X AVERAGE 7.05 5.03 3X AVERAGE 11.04 6.14 ID Date Data Source [id number] 03/11/2021 05:58:00 PM EDT [facility] Name Value Range Interpretation Code Description Data Iffi rce(s) Supporting Document(s) Hemoglobin A1c/Hemoglobin.total in Blood 5.4 % 4.4 - 6.1 [facility] ID Date Data Source [id number] 03/11/2021 05:51:00 PM EDT [facility] Name Value Range Interpretation Code Description Data Fifi rce(s) Supporting Document(s) COMPREHENSIVE METABOLIC PANEL [facility] COMPREHENSIVE METABOLIC PANEL Sodium [Moles/volume] in Serum or Plasma 142 mEq/L 134 - 153 [facility] Potassium [Moles/volume] in Serum or Plasma 4.4 mEq/L 3.6 - 5.0 [facility] Chloride [Moles/volume] in Serum or Plasma 105 mEq/L 98 - 107 [facility] Carbon dioxide, total [Moles/volume] in Serum or Plasma 28 MEQ/L 22 - 30 [facility] Glucose [Mass/volume] in Serum or Plasma 99 MG/DL 70 - 99 [facility] BUN 20 MG/DL 7 - 21 [facility] Creatinine [Mass/volume] in Serum or Plasma 0.8 MG/DL 0.7 - 1.5 [facility] BUN/CREAT 25 8 - 27 [facility] al Protein [Mass/volume] in Serum or Plasma 6.9 G/DL 6.3 - 8.2 [facility] Albumin [Mass/volume] in Serum or Plasma 4.5 G/DL 3.9 - 5.0 [facility] Globulin [Mass/volume] in Serum by calculation 2.4 GM/DL 2.4 - 3.2 [facility] A/G RATIO 1.9 0.8 - 2.0 [facility] Calcium [Mass/volume] in Serum or Plasma 9.8 MG/DL 8.4 - 10.2 [facility] Bilirubin.total [Mass/volume] in Serum or Plasma <0.7 MG/DL 0.2 - 1.3 [facility] Alkaline phosphatase [Enzymatic activity/volume] in Serum or Plasma 78 U/L 38 - 126 [facility] Aspartate aminotransferase [Enzymatic activity/volume] in Serum or Plasma 17 U/L 5 - 40 [facility] Alanine aminotransferase [Enzymatic activity/volume] in Seru m or Plasma 17 U/L 7 - 56 [facility] Anion gap 3 in Serum or Plasma 9.0 mmol/L 8.0 - 16.0 [facility] AGE 60 yrs [facility] al NON-AA GFR >60 mL/min [facility] AFR AMER GFR >60 mL/min [facility] Male GFR In terprentation 20-49 [...] >32 mL/min Normal ID Date Data Source [id number] 03/11/2021 05:46:00 PM EDT [facility] Name Value Range Interpretation Code Description Data Fifi rce(s) Supporting Document(s) CBC W/AUTOMATED DIFF [facility] COMPLETE BLOOD COUNT Leukocytes [#/volume] in Blood by Automated count 6.9 10^3/uL 4.2 - 1 1.0 [facility] Erythrocytes [#/volume] in Blood by Automated count 4.93 10^6/uL 4. 50 - 6.30 [facility] Hemoglobin [Mass/volume] in Blood 16.0 g/dL 14.0 - 16.0 [facility] Hematocrit [Volume Fraction] of Blood by Automated count 47.6 % 4 1.0 - 51.0 [facility] Erythrocyte mean corpuscular volume [Entitic volume] by Auto mated count 96.6 fL 80.0 - 94.0 H [facility] Erythrocyte mean corpuscular hemoglobin [Entitic mass] by Automated count 32.5 pg 27.0 - 34.0 [facility] Erythrocyte mean corpuscular hemoglobin concentration [Mass/volume] by Automated count 33.6 g/dL 31.0 - 36.0 [facility] Erythrocyte distribution width [Ratio] by Automated count 13.7 % 11.5 - 14.8 [facility] Platelets [#/volume] in Blood by Automated count 189 10^3/uL 150 - 45 0 [facility] Platelet mean volume [Entitic volume] in Blood by Automated count 12.0 fL 7.4 - 10.4 H [facility] Neutrophils/100 leukocytes in Blood by Automated count 48.7 % 37. 0 - 80.0 [facility] Lymphocytes/100 leukocytes in Blood by Manual count 35.8 % 25.0 - 40.0 [facility] Monocytes/100 leukocytes in Blood by Automated count 9.6 % 3.0 - 8.0 H [facility] Eosinophils/100 leukocytes in Blood by Automated count 5.1 % 0.0 - 7.0 [facility] Basophils/100 leukocytes in Blood by Automated count 0.7 % 0.0 - 2.0 [facility] %IG 0.1 % 0.0 - 0.0 [facility] %NRBC 0.0 % 0.0 - 0.0 [facility] al Neutrophils [#/volume] in Blood by Automated count 3.36 10^3/uL 2.00 - 6.90 [facility] Lymphocytes [#/volume] in Blood by Automated count 2.47 10^3/uL 0.60 - 3.40 [facility] Monocytes [#/volume] in Blood by Automated count 0.66 10^3/uL 0.00 - 0.90 [facility] Eosinophils [#/volume] in Blood by Automated count 0.35 10^3/uL 0.00 - 0.70 [facility] Basophils [#/volume] in Blood by Automated count 0.05 10^3/uL 0.00 - 0.20 [facility] #IG 0.01 10^3/uL 0.00 - 0.10 [facility] ospital #NRBC 0.00 10^3/uL 0.00 - 0.00 [facility] ospital MANUAL DIFF NOT INDICATED [facility] RBC MORPH NOT INDICATED [facility] spital ID Date Data Source [id number] 12/10/2020 09:52:00 AM EDT [facility] Name Value Range Interpretation Code Description Data Fifi rce(s) Supporting Document(s) Chest Xray 2 Views Laboratory test result [facility] ([facility]) ID Date Data Source [id number] 12/05/2020 09:15:00 PM EDT [facility] Name Value Range Interpretation Code Description Data Fifi rce(s) Supporting Document(s) Valproate [Mass/volume] in Serum or Plasma 84 ug/mL 50-100 [facility] Detection Limit = 4 <4 indicates None Detected Toxicity may occur at levels of 100-500. Measurements of free unbound valproic acid may improve the assess- ment of clinical response. ID Date Data Source [id number] 12/04/2020 10:57:00 AM EDT [facility] Name Value Range Interpretation Code Description Data Fifi rce(s) Supporting Document(s) Prostate specific Ag [Mass/volume] in Serum or Plasma 0.46 ng/mL 0.00 - 4.00 [facility] \\BLDo\\PSA INTERPRETA TION\\BLDx\\ The PSA assay should not be used alone for a screening test or diagnosis for presence or absence of malignant disease. Predictions of disease recurrence should not be based solely on values obtained from serial patient serum values. The PSA result was determined by "[employer]", on the [employer] ESTHER 6000. Values obtained with different assay methods or kits cannot be used interchangeably. ID Date Data Source [id number] 12/03/2020 06:04:00 PM EDT [facility] Name Value Range Interpretation Code Description Data Fifi rce(s) Supporting Document(s) Hemoglobin A1c/Hemoglobin.total in Blood 5.6 % 4.4 - 6.1 [facility] {A1]{HB] ID Date Data Source [id number] 12/03/2020 06:04:00 PM EDT [facility] Name Value Range Interpretation Code Description Data Fifi rce(s) Supporting Document(s) C[facility] PANEL [facility] LIPID PANEL Cholesterol [Mass/volume] in Serum or Plasma 158 MG/DL 131 - 200 [facility] Deprecated Triglyceride [Mass/volume] in Serum or Plasma 51 MG/DL 3 5 - 160 [facility] HDL 57 MG/DL 29 - 86 [facility] Cholesterol in LDL [Mass/volume] in Serum or Plasma by Direc t assay 93 mg/dL 65 - 175 [facility] Cholesterol.total/Cholesterol in HDL [Mass Ratio] in Serum o r Plasma 2.8 3.4 - 4.9 L [facility] LDL/HDL 1.63 1.00 - 3.55 [facility] CVE RISK CHOL/HDL LDL/HDLMEN: 1/2 AVERAGE 3.43 1.00 AVERAGE 4.97 3.55 2X AVERAGE 9.55 6.25 3X AVERAGE 23.99 7.99WOMEN: 1/2 AVERAGE 3.27 1.47 AVERAGE 4.44 3.22 2X AVERAGE 7.05 5.03 3X AVERAGE 11.04 6.14 ID Date Data Source [id number] 12/03/2020 06:04:00 PM EDT [facility] Name Value Range Interpretation Code Description Data Fifi rce(s) Supporting Document(s) COMPREHENSIVE METABOLIC PANEL [facility] COMPREHENSIVE METABOLIC PANEL Sodium [Moles/volume] in Serum or Plasma 141 mEq/L 134 - 153 [facility] Potassium [Moles/volume] in Serum or Plasma 5.1 mEq/L 3.6 - 5.0 H [facility] Chloride [Moles/volume] in Serum or Plasma 107 mEq/L 98 - 107 [facility] Carbon dioxide, total [Moles/volume] in Serum or Plasma 27 MEQ/L 22 - 30 [facility] Glucose [Mass/volume] in Serum or Plasma 113 MG/DL 70 - 99 H [facility] BUN 23 MG/DL 7 - 21 H [facility] Creatinine [Mass/volume] in Serum or Plasma 0.7 MG/DL 0.7 - 1.5 [facility] BUN/CREAT 33 8 - 27 H [facility] Protein [Mass/volume] in Serum or Plasma 6.7 G/DL 6.3 - 8.2 [facility] Albumin [Mass/volume] in Serum or Plasma 4.3 G/DL 3.9 - 5.0 [facility] Globulin [Mass/volume] in Serum by calculation 2.4 GM/DL 2.4 - 3.2 [facility] A/G RATIO 1.8 0.8 - 2.0 [facility] Calcium [Mass/volume] in Serum or Plasma 9.5 MG/DL 8.4 - 10.2 [facility] Bilirubin.total [Mass/volume] in Serum or Plasma <0.7 MG/DL 0.2 - 1.3 [facility] Alkaline phosphatase [Enzymatic activity/volume] in Serum or Plasma 71 U/L 38 - 126 [facility] Aspartate aminotransferase [Enzymatic activity/volume] in Serum or Plasma 26 U/L 5 - 40 [facility] Alanine aminotransferase [Enzymatic activity/volume] in Seru m or Plasma 38 U/L 7 - 56 [facility] Anion gap 3 in Serum or Plasma 7.0 mmol/L 8.0 - 16.0 L [facility] AGE 60 yrs [facility] al NON-AA GFR >60 mL/min [facility] AFR AMER GFR >60 mL/min [facility] Male GFR In terprentation 20-49 [...] >32 mL/min Normal ID Date Data Source [id number] 12/03/2020 05:58:00 PM EDT [facility] Name Value Range Interpretation Code Description Data Fifi rce(s) Supporting Document(s) Thyrotropin [Units/volume] in Serum or Plasma by Detec tion limit <= 0.05 mIU/L 1.94 uIU/mL 0.47 - 5.01 [facility] ID Date Data Source [id number] 12/03/2020 05:39:00 PM EDT [facility] Name Value Range Interpretation Code Description Data Fifi rce(s) Supporting Document(s) CBC W/AUTOMATED DIFF [facility] COMPLETE BLOOD COUNT Leukocytes [#/volume] in Blood by Automated count 8.7 10^3/uL 4.2 - 1 1.0 [facility] Erythrocytes [#/volume] in Blood by Automated count 4.93 10^6/uL 4. 50 - 6.30 [facility] Hemoglobin [Mass/volume] in Blood 16.1 g/dL 14.0 - 16.0 H [facility] Hematocrit [Volume Fraction] of Blood by Automated count 47.4 % 4 1.0 - 51.0 [facility] Erythrocyte mean corpuscular volume [Entitic volume] by Auto mated count 96.1 fL 80.0 - 94.0 H [facility] Erythrocyte mean corpuscular hemoglobin [Entitic mass] by Automated count 32.7 pg 27.0 - 34.0 [facility] Erythrocyte mean corpuscular hemoglobin concentration [Mass/volume] by Automated count 34.0 g/dL 31.0 - 36.0 [facility] Erythrocyte distribution width [Ratio] by Automated count 14.1 % 11.5 - 14.8 [facility] Platelets [#/volume] in Blood by Automated count 179 10^3/uL 150 - 45 0 [facility] Platelet mean volume [Entitic volume] in Blood by Automated count 11.8 fL 7.4 - 10.4 H [facility] Neutrophils/100 leukocytes in Blood by Automated count 52.0 % 37. 0 - 80.0 [facility] Lymphocytes/100 leukocytes in Blood by Manual count 29.9 % 25.0 - 40.0 [facility] Monocytes/100 leukocytes in Blood by Automated count 9.6 % 3.0 - 8.0 H [facility] Eosinophils/100 leukocytes in Blood by Automated count 7.7 % 0.0 - 7.0 H [facility] Basophils/100 leukocytes in Blood by Automated count 0.6 % 0.0 - 2.0 [facility] %IG 0.2 % 0.0 - 0.0 H [facility] %NRBC 0.0 % 0.0 - 0.0 [facility] al Neutrophils [#/volume] in Blood by Automated count 4.53 10^3/uL 2.00 - 6.90 [facility] Lymphocytes [#/volume] in Blood by Automated count 2.61 10^3/uL 0.60 - 3.40 [facility] Monocytes [#/volume] in Blood by Automated count 0.84 10^3/uL 0.00 - 0.90 [facility] Eosinophils [#/volume] in Blood by Automated count 0.67 10^3/uL 0.00 - 0.70 [facility] Basophils [#/volume] in Blood by Automated count 0.05 10^3/uL 0.00 - 0.20 [facility] #IG 0.02 10^3/uL 0.00 - 0.10 [facility] ospital #NRBC 0.00 10^3/uL 0.00 - 0.00 [facility] ospital MANUAL DIFF NOT INDICATED [facility] RBC MORPH NOT INDICATED [facility] spital ID Date Data Source [id number] 12/03/2020 08:35:00 AM EDT [facility] ([facility]) Name Value Range Interpretation Code Description Data Fifi rce(s) Supporting Document(s) Valproate [Mass/volume] in Serum or Plasma 84 ug/mL 50-100 [facility] ([facility]) Is patient fasting? N Prostate specific Ag [Mass/volume] in Serum or Plasma 0.46 ng/mL 0.00 -4.00 [facility] ([facility]) Is patient fasting? N ID Date Data Source [id number] 12/03/2020 08:35:00 AM EDT [facility] ([facility]) Name Value Range Interpretation Code Description Data Fifi rce(s) Supporting Document(s) Cve Panel Laboratory test result [facility] ([facility]) Is patient fasting? N Cholesterol 158 mg/dL 131-200 [facility] ([facility]) Is patient fasting? N Triglycerides 51 mg/dL 35-160 [facility] ([facility]) Is patient fasting? N HDL 57 mg/dL 29-86 [facility] ([facility]) Is patient fasting? N Risk Factor 2.8 3.4-4.9 Below low normal [facility] ([facility]) Is patient fasting? N LDL 93 mg/dL 65-175 [facility] ([facility]) Is patient fasting? N LDL/HDL 1.63 1.00-3.55 [facility] ([facility]) Is patient fasting? N ID Date Data Source [id number] 12/03/2020 08:35:00 AM EDT [facility] ([facility]) Name Value Range Interpretation Code Description Data Fifi rce(s) Supporting Document(s) Hemoglobin A1c/Hemoglobin.total in Blood 5.6 % 4.4-6.1 [facility] ([facility]) Is patient fasting? N Thyrotropin [Units/volume] in Serum or Plasma 1.94 uIU/mL 0.47-5.01 [facility] ([facility]) Is patient fasting? N ID Date Data Source [id number] 12/03/2020 08:35:00 AM EDT [facility] ([facility]) Name Value Range Interpretation Code Description Data Fifi rce(s) Supporting Document(s) Comprehensive Metabo Laboratory test result [facility] ([facility]) Is patient fasting? N Potassium 5.1 meq/L 3.6-5.0 Above high normal [facility] ([facility]) Is patient fasting? N Sodium 141 meq/L 134-153 [facility] ([facility]) Is patient fasting? N Co2 27 meq/L 22-30 [facility] ([facility]) Is patient fasting? N Chloride 107 meq/L 98-107 [facility] ([facility]) Is patient fasting? N Glucose 113 mg/dL 70-99 Above high normal [facility] ([facility]) Is patient fasting? N BUN 23 mg/dL 7-21 Above high normal [facility] ([facility]) Is patient fasting? N Creatinine 0.7 mg/dL 0.7-1.5 [facility] ([facility]) Is patient fasting? N BUN/Creat 33 8-27 Above high normal [facility] ([facility]) Is patient fasting? N Total Protein 6.7 g/dL 6.3-8.2 [facility] Is patient fasting? N Albumin 4.3 g/dL 3.9-5.0 [facility] ([facility]) Is patient fasting? N Globulin 2.4 GM/DL 2.4-3.2 [facility] ([facility]) Is patient fasting? N A/G Ratio 1.8 0.8-2.0 [facility] ([facility]) Is patient fasting? N Calcium 9.5 mg/dL 8.4-10.2 [facility] ([facility]) Is patient fasting? N Total Bili Laboratory test result 0.2-1.3 [facility] ([facility]) Is patient fasting? N Alkaline Phos 71 U/L 38-126 [facility] ([facility]) Is patient fasting? N Sgot/Ast 26 U/L 5-40 [facility] ([facility]) Is patient fasting? N Anion Gap 7.0 mmol/L 8.0-16.0 Below low normal [facility] ( [facility]) Is patient fasting? N SGPT/Alt 38 U/L 7-56 [facility] ([facility]) Is patient fasting? N Non-Aa GFR Laboratory [facility] Is patient fasting? N Age 60 yrs [facility] ([facility]) Is patient fasting? N Afr Amer GFR Laboratory test result [facility] ([facility]) Is patient fasting? N ID Date Data Source [id number] 12/03/2020 08:35:00 AM EDT [facility] ([facility]) Name Value Range Interpretation Code Description Data Fifi rce(s) Supporting Document(s) CBC W/Automated Diff Laboratory test result [facility] ([facility]) Is patient fasting? N WBC 8.7 10^3/uL 4.2-11.0 [facility] ([facility]) Is patient fasting? N RBC 4.93 10^6/uL 4.50-6.30 [facility] ([facility]) Is patient fasting? N Hemoglobin 16.1 g/dL 14.0-16.0 Above high normal [facility] ([facility]) Is patient fasting? N Hematocrit 47.4 % 41.0-51.0 [facility] ([facility]) Is patient fasting? N MCV 96.1 fL 80.0-94.0 Above high normal [facility] ([facility]) Is patient fasting? N MCHC 34.0 g/dL 31.0-36.0 [facility] ([facility]) Is patient fasting? N RDW 14.1 % 11.5-14.8 [facility] ([facility]) Is patient fasting? N MCH 32.7 pg 27.0-34.0 [facility] ([facility]) Is patient fasting? N Platelets 179 10^3/uL 150-450 [facility] ([facility]) Is patient fasting? N Neut 52.0 % 37.0-80.0 [facility] ([facility]) Is patient fasting? N MPV 11.8 fL 7.4-10.4 Above high normal [facility] ([facility]) Is patient fasting? N [place] 9.6 % 3.0-8.0 Above high normal [facility] ([facility]) Is patient fasting? N Lymph 29.9 % 25.0-40.0 [facility] ([facility]) Is patient fasting? N Eos 7.7 % 0.0-7.0 Above high normal [facility] ([facility]) Is patient fasting? N %Ig 0.2 % 0.0-0.0 Above high normal [facility] ([facility]) Is patient fasting? N Baso 0.6 % 0.0-2.0 [facility] ([facility]) Is patient fasting? N #Neut 4.53 10^3/uL 2.00-6.90 [facility] ([facility]) Is patient fasting? N %NRBC 0.0 % 0.0-0.0 [facility] ([facility]) Is patient fasting? N #Lymph 2.61 10^3/uL 0.60-3.40 [facility] ([facility]) Is patient fasting? N #Eos 0.67 10^3/uL 0.00-0.70 [facility] ([facility]) Is patient fasting? N #[place] 0.84 10^3/uL 0.00-0.90 [facility] ([facility]) Is patient fasting? N #Baso 0.05 10^3/uL 0.00-0.20 [facility] ([facility]) Is patient fasting? N #Ig 0.02 10^3/uL 0.00-0.10 [facility] ([facility]) Is patient fasting? N Manual Diff Laboratory test result [facility] ([facility]) Is patient fasting? N #NRBC 0.00 10^3/uL 0.00-0.00 [facility] ([facility]) Is patient fasting? N RBC Morph Laboratory test result [facility] ([facility]) Is patient fasting? N ID Date Data Source [id number] 12/03/2020 08:35:00 AM EDT [facility] ([facility]) Name Value Range Interpretation Code Description Data Fifi rce(s) Supporting Document(s) Prostate specific Ag [Mass/volume] in Serum or Plasma 0.46 ng/mL 0.00 -4.00 [facility] ([facility]) Is patient fasting? N ID Date Data Source [id number] 09/02/2020 09:25:00 AM EDT [facility] ([facility]) Name Value Range Interpretation Code Description Data Fifi rce(s) Supporting Document(s) Valproate [Mass/volume] in Serum or Plasma 19 ug/mL 50-100 [place] w low normal [facility] ([facility]) Is patient fasting? Y ID Date Data Source [id number] 09/02/2020 09:25:00 AM EDT [facility] ([facility]) Name Value Range Interpretation Code Description Data Fifi rce(s) Supporting Document(s) Cve Panel Laboratory test result [facility] ([facility]) Is patient fasting? Y Cholesterol 148 mg/dL 131-200 [facility] ([facility]) Is patient fasting? Y HDL 61 mg/dL 29-86 [facility] ([facility]) Is patient fasting? Y Triglycerides 50 mg/dL 35-160 [facility] ([facility]) Is patient fasting? Y LDL 85 mg/dL 65-175 [facility] ([facility]) Is patient fasting? Y Risk Factor 2.4 3.4-4.9 Below low normal [facility] ([facility]) Is patient fasting? Y LDL/HDL 1.39 1.00-3.55 [facility] ([facility]) Is patient fasting? Y ID Date Data Source [id number] 09/02/2020 09:25:00 AM EDT [facility] ([facility]) Name Value Range Interpretation Code Description Data Fifi rce(s) Supporting Document(s) Hemoglobin A1c/Hemoglobin.total in Blood 5.4 % 4.4-6.1 [facility] ([facility]) Is patient fasting? Y Thyrotropin [Units/volume] in Serum or Plasma 1.63 uIU/mL 0.47-5.01 [facility] ([facility]) Is patient fasting? Y ID Date Data Source [id number] 09/02/2020 09:25:00 AM EDT [facility] ([facility]) Name Value Range Interpretation Code Description Data Fifi rce(s) Supporting Document(s) Comprehensive [employer] Laboratory test result [facility] ([facility]) Is patient fasting? Y Sodium 142 meq/L 134-153 [facility] ([facility]) Is patient fasting? Y Chloride 108 meq/L 98-107 Above high normal [facility] ([facility]) Is patient fasting? Y Potassium 4.6 meq/L 3.6-5.0 [facility] ([facility]) Is patient fasting? Y Co2 23 meq/L 22-30 [facility] ([facility]) Is patient fasting? Y Glucose 95 mg/dL 70-99 [facility] ([facility]) Is patient fasting? Y BUN 16 mg/dL 7-21 [facility] ([facility]) Is patient fasting? Y Creatinine 0.7 mg/dL 0.7-1.5 [facility] ([facility]) Is patient fasting? Y BUN/Creat 23 8-27 [facility] ([facility]) Is patient fasting? Y Total Protein 6.6 g/dL 6.3-8.2 [facility] ([facility]) Is patient fasting? Y Albumin 4.4 g/dL 3.9-5.0 [facility] ([facility]) Is patient fasting? Y Globulin 2.2 GM/DL 2.4-3.2 Below low normal [facility] ( [facility]) Is patient fasting? Y A/G Ratio 2.0 0.8-2.0 [facility] ([facility]) Is patient fasting? Y Calcium 9.6 mg/dL 8.4-10.2 [facility] ([facility]) Is patient fasting? Y Total Bili Laboratory test result 0.2-1.3 [facility] ([facility]) Is patient fasting? Y Alkaline Phos 76 U/L 38-126 [facility] ([facility]) Is patient fasting? Y Sgot/Ast 15 U/L 5-40 [facility] ([facility]) Is patient fasting? Y SGPT/Alt 15 U/L 7-56 [facility] ([facility]) Is patient fasting? Y Anion Gap 11.0 mmol/L 8.0-16.0 [facility] ([facility]) Is patient fasting? Y Age 60 yrs [facility] ([facility]) Is patient fasting? Y Non-Aa GFR Laboratory test result [facility] ([facility]) Is patient fasting? Y Afr Amer GFR Laboratory test result [facility] ([facility]) Is patient fasting? Y ID Date Data Source [id number] 09/02/2020 09:25:00 AM EDT [facility] ([facility]) Name Value Range Interpretation Code Description Data Fifi rce(s) Supporting Document(s) CBC W/Automated Diff Laboratory test result [facility] ([facility]) Is patient fasting? Y WBC 8.1 10^3/uL 4.2-11.0 [facility] ([facility]) Is patient fasting? Y RBC 4.99 10^6/uL 4.50-6.30 [facility] ([facility]) Is patient fasting? Y Hemoglobin 16.3 g/dL 14.0-16.0 Above high normal [facility] ([facility]) Is patient fasting? Y Hematocrit 48.3 % 41.0-51.0 [facility] ([facility]) Is patient fasting? Y MCV 96.8 fL 80.0-94.0 Above high normal [facility] ([facility]) Is patient fasting? Y MCH 32.7 pg 27.0-34.0 [facility] ([facility]) Is patient fasting? Y RDW 13.7 % 11.5-14.8 [facility] ([facility]) Is patient fasting? Y MCHC 33.7 g/dL 31.0-36.0 [facility] ([facility]) Is patient fasting? Y MPV 11.9 fL 7.4-10.4 Above high normal [facility] ([facility]) Is patient fasting? Y Platelets 199 10^3/uL 150-450 [facility] ([facility]) Is patient fasting? Y Neut 58.3 % 37.0-80.0 [facility] ([facility]) Is patient fasting? Y Lymph 29.4 % 25.0-40.0 [facility] ([facility]) Is patient fasting? Y Eos 4.5 % 0.0-7.0 [facility] ([facility]) Is patient fasting? Y [place] 7.2 % 3.0-8.0 [facility] ([facility]) Is patient fasting? Y Baso 0.5 % 0.0-2.0 [facility] ([facility]) Is patient fasting? Y %Ig 0.1 % 0.0-0.0 Above high normal [facility] ([facility]) Is patient fasting? Y %NRBC 0.0 % 0.0-0.0 [facility] ([facility]) Is patient fasting? Y #Neut 4.70 10^3/uL 2.00-6.90 [facility] ([facility]) Is patient fasting? Y #[place] 0.58 10^3/uL 0.00-0.90 [facility] ([facility]) Is patient fasting? Y #Lymph 2.37 10^3/uL 0.60-3.40 [facility] ([facility]) Is patient fasting? Y #Baso 0.04 10^3/uL 0.00-0.20 [facility] ([facility]) Is patient fasting? Y #Eos 0.36 10^3/uL 0.00-0.70 [facility] ([facility]) Is patient fasting? Y #Ig 0.01 10^3/uL 0.00-0.10 [facility] ([facility]) Is patient fasting? Y #NRBC 0.00 10^3/uL 0.00-0.00 [facility] ([facility]) Is patient fasting? Y RBC Morph Laboratory test result [facility] ([facility]) Is patient fasting? Y Manual Diff Laboratory test result M [facility] ([facility]) Is patient fasting? Y ID Date Data Source [id number] 09/04/2020 08:14:00 AM EDT [facility] Name Value Range Interpretation Code Description Data Fifi rce(s) Supporting Document(s) Valproate [Mass/volume] in Serum or Plasma 19 ug/mL 50-100 L [facility] Detection Limit = 4 <4 indicates None Detected Toxicity may occur at levels of 100-500. Measurements of free unbound valproic acid may improve the assess- ment of clinical response. ID Date Data Source [id number] 09/02/2020 08:12:00 PM EDT [facility] Value Range Interpretation Code Description Data Fifi rce(s) Supporting Document(s) Thyrotropin [Units/volume] in Serum or Plasma by Detec tion limit <= 0.05 mIU/L 1.63 uIU/mL 0.47 - 5.01 [facility] ID Date Data Source [id number] 09/02/2020 08:05:00 PM EDT [facility] Name Value Range Interpretation Code Description Data Fifi rce(s) Supporting Document(s) CVE PANEL [facility] al LIPID PANEL Cholesterol [Mass/volume] in Serum or Plasma 148 MG/DL 131 - 200 [facility] Deprecated Triglyceride [Mass/volume] in Serum or Plasma 50 MG/DL 3 5 - 160 [facility] HDL 61 MG/DL 29 - 86 [facility] al Cholesterol in LDL [Mass/volume] in Serum or Plasma by Direc t assay 85 mg/dL 65 - 175 [facility] Cholesterol.total/Cholesterol in HDL [Mass Ratio] in Serum o r Plasma 2.4 3.4 - 4.9 L [facility] LDL/HDL 1.39 1.00 - 3.55 [facility] CVE RISK CHOL/HDL LDL/HDLMEN: 1/2 AVERAGE 3.43 1.00 AVERAGE 4.97 3.55 2X AVERAGE 9.55 6.25 3X AVERAGE 23.99 7.99WOMEN: 1/2 AVERAGE 3.27 1.47 AVERAGE 4.44 3.22 2X AVERAGE 7.05 5.03 3X AVERAGE 11.04 6.14 ID Date Data Source [id number] 09/02/2020 08:05:00 PM EDT [facility] Name Value Range Interpretation Code Description Data Fifi rce(s) Supporting Document(s) COMPREHENSIVE METABOLIC PANEL [facility] COMPREHENSIVE METABOLIC PANEL Sodium [Moles/volume] in Serum or Plasma 142 mEq/L 134 - 153 [facility] Potassium [Moles/volume] in Serum or Plasma 4.6 mEq/L 3.6 - 5.0 [facility] Chloride [Moles/volume] in Serum or Plasma 108 mEq/L 98 - 107 H [facility] Carbon dioxide, total [Moles/volume] in Serum or Plasma 23 MEQ/L 22 - 30 [facility] Glucose [Mass/volume] in Serum or Plasma 95 MG/DL 70 - 99 [facility] BUN 16 MG/DL 7 - 21 [facility] Creatinine [Mass/volume] in Serum or Plasma 0.7 MG/DL 0.7 - 1.5 [facility] BUN/CREAT 23 8 - 27 [facility] Protein [Mass/volume] in Serum or Plasma 6.6 G/DL 6.3 - 8.2 [facility] Albumin [Mass/volume] in Serum or Plasma 4.4 G/DL 3.9 - 5.0 [facility] Globulin [Mass/volume] in Serum by calculation 2.2 GM/DL 2.4 - 3.2 L [facility] A/G RATIO 2.0 0.8 - 2.0 [facility] Calcium [Mass/volume] in Serum or Plasma 9.6 MG/DL 8.4 - 10.2 [facility] Bilirubin.total [Mass/volume] in Serum or Plasma <0.7 MG/DL 0.2 - 1.3 [facility] Alkaline phosphatase [Enzymatic activity/volume] in Serum or Plasma 76 U/L 38 - 126 [facility] Aspartate aminotransferase [Enzymatic activity/volume] in Serum or Plasma 15 U/L 5 - 40 [facility] Alanine aminotransferase [Enzymatic activity/volume] in Seru m or Plasma 15 U/L 7 - 56 [facility] Anion gap 3 in Serum or Plasma 11.0 mmol/L 8.0 - 16.0 [facility] AGE 60 yrs [facility] NON-AA GFR >60 mL/min [facility] ital AFR AMER GFR >60 mL/min [facility] Male GFR In terprentation 20-49 [...] >32 mL/min Normal ID Date Data Source [id number] 09/02/2020 06:49:00 PM EDT [facility] Name Value Range Interpretation Code Description Data Fifi rce(s) Supporting Document(s) Hemoglobin A1c/Hemoglobin.total in Blood 5.4 % 4.4 - 6.1 [facility] {A1]{HB] ID Date Data Source [id number] 09/02/2020 06:44:00 PM EDT [facility] Name Value Range Interpretation Code Description Data Fifi rce(s) Supporting Document(s) CBC W/AUTOMATED DIFF [facility] COMPLETE BLOOD COUNT Leukocytes [#/volume] in Blood by Automated count 8.1 10^3/uL 4.2 - 1 1.0 [facility] Erythrocytes [#/volume] in Blood by Automated count 4.99 10^6/uL 4. 50 - 6.30 [facility] Hemoglobin [Mass/volume] in Blood 16.3 g/dL 14.0 - 16.0 H [facility] Hematocrit [Volume Fraction] of Blood by Automated count 48.3 % 4 1.0 - 51.0 [facility] Erythrocyte mean corpuscular volume [Entitic volume] by Auto mated count 96.8 fL 80.0 - 94.0 H [facility] Erythrocyte mean corpuscular hemoglobin [Entitic mass] by Automated count 32.7 pg 27.0 - 34.0 [facility] Erythrocyte mean corpuscular hemoglobin concentration [Mass/volume] by Automated count 33.7 g/dL 31.0 - 36.0 [facility] Erythrocyte distribution width [Ratio] by Automated count 13.7 % 11.5 - 14.8 [facility] Platelets [#/volume] in Blood by Automated count 199 10^3/uL 150 - 45 0 [facility] Platelet mean volume [Entitic volume] in Blood by Automated count 11.9 fL 7.4 - 10.4 H [facility] Neutrophils/100 leukocytes in Blood by Automated count 58.3 % 37. 0 - 80.0 [facility] Lymphocytes/100 leukocytes in Blood by Manual count 29.4 % 25.0 - 40.0 [facility] Monocytes/100 leukocytes in Blood by Automated count 7.2 % 3.0 - 8.0 [facility] Eosinophils/100 leukocytes in Blood by Automated count 4.5 % 0.0 - 7.0 [facility] Basophils/100 leukocytes in Blood by Automated count 0.5 % 0.0 - 2.0 [facility] %IG 0.1 % 0.0 - 0.0 H [facility] %NRBC 0.0 % 0.0 - 0.0 [facility] al Neutrophils [#/volume] in Blood by Automated count 4.70 10^3/uL 2.00 - 6.90 [facility] Lymphocytes [#/volume] in Blood by Automated count 2.37 10^3/uL 0.60 - 3.40 [facility] Monocytes [#/volume] in Blood by Automated count 0.58 10^3/uL 0.00 - 0.90 [facility] Eosinophils [#/volume] in Blood by Automated count 0.36 10^3/uL 0.00 - 0.70 [facility] Basophils [#/volume] in Blood by Automated count 0.04 10^3/uL 0.00 - 0.20 [facility] #IG 0.01 10^3/uL 0.00 - 0.10 [facility] #NRBC 0.00 10^3/uL 0.00 - 0.00 [facility] ospital MANUAL DIFF NOT INDICATED [facility] RBC MORPH NOT INDICATED [facility] spital ID Date Data Source [id number] 06/10/2020 11:06:00 AM EST [facility] ([facility]) Name Value Range Interpretation Code Description Data Fifi rce(s) Supporting Document(s) Valproate [Mass/volume] in Serum or Plasma 43 ug/mL 50-100 [place] w low normal [facility] ([facility]) <content>Detection Limit = 4</content><b r/><content><4 indicates None Detected</content>
<content>Toxicity may occur at levels of 100-500. Measurements</content>
<content>of free unbound valproic acid may improve the assess-</content>
<content>ment of clinical response.</content>
<content></content> ID Date Data Source [id number] 06/10/2020 11:06:00 AM EST [facility] ([facility]) Name Value Range Interpretation Code Description Data Fifi rce(s) Supporting Document(s) Cve Panel Laboratory test result [facility] ([facility]) LIPID PANEL Triglycerides 53 mg/dL 35-160 [facility] ([facility]) Is patient fasting? Y Cholesterol 156 mg/dL 131-200 [facility] ([facility]) Is patient fasting? Y HDL 50 mg/dL 29-86 [facility] ([facility]) Is patient fasting? Y LDL 89 mg/dL 65-175 [facility] ([facility]) Is patient fasting? Y Risk Factor 3.1 3.4-4.9 Below low normal [facility] ([facility]) Is patient fasting? Y LDL/HDL 1.78 1.00-3.55 [facility] ([facility]) CVE RISK CHOL/HDL LDL/HDL MEN: 1/2 AVERAGE 3.43 1.00 AVERAGE 4.97 3.55 2X AVERAGE 9.55 6.25 3X AVERAGE 23.99 7.99 WOMEN: 1/2 AVERAGE 3.27 1.47 AVERAGE 4.44 3.22 2X AVERAGE 7.05 5.03 3X AVERAGE 11.04 6.14 ID Date Data Source [id number] 06/10/2020 11:06:00 AM EST [facility] ([facility]) Name Value Range Interpretation Code Description Data Fifi rce(s) Supporting Document(s) Hemoglobin A1c/Hemoglobin.total in Blood 5.3 % 4.4-6.1 [facility] ([facility]) {A1] {HB] Thyrotropin [Units/volume] in Serum or Plasma 2.11 uIU/mL 0.47-5.01 [facility] ([facility]) Is patient fasting? Y ID Date Data Source [id number] 06/10/2020 11:06:00 AM EST [facility] ([facility]) Name Value Range Interpretation Code Description Data Fifi rce(s) Supporting Document(s) Sodium 138 meq/L 134-153 [facility] ([facility]) Is patient fasting? Y Comprehensive Metabo Laboratory test result [facility] ([facility]) COMPREHENSIVE METABOLIC PANEL Potassium 4.2 meq/L 3.6-5.0 [facility] ([facility]) Is patient fasting? Y Co2 25 meq/L 22-30 [facility] ([facility]) Is patient fasting? Y Chloride 104 meq/L 98-107 [facility] ([facility]) Is patient fasting? Y Glucose 101 mg/dL 65-110 [facility] ([facility]) Is patient fasting? Y BUN 22 mg/dL 7-21 Above high normal [facility] ([facility]) Is patient fasting? Y Creatinine 0.7 mg/dL 0.7-1.5 [facility] ([facility]) Is patient fasting? Y BUN/Creat 31 8-27 Above high normal [facility] ([facility]) Is patient fasting? Y Total Protein 6.1 g/dL 6.3-8.2 Below low normal [facility] T ([facility]) Is patient fasting? Y Albumin 4.3 g/dL 3.9-5.0 [facility] ([facility]) Is patient fasting? Y Globulin 1.8 GM/DL 2.4-3.2 Below low normal [facility] ( [facility]) Is patient fasting? Y A/G Ratio 2.4 0.8-2.0 Above high normal [facility] ([facility]) Is patient fasting? Y Calcium 9.1 mg/dL 8.4-10.2 [facility] ([facility]) Is patient fasting? Y Total Bili Laboratory test result 0.2-1.3 ME [facility] ([facility]) Is patient fasting? Y Alkaline Phos 75 U/L 38-126 [facility] ([facility]) Is patient fasting? Y Sgot/Ast 25 U/L 5-40 [facility] ([facility]) Is patient fasting? Y SGPT/Alt 33 U/L 7-56 [facility] ([facility]) Is patient fasting? Y Age 59 yrs [facility] ([facility]) Is patient fasting? Y Anion Gap 9.0 mmol/L 8.0-16.0 [facility] ([facility]) Is patient fasting? Y Non-Aa GFR Laboratory test result [facility] ([facility]) Is patient fasting? Y Afr Amer GFR Laboratory test result [facility] ([facility]) Male GFR Interprentation 20-49 yrs >60 [...] >32 mL/min Normal ID Date Data Source [id number] 06/10/2020 11:06:00 AM EST [facility] ([facility]) Name Value Range Interpretation Code Description Data Fifi rce(s) Supporting Document(s) CBC W/Automated Diff Laboratory test result [facility] ([facility]) COMPLETE BLOOD COUNT WBC 8.3 10^3/uL 4.2-11.0 [facility] ([facility]) Is patient fasting? Y RBC 4.71 10^6/uL 4.50-6.30 [facility] ([facility]) Is patient fasting? Y Hemoglobin 15.2 g/dL 14.0-16.0 [facility] ([facility]) Is patient fasting? Y Hematocrit 44.5 % 41.0-51.0 [facility] ([facility]) Is patient fasting? Y MCH 32.3 pg 27.0-34.0 [facility] ([facility]) Is patient fasting? Y MCV 94.5 fL 80.0-94.0 Above high normal [facility] ([facility]) Is patient fasting? Y MCHC 34.2 g/dL 31.0-36.0 [facility] ([facility]) Is patient fasting? Y RDW 13.2 % 11.5-14.8 [facility] ([facility]) Is patient fasting? Y Platelets 212 10^3/uL 150-450 [facility] ([facility]) Is patient fasting? Y Neut 55.5 % 37.0-80.0 [facility] ([facility]) Is patient fasting? Y MPV 12.0 fL 7.4-10.4 Above high normal [facility] ([facility]) Is patient fasting? Y [place] 8.2 % 3.0-8.0 Above high normal [facility] ([facility]) Is patient fasting? Y Lymph 29.9 % 25.0-40.0 [facility] ([facility]) Is patient fasting? Y Eos 5.6 % 0.0-7.0 [facility] ([facility]) Is patient fasting? Y Baso 0.6 % 0.0-2.0 [facility] ([facility]) Is patient fasting? Y %Ig 0.2 % 0.0-0.0 Above high normal [facility] ([facility]) Is patient fasting? Y %NRBC 0.0 % 0.0-0.0 [facility] ([facility]) Is patient fasting? Y #Neut 4.58 10^3/uL 2.00-6.90 [facility] ([facility]) Is patient fasting? Y #Lymph 2.47 10^3/uL 0.60-3.40 [facility] ([facility]) Is patient fasting? Y #Eos 0.46 10^3/uL 0.00-0.70 [facility] ([facility]) Is patient fasting? Y #[place] 0.68 10^3/uL 0.00-0.90 [facility] ([facility]) Is patient fasting? Y #Ig 0.02 10^3/uL 0.00-0.10 [facility] ([facility]) Is patient fasting? Y #Baso 0.05 10^3/uL 0.00-0.20 [facility] ([facility]) Is patient fasting? Y #NRBC 0.00 10^3/uL 0.00-0.00 [facility] ([facility]) Is patient fasting? Y Manual Diff Laboratory test result M [facility] ([facility]) Is patient fasting? Y RBC Morph Laboratory test result [facility] ([facility]) Is patient fasting? Y ID Date Data Source [id number] 06/12/2020 08:25:00 AM [facility] Name Value Range Interpretation Code Description Data Fifi rce(s) Supporting Document(s) Valproate [Mass/volume] in Serum or Plasma 43 ug/mL 50-100 L [facility] Detection Limit = 4 <4 indicates None Detected Toxicity may occur at levels of 100-500. Measurements of free unbound valproic acid may improve the assess- ment of clinical response. ID Date Data Source [id number] 06/10/2020 06:04:00 PM [facility] Name Value Range Interpretation Code Description Data Fifi rce(s) Supporting Document(s) CVE PANEL [facility] al LIPID PANEL Cholesterol [Mass/volume] in Serum or Plasma 156 MG/DL 131 - 200 [facility] Deprecated Triglyceride [Mass/volume] in Serum or Plasma 53 MG/DL 3 5 - 160 [facility] HDL 50 MG/DL 29 - 86 [facility] al Cholesterol in LDL [Mass/volume] in Serum or Plasma by Direc t assay 89 mg/dL 65 - 175 [facility] Cholesterol.total/Cholesterol in HDL [Mass Ratio] in Serum o r Plasma 3.1 3.4 - 4.9 L [facility] LDL/HDL 1.78 1.00 - 3.55 [facility] CVE RISK CHOL/HDL LDL/HDLMEN: 1/2 AVERAGE 3.43 1.00 AVERAGE 4.97 3.55 2X AVERAGE 9.55 6.25 3X AVERAGE 23.99 7.99WOMEN: 1/2 AVERAGE 3.27 1.47 AVERAGE 4.44 3.22 2X AVERAGE 7.05 5.03 3X AVERAGE 11.04 6.14 ID Date Data Source [id number] 06/10/2020 06:04:00 PM [facility] Name Value Range Interpretation Code Description Data Fifi rce(s) Supporting Document(s) COMPREHENSIVE METABOLIC PANEL [facility] COMPREHENSIVE METABOLIC PANEL Sodium [Moles/volume] in Serum or Plasma 138 mEq/L 134 - 153 [facility] Potassium [Moles/volume] in Serum or Plasma 4.2 mEq/L 3.6 - 5.0 [facility] Chloride [Moles/volume] in Serum or Plasma 104 mEq/L 98 - 107 [facility] Carbon dioxide, total [Moles/volume] in Serum or Plasma 25 MEQ/L 22 - 30 [facility] Glucose [Mass/volume] in Serum or Plasma 101 MG/DL 65 - 110 [facility] BUN 22 MG/DL 7 - 21 H [facility] al Creatinine [Mass/volume] in Serum or Plasma 0.7 MG/DL 0.7 - 1.5 [facility] BUN/CREAT 31 8 - 27 H [facility] al Protein [Mass/volume] in Serum or Plasma 6.1 G/DL 6.3 - 8.2 L [facility] Albumin [Mass/volume] in Serum or Plasma 4.3 G/DL 3.9 - 5.0 [facility] Globulin [Mass/volume] in Serum by calculation 1.8 GM/DL 2.4 - 3.2 L [facility] A/G RATIO 2.4 0.8 - 2.0 H [facility] Calcium [Mass/volume] in Serum or Plasma 9.1 MG/DL 8.4 - 10.2 [facility] Bilirubin.total [Mass/volume] in Serum or Plasma <0.7 MG/DL 0.2 - 1.3 [facility] Alkaline phosphatase [Enzymatic activity/volume] in Serum or Plasma 75 U/L 38 - 126 [facility] Aspartate aminotransferase [Enzymatic activity/volume] in Serum or Plasma 25 U/L 5 - 40 [facility] Alanine aminotransferase [Enzymatic activity/volume] in Seru m or Plasma 33 U/L 7 - 56 [facility] Anion gap 3 in Serum or Plasma 9.0 mmol/L 8.0 - 16.0 [facility] 59 [facility] >60 mL/min [facility] AFR AMER GFR >60 mL/min [facility] Male GFR In terprentation 20-49 [...] >32 mL/min Normal ID Date Data Source [id number] 06/10/2020 06:04:00 PM [facility] Name Value Range Interpretation Code Description Data Fifi rce(s) Supporting Document(s) Hemoglobin A1c/Hemoglobin.total in Blood 5.3 % 4.4 - 6.1 [facility] {A1]{HB] ID Date Data Source [id number] 06/10/2020 06:02:00 PM [facility] Name Value Range Interpretation Code Description Data Fifi rce(s) Supporting Document(s) Thyrotropin [Units/volume] in Serum or Plasma by Detec tion limit <= 0.05 mIU/L 2.11 uIU/mL 0.47 - 5.01 [facility] ID Date Data Source [id number] 06/10/2020 05:46:00 PM [facility] Name Value Range Interpretation Code Description Data Fifi rce(s) Supporting Document(s) CBC W/AUTOMATED DIFF [facility] COMPLETE BLOOD COUNT Leukocytes [#/volume] in Blood by Automated count 8.3 10^3/uL 4.2 - 1 1.0 [facility] Erythrocytes [#/volume] in Blood by Automated count 4.71 10^6/uL 4. 50 - 6.30 [facility] Hemoglobin [Mass/volume] in Blood 15.2 g/dL 14.0 - 16.0 [facility] Hematocrit [Volume Fraction] of Blood by Automated count 44.5 % 4 1.0 - 51.0 [facility] Erythrocyte mean corpuscular volume [Entitic volume] by Auto mated count 94.5 fL 80.0 - 94.0 H [facility] Erythrocyte mean corpuscular hemoglobin [Entitic mass] by Automated count 32.3 pg 27.0 - 34.0 [facility] Erythrocyte mean corpuscular hemoglobin concentration [Mass/volume] by Automated count 34.2 g/dL 31.0 - 36.0 [facility] Erythrocyte distribution width [Ratio] by Automated count 13.2 % 11.5 - 14.8 [facility] Platelets [#/volume] in Blood by Automated count 212 10^3/uL 150 - 45 0 [facility] Platelet mean volume [Entitic volume] in Blood by Automated count 12.0 fL 7.4 - 10.4 H [facility] Neutrophils/100 leukocytes in Blood by Automated count 55.5 % 37. 0 - 80.0 [facility] Lymphocytes/100 leukocytes in Blood by Manual count 29.9 % 25.0 - 40.0 [facility] Monocytes/100 leukocytes in Blood by Automated count 8.2 % 3.0 - 8.0 H [facility] Eosinophils/100 leukocytes in Blood by Automated count 5.6 % 0.0 - 7.0 [facility] Basophils/100 leukocytes in Blood by Automated count 0.6 % 0.0 - 2.0 [facility] %IG 0.2 % 0.0 - 0.0 [facility] %NRBC 0.0 % 0.0 - 0.0 [facility] al Neutrophils [#/volume] in Blood by Automated count 4.58 10^3/uL 2.00 - 6.90 [facility] Lymphocytes [#/volume] in Blood by Automated count 2.47 10^3/uL 0.60 - 3.40 [facility] Monocytes [#/volume] in Blood by Automated count 0.68 10^3/uL 0.00 - 0.90 [facility] Eosinophils [#/volume] in Blood by Automated count 0.46 10^3/uL 0.00 - 0.70 [facility] Basophils [#/volume] in Blood by Automated count 0.05 10^3/uL 0.00 - 0.20 [facility] #IG 0.02 10^3/uL 0.00 - 0.10 [facility] ospital #NRBC 0.00 10^3/uL 0.00 - 0.00 [facility] ospital MANUAL DIFF NOT INDICATED [facility] RBC MORPH NOT INDICATED [facility] ID Date Data Source [id number] 02/14/2020 10:08:00 AM EDT [facility] ([facility]) Name Value Range Interpretation Code Description Data Fifi rce(s) Supporting Document(s) Valproate Free [Mass/volume] in Serum or Plasma 12.2 ug/mL 6.0-22.0 [facility] ([facility]) Detection Limit = 0.5 ID Date Data Source [id number] 02/14/2020 10:08:00 AM EDT [facility] ([facility]) Name Value Range Interpretation Code Description Data Fifi rce(s) Supporting Document(s) Prostate Specific Ag,Serum 0.5 ng/mL 0.0-4.0 [facility] ([facility]) [place] ECLIA methodology. According to the [employer], Serum PSA should decrease and [...] disease. Reflex Criteria Laboratory test result [facility] ([facility]) The percent free PSA is performed on a r eflex basis only when the total PSA is between 4.0 and 10.0 ng/mL. ID Date Data Source [id number] 02/14/2020 10:08:00 AM EDT [facility] ([facility]) Name Value Range Interpretation Code Description Data Fifi rce(s) Supporting Document(s) Cve Panel Laboratory test result [facility] ([facility]) LIPID PANEL Cholesterol 157 mg/dL 131-200 [facility] ([facility]) Triglycerides 74 mg/dL 35-160 [facility] ([facility]) HDL 47 mg/dL 29-86 [facility] ([facility]) LDL 89 mg/dL 65-175 [facility] ([facility]) Risk Factor 3.3 3.4-4.9 Below low normal [facility] ([facility]) LDL/HDL 1.89 1.00-3.55 [facility] [facility] CVE RISK CHOL/HDL LDL/HDL MEN: 1/2 AVERAGE 3.43 1.00 AVERAGE 4.97 3.55 2X AVERAGE 9.55 6.25 3X AVERAGE 23.99 7.99 WOMEN: 1/2 AVERAGE 3.27 1.47 AVERAGE 4.44 3.22 2X AVERAGE 7.05 5.03 3X AVERAGE 11.04 6.14 ID Date Data Source [id number] 02/14/2020 10:08:00 AM EDT [facility] ([facility]) Name Value Range Interpretation Code Description Data Fifi rce(s) Supporting Document(s) Hemoglobin A1c/Hemoglobin.total in Blood 5.9 % 4.4-6.1 [facility] ([facility]) {A1] {HB] Thyrotropin [Units/volume] in Serum or Plasma 1.63 uIU/mL 0.47-5.01 [facility] ([facility]) ID Date Data Source [id number] 02/14/2020 10:08:00 AM EDT [facility] ([facility]) Name Value Range Interpretation Code Description Data Fifi rce(s) Supporting Document(s) Comprehensive Metabo Laboratory test result [facility] ([facility]) COMPREHENSIVE METABOLIC PANEL Sodium 137 meq/L 134-153 [facility] ([facility]) Potassium 4.3 meq/L 3.6-5.0 [facility] ([facility]) Chloride 104 meq/L 98-107 [facility] ([facility]) Glucose 101 mg/dL 65-110 [facility] ([facility]) Co2 24 meq/L 22-30 [facility] ([facility]) BUN 20 mg/dL 7-21 [facility] ([facility]) Creatinine 0.8 mg/dL 0.7-1.5 [facility] ([facility]) Total Protein 6.6 g/dL 6.3-8.2 [facility] ([facility]) BUN/Creat 25 8-27 [facility] ([facility]) Globulin 2.4 GM/DL 2.4-3.2 [facility] ([facility]) Albumin 4.2 g/dL 3.9-5.0 [facility] ([facility]) A/G Ratio 1.8 0.8-2.0 [facility] ([facility]) Calcium 9.0 mg/dL 8.4-10.2 [facility] ([facility]) Total Bili Laboratory test result 0.2-1.3 ME [facility] ([facility]) Alkaline Phos 80 U/L 38-126 [facility] ([facility]) SGPT/Alt 16 U/L 7-56 [facility] ([facility]) Sgot/Ast 15 U/L 5-40 [facility] ([facility]) Anion Gap 9.0 mmol/L 8.0-16.0 [facility] ([facility]) Age 59 yrs [facility] ([facility]) Non-Aa GFR Laboratory test result [facility] ([facility]) Afr Amer GFR Laboratory test result [facility] ([facility]) Male GFR Interprentation 20-49 yrs >60 [...] >32 mL/min Normal ID Date Data Source [id number] 02/14/2020 10:08:00 AM EDT [facility] ([facility]) Name Value Range Interpretation Code Description Data Fifi rce(s) Supporting Document(s) CBC W/Automated Diff Laboratory test result [facility] ([facility]) COMPLETE BLOOD COUNT RBC 4.83 10^6/uL 4.50-6.30 [facility] ([facility]) WBC 7.4 10^3/uL 4.2-11.0 [facility] ([facility]) Hematocrit 45.6 % 41.0-51.0 [facility] ([facility]) Hemoglobin 15.3 g/dL 14.0-16.0 [facility] ([facility]) MCH 31.7 pg 27.0-34.0 [facility] ([facility]) MCV 94.4 fL 80.0-94.0 Above high normal [facility] ([facility]) RDW 13.8 % 11.5-14.8 [facility] ([facility]) MCHC 33.6 g/dL 31.0-36.0 [facility] ([facility]) Neut 57.2 % 37.0-80.0 [facility] ([facility]) MPV 12.5 fL 7.4-10.4 Above high normal [facility] ([facility]) Platelets 166 10^3/uL 150-450 [facility] ([facility]) Lymph 27.3 % 25.0-40.0 [facility] ([facility]) [place] 7.9 % 3.0-8.0 [facility] ([facility]) Eos 6.9 % 0.0-7.0 [facility] ([facility]) Baso 0.4 % 0.0-2.0 [facility] ([facility]) %NRBC 0.0 % 0.0-0.0 [facility] ([facility]) %Ig 0.3 % 0.0-0.0 Above high normal [facility] ([facility]) #Lymph 2.03 10^3/uL 0.60-3.40 [facility] ([facility]) #Neut 4.26 10^3/uL 2.00-6.90 [facility] ([facility]) #[place] 0.59 10^3/uL 0.00-0.90 [facility] ([facility]) #Eos 0.51 10^3/uL 0.00-0.70 [facility] ([facility]) #Ig 0.02 10^3/uL 0.00-0.10 [facility] ([facility]) #Baso 0.03 10^3/uL 0.00-0.20 [facility] ([facility]) Manual Diff Laboratory test result M [facility] ([facility]) #NRBC 0.00 10^3/uL 0.00-0.00 [facility] ([facility]) RBC Morph Laboratory test result [facility] ([facility]) ID Date Data Source [id number] 02/20/2020 05:32:00 PM EDT [facility] Name Value Range Interpretation Code Description Data Fifi rce(s) Supporting Document(s) Valproate Free [Mass/volume] in Serum or Plasma 12.2 ug/mL 6.0-22.0 [facility] Detection Limit = 0.5 ID Date Data Source [id number] 02/16/2020 02:35:00 PM EDT [facility] Name Value Range Interpretation Code Description Data Fifi rce(s) Supporting Document(s) Prostate specific Ag [Mass/volume] in Serum or Plasma 0.5 ng/mL 0.0- 4.0 [facility] Kalyan ECLIA methodology.According to the [place] [employer], Serum PSA shoulddecrease and remain at undetectable levels after radicalprostatectomy. The AUA defines biochemical recurrence as an initialPSA value 0.2 ng/mL or greater followed by a subsequent confirmatoryPSA value 0.2 ng/mL or greater.Values obtained with different assay methods or kits cannot be usedinterchangeably. Results cannot be interpreted as absolute evidenceof the presence or absence of malignant disease. Reflex Criteria COMMENT [facility] The percent free PSA is performed on a r eflex basis only when thetotal PSA is between 4.0 and 10.0 ng/mL. ID Date Data Source [id number] 02/14/2020 06:03:00 PM EDT [facility] Name Value Range Interpretation Code Description Data Fifi rce(s) Supporting Document(s) Thyrotropin [Units/volume] in Serum or Plasma by Detec tion limit <= 0.05 mIU/L 1.63 uIU/mL 0.47 - 5.01 [facility] ID Date Data Source [id number] 02/14/2020 05:58:00 PM EDT [facility] Name Value Range Interpretation Code Description Data Fifi rce(s) Supporting Document(s) CVE PANEL [facility] LIPID PANEL Cholesterol [Mass/volume] in Serum or Plasma 157 MG/DL 131 - 200 [facility] Deprecated Triglyceride [Mass/volume] in Serum or Plasma 74 MG/DL 3 5 - 160 [facility] HDL 47 MG/DL 29 - [facility] Cholesterol in LDL [Mass/volume] in Serum or Plasma by Direc t assay 89 mg/dL 65 - 175 [facility] Cholesterol.total/Cholesterol in HDL [Mass Ratio] in Serum o r Plasma 3.3 3.4 - 4.9 L [facility] LDL/HDL 1.89 1.00 - 3.55 [facility] CVE RISK CHOL/HDL LDL/HDLMEN: 1/2 AVERAGE 3.43 1.00 AVERAGE 4.97 3.55 2X AVERAGE 9.55 6.25 3X AVERAGE 23.99 7.99WOMEN: 1/2 AVERAGE 3.27 1.47 AVERAGE 4.44 3.22 2X AVERAGE 7.05 5.03 3X AVERAGE 11.04 6.14 ID Date Data Source [id number] 02/14/2020 05:52:00 PM EDT [facility] Name Value Range Interpretation Code Description Data Fifi rce(s) Supporting Document(s) COMPREHENSIVE METABOLIC PANEL [facility] COMPREHENSIVE METABOLIC PANEL Sodium [Moles/volume] in Serum or Plasma 137 mEq/L 134 - 153 [facility] Potassium [Moles/volume] in Serum or Plasma 4.3 mEq/L 3.6 - 5.0 [facility] Chloride [Moles/volume] in Serum or Plasma 104 mEq/L 98 - 107 [facility] Carbon dioxide, total [Moles/volume] in Serum or Plasma 24 MEQ/L 22 - 30 [facility] Glucose [Mass/volume] in Serum or Plasma 101 MG/DL 65 - 110 [facility] BUN 20 MG/DL 7 - 21 [facility] Creatinine [Mass/volume] in Serum or Plasma 0.8 MG/DL 0.7 - 1.5 [facility] BUN/CREAT 25 8 - 27 [facility] Protein [Mass/volume] in Serum or Plasma 6.6 G/DL 6.3 - 8.2 [facility] Albumin [Mass/volume] in Serum or Plasma 4.2 G/DL 3.9 - 5.0 [facility] Globulin [Mass/volume] in Serum by calculation 2.4 GM/DL 2.4 - 3.2 [facility] A/G RATIO 1.8 0.8 - 2.0 [facility] Calcium [Mass/volume] in Serum or Plasma 9.0 MG/DL 8.4 - 10.2 [facility] Bilirubin.total [Mass/volume] in Serum or Plasma <0.7 MG/DL 0.2 - 1.3 [facility] Alkaline phosphatase [Enzymatic activity/volume] in Serum or Plasma 80 U/L 38 - 126 [facility] Aspartate aminotransferase [Enzymatic activity/volume] in Serum or Plasma 15 U/L 5 - 40 [facility] Alanine aminotransferase [Enzymatic activity/volume] in Seru m or Plasma 16 U/L 7 - 56 [facility] Anion gap 3 in Serum or Plasma 9.0 mmol/L 8.0 - 16.0 [facility] AGE 59 yrs [facility] NON-AA GFR >60 mL/min [facility] AFR AMER GFR >60 mL/min [facility] Male GFR In terprentation 20-49 [...] >32 mL/min Normal ID Date Data Source [id number] 02/14/2020 05:44:00 PM EDT [facility] Name Value Range Interpretation Code Description Data Fifi rce(s) Supporting Document(s) CBC W/AUTOMATED DIFF [facility] COMPLETE BLOOD COUNT Leukocytes [#/volume] in Blood by Automated count 7.4 10^3/uL 4.2 - 1 1.0 [facility] Erythrocytes [#/volume] in Blood by Automated count 4.83 10^6/uL 4. 50 - 6.30 [facility] Hemoglobin [Mass/volume] in Blood 15.3 g/dL 14.0 - 16.0 [facility] Hematocrit [Volume Fraction] of Blood by Automated count 45.6 % 4 1.0 - 51.0 [facility] Erythrocyte mean corpuscular volume [Entitic volume] by Auto mated count 94.4 fL 80.0 - 94.0 H [facility] Erythrocyte mean corpuscular hemoglobin [Entitic mass] by Automated count 31.7 pg 27.0 - 34.0 [facility] Erythrocyte mean corpuscular hemoglobin concentration [Mass/volume] by Automated count 33.6 g/dL 31.0 - 36.0 [facility] Erythrocyte distribution width [Ratio] by Automated count 13.8 % 11.5 - 14.8 [facility] Platelets [#/volume] in Blood by Automated count 166 10^3/uL 150 - 45 0 [facility] Platelet mean volume [Entitic volume] in Blood by Automated count 12.5 fL 7.4 - 10.4 H [facility] Neutrophils/100 leukocytes in Blood by Automated count 57.2 % 37. 0 - 80.0 [facility] Lymphocytes/100 leukocytes in Blood by Manual count 27.3 % 25.0 - 40.0 [facility] Monocytes/100 leukocytes in Blood by Automated count 7.9 % 3.0 - 8.0 [facility] Eosinophils/100 leukocytes in Blood by Automated count 6.9 % 0.0 - 7.0 [facility] Basophils/100 leukocytes in Blood by Automated count 0.4 % 0.0 - 2.0 [facility] %IG 0.3 % 0.0 - 0.0 [facility] %NRBC 0.0 % 0.0 - 0.0 [facility] Neutrophils [#/volume] in Blood by Automated count 4.26 10^3/uL 2.00 - 6.90 [facility] Lymphocytes [#/volume] in Blood by Automated count 2.03 10^3/uL 0.60 - 3.40 [facility] Monocytes [#/volume] in Blood by Automated count 0.59 10^3/uL 0.00 - 0.90 [facility] Eosinophils [#/volume] in Blood by Automated count 0.51 10^3/uL 0.00 - 0.70 [facility] Basophils [#/volume] in Blood by Automated count 0.03 10^3/uL 0.00 - 0.20 [facility] #IG 0.02 10^3/uL 0.00 - 0.10 [facility] #NRBC 0.00 10^3/uL 0.00 - 0.00 [facility] MANUAL DIFF NOT INDICATED [facility] RBC MORPH NOT INDICATED [facility] spital ID Date Data Source [id number] 02/14/2020 05:22:00 PM EDT [facility] Name Value Range Interpretation Code Description Data Fifi rce(s) Supporting Document(s) Hemoglobin A1c/Hemoglobin.total in Blood 5.9 % 4.4 - 6.1 [facility] {A1]{HB] Procedure Social History No Information Vital Signs ID Date Data Source UNK Name Value Range Interpretation Code Description Data Source(s) Systolic blood pressure 130 mm[Hg] 130 mm[Hg] [facility] Diastolic blood pressure 76 mm[Hg] 76 mm[Hg] [facility] ([facility]) Heart rate 64 /min 64 /min [facility] ([facility]) Body temperature 96.4 [degF] 96.4 [degF] [facility] ([facility]) Respiratory rate 16 /min 16 /min [facility] ( [facility]) Oxygen saturation in Arterial blood by Pulse oximetry 98 % 98 % [facility] ([facility]) Body weight 192.38 [lb_av] 192.38 [lb_av] [facility] ([facility]) Body weight 87.261 kg 87.261 kg [facility] ([facility]) Body height 72 [in_i] 72 [in_i] [facility] ([facility]) 6'0" Body mass index (BMI) [Ratio] 26.1 kg/m2 26.1 k g/m2 [facility] ([facility]) Body surface area Derived from formula 2.10 m2 2.10 m2 [facility] ([facility]) Body mass index (BMI) [Ratio] 26.5 kg/m2 26.5 k g/m2 [facility] ([facility]) Heart rate 74 /min 74 /min [facility] ([facility]) Body weight 88.509 kg 88.509 kg [facility] ([facility]) Systolic blood pressure 134 mm[Hg] 134 mm[Hg] M [facility] ([facility]) Diastolic blood pressure 70 mm[Hg] 70 mm[Hg] [facility] ([facility]) Body temperature 96.4 [degF] 96.4 [degF] [facility] ([facility]) Respiratory rate 16 /min 16 /min [facility] ( [facility]) Oxygen saturation in Arterial blood by Pulse oximetry 96 % 96 % [facility] Body weight 195.12 [lb_av] 195.12 [lb_av] [facility] ([facility]) Body height 72 [in_i] 72 [in_i] [facility] ([facility]) 6'0" Body surface area Derived from formula 2.11 m2 2.11 m2 [facility] ([facility]) Body height 72 [in_i] 72 [in_i] [facility] ([facility]) 6'0" Oxygen saturation in Arterial blood by Pulse oximetry 96 % 96 % [facility] ([facility]) Body mass index (BMI) [Ratio] 25.6 kg/m2 25.6 k g/m2 [facility] ([facility]) Body surface area Derived from formula 2.08 m2 2.08 m2 [facility] ([facility]) Systolic blood pressure 130 mm[Hg] 130 mm[Hg] [facility] ([facility]) Diastolic blood pressure 74 mm[Hg] 74 mm[Hg] [facility] ([facility]) Heart rate 76 /min 76 /min [facility] ([facility]) Body temperature 97.7 [degF] 97.7 [degF] [facility] ([facility]) Respiratory rate 18 /min 18 /min [facility] ( [facility]) Body weight 188.50 [lb_av] 188.50 [lb_av] [facility] ([facility]) Body weight 85.504 kg 85.504 kg [facility] ([facility]) Systolic blood pressure 124 mm[Hg] 124 mm[Hg] [facility] ([facility]) Diastolic blood pressure 70 mm[Hg] 70 mm[Hg] [facility] ([facility]) Body weight 192.38 [lb_av] 192.38 [lb_av] [facility] ([facility]) Body weight 87.261 kg 87.261 kg [facility] ([facility]) Body mass index (BMI) [Ratio] 26.1 kg/m2 26.1 k g/m2 [facility] ([facility]) Body surface area Derived from formula 2.10 m2 2.10 m2 [facility] ([facility]) Heart rate 78 /min 78 /min [facility] ([facility]) Body temperature 97.2 [degF] 97.2 [degF] [facility] ([facility]) Respiratory rate 18 /min 18 /min [facility] ( [facility]) Oxygen saturation in Arterial blood by Pulse oximetry 97 % 97 % [facility] ([facility]) Body height 72 [in_i] 72 [in_i] [facility] ([facility]) 6'0" Body surface area 2.11 m2 2.11 m2 [facility] ([facility]) Body weight 195.25 [lb_av] 195.25 [lb_av] [facility] ([facility]) Body weight 88.565 kg 88.565 kg [facility] ([facility]) Systolic blood pressure 110 mm[Hg] 110 mm[Hg] M [facility] ([facility]) Diastolic blood pressure 72 mm[Hg] 72 mm[Hg] [facility] ([facility]) Heart rate 78 /min 78 /min [facility] ([facility]) Body temperature 97.1 [degF] 97.1 [degF] [facility] ([facility]) Respiratory rate 18 /min 18 /min [facility] ( [facility]) Oxygen saturation in Arterial blood by Pulse oximetry 97 % 97 % [facility] ([facility]) Body height 72 [in_i] 72 [in_i] [facility] ([facility]) 6'0" Body mass index (BMI) [Ratio] 26.5 kg/m2 26.5 k g/m2 [facility] ([facility]) Body surface area Derived from formula 2.11 m2 2.11 m2 [facility] ([facility])
[2021-04-01] MEDS ORDERED: LACTULOSE 20 GM/30 ML SYRUP UD PO SCH (18:00)
[2021-04-01] MEDS: CEPHALEXIN 500 MG CAP PO SCH (19:01)
[2021-04-01] MEDS: DIVALPROEX 500 MG TAB PO SCH (20:50)
[2021-04-01] MEDS: LACTULOSE 20 GM/30 ML SYRUP UD PO SCH (23:04)
[2021-04-02] MEDS: CEPHALEXIN 500 MG CAP PO SCH ×5 (00:53→23:34)
[2021-04-02 06:40] VITALS: BP 122/72
[2021-04-02] MEDS: OMEPRAZOLE 20 MG CAP PO SCH (08:33)
[2021-04-02] MEDS: MELOXICAM (MOBIC) 7.5 MG TAB PO SCH (08:33)
[2021-04-02] MEDS: LACTULOSE 20 GM/30 ML SYRUP UD PO SCH ×2 (08:34→21:03)
[2021-04-02] MEDS: DIVALPROEX 500 MG TAB PO SCH ×2 (08:34→21:04)
[2021-04-02] MEDS ORDERED: HOME MED LIST COMPLETE! XX SCH (11:10)
--- NOTE | 2021-04-02 17:30 | MHHPE ---
[facility] HISTORY AND PHYSICAL DATE OF ADMISSION: 04/01/2021 HISTORY OF PRESENT ILLNESS: This is a 60-year-old man who was admitted after he took a substantial overdose of Depakote and Fentanyl in an attempt to kill himself. The patient was seen in consultation by Dr. Sanchez in the progressive care unit, and at that time he indicated that the overdose occurred due to "pressures" at home and that they have been building up over several weeks. He stays with his sister, the sister's friend. Today when I asked him, however, he indicated he was not sure why he took the overdose, and he tells me that he had not been having any conflicts with the people he lives with. Apparently his sister had found him unresponsive, and there was a bottle of meloxicam that was found, 15 mg tablets, and an empty bottle of omeprazole, and there were 35 pills missing in his Depakote 500 mg bottle. Of note is that the patient is not the best historian. He states that he was "in special education" when he was in school but that he did go to school until he was 17 years old. He states that for the last 35 years he has been in nursing home, and when I asked him why he said, "I was accused of killing someone." He tells me that he has been feeling depressed, but then he tells me "today I am happy, but some days I am sad." I asked him if there were any particular stressors that would contribute to the days that he was feeling depressed, and he said no. He denies any problems with his sleep or his appetite. PAST PSYCHIATRIC HISTORY: The patient says that he was seen at some point by a psychiatrist. He tells me that the Depakote he thinks that he takes "for my nerves;' however, he does have a seizure disorder, and I do not see that he is on any other medications that could possibly be for seizures other than his Depakote, and so it is possible that the Depakote is being prescribed to him for seizures. The patient state that he has been in the psychiatric unit before, but when I asked him for what, he said he it was for problems with alcohol, and that was before he went to nursing home 35 years ago. He says he does not drink alcohol now or do any drugs now. He says he has never made any suicidal attempts before this time. FAMILY HISTORY: He is not aware of any psychiatric illness in the family or any suicides in the family. MEDICAL HISTORY: Patient has a seizure disorder. ABUSE HISTORY: He denies any history of any physical or sexual abuse. SUBSTANCE USE HISTORY: He denies any trouble with alcohol or drugs now, but he did say in the past he had trouble with alcohol. REVIEW OF SYSTEMS: VITAL SIGNS: Blood pressure is 122/72, pulse is 72 and respirations are 18. NEUROMUSCULAR SYSTEM: The patient's gait is normal and there are no involuntary movements noted in the extremities. All other review of systems were reviewed and found to be negative . APPEARANCE: He did not appear to be in any apparent distress. MENTAL STATUS EXAMINATION: Patient is alert and oriented times three, pleasant and cooperative, verbally spontaneous. Eye contact is good. There is no formal thought disorder noted. He says his mood is depressed. Today he says that he is feeling happy, and his affect is constricted but appropriate to his mood. He is not psychotic, suicidal, homicidal. Concentration is fair. Memory is intact. Insight and judgment are poor. DIAGNOSES: 1. Unspecified depressive disorder. 2. Intellectual disability. TREATMENT PLAN: At this point I am going to go ahead and start the patient on citalopram 20 mg daily for depression, and I will continue the Depakote, because I am not sure what it is being prescribed for, and it is very possible that it is being prescribed for his seizures. We will monitor him for continued stabilization of his mood and resolution of suicidal ideation. VAIBHAV
--- NOTE | 2021-04-02 19:40 | HPEPDOC ---
General Date of Admission Apr 01, 2021 at 15:32 Date of Service: Apr 02, 2021 Chief Complaint The patient is a 60-year-old male admitted with a reason for visit of Unspecified Depressive Disorder. Source: Patient History of Present Illness 60-year-old male with epilepsy from the age of 17 years, migraine, tension headache, mild intellectual disability was initially admitted to inpatient medicine for suicidal attempt by overdose with the antiepileptic medication and fentanyl with very high Depakote levels greater than 500 and elevated ammonia levels was managed with carnitine drip. Needed Narcan to wake him up. After management and medicine he was transferred to inpatient mental health unit for depression with suicidal attempt. He is being seen here today for medical history and physical. Patient complains of rash on the abdominal wall and a small area of discoloration in the left leg which looks like an scabbed over abrasion. The rash in the abdomen is dry itchy and looks like fungal. No other complaints this morning. Home Medications Scheduled Cephalexin (Cephalexin) 500 Mg Capsule, 500 MG PO Q6H For 4 days Divalproex Sodium (Divalproex Sodium) 500 Mg Tablet.dr, 500 MG PO DAILY, (Reported) Divalproex Sodium (Divalproex Sodium) 500 Mg Tablet.dr, 1,000 MG PO QHS, (Reported) Lactulose (Lactulose) 10 Gm/15 Ml Solution, 15 ML PO BID Meloxicam (Meloxicam) 15 Mg Tablet, 15 MG PO DAILY, (Reported) Omeprazole (Omeprazole) 20 Mg Capsule.dr, 20 MG PO DAILY, (Reported) Scheduled PRN Clotrimazole (Clotrimazole) 1% 30GM Cream..g., 1 APPLIC TOP BID PRN for RASH, (Reported) APPLY TO RASH ON ARMS Allergies Coded Allergies: No Known Drug Allergies (Verified Allergy, Unknown, 12/10/19) Past Medical History Medical History 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 Noncompliant with medications. Chronic migraine headaches Chronic tension headaches Depression Surgical History None Family History No significant family history discussed with patient Social History * Smoker: Denies Alcohol: Denies Drugs: denies A-FIB/CHADSVASC A-FIB History Current/History of A-Fib/PAF?: No Review of Systems Constitutional: Denies: Chills, Fever, Night Sweats Eyes: Denies: Pain, Vision change ENT: Denies: Head Aches, Ear Pain, Dysphagia Skin: Reports: Rash (In the abdomen wall), Itching Pulmonary: Denies: Dyspnea, Cough Cardiovascular: Denies: Chest Pain, Palpitations, Orthopnea, Paroxysmal Noc. Dyspnea, Lt Headedness Gastrointestinal: Denies: Nausea, Vomiting, Abdominal Pain, Diarrhea Genitourinary: Denies: Dysuria, Frequency, Incontinence, Retention Physical Examination General Exam: Positive: Alert, Cooperative, No Acute Distress Eye Exam: Positive: PERRLA, Conjunctiva & lids normal, EOMI; Negative: Sclera icteric ENT Exam: Positive: Atraumatic, Mucous membr. moist/pink, Pharynx Normal Neck Exam: Positive: Supple; Negative: JVD, thyromegaly Chest Exam: Positive: Clear to auscultation, Normal air movement Heart Exam: Positive: Rate Normal, Regular Rhythm, Normal S1, Normal S2; Negative: Murmurs, Rubs Abdomen Exam: Positive: Normal bowel sounds, Soft; Negative: Tenderness Extremity Exam: Negative: Clubbing, Cyanosis, Edema Skin Exam: Positive: Rash (Looks like a fungal rash on the abdominal wall), Other skin issue (Scabbed over abrasion at the medial aspect of left leg) Neuro Exam: Positive: Normal Speech, Strength at 5/5 X4 ext, Normal Tone Psych Exam: Positive: Oriented x 3 Vital Signs Vital Signs Date Time Temp Pulse Resp B/P (MAP) Pulse Ox O2 Delivery O2 Flow Rate FiO2 04/02/21 09:00 Room Air 04/02/21 06:40 98.5 74 18 122/72 (89) 100 Laboratory Data Labs 24H Laboratory Tests 2 04/01/21 18:28: Ammonia 12 Assessment/Plan 60-year-old male with epilepsy from the age of 17 years, migraine, tension headache, mild intellectual disability was initially admitted to inpatient medicine for suicidal attempt by overdose with the antiepileptic medication and fentanyl with very high Depakote levels greater than 500 and elevated ammonia levels was managed with carnitine drip. Needed Narcan to wake him up. After management and medicine he was transferred to inpatient mental health unit for depression with suicidal attempt. He is being seen here today for medical history and physical. Depression with suicidal attempt Management as per psychiatry Generalized tonic-clonic epilepsy Continue Depakote as per home dosage Abdominal wall fungal rash with secondary bacterial infection Finish course of Keflex We will add clotrimazole cream. Plan / VTE VTE Prophylaxis Ordered?: No (Freely ambulatory) Jennifer Silva MD Apr 02, 2021 14:21
[2021-04-02] MEDS: CLOTRIMAZOLE 1% TOPICAL CREAM 30GM TOP SCH (21:03)
[2021-04-02] MEDS: traZODone 50 MG TAB PO PRN (21:04)
[2021-04-03] MEDS: CEPHALEXIN 500 MG CAP PO SCH ×4 (05:33→23:03)
[2021-04-03 06:05] VITALS: BP 123/74
[2021-04-03] MEDS: OMEPRAZOLE 20 MG CAP PO SCH (09:01)
[2021-04-03] MEDS: DIVALPROEX 500 MG TAB PO SCH ×2 (09:01→20:25)
[2021-04-03] MEDS: CitaloPRAM (CeleXA) 20 MG TAB PO SCH (09:01)
[2021-04-03] MEDS: MELOXICAM (MOBIC) 7.5 MG TAB PO SCH (09:01)
[2021-04-03] MEDS: LACTULOSE 20 GM/30 ML SYRUP UD PO SCH ×2 (09:01→20:24)
[2021-04-03] MEDS: CLOTRIMAZOLE 1% TOPICAL CREAM 30GM TOP SCH ×2 (09:02→20:24)
--- NOTE | 2021-04-03 13:52 | MHIPNPDOC ---
[facility] Progress Note Progress Note DATE OF SERVICE: 04/03/21 HISTORY: This is Day 3 for a 64 year old Single, Intellectually Disabled, Domiciled, Male who had taken an overdose of Depakote, Meloxicam, Omeprazole and possible Fentanyl as a suicidal attempt. VITAL SIGNS: See below. NEW TEST RESULTS: None CURRENT MEDICATIONS: See below. RESPONSE TO MEDICATIONS: Denies any side effective or adverse problems. Patient has intellectual disability and cannot quantify medication effectiveness. ILLNESS EDUCATIONS: Attempted to discuss his stressors or triggers. Patient has intellectual disability and cannot communicate his stressors or triggers. States that he is "happy today" MENTAL STATUS EXAMINATION: 64 year old Single, Intellectually Disabled, Domiciled, Male who had taken an overdose of Depakote, Meloxicam, Omeprazole and possible Fentanyl as a suicidal attempt. Speech: Is fluid, conversant, normal rate, tone and volume Language skills are intact for his intelligence Thought processes including: linear and goal oriented Thought content: denies depression and anxiety. Denies suicidal/homicidal ideation, planning or intent. Abstract reasoning, and computation: fair Description of associations: denies, none observed Description of abnormal or psychotic thoughts: denies, none observed. Judgment: fair Insight: fair Orientation: alert and oriented to person, place, time and situation Recent and remote memory: intact Attention span and concentration: good Language: expansive Fund of knowledge: below average Mood: Neutral Mood Affect: flat DIAGNOSES: Unspecified Depressive Disorder Intellectual Disability ASSESSMENT: Patient found watching movie on iPad. Attempted to talk to patient about his suicide attempt - patient does not understand "suicide" but says he overdosed. When asked if he wanted to he states "no" When asked what would happen if her overdosed, he states "I would be six feet under" Patient has difficulty comprehending questions but states "I don't want to be , I am happy today." MANAGEMENT PLAN: Continue all medications as prescribed. Will discharge next week. TIME SPENT: 25 minutes. Vital Signs Vital Signs Date Time Temp Pulse Resp B/P (MAP) Pulse Ox O2 Delivery O2 Flow Rate FiO2 04/03/21 06:05 98.3 79 16 123/74 (90) 100 Room Air Current Medications Current Medications Medications (Trade) Dose Ordered Sig/Heather Route PRN Reason Start Time Stop Time Status Last Admin Dose Admin Acetaminophen (Tylenol Tab) 650 mg Q6HP PRN PO HEADACHE or MILD DISCOMFORT 04/01/21 14:45 Al Hydrox/Mg Hydrox/Simethicone (Mylanta) 30 ml Q4HP PRN PO HEARTBURN/INDIGESTION 04/01/21 14:45 Cephalexin Monohydrate (Keflex) 500 mg Q6H PO 04/01/21 18:00 04/05/21 17:59 04/03/21 11:40 Citalopram Hydrobromide (CeleXA) 20 mg QAM PO 04/03/21 09:00 04/03/21 09:01 Clotrimazole (Lotrimin) on the abdominal wall BID TOP 04/02/21 21:00 04/03/21 09:02 Divalproex Sodium (Depakote) 500 mg DAILY PO 04/02/21 09:00 04/03/21 09:01 Divalproex Sodium (Depakote) 1,000 mg QHS PO 04/01/21 21:00 04/02/21 21:04 Home Med (Home Med List Complete!) ASDIRECTED XX 04/02/21 11:10 04/02/21 11:13 DC Lactulose (Cephulac) 15 ml BID PO 04/01/21 21:00 04/03/21 09:01 Lactulose (Cephulac) 15 ml Q6H PO 04/01/21 18:00 04/01/21 17:47 DC Magnesium Hydroxide (Milk Of Magnesia) 30 ml DAILYPRN PRN PO CONSTIPATION 04/01/21 14:45 Meloxicam (Mobic) 15 mg DAILY PO 04/02/21 09:00 04/03/21 09:01 Olanzapine (ZyPREXA ZYDIS) 5 mg BIDP PRN PO AGITATION 04/01/21 14:45 Omeprazole (PriLOSEC) 20 mg DAILY PO 04/02/21 09:00 04/03/21 09:01 Trazodone HCl (Desyrel) 50 mg QHSP PRN PO INSOMNIA 04/01/21 14:45 04/02/21 21:04 Allergies Coded Allergies: No Known Drug Allergies (Verified Allergy, Unknown, 12/10/19) GERTRUDE BAXTER NP Apr 03, 2021 13:44
[2021-04-03 18:00] VITALS: BP 126/65
[2021-04-03] MEDS: traZODone 50 MG TAB PO PRN (20:25)
[2021-04-04] MEDS: CEPHALEXIN 500 MG CAP PO SCH ×3 (06:05→17:31)
[2021-04-04 06:49] VITALS: BP 145/79
[2021-04-04] MEDS: MELOXICAM (MOBIC) 7.5 MG TAB PO SCH (09:20)
[2021-04-04] MEDS: OMEPRAZOLE 20 MG CAP PO SCH (09:20)
[2021-04-04] MEDS: CitaloPRAM (CeleXA) 20 MG TAB PO SCH (09:20)
[2021-04-04] MEDS: DIVALPROEX 500 MG TAB PO SCH ×2 (09:20→22:15)
[2021-04-04] MEDS: LACTULOSE 20 GM/30 ML SYRUP UD PO SCH ×2 (09:21→22:15)
[2021-04-04] MEDS: CLOTRIMAZOLE 1% TOPICAL CREAM 30GM TOP SCH ×2 (09:27→22:20)
--- NOTE | 2021-04-04 15:58 | MHIPNPDOC ---
[facility] Progress Note Progress Note DATE OF SERVICE: 04/04/21 HISTORY: This is Day 4 for a 64 year old Single, Intellectually Disabled, Domiciled, Male who had taken an overdose of Depakote, Meloxicam, Omeprazole and possible Fentanyl as a suicidal attempt. VITAL SIGNS: See below. NEW TEST RESULTS: None CURRENT MEDICATIONS: See below. RESPONSE TO MEDICATIONS: Denies any side effective or adverse problems. Patient has intellectual disability and cannot quantify medication effectiveness. ILLNESS EDUCATIONS: Attempted to discuss his stressors or triggers. Patient has intellectual disability and cannot communicate his stressors or triggers. States that he is "happy today" MENTAL STATUS EXAMINATION: 64 year old Single, Intellectually Disabled, Domiciled, Male who had taken an overdose of Depakote, Meloxicam, Omeprazole and possible Fentanyl as a suicidal attempt. Speech: Is fluid, conversant, normal rate, tone and volume Language skills are intact for his intelligence Thought processes including: linear and goal oriented Thought content: denies depression and anxiety. Denies suicidal/homicidal ideation, planning or intent. Abstract reasoning, and computation: fair Description of associations: denies, none observed Description of abnormal or psychotic thoughts: denies, none observed. Judgment: fair Insight: fair Orientation: alert and oriented to person, place, time and situation Recent and remote memory: intact Attention span and concentration: good Language: expansive Fund of knowledge: below average Mood: Neutral Mood Affect: flat DIAGNOSES: Unspecified Depressive Disorder Intellectual Disability ASSESSMENT: Patient found in his room he is quarantined due to Covid exposure. Patient states "I am happy." He denies suicidal ideation. Stated that due to parole and conflicting reports that he was frustrated and felt very depressed. He states that because of his being a parolee he that he is reprimanded to stay within his home and with the perimeter of the home. Patient stated he wants to feel like a human being and be able to walk around town. He states that he no longer wants to be paroled. Patient is intellectually disabled, he has difficulty expressing much of his emotions but he reports that he can be safe outside of the hospital and wants to be discharged next week. MANAGEMENT PLAN: Continue all medications as prescribed. Will discharge next week. TIME SPENT: 25 minutes. Vital Signs Vital Signs Date Time Temp Pulse Resp B/P (MAP) Pulse Ox O2 Delivery O2 Flow Rate FiO2 04/04/21 06:49 98.1 79 18 145/79 (101) 99 Room Air Current Medications Current Medications Medications (Trade) Dose Ordered Sig/Heather Route PRN Reason Start Time Stop Time Status Last Admin Dose Admin Acetaminophen (Tylenol Tab) 650 mg Q6HP PRN PO HEADACHE or MILD DISCOMFORT 04/01/21 14:45 Al Hydrox/Mg Hydrox/Simethicone (Mylanta) 30 ml Q4HP PRN PO HEARTBURN/INDIGESTION 04/01/21 14:45 Cephalexin Monohydrate (Keflex) 500 mg Q6H PO 04/01/21 18:00 04/05/21 17:59 04/04/21 12:14 Citalopram Hydrobromide (CeleXA) 20 mg QAM PO 04/03/21 09:00 04/04/21 09:20 Clotrimazole (Lotrimin) on the abdominal wall BID TOP 04/02/21 21:00 04/04/21 09:27 Divalproex Sodium (Depakote) 500 mg DAILY PO 04/02/21 09:00 04/04/21 09:20 Divalproex Sodium (Depakote) 1,000 mg QHS PO 04/01/21 21:00 04/03/21 20:25 Home Med (Home Med List Complete!) ASDIRECTED XX 04/02/21 11:10 04/02/21 11:13 DC Lactulose (Cephulac) 15 ml BID PO 04/01/21 21:00 04/04/21 09:21 Lactulose (Cephulac) 15 ml Q6H PO 04/01/21 18:00 04/01/21 17:47 DC Magnesium Hydroxide (Milk Of Magnesia) 30 ml DAILYPRN PRN PO CONSTIPATION 04/01/21 14:45 Meloxicam (Mobic) 15 mg DAILY PO 04/02/21 09:00 04/04/21 09:20 Olanzapine (ZyPREXA ZYDIS) 5 mg BIDP PRN PO AGITATION 04/01/21 14:45 Omeprazole (PriLOSEC) 20 mg DAILY PO 04/02/21 09:00 04/04/21 09:20 Trazodone HCl (Desyrel) 50 mg QHSP PRN PO INSOMNIA 04/01/21 14:45 04/03/21 20:25 Allergies Coded Allergies: No Known Drug Allergies (Verified Allergy, Unknown, 12/10/19) GERTRUDE BAXTER NP Apr 04, 2021 15:58
[2021-04-04 19:01] VITALS: BP 135/81
[2021-04-04] MEDS: traZODone 50 MG TAB PO PRN (22:14)
[2021-04-05] MEDS: CEPHALEXIN 500 MG CAP PO SCH ×3 (00:48→12:28)
[2021-04-05] MEDS: OMEPRAZOLE 20 MG CAP PO SCH (08:57)
[2021-04-05] MEDS: CLOTRIMAZOLE 1% TOPICAL CREAM 30GM TOP SCH ×2 (08:57→21:00)
[2021-04-05] MEDS: MELOXICAM (MOBIC) 7.5 MG TAB PO SCH (08:57)
[2021-04-05] MEDS: DIVALPROEX 500 MG TAB PO SCH ×2 (08:57→22:36)
[2021-04-05] MEDS: CitaloPRAM (CeleXA) 20 MG TAB PO SCH (08:57)
[2021-04-05] MEDS: LACTULOSE 20 GM/30 ML SYRUP UD PO SCH ×2 (09:01→22:36)
[2021-04-05 09:22] VITALS: BP 155/80
--- NOTE | 2021-04-05 13:06 | MHIPNPDOC ---
[facility] Progress Note Progress Note DATE OF SERVICE: 04/05/21 HISTORY: Patient is a 64 year old Single, Intellectually Disabled man, who who presented with an intentional overdose as a suicide attempt on Depakote, Melox icam, Omeprazole and possible Fentanyl. VITAL SIGNS: See below. NEW TEST RESULTS: none, see below CURRENT MEDICATIONS: See below. MENTAL STATUS EXAMINATION: Patient is a 60-year old male, who is in no acute distress Speech: Is nonspontaneous, minimal amount Language skills are poor in context of intellectual disability Thought processes including: Banning Thought content: States he is excited to go home possibly on Wednesday, denies suicidal ideation, intent or plan abstract reasoning, and computation: Poor description of associations: Banning Description of abnormal or psychotic thoughts: Denies, states he does not have any hallucinations or paranoia Judgment: Limited Insight: Limited Orientation: x4 Recent and remote memory: Fair Attention span and concentration: Fair. Language: Spanish Fund of knowledge: Below average based on interview Mood: "happy" Affect: Euthymic, full, mood congruent, appropriate, concrete DIAGNOSES: Unspecified Depressive Disorder Intellectual Disability ASSESSMENT: denies SI, HI, enthusiastic to leave possibly Wednesday, reports stable on medications, no side effects. No acute physical complaints. MANAGEMENT PLAN: Continues medications, no changes. TIME SPENT: 15 minutes. Vital Signs Vital Signs Date Time Temp Pulse Resp B/P (MAP) Pulse Ox O2 Delivery O2 Flow Rate FiO2 04/05/21 09:22 Room Air 04/05/21 09:22 18 04/05/21 09:22 98.0 84 155/80 (105) 95 Current Medications Current Medications Medications (Trade) Dose Ordered Sig/Heather Route PRN Reason Start Time Stop Time Status Last Admin Dose Admin Acetaminophen (Tylenol Tab) 650 mg Q6HP PRN PO HEADACHE or MILD DISCOMFORT 04/01/21 14:45 Al Hydrox/Mg Hydrox/Simethicone (Mylanta) 30 ml Q4HP PRN PO HEARTBURN/INDIGESTION 04/01/21 14:45 Cephalexin Monohydrate (Keflex) 500 mg Q6H PO 04/01/21 18:00 04/05/21 17:59 04/05/21 12:28 Citalopram Hydrobromide (CeleXA) 20 mg QAM PO 04/03/21 09:00 04/05/21 08:57 Clotrimazole (Lotrimin) on the abdominal wall BID TOP 04/02/21 21:00 04/05/21 08:57 Divalproex Sodium (Depakote) 500 mg DAILY PO 04/02/21 09:00 04/05/21 08:57 Divalproex Sodium (Depakote) 1,000 mg QHS PO 04/01/21 21:00 04/04/21 22:15 Home Med (Home Med List Complete!) ASDIRECTED XX 04/02/21 11:10 04/02/21 11:13 DC Lactulose (Cephulac) 15 ml BID PO 04/01/21 21:00 04/05/21 09:01 Lactulose (Cephulac) 15 ml Q6H PO 04/01/21 18:00 04/01/21 17:47 DC Magnesium Hydroxide (Milk Of Magnesia) 30 ml DAILYPRN PRN PO CONSTIPATION 04/01/21 14:45 Meloxicam (Mobic) 15 mg DAILY PO 04/02/21 09:00 04/05/21 08:57 Olanzapine (ZyPREXA ZYDIS) 5 mg BIDP PRN PO AGITATION 04/01/21 14:45 Omeprazole (PriLOSEC) 20 mg DAILY PO 04/02/21 09:00 04/05/21 08:57 Trazodone HCl (Desyrel) 50 mg QHSP PRN PO INSOMNIA 04/01/21 14:45 04/04/21 22:14 Allergies Coded Allergies: No Known Drug Allergies (Verified Allergy, Unknown, 12/10/19) STEPHANIE KNAPP MD Apr 05, 2021 13:06
[2021-04-05 17:58] VITALS: BP 142/86
[2021-04-06] MEDS: MELOXICAM (MOBIC) 7.5 MG TAB PO SCH (08:22)
[2021-04-06] MEDS: OMEPRAZOLE 20 MG CAP PO SCH (08:22)
[2021-04-06] MEDS: CitaloPRAM (CeleXA) 20 MG TAB PO SCH (08:23)
[2021-04-06] MEDS: CLOTRIMAZOLE 1% TOPICAL CREAM 30GM TOP SCH ×2 (08:23→20:30)
[2021-04-06] MEDS: DIVALPROEX 500 MG TAB PO SCH ×2 (08:23→20:30)
[2021-04-06] MEDS: LACTULOSE 20 GM/30 ML SYRUP UD PO SCH ×2 (08:24→20:29)
[2021-04-06 08:55] VITALS: BP 148/94
[2021-04-06 17:30] VITALS: BP 126/79
[2021-04-06 18:45] VITALS: BP 126/79
[2021-04-06] MEDS: traZODone 50 MG TAB PO PRN (20:30)
[2021-04-07] MEDS: OMEPRAZOLE 20 MG CAP PO SCH (09:56)
[2021-04-07] MEDS: MELOXICAM (MOBIC) 7.5 MG TAB PO SCH (09:56)
[2021-04-07] MEDS: CitaloPRAM (CeleXA) 20 MG TAB PO SCH (09:57)
[2021-04-07] MEDS: LACTULOSE 20 GM/30 ML SYRUP UD PO SCH (09:57)
[2021-04-07] MEDS: DIVALPROEX 500 MG TAB PO SCH (09:58)
[2021-04-07] MEDS: CLOTRIMAZOLE 1% TOPICAL CREAM 30GM TOP SCH (09:58)
[2021-04-07] MEDS ORDERED: DIVA500T94 PO ×2 (10:32)
[2021-04-07] MEDS ORDERED: CLOT1CRE56 TOP (10:32)
[2021-04-07] MEDS ORDERED: CELE20TA PO (10:32)
[2021-04-07] MEDS ORDERED: MELO15TA28 PO (10:32)
[2021-04-07] MEDS ORDERED: OMEP-218 PO (10:32)
--- NOTE | 2021-04-07 16:55 | MHDSPDOC ---
[facility] Discharge Summary Discharge Summary DATE OF ADMISSION: Apr 01, 2021 at 15:32 DATE OF DISCHARGE: Apr 07, 2021 at 11:22 DISCHARGE DIAGNOSES: Unspecified Depressive Disorder Intellectual Disability REASON FOR ADMISSION: Patient is a 64 year old Single, Intellectually Disabled man, who was admitted from a medical floor with an intentional overdose as a suicide attempt on Depakote, Meloxicam, Omeprazole and possible Fentanyl. VITAL SIGNS: See below. CONSULTANTS INVOLVED: See Medical H + P by Hospitalist TREATMENT AND PROGRESS ON THE UNIT: Patient was admitted to the [facility] on a legal status was afforded the following treatment modalities: 1) Individual Therapy 2) Group Therapy 3) Medication Management 4) Milieu Therapy 5) Safe Environment HOSPITAL COURSE: Patient was admitted to [facility] on a legal status. Patient was started on his home medications and citalopram - pt found medications beneficial and tolerated them well. Mood, anxiety, and intrusive thoughts improved with treatment. Patient was exposed to Covid positive here, and was quarantined and spent all of his hospitalization in in his room, however pts symptoms improved with treatment. On day of discharge pt. denied depression, anxiety, insomnia, SI/HI, hallucinations, delusions. Pt was discharged home where he resides with his sister. He will follow-up with [facility]. Pt felt safe for discharge. DISCHARGE ASSESSMENT: In today's interview, patient is alert and oriented, pt.s dress is appropriate. Hygiene and grooming is well-kempt. Smiles on approach and is pleasant and engaged in the interview. Denies depression and anxiety. Denies suicidal and homicidal ideation, planning or intent. Denies and is not observed with elmer, psychotic symptoms of delusions, bizarre thinking, obsessions, paranoia, ruminations illogical thoughts, flight of ideas or having poor insight and judgement. Reinforced with patient need to abstain from alcoh ol and drugs. At discharge patient has normal mentation, declines further hospitalization on a voluntary status and meets criteria for discharge today. Discussed indications of medications, potential benefits and risks, alternatives (including no treatment) and questions were encouraged and answered. Patient encouraged to return to hospital if symptoms worsen or change and encouraged to call unit if he/she/they needs to speak to provider for questions regarding medications or care. MENTAL STATUS EXAMINATION ON DISCHARGE: Patient is a 64 year old Single, Intellectually Disabled man, who was admitted from a medical floor with an intentional overdose as a suicide attempt on Depakote, Meloxicam, Omeprazole and possible Fentanyl. Speech: Is fluid, conversant, normal rate, tone and volume Language skills are intact Thought processes including: linear and goal oriented Thought content: denies depression and anxiety. Denies suicidal/homicidal ideation, planning or intent. Abstract reasoning, and computation: fair Description of associations: denies, none observed Description of abnormal or psychotic thoughts: denies, none observed. Judgment: fair Insight: fair Orientation: alert and oriented to person, place, time and situation Recent and remote memory: intact Attention span and concentration: good Language: expansive Fund of knowledge: average Mood: Euthymic Mood Affect: reactive Suicide Risk Assessment: 1) Does the patient wish to be ? No 2) Since your admission, have you had any actual thought of killing yourself? No 3) Since your admission, have you been thinking about how you might do this? No 4) Since your admission, have you had these thoughts and had some intention of acting on them? No 5) Since your admission, have you started to work out or worked out the details of how to kill yourself? No 5A) Do you intent to carry out this plan? No and NA 6) Have you ever done anything, started anything, or prepared to do anything with any intent to ? No 6A) How long since your admission did you do any of these? NA MEDICATIONS ON DISCHARGE: See Medication Reconciliation PLAN/FOLLOWUP ARRANGEMENTS: Pt was discharged home where he resides with his sister. He will follow-up with [facility]. Pt felt safe for discharge. The amount of time spent in the coordination of care for this patient was approximately 25 minutes. ETOH/Disorder Med Rx ETOH/DRUG DISORDER RX: N/A Vital Signs/I&Os Vital Signs Date Time Temp Pulse Resp B/P (MAP) Pulse Ox O2 Delivery O2 Flow Rate FiO2 04/07/21 13:29 Room Air 04/06/21 18:45 98.8 77 16 126/79 (95) 04/06/21 17:30 96 Medications Scheduled Citalopram Hydrobromide (Celexa) 20 Mg Tablet, 20 MG PO QAM for Depression, #7 Divalproex Sodium (Divalproex Sodium) 500 Mg Tablet.dr, 500 MG PO QAM for Mood, #7 Divalproex Sodium (Divalproex Sodium) 500 Mg Tablet.dr, 1,000 MG PO QHS for Mood, #7 Meloxicam (Meloxicam) 15 Mg Tablet, 15 MG PO DAILY for Pain, #7 Omeprazole (Omeprazole) 20 Mg Capsule.dr, 20 MG PO DAILY for Acid Reflux, #7 Scheduled PRN Clotrimazole (Clotrimazole) 1% 30GM Cream..g., 1 APPLIC TOP BID PRN for RASH, #1 APPLY TO RASH ON ARMS Allergies Coded Allergies: No Known Drug Allergies (Verified Allergy, Unknown, 12/10/19) GERTRUDE BAXTER NP Apr 07, 2021 16:55
== END 2021-04-07 11:22 | disposition home or self-care (01) | DRG 754 ==
LOC: M PSY 15:32
PROVIDERS: ADMIT Student in an Organized Health Care Education/Training Program; ATTEND Psychiatry & Neurology Psychiatry
DX: F32.9 Major depressive disorder, single episode, unspecified (principal); G40.409 Other generalized epilepsy and epileptic syndromes, not intractable, without status epilepticus; F70 Mild intellectual disabilities; Z91.51 Personal history of suicidal behavior; G43.709 Chronic migraine without aura, not intractable, without status migrainosus; G44.221 Chronic tension-type headache, intractable; R21 Rash and other nonspecific skin eruption; Z79.1 Long term (current) use of non-steroidal anti-inflammatories (NSAID); Z79.899 Other long term (current) drug therapy

== ENCOUNTER 2021-09-03 12:53 | Emergency (ER) | payer OTHER ==
[~2021-09-03 12:53] MED LIST changes: +CELE20TA PO; +OMEP-173 PO; -OMEP-218 PO
[2021-09-03 13:07] VITALS: BP 119/74
[2021-09-03 13:33] LABS: BASO % 0.5 % (0.0-1.0); EOS # 0.3 10^3/uL (0.0-0.5); EOS % 3.6 % (0.0-3.0); HEMATOCRIT 44.6 % (42.0-52.0); HEMOGLOBIN 15.1 g/dl (13.5-17.5); LYMPH # 2.5 10^3/uL (1.5-5.0); LYMPH % 31.7 % (24.0-44.0); MEAN CORPUSCULAR HEMOGLOBIN 31.7 pg (27.0-33.0); MEAN CORPUSCULAR HGB CONC 33.9 g/dl (32.0-36.5); MEAN CORPUSCULAR VOLUME 93.5 fl (80.0-96.0); MONO # 0.6 10^3/uL (0.0-0.8); MONO % 7.7 % (2.0-8.0); NEUTROPHILS # 4.4 10^3/uL (1.5-8.5); NEUTROPHILS % 56.2 % (36.0-66.0); PLATELET COUNT, AUTOMATED 177 10^3/uL (150-450); RED BLOOD COUNT 4.77 10^6/uL (4.30-6.10); WHITE BLOOD COUNT 7.8 10^3/uL (4.0-10.0)
[2021-09-03 14:00] LABS: ALT/SGPT 20 U/L (12-78); BLOOD UREA NITROGEN 24 MG/DL (7-18); CALCIUM LEVEL 8.5 MG/DL (8.8-10.2); CARBON DIOXIDE LEVEL 27 MEQ/L (21-32); CHLORIDE LEVEL 110 MEQ/L (98-107); CREATININE FOR GFR 0.76 MG/DL (0.70-1.30); GLOMERULAR FILTRATION RATE > 60.0 (>49); GLUCOSE, FASTING 87 MG/DL (70-100); POTASSIUM SERUM 4.3 MEQ/L (3.5-5.1); SODIUM LEVEL 140 MEQ/L (136-145)
[2021-09-03 14:01] LABS: ACETAMINOPHEN LEVEL < 2.0 UG/ML (10.0-30.0); ALBUMIN 3.3 GM/DL (3.2-5.2); BILIRUBIN,DIRECT < 0.1 MG/DL (0.0-0.2); BILIRUBIN,TOTAL 0.7 MG/DL (0.2-1.0); ETHYL ALCOHOL (ETHANOL) 0.005 % (0.000-0.010); SALICYLATE LEVEL 3.4 MG/DL (5.0-30.0); TOTAL PROTEIN 6.4 GM/DL (6.4-8.2); VALPROIC ACID (DEPAKOTE) 46.2 UG/ML (50.0-100.0)
[2021-09-03] MEDS: ACETAMINOPHEN 325 MG TAB PO ONE ×2 (14:06→15:09)
[2021-09-03] MEDS ORDERED: VALPROATE SOD INJ 1,000 MG in D5W 50 ML IV ONE (15:15)
[2021-09-03 15:23] LABS: AMPHETAMINES LEVEL URINE NEGATIVE (NEGATIVE); BARBITURATES URINE NEGATIVE (NEGATIVE); BENZODIAZEPINES URINE POSITIVE (NEGATIVE); CANNABINOIDS URINE NEGATIVE (NEGATIVE); COCAINE METABOLITE URINE NEGATIVE (NEGATIVE); METHADONE URINE NEGATIVE (NEGATIVE); OPIATES URINE NEGATIVE (NEGATIVE); PHENCYCLIDINE URINE NEGATIVE (NEGATIVE)
== END 2021-09-03 17:23 | disposition home or self-care (01) ==
LOC: M ED 12:53
DX: G40.911 Epilepsy, unspecified, intractable, with status epilepticus (principal); F17.200 Nicotine dependence, unspecified, uncomplicated

== ENCOUNTER → 2021-12-22 | Outpatient (CLI) | payer OTHER | LOC: M LABSMTC 10:55 | PROVIDERS: ATTEND Anesthesiology | DX: Z01.818 Encounter for other preprocedural examination (principal); Z11.52 Encounter for screening for COVID-19 ==

== ENCOUNTER 2021-12-26 11:51 | Day surgery (SDC) | payer OTHER ==
[~2021-12-26] VITALS: Ht 182.9 cm; Wt 81.6 kg
[~2021-12-26 11:51] MED LIST changes: +NS 1,000 ML IV ONE; +fentaNYL 100 MCG/2 ML INJECTION As Ordered ONE
[2021-12-26] MEDS ORDERED: fentaNYL 100 MCG/2 ML INJECTION As Ordered ONE (12:50)
[2021-12-26] MEDS ORDERED: LIDOCAINE 2% MDV 20ML VIAL As Ordered ONE (12:50)
[2021-12-26] MEDS ORDERED: propofoL 200 MG/20 ML VIAL As Ordered ONE (13:49)
[2021-12-26 14:04] VITALS: BP 120/72
== END 2021-12-26 14:19 | disposition home or self-care (01) ==
LOC: M OPP 11:51
PROVIDERS: ATTEND Internal Medicine Gastroenterology
DX: R19.5 Other fecal abnormalities (principal); R12 Heartburn; K63.5 Polyp of colon; D13.1 Benign neoplasm of stomach; K22.70 Barrett's esophagus without dysplasia; K57.30 Diverticulosis of large intestine without perforation or abscess without bleeding; K64.8 Other hemorrhoids; K21.00 Gastro-esophageal reflux disease with esophagitis, without bleeding; K22.89 Other specified disease of esophagus; K29.70 Gastritis, unspecified, without bleeding; M19.90 Unspecified osteoarthritis, unspecified site; G40.909 Epilepsy, unspecified, not intractable, without status epilepticus; F72 Severe intellectual disabilities; F17.210 Nicotine dependence, cigarettes, uncomplicated; Z92.21 Personal history of antineoplastic chemotherapy; Z79.899 Other long term (current) drug therapy
CPT/HCPCS: 43239; 45385; 88305; J3010